=== PATIENT | female | born 1935 | race Caucasian/White ===

== ENCOUNTER 2017-04-05 04:51 | Inpatient (IN) ==
[2017-04-05] MEDS ORDERED: NITROGLYCERIN 2% OINT 1 INCH/GM PACK TOP STA (05:18)
[2017-04-05] MEDS ORDERED: ASPIRIN 325 MG TABLET PO STA (05:18)
--- NOTE | 2017-04-05 05:24 | Emergency Department Note ---
Arrival - Arrival ED Nursing Triage Note: Pt arrives via ems from home after waking up at 0200 with chest pain that radiated into her back and down her left arm. Pt states that she was short of breath when she would lay flat. States that pain is still dull in her back between her shoulder blades at time of triage. Denies any nause or vomiting. Pt complains of headache at time of triage as well. Mode of Arrival: Stretcher Limitations: No Limitations Source: Patient - History of Present Illness Onset (ago): hour(s) (Patient presents 3 hours post onset of symptoms) Date of Last Menstrual Period: Hyster <Santi Rosenbaum - Last Filed: 04/05/17 05:21> <Nickolas Santoyo - Last Filed: 04/05/17 07:20> - Arrival Chief Complaint: Chest Pain Time Seen by Provider: 04/05/17 05:18 - History of Present Illness HPI Narrative: This 82-year-old white female presents with complaints of awakening to central chest pain radiating to the back and into the neck and left arm associated with shortness of breath 3 hours ago. Pain has since abated. She denies any nausea , vomiting, or diaphoresis in association with this. She does describe some wheezing as well as headache. She does have an extensive history of ischemic heart disease that is post IL, CABG, and multiple stents per Dr. Peña. Currently her only pain is her headache and with this she denies any visual changes, slurring of speech, or focal deficits. The patient states for the last several days she has not felt herself and has been more washed out and tired out than usual. During this timeframe she denies any orthopnea, PND, or pedal edema in association with these symptoms. Currently she appears in no acute medical distress. (Santi Rosenbaum) Allergies/Adverse Reactions: Allergies Allergy/AdvReac Type Severity Reaction Status Date / Time Penicillins Allergy RASH Verified 09/05/15 01:51 codeine AdvReac Nausea Verified 09/05/15 01:51 meperidine [From Demerol] AdvReac Nausea Verified 09/05/15 01:51 Home Medications: Home Medications Medication Instructions Recorded Confirmed Type Acetaminophen Tab [Tylenol Tab] 500 mg PO Q6HR PRN 09/05/15 04/05/17 History Aspirin EC Tab 81 mg PO DAILY 09/05/15 04/05/17 History Famotidine 40 mg PO DAILY 09/05/15 04/05/17 History Gabapentin 400 mg PO DAILY 09/05/15 04/05/17 History Gabapentin 400 mg PO TID 09/05/15 04/05/17 History Lisinopril 10 mg PO DAILY 09/05/15 04/05/17 History Metoprolol Tartrate Tab [Lopressor 25 mg PO BID 09/05/15 04/05/17 History Tab] Multivit-Min/Iron/Folic/Lutein 1 each PO DAILY 09/05/15 04/05/17 History [Centrum Silver Women Tablet] Nitrofurantoin Macrocrystals 50 mg PO DAILY 09/05/15 04/05/17 History [Macrodantin] Nitroglycerin Sl Tab [Nitrostat] 0.4 mg SL Q5M PRN 09/05/15 04/05/17 History Oxycodone HCl/Acetaminophen 1 each PO Q6H PRN 09/05/15 04/05/17 History [Oxycodon-Acetaminophen 7.5-325] Prasugrel [Effient] 10 mg PO DAILY 09/05/15 04/05/17 History Pravastatin [Pravachol] 40 mg PO BEDTIME 09/05/15 04/05/17 History Sertraline [Zoloft] 50 mg PO DAILY 09/05/15 04/05/17 History amLODIPine [Norvasc] 10 mg PO DAILY 09/05/15 04/05/17 History buPROPion [Wellbutrin] 100 mg PO DAILY 09/05/15 04/05/17 History Isosorbide Mononitrate [Imdur] 60 mg PO BID #60 tablet 09/09/15 04/05/17 Rx Ranolazine [Ranexa] 500 mg PO BID #60 tablet 09/09/15 04/05/17 Rx Review of System - Review of System 12 point system: reviewed and no additional remarkable complaints except as stated - Review of System Constitutional: Present: as per HPI Respiratory: Present: as per HPI Cardiovascular: Present: as per HPI Gastrointestinal: Present: as per HPI <Santi Rosenbaum W - Last Filed: 04/05/17 05:21> Medical,Surgical,& Family Hx - Medical History Cardio: History of: CAD, Hypertension, IL (three IL), Cardiovascular Problems Psychological: History of: Anxiety Disorders, Depression Neurology: No history of: Cerebrovascular Accident HEENT: History of: Eye Problem (glasses) Endocrine: History of: Dyslipidemia Genitourinary: History of: Recurring Urinary Tract Infections Gastrointestinal: History of: GERD Musculoskeletal: History of: Musculoskeletal Problems (arthritis) Hematology: History of: Clotting Problems (DVT WHILE ) - Surgical History Cardiac Surgeries: Sugical HX of: Cardiac Catheterization (7 stents), Cardiac Surgery (Triple bypass) Thoracic Surgeries: Patient denies;: Organ Transplant Abdominal Surgeries: Surgical HX of: Cholecystectomy - Family History Family History: Reports;: Family Heart Disease - Social History Smoking Status: Never smoker Frequency of Alcohol Use: None Type of Drug Use: None <Santi Rosenbaum - Last Filed: 04/05/17 05:21> Exam <Santi Rosenbaum - Last Filed: 04/05/17 05:21> <Nickolas Santoyo - Last Filed: 04/05/17 07:20> Physical Examination: GENERAL: Well developed, well nourished elderly white female in no acute distress. HEENT: Normocephalic. No trauma. Moist mucous membranes. EOMI. PERRLA. ENT NML NECK: Supple. No adenopathy. No JVD CARDIAC: Regular. No murmurs. Heart rate 80 CHEST: Clear to auscultation. No respiratory distress. O2 sat 91% ABDOMEN: Soft. Nontender. Active bowel sounds. EXTREMITIES: No trauma. Normal ROM. No pedal edema. SKIN: No diaphoresis. No rash. NEURO: Alert. Neuro intact. No focal deficits. (Santi Rosenbaum) Vital Signs: Vital Signs Temperature 97.4 F L 04/05/17 04:51 Pulse Rate 80 04/05/17 04:51 Respiratory Rate 20 04/05/17 04:51 Blood Pressure 123/60 04/05/17 04:51 O2 Sat by Pulse Oximetry 91 L 04/05/17 04:51 Course <Santi Rosenbaum - Last Filed: 04/05/17 05:21> - Consultations Time: 07:20 <Nickolas Santoyo - Last Filed: 04/05/17 07:20> Course Narrative: Care assumed from Dr. Rosenbaum at 6 AM. (Yarelis,Nickolas D) - Consultations Consultation #1: Discussed with Dr. Ricci. Patient will be seen by him in the emergency department. (Nickolas Santoyo) Results <Santi Rosenbaum - Last Filed: 04/05/17 05:21> - Labs CBC & BMP: 04/05/17 05:47 04/05/17 05:47 Lab Results: I have reviewed the patients labs - Diagnostic Findings Procedure: Chest x-ray: image reviewed by me (Old median sternotomy, no pleural effusions, no infiltrates.) <Nickolas Santoyo - Last Filed: 04/05/17 07:20> - Labs Labs: Laboratory Tests 04/05/17 04/05/17 05:47 05:47 Troponin I < 0.015 Urine pH 5.0 Ur Specific [place] 1.014 Urine Nitrate Positive H Urine Leukocytes Large H Urine RBC 4 Urine WBC 184 (Nickolas Santoyo) - Impressions EKG: Sinus rhythm at 74 with normal MN interval but left bundle branch block. Nonspecific ST changes of bundle branch block but no acute injury pattern noted. (Sanit Rosenbaum) Disposition <Santi Rosenbaum - Last Filed: 04/05/17 05:21> Case discussed with: patient <Nickolas Santoyo - Last Filed: 04/05/17 07:20> Clinical Impression: Chest pain, Coronary artery disease, Urinary tract infection Disposition: Still a Patient
[2017-04-05] MEDS ORDERED: ASPIRIN 325 MG TABLET ONE (05:41)
[2017-04-05] MEDS ORDERED: NITROGLYCERIN 2% OINT 1 INCH/GM PACK TOP ONE (05:41)
--- NOTE | 2017-04-05 06:01 | EKG Report ---
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
[2017-04-05 06:23] LABS: Basophils # 0.1 10*3/uL (0.0-0.2); Basophils % 0.4 % (0.0-0.8); Eosinophils # 0.1 10*3/uL (0.0-0.87); Hemoglobin 12.1 GM/DL (12.0-16.0); Immature Granulocytes % 0.3 %; Immature Granulocytes Absolute 0.04 #; Lymphocytes # 1.9 10*3/uL (1.4-4.0); Lymphocytes % 16.2 % (21.3-54.2); Mean Corpuscular HGB Conc 34.6 GM/DL (32-36); Mean Corpuscular Hemoglobin 34 PG (27-34); Mean Platelet Volume 9.4 FL (9.6-12.0); Monocytes # 0.9 10*3/uL (0.11-0.8); Monocytes % 7.9 % (1.7-12.7); Neutrophils # 8.8 10*3/uL (1.4-7.4); Neutrophils % 74.2 % (38.7-73.9); Platelet Count 295 T/CUMM (130-400); Red Blood Count 3.57 MC/CUMM (3.8-5.5); Red Cell Distribution Width 11.8 % (9.3-17.3); White Blood Count 11.8 T/CUMM (4-12)
[2017-04-05 06:27] LABS: Apearance,Urine CLOUDY (Clear); Bacteria,Urine Many /HPF (Few); Bilirubin,Urine Negative (Negative); Blood, Urine Negative (Negative); Glucose,Urine (UA) Negative (Negative); Ketones,Urine Negative (Negative); Mucus,Urine Occasional /LPF (Occasional); Nitrite,Urine Positive (Negative); Protein,Urine Negative; RBC,Urine 4 /HPF (0-4); Squamous Epithelial Cell,Urine Occasional /HPF (0-10); Urine Specific Gravity 1.014 (1.001-1.035); Urine Urobilinogen < 2.0 EU/DL (0.2-1.0); WBC,Urine 184 /HPF (0-6)
[2017-04-05 06:28] LABS: Urine Color Dark yellow (Yellow)
[2017-04-05 06:31] LABS: INR 1.1; PT Patient Result 11.8 SECS; Partial Thromboplastin Time 29.2 SECS (0-40)
[2017-04-05 07:01] LABS: Albumin 3.4 G/DL (3.4-5.0); Bilirubin,Total 0.5 MG/DL (0.2-1.0); Calcium 8.7 MG/DL (8.5-10.1); Osmolality,Calculated 274.8 MOS/KG (273-304); Potassium 4.3 MMOL/L (3.5-5.1); Total Protein 6.3 G/DL (6.4-8.3)
[2017-04-05 07:04] LABS: Troponin I Only < 0.015 NG/ML (0.00-0.045)
[2017-04-05] MEDS ORDERED: LEVOFLOXACIN INJ 500 MG in PREMIX 1 EACH IV STA (07:17)
--- NOTE | 2017-04-05 07:55 | XRay Report ---
Referring Physician: Santi Rosenbaum Exam: XR chest 1V portable Date: April 05, 2017 at 5:20 AM Reason: Chest pain Comparison: Chest one view portable September 05, 2015 Findings: The cardiac silhouette is again mildly enlarged, and the patient is status post sternotomy. There may be venous congestion and minimal left pleural fluid. There is also a questionable small opacity within the left upper lung zone. This could represent artifact, atelectasis or pneumonitis, but a noncalcified nodule cannot be excluded. A follow-up chest x-ray is recommended. No pneumothorax is identified. No acute osseous process is seen. Impression: 1. Mild cardiomegaly. 2. Possible venous congestion and minimal left pleural fluid. 3. Questionable small opacity within the left upper lung zone. This could represent artifact, atelectasis or pneumonitis, but a noncalcified nodule cannot be excluded. A followup chest x-ray is recommended to see if this finding persists. PROCEDURE INTERPRETED AT [facility] DEPARTMENT OF RADIOLOGY Final Report Signed by: Dr. Malena Nevarez
[2017-04-05] MEDS ORDERED: LEVOFLOXACIN INJ 100 ML IV ONE (07:56)
[2017-04-05] MEDS ORDERED: MAGNESIUM SULF RIDER 2 GM in PREMIX 1 EACH IV PRN (09:26)
[2017-04-05] MEDS ORDERED: MAGNESIUM SULF RIDER 4 GM in PREMIX 1 EACH IV PRN (09:26)
[2017-04-05] MEDS ORDERED: DOCUSATE SODIUM 100 MG CAPSULE PO PRN (09:26)
[2017-04-05] MEDS ORDERED: ZALEPLON 5 MG CAPSULE PO PRN (09:26)
[2017-04-05] MEDS ORDERED: oxyCODONE/ACETAMINOPHEN 5-325 MG TABLET PO PRN (09:28)
[2017-04-05] MEDS ORDERED: RANOLAZINE 500 MG TABLET PO SCH (09:30)
[2017-04-05] MEDS ORDERED: ENOXAPARIN 40 MG/0.4 ML SYRINGE SUBCUT SCH (09:30)
[2017-04-05] MEDS ORDERED: traMADol 50 MG TABLET ONE (09:45)
[2017-04-05] MEDS: traMADol 50 MG TABLET PO SCH ×2 (09:47→22:04)
[2017-04-05] MEDS: ASPIRIN EC 81 MG TABLET PO SCH (11:05)
[2017-04-05] MEDS: ISOSORBIDE MONONITRATE 60 MG TABLET PO SCH ×2 (11:15→22:04)
[2017-04-05] MEDS: amLODIPine 10 MG TABLET PO SCH (11:15)
[2017-04-05] MEDS: SERTRALINE 50 MG TABLET PO SCH (11:16)
[2017-04-05] MEDS: buPROPion 100 MG TABLET PO SCH (11:16)
[2017-04-05] MEDS: METOPROLOL TARTRATE 25 MG TABLET PO SCH ×2 (11:16→22:04)
[2017-04-05] MEDS: PRASUGREL 10 MG TABLET PO SCH (11:16)
[2017-04-05] MEDS: ACETAMINOPHEN 325 MG TABLET PO SCH ×2 (11:16→22:03)
[2017-04-05] MEDS: LISINOPRIL 10 MG TABLET PO SCH (11:16)
[2017-04-05] MEDS: PANTOPRAZOLE 40 MG TABLET PO SCH (11:17)
--- NOTE | 2017-04-05 11:33 | Cardiology History & Physical ---
Assessment and Plan - Time spent with patient Time spent with patient: Greater than 30 minutes (1) Hx of CABG Status: Chronic Assessment and plan: SEE PLAN OF CARE LISTED BELOW Current Visit: Yes (2) Hypertension Status: Chronic Assessment and plan: SEE PLAN OF CARE LISTED BELOW Current Visit: Yes (3) Aortic stenosis Status: Chronic Assessment and plan: SEE PLAN OF CARE LISTED BELOW Current Visit: Yes (4) Right carotid bruit Status: Acute Assessment and plan: SEE PLAN OF CARE LISTED BELOW Current Visit: Yes (5) Chest pain Status: Acute Assessment and plan: SEE PLAN OF CARE LISTED BELOW Current Visit: No (6) CAD (coronary artery disease) Status: Chronic Assessment and plan: SEE PLAN OF CARE LISTED BELOW Current Visit: No Qualifiers: Coronary Disease-Associated Artery/Lesion type: bypass graft [place] vs. transplanted heart: [place] heart Associated angina: with unspecified angina Qualified Code(s): I25.709 - Atherosclerosis of coronary artery bypass graft(s) , unspecified, with unspecified angina pectoris (7) Depressive disorder Status: Chronic Assessment and plan: SEE PLAN OF CARE LISTED BELOW Current Visit: No (8) Dyslipidemia (high LDL; low HDL) Status: Chronic Assessment and plan: SEE PLAN OF CARE LISTED BELOW Current Visit: No (9) Coronary artery disease Status: Chronic Assessment and plan: SEE PLAN OF CARE LISTED BELOW Current Visit: Yes (10) Urinary tract infection Status: Acute Assessment and plan: SEE PLAN OF CARE LISTED BELOW Current Visit: Yes History of Present Illness Chief complaint: CHEST PAIN, BACK PAIN, SHOULDER PAIN History of present illness: 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 Meza, 82WF, is routinely followed by Dr. Carrion. She was last seen in cardiology clinic February 22, 2017. Risk factors include: Advanced age, known coronary artery disease (status post CABG 2003 with abrupt closure within days of having her bypass grafting requiring emergent stenting at [facility]), hypertension, dyslipidemia, sedentary lifestyle, CVA. According to Dr. Peña's last note in clinic in February, he had reviewed her heart catheterization films were a failed attempt to wire ostium of the RCA with in-stent restenosis noted. He remarks she has had failed grafts, failed stents multiple times. He recommends medical management at this point. Echocardiogram February 22, 2017 reveals the following: EF 50%, grade 2 diastolic dysfunction, moderate with mild to moderate AI, PA P 35 mmHg + RAP. Patient presented to the emergency department at [facility] this morning after experiencing pain between her scapula which woke her from her sleep around 0200. She believes she was laying flat when this happened. It was sharp and stabbing and took her breath away. She sat up in bed and felt a sharp stabbing pain in the left upper chest area close to her shoulder. She can identify no aggravating nor any alleviating factors. The discomfort lasted several hours and she felt as if she should be evaluated in the ER. She rates the discomfort as a 7 on a scale of 1-10. It was not associated with nausea, vomiting or diaphoresis. It was not associated with shortness of breath but it was sharp and painful and took her breath away. Upon palpation of the left upper chest and left mid back area under the scapula , she is tender to touch. This is similar to the discomfort she felt earlier this morning but not as intense. 2 sets of cardiac biomarkers are negative, EKG reveals a chronic left bundle branch block unchanged from her February 22, 2017 EKG. patient has been taking isosorbide mononitrate 60 mg orally twice daily for several months and has found that this has treated her chest pain well. She is also taking Ranexa 500 mg orally twice daily without problems. Patient's blood pressure is minimally elevated though she has not had her meds this morning. She has a history of DVT many years ago. I will order a d- dimer. Hopefully, we can increase her antianginal agents, treat her musculoskeletal pain, continue to monitor her cardiac biomarkers and EKG. She consistently takes aspirin and Effient without fail. Patient has a urinary tract infection. She tells me she frequently has UTIs but has not had one in a few years though she has not had this checked. She is asymptomatic. Culture and sensitivity has been ordered. I will further discuss with Dr. Ricci and await his recommendations. Hopefully, patient's chest pain will resolve with the previously stated plan and she may be eligible for discharge tomorrow. ASSESSMENT/PLAN: 1. CHEST PAIN - patient has severe three-vessel coronary artery disease managed by Dr. Carrion. Her cardiac biomarkers are negative and her EKG is unchanged from her prior EKG. Patient does have reproducible chest pain and back pain. I will treat her musculoskeletal pain, continue to monitor cardiac biomarkers and increase antianginals as able. Continue aspirin, Effient, beta stanley, TANYA inhibitor and lipid-lowering agent. 2. KNOWN SEVERE CAD S/P CABG - continue current plan of care listed above 3. HYPERTENSION - will adjust medications accordingly during the hospital stay 4. DYSLIPIDEMIA - fasting lipid profile in the morning. 5. AORTIC STENOSIS, MODERATE - continue current plan of care per recent echo February 2017 6. BRUIT, CAROTID RIGHT - suspect this is radiation from her cardiac murmur. Carotid ultrasound 7. CHRONIC LBBB - continue current plan of care 8. UTI - C&S pending. Will go ahead and start Macrobid as she has taken this frequently without problems. Home Medications Medication Instructions Recorded Confirmed Type Acetaminophen Tab [Tylenol Tab] 500 mg PO Q6HR PRN 09/05/15 04/05/17 History Aspirin EC Tab 81 mg PO DAILY 09/05/15 04/05/17 History Famotidine 20 mg PO BID 09/05/15 04/05/17 History Gabapentin 400 mg PO TID 09/05/15 04/05/17 History Lisinopril 10 mg PO DAILY 09/05/15 04/05/17 History Metoprolol Tartrate Tab [Lopressor 25 mg PO BID 09/05/15 04/05/17 History Tab] Multivit-Min/Iron/Folic/Lutein 1 each PO DAILY 09/05/15 04/05/17 History [Centrum Silver Women Tablet] Nitrofurantoin Macrocrystals 50 mg PO DAILY 09/05/15 04/05/17 History [Macrodantin] Nitroglycerin Sl Tab [Nitrostat] 0.4 mg SL Q5M PRN 09/05/15 04/05/17 History Oxycodone HCl/Acetaminophen 1 each PO Q6H PRN 09/05/15 04/05/17 History [Oxycodon-Acetaminophen 7.5-325] Prasugrel [Effient] 10 mg PO DAILY 09/05/15 04/05/17 History Pravastatin [Pravachol] 40 mg PO BEDTIME 09/05/15 04/05/17 History Sertraline [Zoloft] 50 mg PO DAILY 09/05/15 04/05/17 History amLODIPine [Norvasc] 10 mg PO DAILY 09/05/15 04/05/17 History buPROPion [Wellbutrin] 100 mg PO DAILY 09/05/15 04/05/17 History Ranolazine [Ranexa] 500 mg PO BID #60 tablet 09/09/15 04/05/17 Rx Isosorbide Mononitrate [Isosorbide 60 mg PO DAILY 04/05/17 04/05/17 History Mononitrate ER] Meloxicam [Meloxicam] 15 mg PO DAILY 04/05/17 04/05/17 History Allergies Allergy/AdvReac Type Severity Reaction Status Date / Time Penicillins Allergy RASH Verified 09/05/15 01:51 codeine AdvReac Nausea Verified 09/05/15 01:51 meperidine [From Demerol] AdvReac Nausea Verified 09/05/15 01:51 Review of systems: REVIEW OF SYSTEMS: See HPI - Constitutional Constitutional: Present: Fatigue. Absent: syncope, anorexia, night sweats - EENT Eyes: Absent: blurry vision, loss of vision, diplopia Ears: Absent: decreased hearing, ear pain, ear discharge - Cardiovascular Cardiovascular: Present: chest pain with movement. Denies edema, palpitations. Absent: chest pain with deep breath, claudication - Respiratory Respiratory: Present: GREEN, chronic. No real change agent the past several months. Absent: wheezing, hemoptysis, change in phlegm color - Gastrointestinal Gastrointestinal: Denies: constipation. Absent: abdominal pain, hematemesis, hematochezia, melena, change in bowel habits, nausea - Genitourinary Genitourinary: Absent: difficulty urinating, dysuria, urinary hesitancy, flank pain - Musculoskeletal Musculoskeletal: Present: back pain Absent: joint swelling, muscle cramps, muscle weakness - Neurological Neurological: Present: normal gait without frequent falls. Absent: dizziness, hemiparesis - Psychiatric Psychiatric: Present: anxiety, depression. Denies difficulty concentrating - Endocrine Endocrine: Present: fatigue. Absent: cold intolerance, heat intolerance, polyuria, polyphagia, polydipsia - Hematologic/Lymphatic Hematologic/Lymphatic: Present: easy bruising. Absent: easy bleeding -Integumentary Integumentary: Absent: lesions, rashes, skin breakdown Medical,Surgical,& Family Hx - Medical History Cardio: History of: CAD, Hypertension, PR (three PR), Cardiovascular Problems Psychological: History of: Anxiety Disorders, Depression Neurology: No history of: Cerebrovascular Accident HEENT: History of: Ear Problem (hearing aides), Eye Problem (glasses) Endocrine: History of: Dyslipidemia Genitourinary: History of: Recurring Urinary Tract Infections Gastrointestinal: History of: GERD Musculoskeletal: History of: Musculoskeletal Problems (arthritis) Hematology: History of: Clotting Problems (DVT WHILE ) - Surgical History Cardiac Surgeries: Sugical HX of: Cardiac Catheterization (7 stents), Cardiac Surgery (Triple bypass) Thoracic Surgeries: Patient denies;: Organ Transplant Abdominal Surgeries: Surgical HX of: Cholecystectomy - Family History Family History: Reports;: Family Heart Disease - Social History Smoking Status: Never smoker Have you smoked in the last 12 months: No Frequency of Alcohol Use: None Type of Drug Use: None Marital Status: Lives With:: [place] Functional capacity: independent ambulation Cardiology Physical Exam - Constitutional Vitals: Vital Signs Temp Pulse Resp BP Pulse Ox 97.4 F L 73 20 142/48 96 04/05/17 04:51 04/05/17 10:50 04/05/17 10:50 04/05/17 10:15 04/05/17 10:15 Intake and Output 04/04/17 04/05/17 04/05/17 23:59 07:59 15:59 Other: Weight 83.007 kg Patient Weight 04/05/17 23:59 Weight 83.007 kg Exam: General: [Appears well with no apparent distress.] [Pleasant and cooperative. ] [Appears comfortable.] HEENT: [PERRL, normocephalic, atraumatic. Mucous membranes moist. No jaundice noted. Conjunctiva moist and clear, sclerae anicteric] Neck: No JVD/HJR, no thyromegaly or lymphadenopathy noted. Right carotid bruit noted Cardiac: [Regular rate and rhythm.] [III/ systolic ejection murmur heard best at second intercostal space to the right. Lungs: [Clear to auscultation without accessory muscle use to assist the respiratory pattern.] Not requiring oxygen Abdomen: Soft, bowel sounds normoactive. Nontender and nondistended. No abdominal bruit or thrill noted. No masses noted. Musculoskeletal: No fluid collection. Decreased range of motion is noted. Extremities: No clubbing, cyanosis noted. [ No edema noted.] Upper extremity pulses 2+. Lower extremity pulses 2+. Capillary refill less than 3 seconds. Skin: No unusual lesions or rashes. No skin breakdown appreciated. Neuro: Awake, alert and oriented 3. Moves all extremities well without hemiparesis or paralysis. No essential tremor is appreciated. Result/EKG - Labs CBC & BMP: 04/05/17 05:47 04/05/17 05:47 Lab Results: I have reviewed the past 24 hour labs - Diagnostic Findings Procedure: Chest x-ray: report reviewed by me - EKG EKG results: interpreted by wy EKG shows: sinus rhythm (Left bundle branch block)
[2017-04-05 12:59] LABS: Troponin I Only 0.029 NG/ML (0.00-0.045)
[2017-04-05] MEDS ORDERED: KETOROLAC 15 MG/1 ML VIAL IV ONE (14:27)
[2017-04-05] MEDS: GABAPENTIN 400 MG CAPSULE PO SCH ×2 (15:43→22:03)
[2017-04-05] MEDS: NITROFURANTOIN MACROCRYSTALS 50 MG CAPSULE PO SCH (15:43)
--- NOTE | 2017-04-05 15:43 | Ultrasound Report ---
US carotid duplex BI Indication: Right carotid bruit. Comparison: Carotid ultrasound dated September 09, 2006. Technique: Multiple longitudinal and transverse real-time sonographic images of the bilateral carotid arterial systems are obtained with grayscale, spectral, and color Doppler analysis. Findings: Peak systolic velocities within the right CCA, proximal ICA, and distal ICA are 87, 68, and 68 cm/s respectively. Peak systolic velocities within the left CCA, proximal ICA, and distal ICA are 77, 52, and 70 cm/s respectively. ICA/CCA ratios on the right and left are 0.8 and 0.9 respectively. Antegrade flow demonstrated within the bilateral vertebral arteries. Grayscale imaging demonstrates minimal atherosclerotic plaque bilaterally.. IMPRESSION: No convincing sonographic evidence of significant (50% or greater) narrowing of either cervical internal carotid artery. NASCET criteria utilized. PROCEDURE INTERPRETED AT [facility] DEPARTMENT OF RADIOLOGY Final Report Signed by: Dr Brent Romo
[2017-04-05] MEDS: ONDANSETRON 4 MG/2 ML VIAL IV PRN (15:48)
[2017-04-05 18:25] LABS: Troponin I Only 0.039 NG/ML (0.00-0.045)
[2017-04-05] MEDS: NITROGLYCERIN SL 0.4 MG TABLET SL PRN (19:46)
[2017-04-05] MEDS: MORPHINE 2 MG/1 ML SYRINGE IV PRN (19:46)
[2017-04-05] MEDS ORDERED: PRAVASTATIN 40 MG TABLET PO SCH (21:00)
[2017-04-05] MEDS ORDERED: KETOROLAC 30 MG/1 ML VIAL IV ONE (21:43)
--- NOTE | 2017-04-05 21:45 | Event Note ---
I was called by nursing that patient was having recurrent chest pain, similar to her admission pain. On review of the chart she has had a reproducible chest pain. This was mildly responsive to nitroglycerin. Nursing was concerned that repeat ECG showed ST elevation. In fact, it shows a chronic stable left bundle branch block which overall is nondiagnostic. We will try to treat her with pain medications and see how she responds.
[2017-04-05] MEDS: RANOLAZINE 500 MG TABLET PO SCH (22:04)
[2017-04-05 22:46] LABS: Troponin I Only 0.034 NG/ML (0.00-0.045)
[2017-04-05] MEDS: ENOXAPARIN 80 MG/0.8 ML SYRINGE SUBCUT SCH (23:29)
[2017-04-06 06:12] LABS: Basophils # 0.1 10*3/uL (0.0-0.2); Basophils % 0.9 % (0.0-0.8); Eosinophils # 0.2 10*3/uL (0.0-0.87); Eosinophils % 2.6 % (0.00-10.9); Hematocrit 33.4 VOL% (35.7-47.0); Hemoglobin 11.1 GM/DL (12.0-16.0); Immature Granulocytes % 0.5 %; Immature Granulocytes Absolute 0.03 #; Lymphocytes # 2.1 10*3/uL (1.4-4.0); Lymphocytes % 32.5 % (21.3-54.2); Mean Corpuscular HGB Conc 33.2 GM/DL (32-36); Mean Corpuscular Hemoglobin 34 PG (27-34); Mean Corpuscular Volume 100.9 FL (87-102); Mean Platelet Volume 9.9 FL (9.6-12.0); Monocytes # 0.7 10*3/uL (0.11-0.8); Monocytes % 10.2 % (1.7-12.7); Neutrophils # 3.5 10*3/uL (1.4-7.4); Neutrophils % 53.3 % (38.7-73.9); Platelet Count 303 T/CUMM (130-400); Red Blood Count 3.31 MC/CUMM (3.8-5.5); White Blood Count 6.5 T/CUMM (4-12)
[2017-04-06 06:45] LABS: Albumin 3.2 G/DL (3.4-5.0); Bilirubin,Total 0.8 MG/DL (0.2-1.0); Calcium 8.8 MG/DL (8.5-10.1); Magnesium 2.4 MG/DL (1.8-2.4); Osmolality,Calculated 281.3 MOS/KG (273-304); Potassium 4.5 MMOL/L (3.5-5.1); Risk Ratio 4.14; VLDL CHOLESTEROL 41.6 MG/DL
[2017-04-06 06:51] LABS: Troponin I Only 0.037 NG/ML (0.00-0.045)
--- NOTE | 2017-04-06 07:43 | EKG Report ---
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
--- NOTE | 2017-04-06 08:12 | EKG Report ---
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
--- NOTE | 2017-04-06 08:12 | EKG Report ---
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
[2017-04-06] MEDS: GABAPENTIN 400 MG CAPSULE PO SCH ×3 (09:32→20:37)
[2017-04-06] MEDS: LISINOPRIL 10 MG TABLET PO SCH (09:32)
[2017-04-06] MEDS: ASPIRIN EC 81 MG TABLET PO SCH (09:32)
[2017-04-06] MEDS: NITROFURANTOIN MACROCRYSTALS 50 MG CAPSULE PO SCH (09:32)
[2017-04-06] MEDS: RANOLAZINE 500 MG TABLET PO SCH ×2 (09:32→20:37)
[2017-04-06] MEDS: METOPROLOL TARTRATE 50 MG TABLET PO SCH ×2 (09:32→20:38)
[2017-04-06] MEDS: ISOSORBIDE MONONITRATE 60 MG TABLET PO SCH ×2 (09:33→20:37)
[2017-04-06] MEDS: SERTRALINE 50 MG TABLET PO SCH (09:33)
[2017-04-06] MEDS: PRASUGREL 10 MG TABLET PO SCH (09:33)
[2017-04-06] MEDS: ACETAMINOPHEN 325 MG TABLET PO SCH ×2 (09:33→20:37)
[2017-04-06] MEDS: amLODIPine 10 MG TABLET PO SCH (09:33)
[2017-04-06] MEDS: buPROPion 100 MG TABLET PO SCH (09:33)
[2017-04-06] MEDS: traMADol 50 MG TABLET PO SCH ×2 (09:33→20:38)
[2017-04-06] MEDS: PANTOPRAZOLE 40 MG TABLET PO SCH (09:33)
[2017-04-06 10:11] LABS: Troponin I Only 0.021 NG/ML (0.00-0.045)
[2017-04-06] MEDS: ENOXAPARIN 80 MG/0.8 ML SYRINGE SUBCUT SCH (11:28)
[2017-04-06] MEDS ORDERED: POTASSIUM CHLORIDE RIDER 10 MEQ in PREMIX 1 EACH IV PRN (12:38)
[2017-04-06] MEDS ORDERED: MAGNESIUM SULF RIDER 2 GM in PREMIX 1 EACH IV PRN (12:38)
[2017-04-06] MEDS ORDERED: DIAZEPAM 5 MG TABLET PO ONE (12:38)
[2017-04-06] MEDS ORDERED: diphenhydrAMINE CAP 25 MG CAPSULE PO ONE (12:38)
--- NOTE | 2017-04-06 12:46 | Cardiology Progress Note ---
Assessment and Plan - Time spent with patient Time spent with patient: Greater than 30 minutes (1) Hx of CABG Status: Chronic Assessment and plan: SEE PLAN OF CARE LISTED BELOW Current Visit: Yes (2) Hypertension Status: Chronic Assessment and plan: SEE PLAN OF CARE LISTED BELOW Current Visit: Yes (3) Aortic stenosis Status: Chronic Assessment and plan: SEE PLAN OF CARE LISTED BELOW Current Visit: Yes (4) Right carotid bruit Status: Acute Assessment and plan: SEE PLAN OF CARE LISTED BELOW Current Visit: Yes (5) Chest pain Status: Acute Assessment and plan: SEE PLAN OF CARE LISTED BELOW Current Visit: No (6) CAD (coronary artery disease) Status: Chronic Assessment and plan: SEE PLAN OF CARE LISTED BELOW Current Visit: No Qualifiers: Coronary Disease-Associated Artery/Lesion type: bypass graft [place] vs. transplanted heart: [place] heart Associated angina: with unspecified angina Qualified Code(s): I25.709 - Atherosclerosis of coronary artery bypass graft(s) , unspecified, with unspecified angina pectoris (7) Depressive disorder Status: Chronic Assessment and plan: SEE PLAN OF CARE LISTED BELOW Current Visit: No (8) Dyslipidemia (high LDL; low HDL) Status: Chronic Assessment and plan: SEE PLAN OF CARE LISTED BELOW Current Visit: No (9) Coronary artery disease Status: Chronic Assessment and plan: SEE PLAN OF CARE LISTED BELOW Current Visit: Yes (10) Urinary tract infection Status: Acute Assessment and plan: SEE PLAN OF CARE LISTED BELOW Current Visit: Yes Cardiology - PN: Subj Interval history: SALES PROFESSIONAL: DR. CARRION SUMMARY: Ms. Meza, 82WF, has a history of known coronary artery disease ( status post CABG 2003 with abrupt closure within days of having her bypass grafting requiring emergent stenting at [facility]), hypertension, dyslipidemia, sedentary lifestyle, CVA. According to Dr. Carrion's last note in clinic in February 2017, he reviewed her heart catheterization films noted a failed attempt to wire ostium of the RCA with in-stent restenosis noted. He remarks she has had failed grafts, failed stents multiple times. He recommended medical management at this point. Echocardiogram February 22, 2017 reveals the following: EF 50%, grade 2 diastolic dysfunction, moderate with mild to moderate AI, PAP 35 mmHg + RAP. APRIL 06, 2017: Patient was hospitalized April 05, 2017 with complaints of chest pain. She was treated with antianginal agents including increasing Ranexa to 1000 mg twice daily, treatment of musculoskeletal pain and continued monitoring of her cardiac biomarkers and EKG. Aspirin and Effient were continued. Unfortunately, patient continued to have anginal type symptoms intermittently during the night when walking. She had been walking without her oxygen and when she returned to bed she had chest pain. The nurse noticed her oxygen had been off, checked her SPO2 sat noted to be 84%, reapplied oxygen individually her chest discomfort resolved. This morning, Dr. Ricci has evaluated patient complaints and recommend undergoing cardiac catheterization today. Patient is agreeable. Dr. Jorge will perform this afternoon I will keep her n.p.o. at this time. ASSESSMENT/PLAN: 1. CHEST PAIN - patient has severe three-vessel coronary artery disease managed by Dr. Carrion. Her cardiac biomarkers are negative and her EKG is unchanged from her prior EKG. patient continues to have chest discomfort and she will undergo cardiac catheterization this afternoon. 2. KNOWN SEVERE CAD S/P CABG - continue current plan of care listed above 3. HYPERTENSION - will adjust medications accordingly during the hospital stay 4. DYSLIPIDEMIA - LDL 125. Will increase pravastatin 80 mg each evening starting this evening. 5. AORTIC STENOSIS, MODERATE - continue current plan of care per recent echo February 2017 6. BRUIT, CAROTID RIGHT - carotid ultrasound reveals no significant stenosis. 7. CHRONIC LBBB - continue current plan of care 8. UTI - gram-negative rods noted. Will continue Macrobid. She is afebrile. 9. CARDIAC MURMUR - murmur. Recent echo reveals moderate , mild to moderate AI. Exam (Progress Note) - Constitutional Vitals: Period Temp Pulse Resp BP Sys/Alas Pulse Ox Last 24 Hr 96.7 F-98.7 F 56-68 18-20 109-148/47-68 91-94 Exam: Exam: General: [Appears well with no apparent distress.] [Pleasant and cooperative. ] [Appears comfortable.] HEENT: [PERRL, normocephalic, atraumatic. Mucous membranes moist. No jaundice noted. Conjunctiva moist and clear, sclerae anicteric] Neck: No JVD/HJR, no thyromegaly or lymphadenopathy noted. Right carotid bruit noted Cardiac: [Regular rate and rhythm.] [III/ systolic ejection murmur heard best at second intercostal space to the right. Lungs: [Clear to auscultation without accessory muscle use to assist the respiratory pattern.] Not requiring oxygen Abdomen: Soft, bowel sounds normoactive. Nontender and nondistended. No abdominal bruit or thrill noted. No masses noted. Musculoskeletal: No fluid collection. Decreased range of motion is noted. Extremities: No clubbing, cyanosis noted. [ No edema noted.] Upper extremity pulses 2+. Lower extremity pulses 2+. Capillary refill less than 3 seconds. Skin: No unusual lesions or rashes. No skin breakdown appreciated. Neuro: Awake, alert and oriented 3. Moves all extremities well without hemiparesis or paralysis. No essential tremor is appreciated. Result/EKG - Labs CBC & BMP: 04/06/17 05:07 04/06/17 05:07 Lab Results: I have reviewed the past 24 hour labs Labs: Laboratory Results - last 24 hr 04/05/17 04/05/17 04/05/17 12:19 14:16 17:14 WBC RBC Hgb Hct MCV MCH MCHC RDW Plt Count MPV Neut % (Auto) Lymph % (Auto) [place] % (Auto) Eos % (Auto) Baso % (Auto) Neut # (Auto) Lymph # (Auto) [place] # (Auto) Eos # (Auto) Baso # (Auto) Immature Gran % Nucleated RBC % Immature Gran # Nucleated RBCs # D-Dimer, Quantitative 0.6 Sodium Potassium Chloride Carbon Dioxide Anion Gap BUN Creatinine GFR Calculation BUN/Creatinine Ratio Glucose Calculated Osmolality Calcium Magnesium Total Bilirubin AST ALT Alkaline Phosphatase Total Creatine Kinase 145 D 179 D CK-MB (CK-2) 1.9 3.3 Troponin I 0.029 0.039 Total Protein Albumin Globulin Albumin/Globulin Ratio Triglycerides Cholesterol LDL Cholesterol VLDL Cholesterol HDL Cholesterol Heart Disease Risk Ratio 04/05/17 04/06/17 04/06/17 22:06 05:07 05:07 WBC 6.5 D RBC 3.31 L Hgb 11.1 L Hct 33.4 L MCV 100.9 MCH 34 MCHC 33.2 RDW 12.0 Plt Count 303 MPV 9.9 Neut % (Auto) 53.3 Lymph % (Auto) 32.5 [place] % (Auto) 10.2 Eos % (Auto) 2.6 Baso % (Auto) 0.9 H Neut # (Auto) 3.5 Lymph # (Auto) 2.1 [place] # (Auto) 0.7 Eos # (Auto) 0.2 Baso # (Auto) 0.1 Immature Gran % 0.5 Nucleated RBC % 0.0 Immature Gran # 0.03 Nucleated RBCs # 0.00 D-Dimer, Quantitative Sodium 141 Potassium 4.5 Chloride 106 Carbon Dioxide 24 Anion Gap 15.5 H BUN 16 Creatinine 0.80 GFR Calculation 78 BUN/Creatinine Ratio 20.00 Glucose 107 H Calculated Osmolality 281.3 Calcium 8.8 Magnesium 2.4 Total Bilirubin 0.80 AST 13 ALT 14 Alkaline Phosphatase 57 Total Creatine Kinase 183 CK-MB (CK-2) 2.6 Troponin I 0.034 Total Protein 6.0 L Albumin 3.2 L Globulin 2.8 Albumin/Globulin Ratio 1.1 Triglycerides 208 H Cholesterol 211 H LDL Cholesterol 125.0 VLDL Cholesterol 41.6 HDL Cholesterol 51 Heart Disease Risk Ratio 4.14 04/06/17 04/06/17 05:07 09:31 WBC RBC Hgb Hct MCV MCH MCHC RDW Plt Count MPV Neut % (Auto) Lymph % (Auto) [place] % (Auto) Eos % (Auto) Baso % (Auto) Neut # (Auto) Lymph # (Auto) [place] # (Auto) Eos # (Auto) Baso # (Auto) Immature Gran % Nucleated RBC % Immature Gran # Nucleated RBCs # D-Dimer, Quantitative Sodium Potassium Chloride Carbon Dioxide Anion Gap BUN Creatinine GFR Calculation BUN/Creatinine Ratio Glucose Calculated Osmolality Calcium Magnesium Total Bilirubin AST ALT Alkaline Phosphatase Total Creatine Kinase 172 157 CK-MB (CK-2) 2.4 2.0 Troponin I 0.037 0.021 Total Protein Albumin Globulin Albumin/Globulin Ratio Triglycerides Cholesterol LDL Cholesterol VLDL Cholesterol HDL Cholesterol Heart Disease Risk Ratio - Diagnostic Findings Procedure: Chest x-ray: report reviewed by me - EKG EKG results: interpreted by me EKG shows: sinus rhythm
[2017-04-06] MEDS ORDERED: SODIUM BICARBONATE 2.4 MEQ/5 ML VIAL ONE (16:07)
[2017-04-06] MEDS ORDERED: HEPARIN/NACL 0.9% 2 UNITS/ML 1,000 ML IV ONE (16:07)
[2017-04-06] MEDS ORDERED: LIDOCAINE 1% 20 ML VIAL ONE (16:07)
[2017-04-06] MEDS ORDERED: MIDAZOLAM 2 MG/2 ML VIAL ONE ×2 (16:46→17:00)
[2017-04-06] MEDS ORDERED: fentaNYL 100 MCG/2 ML VIAL ONE (16:46)
--- NOTE | 2017-04-06 16:49 | History and Physical Update ---
Sedation H&P Update - History and Physical H&P was reviewed, the patient examined and there: are no changes in the patients condition since last H&P was completed. - Dictation Physical: refer to scanned H&P, refer to H&P completed by admitting physician - Physical Exam Mental Status: alert and oriented Heart: regular rate and rhythm Lung: clear to auscultation Abdomen: within normal limits Vitals: within normal limits - Sedation Plan for Sedation: moderate Patient Consent: Procedure disscussed with patient and patinet has consented., Risks and benefits were discussed with patient,including infection,, bleeding, injury to surrounding structures, seizure, temporary nerve, Patient understands and accepts potential risks/benefits and agrees to, proceed. ASA Class: IV Airway Assessment: Class II: Soft palate, uvula, fauces visible
[2017-04-06] MEDS: PRAVASTATIN 40 MG TABLET PO SCH (20:37)
--- NOTE | 2017-04-06 21:43 | Cardiology Operative Report ---
Date of Procedure:: 04/06/17 Pre-op diagnosis: Acute coronary syndrome, coronary artery disease Post-op diagnosis: other (Severe two-vessel coronary artery disease with ostial circumflex 95% stenosis (jailed from left main stent), chronically subtotally occluded ostial right coronary stenosis) Procedure: 1. Selective left and right coronary angiography. 2. Left heart catheterization with left ventriculogram. 3. Right iliac angiography to rule out vascular complications. Impression: 1. Severe two-vessel coronary artery disease. A. 95% ostial circumflex stenosis, jailed by left main stent extending into LAD. B. Ostial right coronary artery subtotal occlusion, chronic. 2. Right dominant coronary arteries. 3. Ejection fraction 45 %. 4. Angiographically normal right iliac artery without evidence of vascular complications. 5. Moderate aortic stenosis with mean gradient 22 mmHg. 6. Moderate mitral regurgitation. Plan: 1. We will discuss surgical options with the patient. The patient has severe two-vessel coronary artery disease which is not readily amenable to percutaneous coronary intervention. Dr. Reyes will evaluate the patient. Equipment: Diagnostic 6 Lithuanian JL4, JR 3.5, 4 Lithuanian pigtail catheters. Sedation: Versed 3 mg, fentanyl 75 mcg Procedure: After informed consent was obtained the patient was prepped and draped in sterile fashion. The right groin was infiltrated with 1% lidocaine and the right femoral artery was accessed via modified Seldinger technique using a micropuncture needle and a 6 [place]ian femoral arterial sheath was placed. All catheter exchanges were performed over a guidewire under fluoroscopic guidance. Diagnostic 6 [place] JL4 catheter was advanced to the left main artery and multiple cineangiograms were performed in varying degrees of obliquity and angulation. A diagnostic 6 [place] JR4 catheter was then advanced to the right coronary artery but did not enter the right coronary artery. This was exchanged for a 4 Lithuanian JR 3.5 catheter which was also unsuccessful at intubating the right coronary artery. Finally a 6 [place] JR4 catheter was advanced to the right coronary artery and cine angiogram was performed in varying degrees of precluding angulation. Thereafter a pigtail catheter was advanced into the left ventricle where hemodynamics were obtained followed by left ventriculogram. At conclusion of the procedure right iliac angiography was performed to rule out vascular complications. Findings: 1. The left main artery has a stent that extends into the proximal LAD which is patent. 2. The left anterior descending artery extends to the apex and wraps around. There is mild to moderate atheromatous disease but no significant discrete stenosis. 3. There is not an intermediate ramus branch. 4. The circumflex artery gives rise to a large marginal branch. There is 95% discrete ostial stenosis, and this vessel was jailed by the left main stent. There is also an inferior branch of the marginal artery that is 100% occluded. 5. The right coronary artery is a dominant vessel that is difficult to intubate and visualize. There appears to be subtotal occlusion of the ostium. There is trace left to right collateralization. 6. Ejection fraction is 45 % with basal inferior aneurysmal formation and hypokinesis, but otherwise normal wall motion. 7. Moderate mitral regurgitation. 8. Moderate aortic stenosis. 9. The right iliac artery is angiographically normal without evidence of vascular complications. Contrast use: 178 cc Complications: none Specimens removed: none Devices implanted: none Anesthesia: moderate conscious sedation Surgeon / Physician: Lisa Jorge First Sampler: none (Alex Kaur CRNA) Estimated blood loss: minimal Specimens: none sent Condition: stable Disposition: floor
--- NOTE | 2017-04-06 21:44 | Event Note ---
I spoke with the patient's family preoperatively, including her daughter on the phone. I spoke with her multiple times postoperatively as well. The patient has severe two-vessel coronary artery disease which is not readily amenable to a percutaneous approach. I discussed the case with Dr. Reyes he was out of town , but the patient requested his evaluation. He believes the patient may benefit from repeat coronary artery bypass grafting. We will have to hold the Effient for approximately 1 week before this can commence. We will discuss options with the patient tomorrow. We can consider bridging the patient with Integrilin and Lovenox.
[2017-04-07] MEDS: NITROGLYCERIN 2% OINT 1 INCH/GM PACK TOP SCH ×5 (01:20→22:30)
[2017-04-07 06:46] LABS: Basophils % 0.6 % (0.0-0.8); Eosinophils # 0.2 10*3/uL (0.0-0.87); Eosinophils % 2.7 % (0.00-10.9); Hemoglobin 10.1 GM/DL (12.0-16.0); Immature Granulocytes % 0.8 %; Immature Granulocytes Absolute 0.05 #; Lymphocytes # 1.5 10*3/uL (1.4-4.0); Lymphocytes % 23.7 % (21.3-54.2); Mean Corpuscular HGB Conc 33.7 GM/DL (32-36); Mean Corpuscular Hemoglobin 34 PG (27-34); Monocytes # 0.7 10*3/uL (0.11-0.8); Monocytes % 11.1 % (1.7-12.7); Neutrophils # 3.9 10*3/uL (1.4-7.4); Neutrophils % 61.1 % (38.7-73.9); Platelet Count 275 T/CUMM (130-400); Red Blood Count 2.97 MC/CUMM (3.8-5.5); White Blood Count 6.3 T/CUMM (4-12)
[2017-04-07 07:45] LABS: Calcium 8.3 MG/DL (8.5-10.1); Magnesium 2.2 MG/DL (1.8-2.4); Osmolality,Calculated 277.5 MOS/KG (273-304); Potassium 4.5 MMOL/L (3.5-5.1)
[2017-04-07] MEDS: RANOLAZINE 500 MG TABLET PO SCH ×2 (08:35→23:26)
[2017-04-07] MEDS: ASPIRIN EC 81 MG TABLET PO SCH (08:35)
[2017-04-07] MEDS: ISOSORBIDE MONONITRATE 60 MG TABLET PO SCH ×2 (08:35→23:30)
[2017-04-07] MEDS: PANTOPRAZOLE 40 MG TABLET PO SCH (08:35)
[2017-04-07] MEDS: ACETAMINOPHEN 325 MG TABLET PO SCH ×2 (08:36→23:26)
[2017-04-07] MEDS: amLODIPine 10 MG TABLET PO SCH (08:36)
[2017-04-07] MEDS: GABAPENTIN 400 MG CAPSULE PO SCH ×3 (08:36→23:25)
[2017-04-07] MEDS: NITROFURANTOIN MACROCRYSTALS 50 MG CAPSULE PO SCH (08:36)
[2017-04-07] MEDS: buPROPion 100 MG TABLET PO SCH (08:36)
[2017-04-07] MEDS: SERTRALINE 50 MG TABLET PO SCH (08:36)
[2017-04-07] MEDS: LISINOPRIL 10 MG TABLET PO SCH (08:36)
[2017-04-07] MEDS: METOPROLOL TARTRATE 50 MG TABLET PO SCH ×2 (08:36→23:25)
[2017-04-07] MEDS: traMADol 50 MG TABLET PO SCH ×2 (08:37→23:26)
[2017-04-07] MEDS: ENOXAPARIN 80 MG/0.8 ML SYRINGE SUBCUT SCH ×2 (10:33→23:27)
--- NOTE | 2017-04-07 18:18 | Cardiology Progress Note ---
Saul Staley Vanessa RN, am scribing for, and in the presence of, Tc Ricci MD 18 :18. Assessment and Plan - Time spent with patient Time spent with patient: Greater than 30 minutes (1) Chest pain Status: Acute Assessment and plan: SEE PLAN OF CARE LISTED BELOW. Current Visit: Yes (2) Right carotid bruit Status: Acute Assessment and plan: SEE PLAN OF CARE LISTED BELOW. Current Visit: Yes (3) Urinary tract infection Status: Acute Assessment and plan: SEE PLAN OF CARE LISTED BELOW. Current Visit: Yes (4) Aortic stenosis Status: Chronic Assessment and plan: SEE PLAN OF CARE LISTED BELOW. Current Visit: Yes (5) Coronary artery disease Status: Chronic Assessment and plan: SEE PLAN OF CARE LISTED BELOW. Current Visit: Yes (6) Hx of CABG Status: Chronic Assessment and plan: SEE PLAN OF CARE LISTED BELOW. Current Visit: Yes (7) Hypertension Status: Chronic Assessment and plan: SEE PLAN OF CARE LISTED BELOW. Current Visit: Yes (8) Anginal chest pain at rest Status: Acute Assessment and plan: SEE PLAN OF CARE LISTED BELOW. Current Visit: No (9) Chest pain Status: Acute Assessment and plan: SEE PLAN OF CARE LISTED BELOW. Current Visit: No (10) Depressive disorder Status: Chronic Assessment and plan: SEE PLAN OF CARE LISTED BELOW. Current Visit: No (11) Dyslipidemia (high LDL; low HDL) Status: Chronic Assessment and plan: SEE PLAN OF CARE LISTED BELOW. Current Visit: No Cardiology - PN: Subj Interval history: MEDICARE NURSE: DR. CARRION SUMMARY: Ms. Meza, 82WF, has a history of known coronary artery disease (status post CABG 2003 with abrupt closure within days of having her bypass grafting requiring emergent stenting at [facility]), hypertension, dyslipidemia, sedentary lifestyle, CVA. According to Dr. Carrion's last note in clinic in February 2017, he reviewed her heart catheterization films noted a failed attempt to wire ostium of the RCA with in-stent restenosis noted. He remarks she has had failed grafts, failed stents multiple times. He recommended medical management at this point. Echocardiogram February 22, 2017, revealed the following: EF 50%, grade 2 diastolic dysfunction, moderate with mild to moderate AI, PAP 35 mmHg + RAP. Since admission on April 05 with complaints of chest pain, patient has been treated with antianginal agents including increasing Ranexa to 1000 mg twice daily, treatment of musculoskeletal pain, and continued monitoring of her cardiac biomarkers and EKG. Aspirin and Effient were continued. Unfortunately , she did continue to have anginal symptoms intermittently throughout the night and with ambulation. Patient had previously been walking with out her oxygen and upon returning to bed she experienced chest pain. She did have decreased SPO2 saturations which improved after supplemental oxygen was reapplied. After reassessment by Dr. Ricic, patient was assessed by Dr. Jorge, and it was felt that patient would best be served by undergoing cardiac catheterization. Cardiac catheterization was carried out yesterday April 06 with the following findings/impression below: Impression: 1. Severe two-vessel coronary artery disease. A. 95% ostial circumflex stenosis, jailed by left main stent extending into LAD. B. Ostial right coronary artery subtotal occlusion, chronic. 2. Right dominant coronary arteries. 3. Ejection fraction 45 %. 4. Angiographically normal right iliac artery without evidence of vascular complications. 5. Moderate aortic stenosis with mean gradient 22 mmHg. 6. Moderate mitral regurgitation. Post cardiac cath, surgical options were discussed with the patient. Surgical options were also discussed with patient's family preoperatively and multiple times postoperatively as well. As the patient has severe two-vessel coronary artery disease which is not readily amenable to PCI approach, the case was discussed with Dr. Reyes who is currently out of town. The patient has personally requested his evaluation. Dr. Reyes does believe the patient may benefit from repeat coronary artery bypass grafting. Effient has been held and will need to be held for approximately 1 week before surgery can be performed. APRIL 07, 2017: Today, Ms. Meza is seen status post cardiac catheterization yesterday. She is awake and alert and is without acute distress noted. Reports that she rested relatively well overnight, but had some right hip discomfort after getting on/off bedpan overnight during her bedrest time. Her hip discomfort is relieved today. Patient has been in bed today and has not gotten out of bed, ambulated etc. However, at rest she has experienced no chest pain, shortness of breath, or other anginal complaint. Appetite today has been fair without nausea or vomiting. Patient's 2 sons are present with her at bedside this afternoon. Noted to be febrile overnight with temperature 100.1F and decreased to 99.3F earlier this afternoon. Systolic BP overall has averaged 110-120 mmHg with transient low blood pressure earlier this afternoon 96/60. Sinus rhythm with pulse rate in the 60s without overt ectopy or dysrhythmia. Lab work reviewed and is overall unremarkable. Renal function stable creatinine 0.8 and GFR 70. Electrolytes within acceptable range. ASSESSMENT/PLAN: 1. CHEST PAIN - patient has severe three-vessel coronary artery disease managed by Dr. Carrion. Her cardiac biomarkers are negative and her EKG is unchanged from her prior EKG. patient underwent cardiac catheterization yesterday due to continuing chest discomfort even at rest. Please see cardiac cath findings as noted above. 2. KNOWN SEVERE CAD S/P CABG - continue current plan of care listed above 3. HYPERTENSION - will adjust medications accordingly during the hospital stay 4. DYSLIPIDEMIA - LDL 125. Pravastatin dose has been continued to 80 mg, and we will continue this. 5. AORTIC STENOSIS, MODERATE - continue current plan of care per recent echo February 2017 6. BRUIT, CAROTID RIGHT - carotid ultrasound reveals no significant stenosis. 7. CHRONIC LBBB - continue current plan of care 8. UTI - gram-negative rods noted. Will continue Macrobid. She is afebrile. 9. CARDIAC MURMUR - murmur. Recent echo reveals moderate , mild to moderate AI. Exam (Progress Note) - Constitutional Vitals: Period Temp Pulse Resp BP Sys/Alas Pulse Ox Last 24 Hr 96.9 F-100.1 F 63-97 18-20 96-141/41-64 90-95 Exam: General: [Appears well with no apparent distress.] [Pleasant and cooperative. ] [Appears comfortable.] HEENT: [PERRL, normocephalic, atraumatic. Mucous membranes moist. No jaundice noted. Conjunctiva moist and clear, sclerae anicteric] Neck: No JVD/HJR, no thyromegaly or lymphadenopathy noted. Right carotid bruit noted Cardiac: [Regular rate and rhythm.] [III/ systolic ejection murmur heard best at second intercostal space to the right. Lungs: [Clear to auscultation without accessory muscle use to assist the respiratory pattern.] Not requiring oxygen Abdomen: Soft, bowel sounds normoactive. Nontender and nondistended. No abdominal bruit or thrill noted. No masses noted. Musculoskeletal: No fluid collection. Decreased range of motion is noted. Extremities: No clubbing, cyanosis noted. [ No edema noted.] Upper extremity pulses 2+. Lower extremity pulses 2+. Capillary refill less than 3 seconds. Other: RFA cath site dressing removed and groin is soft without hematoma or bruit appreciated. Distal lower extremity pulses are palpable bilaterally. Skin: No unusual lesions or rashes. No skin breakdown appreciated. Neuro: Awake, alert and oriented 3. Moves all extremities well without hemiparesis or paralysis. No essential tremor is appreciated. Result/EKG - Labs CBC & BMP: 04/07/17 04:00 04/07/17 06:59 Lab Results: I have reviewed the past 24 hour labs Labs: Laboratory Results - last 24 hr 04/07/17 04/07/17 04:00 06:59 WBC 6.3 RBC 2.97 L Hgb 10.1 L Hct 30.0 L MCV 101.0 MCH 34 MCHC 33.7 RDW 12.0 Plt Count 275 MPV 10.0 Neut % (Auto) 61.1 Lymph % (Auto) 23.7 [place] % (Auto) 11.1 Eos % (Auto) 2.7 Baso % (Auto) 0.6 Neut # (Auto) 3.9 Lymph # (Auto) 1.5 [place] # (Auto) 0.7 Eos # (Auto) 0.2 Baso # (Auto) 0.0 Immature Gran % 0.8 Nucleated RBC % 0.0 Immature Gran # 0.05 Nucleated RBCs # 0.00 Sodium 139 Potassium 4.5 Chloride 104 Carbon Dioxide 27 Anion Gap 12.5 BUN 12 Creatinine 0.80 GFR Calculation 78 BUN/Creatinine Ratio 15.00 Glucose 113 H Calculated Osmolality 277.5 Calcium 8.3 L Magnesium 2.2 - EKG EKG results: interpreted by me, no acute changes EKG shows: sinus rhythm Keiry Staley Attila, MD, personally performed the services described in this documentation, ascribed by Марина Hughes RN in my presence, and it is both accurate and complete .
--- NOTE | 2017-04-07 19:55 | Event Note ---
Earlier this evening I went to speak with the patient's family, her daughter was not here yet and we tried to call her on the phone but there was no answer. Her son was at the bedside. I again discussed the patient's condition with the patient and her son who is present. I recommend pursuing repeat bypass surgery, Effient is being held. I will look for the daughter tomorrow for further discussion. I have recommended a bedside commode to minimize the patient's ischemia as she sometimes gets chest pain walking to the bathroom, it is a rather large room.
[2017-04-07] MEDS: MORPHINE 2 MG/1 ML SYRINGE IV PRN (20:26)
[2017-04-07] MEDS ORDERED: NITROGLYCERIN 2% OINT 1 INCH/GM PACK TOP ONE ×2 (20:47→22:30)
[2017-04-07] MEDS ORDERED: NITROGLYCERIN DRIP 50 MG/250 ML BOTTLE IV ONE (20:55)
[2017-04-07] MEDS ORDERED: LORazepam 2 MG/1 ML VIAL ONE (21:19)
[2017-04-07] MEDS ORDERED: LORazepam 2 MG/1 ML VIAL IV ONE (21:20)
--- NOTE | 2017-04-07 21:21 | Event Note ---
Heart alert was called on the patient approximately 20 minutes ago. She was experiencing chest pain that radiated into her scapula and down her left arm. She was given morphine and Nitropaste was applied which improved her symptoms considerably, but they did not entirely resolve. We transferred her to the ICU so that we could administer IV nitro and Integrilin. Her daughter has just arrived from [place]. She has related the patient has a long-standing history of attention seeking type behavior regarding her medical conditions. I have reviewed the films in detail with the patient and discussed the critical nature of our objective findings as well, and that certainly we must take seriously all of the patient's complaints given her critical underlying condition. This certainly makes her treatment a little bit more difficult. We will try to stabilize her condition with some IV nitroglycerin and Integrilin infusion. I had ordered nitroglycerin paste and this for some reason had not been applied to the patient today. Her physical exam is unchanged. She does however feel somewhat anxious. Her ECG shows a persistent left bundle branch block although there is less ST depression than there was on admission.
[2017-04-07] MEDS: NITROGLYCERIN DRIP 50 MG/250 ML BOTTLE IV SCH (21:35)
[2017-04-07 21:52] LABS: ABG HCO3 24.3 MMOL/L (20-26); ABG Oxygen Saturation 93.7 % (95-100); ABG PCO2 41.1 MM HG (35-48); ABG PH 7.391 (7.35-7.45); ABG PO2 70.8 MM HG (80-95); ABG TCO2 22.1 MMOL/L (23-27)
[2017-04-07] MEDS: LEVALBUTEROL 0.63 MG/3 ML NEB RESP TX PRN (22:28)
--- NOTE | 2017-04-07 22:29 | XRay Report ---
XR chest 1V portable Indication: Abnormal breath sounds Comparison: Chest x-ray 04/05/2017 Technique: Portable AP chest was performed. Findings: The heart appears mildly enlarged, prior sternotomy is demonstrated. Pulmonary vasculature has increased in prominence bilaterally since comparison. Hilar structures demonstrate fairly symmetric appearance. The lungs demonstrate coarse and linear interstitial markings which have increased since comparison study. Bones and soft tissues demonstrate no evidence of acute pathology. Impression: 1. Appearance of the chest is most compatible with congestive heart failure with features of worsening pulmonary vascular congestion and pulmonary edema. 04/07/2017 10:25 PM PROCEDURE INTERPRETED AT [facility] [place] DEPARTMENT OF RADIOLOGY Final Report Signed by: Dr. Isael Tuttle
[2017-04-07] MEDS: PRAVASTATIN 40 MG TABLET PO SCH (23:26)
[2017-04-07] MEDS: EPTIFIBATIDE 75 MG/100 ML BOTTLE IV SCH (23:26)
[2017-04-08] MEDS: EPTIFIBATIDE 75 MG/100 ML BOTTLE IV SCH ×4 (06:49→21:19)
[2017-04-08 07:27] LABS: Calcium 8.2 MG/DL (8.5-10.1); Magnesium 2.3 MG/DL (1.8-2.4); Osmolality,Calculated 275.7 MOS/KG (273-304); Potassium 4.4 MMOL/L (3.5-5.1)
--- NOTE | 2017-04-08 07:45 | Cardiology Progress Note ---
<Mandy Do E - Last Filed: 04/08/17 09:28> Assessment and Plan - Time spent with patient Time spent with patient: Greater than 30 minutes (1) Hx of CABG Status: Chronic Assessment and plan: SEE PLAN OF CARE LISTED BELOW Current Visit: Yes (2) Hypertension Status: Chronic Assessment and plan: SEE PLAN OF CARE LISTED BELOW Current Visit: Yes (3) Aortic stenosis Status: Chronic Assessment and plan: SEE PLAN OF CARE LISTED BELOW Current Visit: Yes (4) Right carotid bruit Status: Chronic Assessment and plan: SEE PLAN OF CARE LISTED BELOW Current Visit: Yes (5) Chest pain Status: Acute Assessment and plan: SEE PLAN OF CARE LISTED BELOW Current Visit: No (6) CAD (coronary artery disease) Status: Chronic Assessment and plan: SEE PLAN OF CARE LISTED BELOW Current Visit: No Qualifiers: Coronary Disease-Associated Artery/Lesion type: bypass graft [place] vs. transplanted heart: [place] heart Associated angina: with unspecified angina Qualified Code(s): I25.709 - Atherosclerosis of coronary artery bypass graft(s) , unspecified, with unspecified angina pectoris (7) Depressive disorder Status: Chronic Assessment and plan: SEE PLAN OF CARE LISTED BELOW Current Visit: No (8) Dyslipidemia (high LDL; low HDL) Status: Chronic Assessment and plan: SEE PLAN OF CARE LISTED BELOW Current Visit: No (9) Coronary artery disease Status: Chronic Assessment and plan: SEE PLAN OF CARE LISTED BELOW Current Visit: Yes (10) Urinary tract infection Status: Acute Assessment and plan: SEE PLAN OF CARE LISTED BELOW Current Visit: Yes Cardiology - PN: Subj Interval history: SENIOR SERVICE AIDE: DR. CARRION SUMMARY: Ms. Meza, 82WF, has a history of known coronary artery disease ( status post CABG 2003 with abrupt closure within days of having her bypass grafting requiring emergent stenting at [facility]), hypertension, dyslipidemia, sedentary lifestyle, CVA. According to Dr. Carrion's last note in clinic in February 2017, he reviewed her heart catheterization films noted a failed attempt to wire ostium of the RCA with in-stent restenosis noted. He remarks she has had failed grafts, failed stents multiple times. He recommended medical management at this point. Echocardiogram February 22, 2017 reveals the following: EF 50%, grade 2 diastolic dysfunction, moderate with mild to moderate AI, PAP 35 mmHg + RAP. Patient was treated with antianginal agents including increasing Ranexa to maximum dose. Chest pain continued. She underwent cardiac catheterization April 06, 2017 with severe 2 vessel disease noted. (See cardiac catheterization report). Because the CAD is not amenable to percutaneous intervention, Dr. Reyes has been consulted for possible redo bypass surgery. We are holding Effient. APRIL 08, 2017: Last evening, patient began to have chest pain which radiated into her scapula and down her left arm. She was given Morphine and Nitropaste however her symptoms persisted. She was transferred to the ICU in order to administer IV nitroglycerin and Integrilin. EKG reveals a persistent left bundle branch block with less ST depression than there was on admission. Troponin last evening with a little bump noted to be 0.098. Troponin is pending from this morning. Other labs are stable. During the night, nitroglycerin IV has been discontinued and she is having no additional chest pain this morning. Therapeutic dose Lovenox, Integrillin and ASA continues. EF preserved. ASSESSMENT/PLAN: 1. CHEST PAIN - patient has severe three-vessel coronary artery disease managed by Dr. Carrion. Her cardiac biomarkers initially negative, last night with a mild increase. Troponins pending this morning. Continue Integrillin, Lovenox, ASA. IV Ntg no longer in use, continuing paste. 2. KNOWN SEVERE CAD S/P CABG - continue current plan of care listed above 3. HYPERTENSION - will adjust medications accordingly during the hospital stay 4. DYSLIPIDEMIA - LDL 125. Incresed Pravastatin 80 mg each evening. 5. AORTIC STENOSIS, MODERATE - continue current plan of care per recent echo February 2017 6. BRUIT, CAROTID RIGHT - carotid ultrasound reveals no significant stenosis. 7. CHRONIC LBBB - continue current plan of care 8. UTI - gram-negative rods noted. Will continue Macrobid. She is afebrile. 9. CARDIAC MURMUR - murmur. Recent echo reveals moderate , mild to moderate AI. Exam (Progress Note) - Constitutional Vitals: Period Temp Pulse Resp BP Sys/Alas Pulse Ox Last 24 Hr 98.8 F-99.3 F 60-98 16-32 86-146/48-112 85-96 Exam: Exam: General: [Appears well with no apparent distress.] [Pleasant and cooperative. ] [Appears comfortable.] HEENT: [PERRL, normocephalic, atraumatic. Mucous membranes moist. No jaundice noted. Conjunctiva moist and clear, sclerae anicteric] Neck: No JVD/HJR, no thyromegaly or lymphadenopathy noted. Right carotid bruit noted Cardiac: [Regular rate and rhythm.] [III/ systolic ejection murmur heard best at second intercostal space to the right. Lungs: [Clear to auscultation without accessory muscle use to assist the respiratory pattern.] Not requiring oxygen Abdomen: Soft, bowel sounds normoactive. Nontender and nondistended. No abdominal bruit or thrill noted. No masses noted. Musculoskeletal: No fluid collection. Decreased range of motion is noted. Extremities: No clubbing, cyanosis noted. [ No edema noted.] Upper extremity pulses 2+. Lower extremity pulses 2+. Capillary refill less than 3 seconds. Skin: No unusual lesions or rashes. No skin breakdown appreciated. Neuro: Awake, alert and oriented 3. Moves all extremities well without hemiparesis or paralysis. No essential tremor is appreciated. Result/EKG - Labs CBC & BMP: 04/07/17 04:00 04/08/17 06:36 Lab Results: I have reviewed the past 24 hour labs Labs: Laboratory Results - last 24 hr 04/07/17 04/07/17 04/07/17 06:59 20:39 21:46 ABG pH 7.391 ABG pCO2 41.1 ABG pO2 70.8 L ABG HCO3 24.3 ABG Total CO2 22.1 L ABG O2 Saturation 93.7 L ABG Base Excess 0.0 Sodium 139 Potassium 4.5 Chloride 104 Carbon Dioxide 27 Anion Gap 12.5 BUN 12 Creatinine 0.80 GFR Calculation 78 BUN/Creatinine Ratio 15.00 Glucose 113 H Calculated Osmolality 277.5 Calcium 8.3 L Magnesium 2.2 Troponin I 0.098 H D 04/08/17 06:36 ABG pH ABG pCO2 ABG pO2 ABG HCO3 ABG Total CO2 ABG O2 Saturation ABG Base Excess Sodium 138 Potassium 4.4 Chloride 104 Carbon Dioxide 23 Anion Gap 15.4 H BUN 12 Creatinine 0.50 L GFR Calculation 98 BUN/Creatinine Ratio 24.00 H Glucose 109 H Calculated Osmolality 275.7 Calcium 8.2 L Magnesium 2.3 Troponin I - EKG EKG results: interpreted by me EKG shows: sinus rhythm <Lisa Jorge - Last Filed: 04/08/17 12:14> Cardiology - PN: Subj Interval history: I have personally interviewed and evaluated the patient, reviewed the chart and discussed medical decision-making with Practitioner Hi. I have read this note and agree with her documentation here in. Exam (Progress Note) - Constitutional Vitals: Period Temp Pulse Resp BP Sys/Alas Pulse Ox Last 24 Hr 98.1 F-99 F 60-101 16-42 86-147/48-112 85-96 Result/EKG - Labs CBC & BMP: 04/07/17 04:00 04/08/17 06:36 Labs: Laboratory Results - last 24 hr 04/07/17 04/07/17 04/08/17 20:39 21:46 06:36 ABG pH 7.391 ABG pCO2 41.1 ABG pO2 70.8 L ABG HCO3 24.3 ABG Total CO2 22.1 L ABG O2 Saturation 93.7 L ABG Base Excess 0.0 FiO2 Sodium 138 Potassium 4.4 Chloride 104 Carbon Dioxide 23 Anion Gap 15.4 H BUN 12 Creatinine 0.50 L GFR Calculation 98 BUN/Creatinine Ratio 24.00 H Glucose 109 H Calculated Osmolality 275.7 Calcium 8.2 L Magnesium 2.3 Total Creatine Kinase CK-MB (CK-2) Troponin I 0.098 H D 04/08/17 04/08/17 10:17 11:30 ABG pH 7.318 L ABG pCO2 44.6 ABG pO2 54.8 L ABG HCO3 21.3 ABG Total CO2 20.4 L ABG O2 Saturation 84.2 L ABG Base Excess -3.4 L FiO2 100.00 Sodium Potassium Chloride Carbon Dioxide Anion Gap BUN Creatinine GFR Calculation BUN/Creatinine Ratio Glucose Calculated Osmolality Calcium Magnesium Total Creatine Kinase 136 CK-MB (CK-2) 3.8 H Troponin I 0.590 H D
--- NOTE | 2017-04-08 08:21 | EKG Report ---
Stationary ECG Study [facility] Test Date: 04/07/2017 8:35:50 PM Pat Name: KANDI GORMAN Department: Room: 107 Gender: F Paralegal Supervisor: : 1935 Requested by: Lisa Jorge Order Number: [id number] Reading MD: RADHA ESPINAL Intervals [place] Rate: 83 P: 88 ME: 292 QRS: -27 QRSD: 153 T: 129 QT: 391 QTc: 430 Interpretive Statements SINUS RHYTHM WITH FIRST DEGREE AV BLOCK LEFT BUNDLE BRANCH BLOCK Electronically Signed On 04-10-17 15:29:55 CDT by RADHA ESPINAL [email or web address]
[2017-04-08] MEDS: traMADol 50 MG TABLET PO SCH ×2 (09:10→21:20)
[2017-04-08] MEDS: NITROGLYCERIN SL 0.4 MG TABLET SL PRN (09:15)
--- NOTE | 2017-04-08 10:21 | Operative Note ---
Date of procedure: 04/08/17 Procedure Preformed: picc with us and fluoro guided Surgeon / Physician: Kana Hoffmann Post-op diagnosis: same Findings: Exam: PICC line placement Date: 04/08/2017 Indication: IV access Vascular interventional radiologist: Kana Starks. Jamey Yun, RT Fluoroscopy time. 10 seconds Comparison: None Findings: The risk and benefits were explained and informed consent was obtained. The patient's placed on examination table. The left arm was prepped and with maximal sterile barrier utilized with the kraft mill operator and assistance wearing, caps, gown ,gloves ,facemask and hand washing was utilized. The patient arm was cleansed with ChloraPrep. 1% local lidocaine was administered. Real-time ultrasound guidance was utilized with image stored and captured. Sterile ultrasound gel was utilized. The left vein was patent. A micropuncture catheter was placed with real-time ultrasound guidance. An 018 guidewire was advanced and a peel-away sheath was placed.. A 48 centimeter dual-lumen PICC line was placed and secured to the skin with StatLock device and flushed with heparinized saline solution. Estimated blood loss. None Complications. None Condition. Stable Specimen none Impression: 1. Satisfactory ultrasound-guided fluoroscopy guided PICC line placement. Distal tip is in the superior vena cava to right atrial junction. PROCEDURE INTERPRETED AT [facility] DEPARTMENT OF RADIOLOGY Specimens: none sent Estimated blood loss: none Condition: stable
--- NOTE | 2017-04-08 10:36 | Interventional Radiology Rpt ---
Exam: IR PICC line insertion, US guide vascular access Date: 04/08/2017 8:00 AM Indication: IV access Vascular interventional radiologist: Kana Starks. Jamey Yun, RT Fluoroscopy time. 0.2 minutes single image obtained Comparison: None Findings: The risk and benefits were explained and informed consent was obtained. The patient's placed on examination table. The left arm was prepped and with maximal sterile barrier utilized with the flame cutting machine operator and assistance wearing, caps, gown ,gloves ,facemask and hand washing was utilized. The patient arm was cleansed with ChloraPrep. 1% local lidocaine was administered. Real-time ultrasound guidance was utilized with image stored and captured. Sterile ultrasound gel was utilized. The left basilic vein was patent. A micropuncture catheter was placed with real-time ultrasound guidance. An 018 guidewire was advanced and a peel-away sheath was placed.. A 48 centimeter dual-lumen PICC line was placed and secured to the skin with StatLock device and flushed with heparinized saline solution. The distal tip is in the superior vena cava right atrial junction. Estimated blood loss. No Complications. None Condition. Stable Specimen none Impression: 1. Satisfactory ultrasound and fluoroscopy guided PICC line placement. PROCEDURE INTERPRETED AT [facility] DEPARTMENT OF RADIOLOGY Final Report Signed by: Dr. Kana Hoffmann
[2017-04-08] MEDS: SERTRALINE 50 MG TABLET PO SCH (10:55)
[2017-04-08] MEDS: ALPRAZolam 0.5 MG TABLET PO PRN (10:55)
[2017-04-08] MEDS: buPROPion 100 MG TABLET PO SCH (10:55)
[2017-04-08] MEDS: MORPHINE 2 MG/1 ML SYRINGE IV PRN (11:05)
[2017-04-08] MEDS ORDERED: METOPROLOL TARTRATE 5 MG/5 ML VIAL IV ONE ×2 (11:15→11:19)
[2017-04-08] MEDS: METOPROLOL TARTRATE 50 MG TABLET PO SCH ×2 (11:20→21:19)
--- NOTE | 2017-04-08 11:28 | EKG Report ---
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
[2017-04-08 11:38] LABS: Allen Test Positive
[2017-04-08 11:39] LABS: ABG Base Excess -3.4 MMOL/L (-2.5-2.5); ABG HCO3 21.3 MMOL/L (20-26); ABG Oxygen Saturation 84.2 % (95-100); ABG PCO2 44.6 MM HG (35-48); ABG PH 7.318 (7.35-7.45); ABG PO2 54.8 MM HG (80-95); ABG TCO2 20.4 MMOL/L (23-27)
--- NOTE | 2017-04-08 11:39 | XRay Report ---
Exam: XR chest 1V portable Date: 04/08/2017 11:23 AM Indication: Shortness of breath Comparison: None Technical: 04/07/2017. Findings: A left-sided PICC line has been placed this tip is in the superior vena cava. Cardiomegaly is present previous sternotomy. Interstitial edema and shunt vascularity tiny effusions present. Oxygen tubing and external cardiac leads are present. No pneumothorax. Impression: 1. Interval placement left-sided PICC line 2. Cardiomegaly with component of CHF interstitial edema slightly worse when compared to previous exam PROCEDURE INTERPRETED AT [facility] DEPARTMENT OF RADIOLOGY Final Report Signed by: Dr. Kana Hoffmann
[2017-04-08] MEDS: LEVALBUTEROL 0.63 MG/3 ML NEB RESP TX PRN (11:42)
[2017-04-08] MEDS ORDERED: FUROSEMIDE 40 MG/4 ML VIAL ONE ×2 (11:42→11:51)
[2017-04-08] MEDS: ONDANSETRON 4 MG/2 ML VIAL IV PRN (11:43)
[2017-04-08] MEDS ORDERED: FUROSEMIDE 40 MG/4 ML VIAL IV ONE ×2 (11:58→11:59)
[2017-04-08] MEDS ORDERED: NITROGLYCERIN 2% OINT 1 INCH/GM PACK TOP SCH (12:00)
--- NOTE | 2017-04-08 12:15 | Event Note ---
Last night, the patient lost IV access. She had become asymptomatic with application of Nitropaste and movement to the ICU. Multiple attempts at obtaining IV access were unsuccessful, and including external jugular access. She was scheduled for PICC line placement this morning which occurred. Postoperatively she developed chest discomfort and severe shortness of breath and some associated hypoxia. Chest x-ray was suspicious for worsening edema. She was given a breathing treatment because she had audible wheezing at the bedside, as well as some IV Lasix. With these maneuvers her saturations increased to 93%. Her chest pain resolved. We have initiated the IV nitroglycerin and IV Integrilin now that we have IV access. She has an underlying left bundle branch block on her ECG. We will cycle her cardiac biomarkers. We will schedule her nebulizer treatments.
[2017-04-08 12:58] LABS: Apearance,Urine Slightly Hazy (Clear); Bacteria,Urine Occasional /HPF (Few); Bilirubin,Urine Negative (Negative); Blood, Urine Negative (Negative); Glucose,Urine (UA) Negative (Negative); Hyaline Casts,Urine 1 /LPF (0-3); Ketones,Urine Negative (Negative); Mucus,Urine Occasional /LPF (Occasional); Nitrite,Urine Negative (Negative); Protein,Urine 30 MG/DL; RBC,Urine 3 /HPF (0-4); Squamous Epithelial Cell,Urine Occasional /HPF (0-10); Urine Color Amber (Yellow); Urine Specific Gravity 1.018 (1.001-1.035); Urine Urobilinogen < 2.0 EU/DL (0.2-1.0); WBC,Urine 3 /HPF (0-6)
[2017-04-08] MEDS: ASPIRIN EC 81 MG TABLET PO SCH (13:05)
[2017-04-08] MEDS: PANTOPRAZOLE 40 MG TABLET PO SCH (13:05)
[2017-04-08] MEDS: LISINOPRIL 10 MG TABLET PO SCH (13:05)
[2017-04-08] MEDS: RANOLAZINE 500 MG TABLET PO SCH ×2 (13:05→21:19)
[2017-04-08] MEDS: ACETAMINOPHEN 325 MG TABLET PO SCH ×2 (13:05→21:19)
[2017-04-08] MEDS: GABAPENTIN 400 MG CAPSULE PO SCH ×3 (13:05→21:19)
[2017-04-08] MEDS: NITROFURANTOIN MACROCRYSTALS 50 MG CAPSULE PO SCH (13:05)
[2017-04-08] MEDS: amLODIPine 10 MG TABLET PO SCH (13:05)
[2017-04-08] MEDS: ENOXAPARIN 80 MG/0.8 ML SYRINGE SUBCUT SCH ×2 (13:15→22:03)
[2017-04-08] MEDS: LEVALBUTEROL 0.63 MG/3 ML NEB RESP TX SCH ×2 (15:01→19:31)
[2017-04-08] MEDS: FUROSEMIDE 40 MG/4 ML VIAL IV SCH (15:45)
[2017-04-08 15:54] LABS: Basophils % 0.3 % (0.0-0.8); Eosinophils % 0.1 % (0.00-10.9); Hematocrit 31.2 VOL% (35.7-47.0); Hemoglobin 10.7 GM/DL (12.0-16.0); Immature Granulocytes % 0.5 %; Immature Granulocytes Absolute 0.07 #; Lymphocytes # 1.1 10*3/uL (1.4-4.0); Mean Corpuscular HGB Conc 34.3 GM/DL (32-36); Mean Corpuscular Hemoglobin 34 PG (27-34); Mean Corpuscular Volume 98.4 FL (87-102); Mean Platelet Volume 9.4 FL (9.6-12.0); Monocytes % 7.9 % (1.7-12.7); Neutrophils # 10.9 10*3/uL (1.4-7.4); Neutrophils % 83.2 % (38.7-73.9); Platelet Count 296 T/CUMM (130-400); Red Blood Count 3.17 MC/CUMM (3.8-5.5); Red Cell Distribution Width 11.7 % (9.3-17.3); White Blood Count 13.1 T/CUMM (4-12)
[2017-04-08 19:14] LABS: CKMB % 8.6 %
[2017-04-08 19:19] LABS: Troponin I Only 2.72 NG/ML (0.00-0.045)
[2017-04-08] MEDS: PRAVASTATIN 40 MG TABLET PO SCH (21:19)
[2017-04-08] MEDS: NITROGLYCERIN DRIP 50 MG/250 ML BOTTLE IV SCH (23:17)
[2017-04-09] MEDS: LEVALBUTEROL 0.63 MG/3 ML NEB RESP TX SCH ×7 (00:20→22:54)
[2017-04-09 04:26] LABS: Basophils % 0.2 % (0.0-0.8); Eosinophils # 0.2 10*3/uL (0.0-0.87); Hematocrit 29.2 VOL% (35.7-47.0); Hemoglobin 9.8 GM/DL (12.0-16.0); Immature Granulocytes % 0.3 %; Immature Granulocytes Absolute 0.03 #; Lymphocytes # 1.8 10*3/uL (1.4-4.0); Lymphocytes % 21.1 % (21.3-54.2); Mean Corpuscular HGB Conc 33.6 GM/DL (32-36); Mean Corpuscular Hemoglobin 33 PG (27-34); Mean Corpuscular Volume 99.3 FL (87-102); Mean Platelet Volume 9.6 FL (9.6-12.0); Monocytes # 0.8 10*3/uL (0.11-0.8); Monocytes % 9.7 % (1.7-12.7); Neutrophils # 5.8 10*3/uL (1.4-7.4); Neutrophils % 66.7 % (38.7-73.9); Platelet Count 276 T/CUMM (130-400); Red Blood Count 2.94 MC/CUMM (3.8-5.5); Red Cell Distribution Width 11.8 % (9.3-17.3); White Blood Count 8.7 T/CUMM (4-12)
[2017-04-09 04:52] LABS: CKMB % 5.9 %
[2017-04-09 05:03] LABS: Troponin I Only 2.91 NG/ML (0.00-0.045)
[2017-04-09 06:17] LABS: Calcium 8.2 MG/DL (8.5-10.1); Magnesium 2.1 MG/DL (1.8-2.4); Osmolality,Calculated 275.7 MOS/KG (273-304); Potassium 3.7 MMOL/L (3.5-5.1)
[2017-04-09] MEDS: EPTIFIBATIDE 75 MG/100 ML BOTTLE IV SCH ×5 (08:27→21:05)
[2017-04-09] MEDS: buPROPion 100 MG TABLET PO SCH (08:28)
[2017-04-09] MEDS: GABAPENTIN 400 MG CAPSULE PO SCH ×3 (08:28→21:05)
[2017-04-09] MEDS: ASPIRIN EC 81 MG TABLET PO SCH (08:28)
[2017-04-09] MEDS: PANTOPRAZOLE 40 MG TABLET PO SCH (08:28)
[2017-04-09] MEDS: SERTRALINE 50 MG TABLET PO SCH (08:29)
[2017-04-09] MEDS: RANOLAZINE 500 MG TABLET PO SCH ×2 (08:29→21:06)
[2017-04-09] MEDS: NITROFURANTOIN MACROCRYSTALS 50 MG CAPSULE PO SCH (08:30)
[2017-04-09] MEDS: ACETAMINOPHEN 325 MG TABLET PO SCH ×2 (08:30→21:06)
[2017-04-09] MEDS: FUROSEMIDE 40 MG/4 ML VIAL IV SCH ×2 (08:35→17:07)
--- NOTE | 2017-04-09 09:19 | XRay Report ---
History: Shortness of breath Date: 04/09/2017 Study: Chest x-ray AP portable Comparison exam: 04/08/2017 Left PICC line is stable in position. There is continued mild cardiomegaly. The mediastinal contours are unchanged. There is some patchy and hazy edema/infiltrate in the perihilar regions and mid to lower lung zones, minimally improved. There is no interval worsening. There is probable mild left pleural effusion as before. Osseous structures are similar. Impression: Continued bilateral pulmonary edema with slight interval improvement PROCEDURE INTERPRETED AT [facility] DEPARTMENT OF RADIOLOGY Final Report Signed by: Dr. Chantelle Payan
--- NOTE | 2017-04-09 09:36 | Cardiology Progress Note ---
Assessment and Plan (1) Acute coronary syndromes Status: Acute Current Visit: Yes (2) Hyperlipidemia Status: Acute Current Visit: Yes (3) Hx of CABG Status: Chronic Current Visit: Yes (4) Hypertension Status: Chronic Current Visit: Yes (5) Right carotid bruit Status: Chronic Current Visit: Yes (6) CAD (coronary artery disease) Status: Chronic Current Visit: No Qualifiers: Coronary Disease-Associated Artery/Lesion type: bypass graft [place] vs. transplanted heart: [place] heart Associated angina: with unspecified angina Qualified Code(s): I25.709 - Atherosclerosis of coronary artery bypass graft(s) , unspecified, with unspecified angina pectoris Cardiology - PN: Subj Interval history: ARTISTIC ASSOCIATE: DR. CARRION SUMMARY: Ms. Meza, 82WF, has a history of known coronary artery disease ( status post CABG 2003 with abrupt closure within days of having her bypass grafting requiring emergent stenting at [facility] to left main and right coronary arteries, also with right coronary stent thrombosis and subsequent PCI by Dr. Peña, and now also status post failed attempted PCI to ostial right coronary artery in the past), hypertension, dyslipidemia, sedentary lifestyle, CVA. Echocardiogram February 22, 2017 reveals the following: EF 50%, grade 2 diastolic dysfunction, moderate with mild to moderate AI, PAP 35 mmHg + RAP. Patient was treated with antianginal agents including increasing Ranexa to maximum dose. She initially did well but then presented with more acute chest pain. She underwent cardiac catheterization April 06, 2017 with severe 2 vessel disease noted, including the chronically occluded right coronary artery and a new finding of severe ostial stenosis of the circumflex artery, which is jailed. We are holding Effient and awaiting consultation from Dr. Reyes to consider bypass redo. APRIL 09, 2017: Yesterday, when she went for PICC line placement she developed chest pain and shortness of breath, some hypoxia. She had a mild bump in her troponins with this episode. We treated her with aggressive acute diuresis, nitroglycerin drip, Integrilin drip and her symptoms resolved. She has not had any recurrent symptoms since this inciting event. She has diuresed 1 L of fluid yesterday. She is currently resting comfortably without acute complaints. she does have significant claustrophobia and some anxiety. ASSESSMENT/PLAN: 1. CHEST PAIN -she has now quiesced on maximum medical therapy. We will continue with this for now. 2. KNOWN SEVERE CAD S/P CABG -we are requesting Dr. Garcia consultation when he returns on Tuesday. 3. HYPERTENSION -she is now somewhat hypotensive today, probably secondary to the diuresis and her nitroglycerin drip, so we will decrease her antihypertensives. 4. DYSLIPIDEMIA - LDL 125. Incresed Pravastatin 80 mg each evening. 5. AORTIC STENOSIS, MODERATE - continue current plan of care per recent echo February 2017 6. BRUIT, CAROTID RIGHT - carotid ultrasound reveals no significant stenosis. 7. CHRONIC LBBB - continue current plan of care 8. UTI - gram-negative rods noted. Will continue Macrobid. She is afebrile. 9. CARDIAC MURMUR - murmur. Recent echo reveals moderate , mild to moderate AI. Exam (Progress Note) - Constitutional Vitals: Period Temp Pulse Resp BP Sys/Alas Pulse Ox Last 24 Hr 96.6 F-99 F 66-126 14-82 79-162/37-118 86-99 Exam: General appearance: normal weight, no acute distress - Head Head exam: Present: normal inspection, normocephalic, atraumatic. Absent: hematoma, laceration - Eye Eye exam: Present: EOMI. Absent: conjunctival injection, nystagmus, periorbital swelling, scleral icterus, laceration to eyelids Pupils: Present: PERRL. Absent: constricted, dilated, fixed, irregular, unequal - ENT ENT exam: Present: normal exam, normal external ear exam - Neck Neck exam: Present: normal inspection. Absent: lymphadenopathy, meningismus, tenderness, thyromegaly - Respiratory Respiratory exam: Present: Crackles bilaterally in the bases and mid zones. Absent: accessory muscle use, chest wall tenderness - Cardiovascular Cardiovascular exam: Present: regular rate and rhythm with 2/6 holosystolic murmur, carotid bruits. Absent: gallop, JVD, rubs - GI/Abdominal GI/Abdominal exam: Present: normal bowel sounds, soft. Absent: distended, firm , guarding, hernia, mass, tenderness, rebound. - Extremities Exam Extremities exam: Present: normal inspection, normal capillary refill. Absent: calf tenderness, edema - Back Exam Back exam: Present: normal inspection. Absent: muscle spasm, vertebral tenderness - Neurological Exam Neurological exam: Present: alert, oriented X3, grossly intact without resting or intention tremor - Psychiatric Psychiatric exam: Present: normal affect, normal mood - Skin Skin exam: Present: normal color, warm, dry, intact. Absent: cyanosis, diaphoretic, rash, urticaria Result/EKG - Labs CBC & BMP: 04/09/17 04:13 04/09/17 04:13 Lab Results: I have reviewed the past 24 hour labs Labs: Laboratory Results - last 24 hr 04/08/17 04/08/17 04/08/17 10:17 11:30 11:30 WBC RBC Hgb Hct MCV MCH MCHC RDW Plt Count MPV Neut % (Auto) Lymph % (Auto) [place] % (Auto) Eos % (Auto) Baso % (Auto) Neut # (Auto) Lymph # (Auto) [place] # (Auto) Eos # (Auto) Baso # (Auto) Immature Gran % Nucleated RBC % Immature Gran # Nucleated RBCs # ABG pH 7.318 L ABG pCO2 44.6 ABG pO2 54.8 L ABG HCO3 21.3 ABG Total CO2 20.4 L ABG O2 Saturation 84.2 L ABG Base Excess -3.4 L FiO2 100.00 Sodium Potassium Chloride Carbon Dioxide Anion Gap BUN Creatinine GFR Calculation BUN/Creatinine Ratio Glucose Calculated Osmolality Calcium Magnesium Total Creatine Kinase 136 CK-MB (CK-2) 3.8 H CK and CKMB Interp Troponin I 0.590 H D Urine Color [place] Urine Appearance Slightly hazy Urine pH 5.0 Ur Specific [place] 1.018 Urine Protein 30 Urine Glucose (UA) Negative Urine Ketones Negative Urine Blood Negative Urine Nitrate Negative Urine Bilirubin Negative Urine Urobilinogen < 2.0 H Urine Leukocytes Negative Urine RBC 3 Urine WBC 3 Ur Squamous Epith Cells Occasional Urine Bacteria Occasional Hyaline Casts 1 Urine Mucus Occasional Ur Culture Indicated? Not indicated 04/08/17 04/08/17 04/09/17 15:45 18:23 04:12 WBC 13.1 H D RBC 3.17 L Hgb 10.7 L Hct 31.2 L MCV 98.4 MCH 34 MCHC 34.3 RDW 11.7 Plt Count 296 MPV 9.4 L Neut % (Auto) 83.2 H Lymph % (Auto) 8.0 L [place] % (Auto) 7.9 Eos % (Auto) 0.1 Baso % (Auto) 0.3 Neut # (Auto) 10.9 H Lymph # (Auto) 1.1 L [place] # (Auto) 1.0 H Eos # (Auto) 0.0 Baso # (Auto) 0.0 Immature Gran % 0.5 Nucleated RBC % 0.0 Immature Gran # 0.07 Nucleated RBCs # 0.00 ABG pH ABG pCO2 ABG pO2 ABG HCO3 ABG Total CO2 ABG O2 Saturation ABG Base Excess FiO2 Sodium Potassium Chloride Carbon Dioxide Anion Gap BUN Creatinine GFR Calculation BUN/Creatinine Ratio Glucose Calculated Osmolality Calcium Magnesium Total Creatine Kinase 213 H D 192 CK-MB (CK-2) 18.4 H D 11.4 H D CK and CKMB Interp 8.6 5.9 Troponin I 2.720 H D 2.910 H Urine Color Urine Appearance Urine pH Ur Specific [place] Urine Protein Urine Glucose (UA) Urine Ketones Urine Blood Urine Nitrate Urine Bilirubin Urine Urobilinogen Urine Leukocytes Urine RBC Urine WBC Ur Squamous Epith Cells Urine Bacteria Hyaline Casts Urine Mucus Ur Culture Indicated? 04/09/17 04/09/17 04:13 04:13 WBC 8.7 D RBC 2.94 L Hgb 9.8 L Hct 29.2 L MCV 99.3 MCH 33 MCHC 33.6 RDW 11.8 Plt Count 276 MPV 9.6 Neut % (Auto) 66.7 Lymph % (Auto) 21.1 L [place] % (Auto) 9.7 Eos % (Auto) 2.0 Baso % (Auto) 0.2 Neut # (Auto) 5.8 Lymph # (Auto) 1.8 [place] # (Auto) 0.8 Eos # (Auto) 0.2 Baso # (Auto) 0.0 Immature Gran % 0.3 Nucleated RBC % 0.0 Immature Gran # 0.03 Nucleated RBCs # 0.00 ABG pH ABG pCO2 ABG pO2 ABG HCO3 ABG Total CO2 ABG O2 Saturation ABG Base Excess FiO2 Sodium 138 Potassium 3.7 Chloride 100 Carbon Dioxide 26 Anion Gap 15.7 H BUN 16 Creatinine 0.80 GFR Calculation 77 BUN/Creatinine Ratio 20.00 Glucose 99 Calculated Osmolality 275.7 Calcium 8.2 L Magnesium 2.1 Total Creatine Kinase CK-MB (CK-2) CK and CKMB Interp Troponin I Urine Color Urine Appearance Urine pH Ur Specific [place] Urine Protein Urine Glucose (UA) Urine Ketones Urine Blood Urine Nitrate Urine Bilirubin Urine Urobilinogen Urine Leukocytes Urine RBC Urine WBC Ur Squamous Epith Cells Urine Bacteria Hyaline Casts Urine Mucus Ur Culture Indicated? - Diagnostic Findings Procedure: Chest x-ray: report reviewed by me
[2017-04-09] MEDS: METOPROLOL TARTRATE 50 MG TABLET PO SCH ×2 (11:26→21:05)
[2017-04-09] MEDS: traMADol 50 MG TABLET PO SCH ×2 (11:26→21:06)
[2017-04-09] MEDS: amLODIPine 10 MG TABLET PO SCH (11:26)
[2017-04-09] MEDS: LISINOPRIL 10 MG TABLET PO SCH (11:26)
[2017-04-09] MEDS: ENOXAPARIN 80 MG/0.8 ML SYRINGE SUBCUT SCH ×2 (11:26→23:48)
[2017-04-09] MEDS: NITROGLYCERIN DRIP 50 MG/250 ML BOTTLE IV SCH ×2 (11:26→23:48)
[2017-04-09] MEDS: MORPHINE 2 MG/1 ML SYRINGE IV PRN (11:55)
[2017-04-09] MEDS: ACETAMINOPHEN 325 MG TABLET PO PRN (17:06)
[2017-04-09] MEDS: LEVOFLOXACIN INJ 500 MG in PREMIX 1 EACH IV SCH (17:17)
[2017-04-09 18:55] LABS: Apearance,Urine CLEAR (Clear); Bilirubin,Urine Negative (Negative); Blood, Urine Large mg/dL (Negative); Glucose,Urine (UA) Negative (Negative); Ketones,Urine Negative (Negative); Nitrite,Urine Negative (Negative); Protein,Urine Negative; Urine Color Straw (Yellow); Urine Specific Gravity 1.004 (1.001-1.035); Urine Urobilinogen < 2.0 EU/DL (0.2-1.0)
[2017-04-09 19:08] LABS: RBC,Urine 639 /HPF (0-4)
[2017-04-09] MEDS: PRAVASTATIN 40 MG TABLET PO SCH (21:06)
[2017-04-09] MEDS: ALPRAZolam 0.5 MG TABLET PO PRN (21:06)
[2017-04-10] MEDS: EPTIFIBATIDE 75 MG/100 ML BOTTLE IV SCH ×4 (00:50→16:51)
[2017-04-10] MEDS: MORPHINE 2 MG/1 ML SYRINGE IV PRN ×3 (02:40→13:40)
[2017-04-10] MEDS: ALPRAZolam 0.5 MG TABLET PO PRN ×2 (02:40→16:01)
[2017-04-10] MEDS: LEVALBUTEROL 0.63 MG/3 ML NEB RESP TX SCH ×6 (03:18→23:56)
[2017-04-10 05:58] LABS: Basophils % 0.3 % (0.0-0.8); Eosinophils # 0.1 10*3/uL (0.0-0.87); Eosinophils % 0.6 % (0.00-10.9); Hematocrit 27.5 VOL% (35.7-47.0); Hemoglobin 9.6 GM/DL (12.0-16.0); Immature Granulocytes % 0.5 %; Immature Granulocytes Absolute 0.06 #; Lymphocytes # 1.2 10*3/uL (1.4-4.0); Lymphocytes % 11.3 % (21.3-54.2); Mean Corpuscular HGB Conc 34.9 GM/DL (32-36); Mean Corpuscular Hemoglobin 34 PG (27-34); Mean Corpuscular Volume 97.9 FL (87-102); Mean Platelet Volume 9.7 FL (9.6-12.0); Monocytes % 9.4 % (1.7-12.7); Neutrophils # 8.5 10*3/uL (1.4-7.4); Neutrophils % 77.9 % (38.7-73.9); Platelet Count 272 T/CUMM (130-400); Red Blood Count 2.81 MC/CUMM (3.8-5.5); Red Cell Distribution Width 11.7 % (9.3-17.3); White Blood Count 10.9 T/CUMM (4-12)
[2017-04-10 06:11] LABS: Calcium 8.2 MG/DL (8.5-10.1); Magnesium 1.9 MG/DL (1.8-2.4); Osmolality,Calculated 267.5 MOS/KG (273-304); Potassium 3.7 MMOL/L (3.5-5.1)
[2017-04-10] MEDS: FUROSEMIDE 40 MG/4 ML VIAL IV SCH ×2 (08:04→16:07)
[2017-04-10] MEDS: SERTRALINE 50 MG TABLET PO SCH (08:58)
[2017-04-10] MEDS: ACETAMINOPHEN 325 MG TABLET PO SCH ×2 (08:59→21:06)
[2017-04-10] MEDS: ASPIRIN EC 81 MG TABLET PO SCH (08:59)
[2017-04-10] MEDS: NITROFURANTOIN MACROCRYSTALS 50 MG CAPSULE PO SCH (08:59)
[2017-04-10] MEDS: PANTOPRAZOLE 40 MG TABLET PO SCH (08:59)
[2017-04-10] MEDS: buPROPion 100 MG TABLET PO SCH (08:59)
[2017-04-10] MEDS: RANOLAZINE 500 MG TABLET PO SCH ×2 (08:59→21:03)
[2017-04-10] MEDS: GABAPENTIN 400 MG CAPSULE PO SCH ×3 (08:59→21:05)
[2017-04-10] MEDS: traMADol 50 MG TABLET PO SCH ×2 (09:00→21:05)
[2017-04-10] MEDS: LISINOPRIL 10 MG TABLET PO SCH (09:05)
[2017-04-10] MEDS: amLODIPine 10 MG TABLET PO SCH (09:05)
[2017-04-10] MEDS: METOPROLOL TARTRATE 50 MG TABLET PO SCH (09:05)
--- NOTE | 2017-04-10 09:33 | Cardiology Progress Note ---
Assessment and Plan (1) Acute coronary syndromes Status: Acute Current Visit: Yes (2) Hyperlipidemia Status: Acute Current Visit: Yes (3) Hx of CABG Status: Chronic Current Visit: Yes (4) Hypertension Status: Chronic Current Visit: Yes (5) Right carotid bruit Status: Chronic Current Visit: Yes (6) CAD (coronary artery disease) Status: Chronic Current Visit: No Qualifiers: Coronary Disease-Associated Artery/Lesion type: bypass graft [place] vs. transplanted heart: [place] heart Associated angina: with unspecified angina Qualified Code(s): I25.709 - Atherosclerosis of coronary artery bypass graft(s) , unspecified, with unspecified angina pectoris (7) Urinary tract infection Status: Acute Current Visit: Yes Cardiology - PN: Subj Interval history: HEALTHCARE MANAGEMENT CONSULTANT: DR. CARRION SUMMARY: Ms. Meza, 82WF, has a history of known coronary artery disease ( status post CABG 2003 with abrupt closure within days of having her bypass grafting requiring emergent stenting at [facility] to left main and right coronary arteries, also with right coronary stent thrombosis and subsequent PCI by Dr. Peña, and now also status post failed attempted PCI to ostial right coronary artery in the past), hypertension, dyslipidemia, sedentary lifestyle, CVA. Echocardiogram February 22, 2017 reveals the following: EF 50%, grade 2 diastolic dysfunction, moderate with mild to moderate AI, PAP 35 mmHg + RAP. Patient was treated with antianginal agents including increasing Ranexa to maximum dose. She initially did well but then presented with more acute chest pain. She underwent cardiac catheterization April 06, 2017 with severe 2 vessel disease noted, including the chronically occluded right coronary artery and a new finding of severe ostial stenosis of the circumflex artery, which is jailed. We are holding Effient and awaiting consultation from Dr. Reyes to consider bypass redo. APRIL 09, 2017: Yesterday, when she went for PICC line placement she developed chest pain and shortness of breath, some hypoxia. She had a mild bump in her troponins with this episode. We treated her with aggressive acute diuresis, nitroglycerin drip, Integrilin drip and her symptoms resolved. She has not had any recurrent symptoms since this inciting event. She has diuresed 1 L of fluid yesterday. She is currently resting comfortably without acute complaints. she does have significant claustrophobia and some anxiety. April 10, 2017: After I had seen her in the morning, later in the afternoon or early evening nursing reported that the patient "just did not look good". She was noticed to have a fever while I was examining her in the room. In general she has continued to be just puny, she does not complain of any chest or shoulder pain at this point, she is complaining that her bladder hurts and this is likely related to the catheter. Her blood pressure in general has been low and we have been withholding her medications (normotensive without medications) , lower than her baseline. She was identified as having urinary tract infection upon admission, and she was started on Macrodantin. This was a speciated out as Klebsiella pneumoniae, and it was resistant to the Macrodantin she has been receiving. We had started Levaquin yesterday for empiric treatment of a possible pneumonia (and she has had some hypoxia), and this also covers the UTI. I have discussed the patient's condition with the daughter this morning. ASSESSMENT/PLAN: 1. Unstable angina-she has now quiesced on maximum medical therapy. We have been holding her Effient in anticipation of possible surgery, and now pharmacy tells me that they will be running out of the Integrilin tomorrow without any new doses until Tuesday. We may have to change to Aggrastat in that scenario. 2. KNOWN SEVERE CAD S/P CABG -we are requesting Dr. Reyes's consultation when he returns on Tuesday. Her current clinical condition is certainly a setback for her surgical candidacy. 3. HYPERTENSION -her blood pressure has been lower than baseline, and I have discontinued most of her medications, dramatically reduced her beta-stanley. 4. DYSLIPIDEMIA - LDL 125. Incresed Pravastatin 80 mg each evening. 5. AORTIC STENOSIS, MODERATE - continue current plan of care per recent echo February 2017 6. BRUIT, CAROTID RIGHT - carotid ultrasound reveals no significant stenosis. 7. CHRONIC LBBB - continue current plan of care 8. UTI - gram-negative rods noted. This is resistant to the Macrobid that she has been receiving, and she has now become febrile. She may even have some very mildly early sepsis because of her relative hypotension (compared to baseline). We have switched her to Levaquin which would cover her for possible pneumonia and UTI, susceptibility suggest that should be effective. Exam (Progress Note) - Constitutional Vitals: Period Temp Pulse Resp BP Sys/Alas Pulse Ox Last 24 Hr 98.7 F-101 F 68-91 15-31 84-129/34-77 87-99 Exam: General appearance: normal weight, overall ill-appearing but in no acute distress - Head Head exam: Present: normal inspection, normocephalic, atraumatic. Absent: hematoma, laceration - Eye Eye exam: Present: EOMI. Absent: conjunctival injection, nystagmus, periorbital swelling, scleral icterus, laceration to eyelids Pupils: Present: PERRL. Absent: constricted, dilated, fixed, irregular, unequal - ENT ENT exam: Present: normal exam, normal external ear exam - Neck Neck exam: Present: normal inspection. Absent: lymphadenopathy, meningismus, tenderness, thyromegaly - Respiratory Respiratory exam: Present: Crackles bilaterally in the bases and mid zones. Absent: accessory muscle use, chest wall tenderness - Cardiovascular Cardiovascular exam: Present: regular rate and rhythm with 2/6 holosystolic murmur, carotid bruits. Absent: gallop, JVD, rubs - GI/Abdominal GI/Abdominal exam: Present: normal bowel sounds, soft. Absent: distended, firm , guarding, hernia, mass, tenderness, rebound. - Extremities Exam Extremities exam: Present: normal inspection, normal capillary refill. Absent: calf tenderness, edema - Back Exam Back exam: Present: normal inspection. Absent: muscle spasm, vertebral tenderness - Neurological Exam Neurological exam: Present: alert, oriented X3, grossly intact without resting or intention tremor - Psychiatric Psychiatric exam: Present: normal affect, normal mood - Skin Skin exam: Present: normal color, warm, dry, intact. Absent: cyanosis, diaphoretic, rash, urticaria Result/EKG - Labs CBC & BMP: 04/10/17 05:47 04/10/17 05:47 Lab Results: I have reviewed the past 24 hour labs Labs: Laboratory Results - last 24 hr 04/09/17 04/10/17 04/10/17 17:42 05:47 05:47 WBC 10.9 RBC 2.81 L Hgb 9.6 L Hct 27.5 L MCV 97.9 MCH 34 MCHC 34.9 RDW 11.7 Plt Count 272 MPV 9.7 Neut % (Auto) 77.9 H Lymph % (Auto) 11.3 L [place] % (Auto) 9.4 Eos % (Auto) 0.6 Baso % (Auto) 0.3 Neut # (Auto) 8.5 H Lymph # (Auto) 1.2 L [place] # (Auto) 1.0 H Eos # (Auto) 0.1 Baso # (Auto) 0.0 Immature Gran % 0.5 Nucleated RBC % 0.0 Immature Gran # 0.06 Nucleated RBCs # 0.00 Sodium 132 L Potassium 3.7 Chloride 94 L Carbon Dioxide 27 Anion Gap 14.7 BUN 17 Creatinine 0.80 GFR Calculation 77 BUN/Creatinine Ratio 21.00 H Glucose 126 H Calculated Osmolality 267.5 L Calcium 8.2 L Magnesium 1.9 Urine Color Straw Urine Appearance Clear Urine pH 5.0 Ur Specific [place] 1.004 Urine Protein Negative Urine Glucose (UA) Negative Urine Ketones Negative Urine Blood Large Urine Nitrate Negative Urine Bilirubin Negative Urine Urobilinogen < 2.0 H Urine Leukocytes Negative Urine RBC 639 Ur Culture Indicated? Not indicated
--- NOTE | 2017-04-10 11:01 | XRay Report ---
History: Shortness of breath Date: 04/10/2017 Study: Chest x-ray PA and lateral Comparison exam: April 09, 2017 chest x-ray The left PICC line is well-positioned. There is stable mild cardiomegaly. The mediastinal contour is unchanged. There is mild ectasia and tortuosity of the thoracic aorta. There is continued patchy and hazy infiltrate/edema throughout both lungs. These changes are increased in the left perihilar region compared to the previous day. There is mild left pleural effusion, likely unchanged. Osseous structures are similar. Impression: Continued bilateral pulmonary edema/infiltrate, more prominent on the left than on the right. The left perihilar infiltrate/edema has increased since the previous study. Otherwise unchanged PROCEDURE INTERPRETED AT [facility] DEPARTMENT OF RADIOLOGY Final Report Signed by: Dr. Chantelle Payan
[2017-04-10] MEDS: ENOXAPARIN 80 MG/0.8 ML SYRINGE SUBCUT SCH ×2 (11:24→22:11)
[2017-04-10] MEDS: PHENAZOPYRIDINE 95 MG TABLET PO SCH ×2 (11:30→16:57)
[2017-04-10] MEDS: ONDANSETRON 4 MG/2 ML VIAL IV PRN (15:56)
[2017-04-10] MEDS: LEVOFLOXACIN INJ 500 MG in PREMIX 1 EACH IV SCH (16:57)
[2017-04-10] MEDS: LEVALBUTEROL 0.63 MG/3 ML NEB RESP TX PRN (18:01)
[2017-04-10] MEDS: NITROGLYCERIN DRIP 50 MG/250 ML BOTTLE IV SCH (18:02)
[2017-04-10] MEDS: METOPROLOL TARTRATE 25 MG TABLET PO SCH (21:04)
[2017-04-10] MEDS: PRAVASTATIN 40 MG TABLET PO SCH (21:04)
[2017-04-11] MEDS: EPTIFIBATIDE 75 MG/100 ML BOTTLE IV SCH ×2 (01:11→10:33)
[2017-04-11] MEDS: LEVALBUTEROL 0.63 MG/3 ML NEB RESP TX SCH ×4 (03:42→19:53)
[2017-04-11 04:58] LABS: Basophils % 0.3 % (0.0-0.8); Eosinophils % 0.1 % (0.00-10.9); Hematocrit 23.6 VOL% (35.7-47.0); Hemoglobin 8.2 GM/DL (12.0-16.0); Immature Granulocytes % 0.7 %; Immature Granulocytes Absolute 0.08 #; Lymphocytes % 8.7 % (21.3-54.2); Mean Corpuscular HGB Conc 34.7 GM/DL (32-36); Mean Corpuscular Hemoglobin 34 PG (27-34); Mean Corpuscular Volume 96.7 FL (87-102); Monocytes % 8.5 % (1.7-12.7); Neutrophils # 9.1 10*3/uL (1.4-7.4); Neutrophils % 81.7 % (38.7-73.9); Platelet Count 264 T/CUMM (130-400); Red Blood Count 2.44 MC/CUMM (3.8-5.5); Red Cell Distribution Width 11.5 % (9.3-17.3); White Blood Count 11.1 T/CUMM (4-12)
[2017-04-11 05:24] LABS: Calcium 7.8 MG/DL (8.5-10.1); Magnesium 1.8 MG/DL (1.8-2.4); Osmolality,Calculated 264.8 MOS/KG (273-304); Potassium 3.9 MMOL/L (3.5-5.1)
[2017-04-11] MEDS: MORPHINE 2 MG/1 ML SYRINGE IV PRN ×2 (06:29→10:44)
--- NOTE | 2017-04-11 06:42 | Cardiothoracic Progress Note ---
Cardiothoracic Subjective Interval history: Patient is an 82-year-old lady who underwent coronary bypass surgery approximately 13 years ago at [facility] in [place]. Apparently she had graft closure shortly after surgery and had to undergo emergency stenting procedure on one or more of the bypassed arteries. I do not have the records of her hospitalization and her operative note from that time but we are seeking to get these. Patient did reasonably well subsequent to those procedures and apparently underwent catheterization about [address] Peña because of some chest discomfort. At that time she was found to have an occluded right coronary artery with a long stented area in the proximal right coronary artery. This could not be reopened at the time of her catheterization. Her left system appeared to be reasonably okay. Subsequent to that catheterization she has again done reasonably well until this current admission when she began to experience chest discomfort. She has been admitted for intensive medical treatment and is also undergone repeat cardiac catheterization which again shows occlusion of the right coronary artery and a long stented area. It looks as if the distal main coronary artery on the right might be bypassable although I suspect it is heavily diseased. In any event the situation on the right is unchanged over the past 2 years but the major change has been the development of a high-grade occlusion of a large circumflex coronary artery. This is an ostial lesion and does not look amenable to PTCA. I think that this vessel could be bypassed and an intraoperative decision would have to be made regarding the right coronary artery. I think her present clinical condition with what looks like pulmonary edema on chest x-ray and low oxygen saturations is being aggravated by mitral insufficiency which is probably ischemic in nature. There is heavy calcification in the annulus of the mitral valve making any mitral valve procedure extremely hazardous. I believe that the patient needs revascularization at least of her circumflex coronary artery and I will discuss further with Dr. Jorge and Dr. Peña about whether there is any alternative to surgery. In the meantime we will get records from [facility] to find out exactly what operation was performed and were complication developed immediately after surgery. Exam (Progress Note) - Constitutional Vitals: Period Temp Pulse Resp BP Sys/Alas Pulse Ox Last 24 Hr 79.2 F-99.5 F 69-94 18-30 87-133/42-75 82-99 Result/EKG - Labs CBC & BMP: 04/11/17 04:18 04/11/17 04:18 Labs: Laboratory Results - last 24 hr 04/10/17 04/11/17 04/11/17 05:47 04:18 04:18 WBC 11.1 RBC 2.44 L Hgb 8.2 L Hct 23.6 L MCV 96.7 MCH 34 MCHC 34.7 RDW 11.5 Plt Count 264 MPV 10.0 Neut % (Auto) 81.7 H Lymph % (Auto) 8.7 L [place] % (Auto) 8.5 Eos % (Auto) 0.1 Baso % (Auto) 0.3 Neut # (Auto) 9.1 H Lymph # (Auto) 1.0 L [place] # (Auto) 1.0 H Eos # (Auto) 0.0 Baso # (Auto) 0.0 Immature Gran % 0.7 Nucleated RBC % 0.0 Immature Gran # 0.08 Nucleated RBCs # 0.00 Sodium 130 L Potassium 3.9 Chloride 89 L Carbon Dioxide 30 Anion Gap 14.9 BUN 23 H Creatinine 0.90 GFR Calculation 67 BUN/Creatinine Ratio 25.00 H Glucose 122 H Calculated Osmolality 264.8 L Calcium 7.8 L Magnesium 1.8 B-Natriuretic Peptide 463 H 04/11/17 04:19 WBC RBC Hgb Hct MCV MCH MCHC RDW Plt Count MPV Neut % (Auto) Lymph % (Auto) [place] % (Auto) Eos % (Auto) Baso % (Auto) Neut # (Auto) Lymph # (Auto) [place] # (Auto) Eos # (Auto) Baso # (Auto) Immature Gran % Nucleated RBC % Immature Gran # Nucleated RBCs # Sodium Potassium Chloride Carbon Dioxide Anion Gap BUN Creatinine GFR Calculation BUN/Creatinine Ratio Glucose Calculated Osmolality Calcium Magnesium B-Natriuretic Peptide 1074 H
--- NOTE | 2017-04-11 07:08 | Cardiology Progress Note ---
Assessment and Plan - Time spent with patient Time spent with patient: Greater than 30 minutes (Chart review, examination discussion with family documentation and orders) (1) Anemia Status: Acute Current Visit: Yes (2) Heart failure, diastolic, acute Status: Acute Assessment and plan: Due to ischemia Current Visit: Yes (3) Pneumonia Status: Acute Current Visit: Yes Qualifiers: Laterality: left Lung location: lower lobe of lung (4) Mitral regurgitation Status: Acute Assessment and plan: Ischemic Current Visit: Yes Qualifiers: Cardiac valve disease etiology: nonrheumatic Qualified Code(s): I34.0 - Nonrheumatic mitral (valve) insufficiency (5) Acute coronary syndromes Status: Acute Current Visit: Yes (6) Urinary tract infection Status: Acute Current Visit: Yes (7) Aortic stenosis Status: Chronic Current Visit: Yes Qualifiers: Cardiac valve disease etiology: nonrheumatic Qualified Code(s): I35.0 - Nonrheumatic aortic (valve) stenosis (8) Coronary artery disease Status: Chronic Assessment and plan: She has failed multivessel bypass abruptly after just a few weeks. She has had acute stent thrombosis 2. She now has high-grade ostial disease in the right and the circumflex Current Visit: Yes Qualifiers: Coronary Disease-Associated Artery/Lesion type: [place] artery (9) Hypertension Status: Chronic Assessment and plan: She is currently hypotensive Current Visit: Yes Qualifiers: Hypertension type: essential hypertension Qualified Code(s): I10 - Essential (primary) hypertension (10) Depressive disorder Status: Chronic Current Visit: No (11) Dyslipidemia (high LDL; low HDL) Status: Chronic Current Visit: No Cardiology - PN: Subj Interval history: Ms. Meza is a very pleasant 82-year-old female has numerous major medical problems. She has severe or critical stenosis and 2 of her 3 major epicardial coronary arteries at the office of these vessels (RCA and left circumflex). The office of the right coronary artery has not been able to be engaged previous cath and this is not new. The ostial left circumflex is a jailed branch and high risk for PCI. She is currently in extremist condition with what looks to me like a right-sided pneumonia, positive urinary cultures and a worsening anemia. She has moderate aortic stenosis and some mitral regurgitation that could very well be ischemic but also may be mechanical due to valve abnormalities. The mitral regurgitation of course is worsened by her aortic stenosis although it is only moderate by echocardiography. She has saturations in the 80s on 100% nonrebreather she continues to have discomfort. She has chronic pain as well. Her troponins were mildly elevated and trended down. She is currently on daily Lovenox and Integrilin infusion in anticipation of possible surgery. The patient is extremely weak and debilitated. I discussed with her daughter at the bedside. I discussed with Dr. Jorge I reviewed Dr. Reyes's note. Is my opinion that although the best option for her heart quite possibly may be coronary artery bypass grafting with aortic valve replacement I do not think she can tolerate this procedure. I am very concerned about the significant drop in hemoglobin in the last 24 hours. I do not have a chest x-ray from today but the one from yesterday to me looks like a left sided pneumonia with superimposed pulmonary edema. She does not have fluid in the right gutter but she does have some of the major fissure. Her lung exam is markedly abnormal as is her cardiac exam consistent with her history of aortic stenosis. I have ordered labs again later this morning and if her hemoglobin is dropped any we will certainly need to transfuse. I will discuss with Dr. Reyes and then ultimately discussed with the patient her daughter about options. I do not know that there is a good option for revascularization of her heart. Ideally this infiltrate on the left with clear and her hemoglobin hematocrit was stabilized. She has not had any overt signs or symptoms of bleeding but this could limit any type of revascularization we will likely have to stop her anticoagulation and antiplatelet medications. Her platelet count has remained stable with Integrilin infusion. This is a very difficult situation and there are no good options for this nice patient. The daughter is concerned about her urinary tract infection her very poor p.o. intake. She states that she has not eaten in 2 days. This certainly bodes a poor prognosis post coronary bypass grafting with protein calorie malnutrition. Exam (Progress Note) - Constitutional Vitals: Period Temp Pulse Resp BP Sys/Alas Pulse Ox Last 24 Hr 79.2 F-99.5 F 69-94 18-30 87-133/42-75 82-99 General appearance: normal weight, other (She appears severely ill she is on 100 % nonrebreather saturating 86% she is somnolent but just received morphine.) - Head Head exam: Present: normal inspection - Eye Eye exam: Present: EOMI - Neck Neck exam: Present: normal inspection - Respiratory Respiratory exam: Present: rales, rhonchi (Rhonchi are prominent bilaterally that are slightly greater on the left) - Cardiovascular Cardiovascular exam: Present: regular rate and rhythm (Murmur of aortic stenosis and mitral regurgitation is auscultated.) - GI/Abdominal GI/Abdominal exam: Present: normal bowel sounds, tenderness - Extremities Exam Extremities exam: Present: normal inspection, other (WILLIAM hose are in place she has no lower extremity edema she has mild presacral edema) - Back Exam Back exam: Present: normal inspection - Neurological Exam Neurological exam: Present: alert, oriented X3, other (Somewhat post morphine) - Psychiatric Psychiatric exam: Present: anxious, depressed, flat affect - Skin Skin exam: Present: normal color, warm, dry Result/EKG - Labs CBC & BMP: 04/11/17 04:18 04/11/17 04:18 Labs: Laboratory Results - last 24 hr 04/10/17 04/11/17 04/11/17 05:47 04:18 04:18 WBC 11.1 RBC 2.44 L Hgb 8.2 L Hct 23.6 L MCV 96.7 MCH 34 MCHC 34.7 RDW 11.5 Plt Count 264 MPV 10.0 Neut % (Auto) 81.7 H Lymph % (Auto) 8.7 L Sullivan % (Auto) 8.5 Eos % (Auto) 0.1 Baso % (Auto) 0.3 Neut # (Auto) 9.1 H Lymph # (Auto) 1.0 L Sullivan # (Auto) 1.0 H Eos # (Auto) 0.0 Baso # (Auto) 0.0 Immature Gran % 0.7 Nucleated RBC % 0.0 Immature Gran # 0.08 Nucleated RBCs # 0.00 Sodium 130 L Potassium 3.9 Chloride 89 L Carbon Dioxide 30 Anion Gap 14.9 BUN 23 H Creatinine 0.90 GFR Calculation 67 BUN/Creatinine Ratio 25.00 H Glucose 122 H Calculated Osmolality 264.8 L Calcium 7.8 L Magnesium 1.8 B-Natriuretic Peptide 463 H 04/11/17 04:19 WBC RBC Hgb Hct MCV MCH MCHC RDW Plt Count MPV Neut % (Auto) Lymph % (Auto) Sullivan % (Auto) Eos % (Auto) Baso % (Auto) Neut # (Auto) Lymph # (Auto) Sullivan # (Auto) Eos # (Auto) Baso # (Auto) Immature Gran % Nucleated RBC % Immature Gran # Nucleated RBCs # Sodium Potassium Chloride Carbon Dioxide Anion Gap BUN Creatinine GFR Calculation BUN/Creatinine Ratio Glucose Calculated Osmolality Calcium Magnesium B-Natriuretic Peptide 1074 H - EKG EKG results: interpreted by me (No acute changes left bundle branch block (last one 04/08))
--- NOTE | 2017-04-11 07:28 | Event Note ---
I discussed with the patient and her daughter at bedside about all the issues particularly concerning is her anemia. Her hemoglobin hematocrit have progressively declined since admission. She has had no overt signs or symptoms of bleeding. I will stop her Integrilin at this time. Also discussed with the patient and daughter about DO NOT RESUSCITATE status. The patient did just receive morphine recently and is somewhat somnolent but stated that she wished not to have CPR or shocks. The daughter states this is consistent with her previous wishes she thinks that she has "power of trial attorney" which states if there is "nothing else to do" she wishes to not be on life support. Certainly we are not at that point at this time and because of the patient's recent narcotics I will not make her DNR at this time will clarify when she is slightly clear and has not had narcotics but I wanted to get a feel for their expectations and to make sure they understand the gravity of the current situation.
--- NOTE | 2017-04-11 08:08 | XRay Report ---
Exam: XR chest 1V Date: 04/11/2017 6:52 AM Comparison: 04/10/2017 Indication: Chest pain Technique:[Portable AP sitting chest] Findings: Stable cardiomegaly with prior median sternotomy, diffuse arterial calcifications, and calcification in the mitral valve annulus. Stable left arm PICC line. Progressive diffuse parenchymal findings in the right lung with small right pleural effusion. Reduction in the diffuse parenchymal findings in the left lung with smaller left pleural effusion. Stable mediastinum with degenerative changes. Impression: Status post median sternotomy with stable left arm PICC line. Progressive atelectasis/infiltration/edema in the right lung with small right pleural effusion. Similar decreased findings in the left lung with smaller left pleural effusion. PROCEDURE INTERPRETED AT [facility] DEPARTMENT OF RADIOLOGY Final Report Signed by: Dr. Tsering Lyles
[2017-04-11] MEDS ORDERED: metOLazone 5 MG TABLET PO SCH (09:00)
[2017-04-11] MEDS: FUROSEMIDE 40 MG/4 ML VIAL IV SCH ×2 (09:59→19:11)
[2017-04-11] MEDS: ENOXAPARIN 80 MG/0.8 ML SYRINGE SUBCUT SCH (09:59)
[2017-04-11] MEDS: ACETAMINOPHEN 325 MG TABLET PO SCH ×2 (10:00→21:42)
[2017-04-11] MEDS: METOPROLOL TARTRATE 25 MG TABLET PO SCH ×2 (10:00→21:42)
[2017-04-11] MEDS: buPROPion 100 MG TABLET PO SCH (10:01)
[2017-04-11] MEDS: SERTRALINE 50 MG TABLET PO SCH (10:01)
[2017-04-11] MEDS: RANOLAZINE 500 MG TABLET PO SCH ×2 (10:02→21:42)
[2017-04-11] MEDS: traMADol 50 MG TABLET PO SCH ×2 (10:02→21:42)
[2017-04-11] MEDS: ASPIRIN EC 81 MG TABLET PO SCH (10:03)
[2017-04-11] MEDS: PANTOPRAZOLE 40 MG TABLET PO SCH (10:03)
[2017-04-11] MEDS: GABAPENTIN 400 MG CAPSULE PO SCH ×3 (10:03→21:42)
[2017-04-11] MEDS: PHENAZOPYRIDINE 95 MG TABLET PO SCH ×3 (10:03→18:00)
--- NOTE | 2017-04-11 10:06 | CT Report ---
Referring physician: Tc Ricci MD EXAM: CT pelvis without contrast DATE: 04/11/2017 COMPARISON: 01/24/2015 REASON: Evaluate for retroperitoneal bleed TECHNIQUE: Axial images of the pelvis were obtained without the use of contrast. Coronal and sagittal reformatted images were also provided. Minimal oral contrast noted. Total DLP is 428.30 mGy*cm. FINDINGS: Limited evaluation of the abdomen on the scans of the pelvis. 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 Increased fat deposition with fat-containing right ventral hernia. Apparent injection sites in the left anterior pelvic wall location. Minimal fluid in the soft tissues. Apparent recent right heart catheterization with no significant hematoma identified. Salinas catheter in decompressed urinary bladder with prior hysterectomy. Degenerative changes are noted. IMPRESSION: No significant retroperitoneal hematoma identified with the recent right femoral approach heart catheterization. Diffuse arterial calcifications. Minimal anasarca with apparent injection sites in the left abdominal wall location. Right fat containing ventral hernia with prior hysterectomy. Salinas catheter in decompressed urinary bladder. The CT exam was performed using one or more of the following dose reduction techniques: Automated exposure control and adjustment of the mA and/or kV according to patient size. PROCEDURE INTERPRETED AT [facility] DEPARTMENT OF RADIOLOGY Final Report Signed by: Dr. Tsering Lyles
[2017-04-11] MEDS: NITROGLYCERIN DRIP 50 MG/250 ML BOTTLE IV SCH (10:32)
[2017-04-11] MEDS ORDERED: FUROSEMIDE 40 MG/4 ML VIAL IV ONE (12:30)
[2017-04-11 13:37] LABS: Basophils % 0.2 % (0.0-0.8); Eosinophils % 0.1 % (0.00-10.9); Hematocrit 23.7 VOL% (35.7-47.0); Hemoglobin 8.2 GM/DL (12.0-16.0); Immature Granulocytes % 0.8 %; Immature Granulocytes Absolute 0.09 #; Lymphocytes % 8.8 % (21.3-54.2); Mean Corpuscular HGB Conc 34.6 GM/DL (32-36); Mean Corpuscular Hemoglobin 34 PG (27-34); Mean Corpuscular Volume 97.9 FL (87-102); Mean Platelet Volume 9.7 FL (9.6-12.0); Monocytes % 8.3 % (1.7-12.7); Neutrophils # 9.5 10*3/uL (1.4-7.4); Neutrophils % 81.8 % (38.7-73.9); Platelet Count 272 T/CUMM (130-400); Red Blood Count 2.42 MC/CUMM (3.8-5.5); Red Cell Distribution Width 11.6 % (9.3-17.3); White Blood Count 11.6 T/CUMM (4-12)
--- NOTE | 2017-04-11 13:59 | Event Note ---
I discussed with Dr. Reyes earlier today. The patient still has significant anemia that is without change her hemoglobin is 8.2 repeat. The patient has continued to have downhill course as far as decreased sats and increased level of somnlence. She looks significantly worse even now than she did this morning. She has minimal response to verbal or tactile stimuli. I will load patient with clopidogrel and anticipate PCI of the ostial circumflex with him PCI of the ostial RCA I think this is very unlikely as I felt before engaging this vessel. I discussed with the patient's daughter. This is a very difficult situation her prognosis is extremely poor. The daughter understands that this is an extreme situation and the prognosis is very poor. It is clear that she could not likely tolerate surgery at this time. This is the best option in the interim. I will ask anesthesia to intubate the patient but they are not available Dr. Nito Gomez so kindly came from the hospitalist service to help me take care of this critically ill patient. The laborer brush clearing has been activated and I discussed with her daughter. The prognosis is very poor and her daughter understands.
[2017-04-11] MEDS ORDERED: CLOPIDOGREL 75 MG TABLET ONE (14:00)
[2017-04-11] MEDS ORDERED: PROPOFOL 1,000 MG/100 ML BOTTLE IV ONE (14:00)
[2017-04-11] MEDS ORDERED: CLOPIDOGREL 300 MG TABLET PO ONE (14:00)
[2017-04-11] MEDS ORDERED: SUCCINYLCHOLINE 200 MG/10 ML VIAL ONE (14:02)
--- NOTE | 2017-04-11 14:03 | History and Physical Update ---
Sedation H&P Update - Dictation Physical: refer to scanned H&P (and my most recent note/notes.) - Physical Exam Mental Status: other (somnolent and minimally responsive) Heart: regular rate and rhythm Lung: other (poor effort and shallow respirations) Abdomen: within normal limits Vitals: other (she is hypotensive) - Sedation Plan for Sedation: minimal Patient Consent: Procedure disscussed with patient and patinet has consented., Risks and benefits were discussed with patient,including infection, (Informed consent taken from the patient's daughter.), bleeding,injury to surrounding structures, seizure, temporary nerve, Patient understands and accepts potential risks/benefits and agrees to, proceed. ASA Class: V Airway Assessment: Class III: Soft palate, base of uvula visible (she is being intubated by Dr. Gomez)
[2017-04-11] MEDS: PROPOFOL 1,000 MG/100 ML BOTTLE IV SCH ×2 (14:05→21:31)
[2017-04-11 14:08] LABS: ABG Base Excess 3.8 MMOL/L (-2.5-2.5); ABG HCO3 28.3 MMOL/L (20-26); ABG Oxygen Saturation 84.4 % (95-100); ABG PCO2 42.6 MM HG (35-48); ABG PH 7.441 (7.35-7.45); ABG PO2 49.6 MM HG (80-95); ABG TCO2 29.7 MMOL/L (23-27)
[2017-04-11] MEDS ORDERED: HEPARIN/NACL 0.9% 2 UNITS/ML 1,000 ML IV ONE (14:08)
[2017-04-11] MEDS ORDERED: LIDOCAINE 1% 20 ML VIAL ONE (14:08)
--- NOTE | 2017-04-11 14:14 | Event Note ---
I received a call from Dr. Peña requesting assistance on intubation for this patient requiring mechanical ventilation. The patient is clearly in a hypo- ventilation. The patient was prepared for intubation with 5 cc Diprivan and 100 mg succinylcholine area the patient had good relaxation. The patient was hyperventilated using bag valve mask. Suction device was available. A 7.5 endotracheal tube was placed through the vocal cords using a glide scope visualization by Airam DASILVA. I supervised the situation and we jointly determined the tube was in a correct position. Chest x-ray was ordered as well as ABG. I coordinated care with Dr. Peña who was at the bedside.
[2017-04-11] MEDS ORDERED: BIVALIRUDIN 250 MG VIAL IV ONE ×2 (14:38→16:35)
[2017-04-11] MEDS ORDERED: HEPARIN/NACL 0.9% 2 UNITS/ML 500 ML IV ONE (15:33)
[2017-04-11] MEDS ORDERED: SUCCINYLCHOLINE 200 MG/10 ML VIAL IV ONE (15:41)
[2017-04-11] MEDS ORDERED: PROPOFOL 200 MG/20 ML VIAL IV ONE (15:41)
[2017-04-11] MEDS ORDERED: SODIUM CHLORIDE 0.9% 250 ML IV PRN (17:20)
--- NOTE | 2017-04-11 17:44 | Cardiology Operative Report ---
Date of Procedure:: 04/11/17 Pre-op diagnosis: Acute coronary syndrome, coronary artery disease Post-op diagnosis: same Procedure: Procedures: 1. Right heart catheterization with resting hemodynamics 2. Left heart catheterization resting hemodynamics 3. Percutaneous coronary mention of the ostium of the left circumflex coronary artery with a 2.5 x 12 mm Xience Alpine drug-eluting stent 4. Selective left subclavian angiography 5. POBA angioplasty of the ostium of the RCA (extremely calcified and unable to pass anything except previously undeployed balloons) After intubation and signed informed consent was taken from the patient's daughter Marietta she was taken the cardiac catheterization lab for very high risk angioplasty in a frail anemic female who was declining rapidly. Her blood pressure was low and her saturations were low despite high flow O2 mechanical ventilation. She also had positive blood cultures and had recently been febrile. He was voiced to the patient's family that her prognosis was very poor. Timeout was recorded 1% lidocaine was infiltrated the skin and subcutaneous tissue overlying the right femoral artery modified Seldinger technique was utilized and accessed artery no 3 5 J-wire was advanced under fluoroscopy in the central aorta. A small skin incision was made a 6 Occitan sheath placed over the wire. At this time Seldinger technique was utilized and accessed the right femoral vein. Sheath was aspirated and flushed. A balloon tip flow-directed Mancos-Richy cath was advanced through the 7 Occitan sheath pressure measurements were performed at the RA RV PA and wedge pressure measurements. Balloon was deflated the catheter was pulled back both sheaths were aspirated and flushed. Angiomax bolus and infusion were administered. The ACT was verified to be greater than 300 seconds. At this time and AL 0.75 was used to engage the left main coronary artery. A 180 cm [employer] pro-water wire was advanced into the left anterior descending artery and a short [place] Blue wire was used to engage the left circumflex and advanced distally. At this time a 2.0 x 8 mm Heber balloon was used to dilate the ostial portion of left circumflex. The balloon was removed and a 2.5 x 12 mm science Alpine drug- eluting stent was used to stent the ostium of the left circumflex with excellent angiographic result. The stent balloon was removed and a 2.5 x 12 mm NC Quantum was used to post dilate to 20 bartolo. Pre-PCI there is 95% stenosis with DERRICK II flow post PCI there is 0% residual stenosis and DERRICK-3 flow. Both wires removed multiple orthogonal views were obtained to rule out complications. The wires were pulled back into the guide and the guide was used to engage near the ostium of the RCA which has a slitlike opening very narrow with no clear lumen seen. Multiple attempts with this guide were unsuccessful guide was then exchanged over the wire for a IM guide which was used to engage what appeared to be where the office of the RCA was. Is extremely calcified. The previously used pro-water wire was advanced and could advance a significant portion the proximal part of the vessel but would not advance further. Ultimately this wire was removed and a Fielder FC wire was used to gain access to the artery it knuckled and went to the very distal portion of the RCA. At this time attempts to pass a Turnpike catheter with the purpose of exchanging for a workhorse wire were unsuccessful. Now a 1.5 x 15 mm apex balloon was taken to the area of stenosis in multiple inflations were made to rated burst pressure this balloon was removed and a 2.5 x 15 mm apex balloon was also taken and advanced to rated burst pressure and held stable for 25 seconds. This point was removed. There was still significant amount of waist and now a 2.5 x 15 mm NC Quantum balloon was taken to the area of stenosis and inflated to 20 bartolo and held for 35 seconds with improvement. There also was multiple attempts to pass stent which were unsuccessful. Wire position was lost and with some difficulty ultimately we were able to rewire the vessel with a pro-water workhorse wire. Multiple attempts to pass any additional equipment were unsuccessful a flexed home cutting balloon was unsuccessful in the balloon that had previously been inflated and was flagged was unsuccessful and multiple attempts to pass a 2 5 drug-eluting stent were also unsuccessful ultimately with significant amount of pushing access was lost and was felt that given contrast exposure the mild angiographic improvement in the contrast radiation exposure in this critically ill patient was best to stop. It is my impression that this was 99% subtotal occluded pre-with DERRICK I flow and 80% stenosis with DERRICK II to III flow post ballooning. The catheter was exchanged over the wire the sheath was aspirated and flushed right femoral iliac angiography were performed. At this time a diagnostic JR4 was advanced into the subclavian artery and a selective imaging of the subclavian artery was performed to demonstrate that the previous bypass grafting did in fact use the WOODS which was extremely atretic. The cath was exchanged over the wire the sheath was aspirated and flushed and a VIP Angio-Seal was used for closure the right femoral arteriotomy. Findings: Preintervention measurements RA 37/40 mean of 36 RV 54/17 mean of 25 PA 53/32 mean of 41 Pulmonary capillary wedge pressure 34/36 with mean of 34 Aortic pressure 94/48 with mean of 66 Post intervention measurements RA 20/19 mean 19 RV 50/10 mean 13 PA 48/11 mean 33 Pulmonary capillary wedge pressure 28/33 mean of 26 (V wave was significant) Aortic pressure 99/49 mean of 67 LV pressure 121/19 End-diastolic pressure of 30 Left circumflex coronary artery is 95% stenosis pre-with DERRICK II flow and 0% residual stenosis with DERRICK-3 flow after PCI as described above with drug- eluting stent there is mild left main disease but no apparent complication Right coronary artery has a slitlike very narrow opening that is almost wire occlusive pre-PCI greater than 99% and post POBA looks like it is probably still about 80% it is highly calcified and did not yield with high pressure inflations of NC balloons. No other device available to us in the Child Care Attendant at this time would pass the area of ostial calcific stenosis Assessment: 1. Angiographically successful PCI with JENNY of the ostial left circumflex 2. Angiographic improvement with suboptimal results of the ostium of the right calcific RCA status post POBA 3. Acutely decompensated heart failure 4. Respiratory failure secondary to decompensated heart failure complicated by possible and underlying infectious process 5. Urinary tract infection Plan: 1. Supportive measures 2. Dual antiplatelet therapy 3. Packed red cell transfusion 4. Mechanical ventilation with consultation to pulmonary medicine 5. Serial echocardiography to assess LV function and mitral regurgitation Implants: 1. Angio-Seal closure device right femoral arteriotomy 2. 2.5 x 12 mm Xience Alpine drug-eluting stent to the ostial left circumflex Anesthesia: moderate conscious sedation Surgeon / Physician: Carmela Hopson Estimated blood loss: none, minimal Specimens: none sent Condition: critical Disposition: floor
[2017-04-11] MEDS: LEVOFLOXACIN INJ 500 MG in PREMIX 1 EACH IV SCH (17:58)
--- NOTE | 2017-04-11 18:16 | XRay Report ---
Portable chest Date: 04/11/2017 Clinical history: Post heart catheterization, hypoxia Comparison: 04/11/2017 Technique: Portable AP sitting chest Findings: Persistent cardiomegaly with prior median sternotomy. Arterial calcifications with calcification in the mitral valve annulus. The tip of the endotracheal tube projects at the stanislav and is directed toward the right mainstem bronchus. Stable left arm PICC line with nasogastric tube projecting in the stomach. Reduced parenchymal findings with smaller pleural effusions. Impression: Status post median sternotomy with persistent cardiomegaly and improved pulmonary edema/atelectasis with smaller pleural effusions. The tip of the endotracheal tube projects near the level the stanislav and is directed toward the right mainstem bronchus. The tube could be retracted minimally above this level as discussed with the patient's nurse, Justice at 6:10 PM on 04/11/2017. PROCEDURE INTERPRETED AT [facility] DEPARTMENT OF RADIOLOGY Final Report Signed by: Dr. Tsering Lyles
[2017-04-11] MEDS ORDERED: FUROSEMIDE INJ 100 MG in SODIUM CHLORIDE 0.9% 90 ML IV SCH (18:30)
--- NOTE | 2017-04-11 18:44 | XRay Report ---
Portable chest Date: 04/11/2017 Clinical history: Endotracheal tube placement Comparison: 04/11/2017 Technique: Portable AP sitting chest Findings: Persistent cardiomegaly with prior median sternotomy. Arterial calcifications with calcification in the mitral valve annulus. The endotracheal tube now projects in satisfactory position above the stanislav with stable left arm PICC line and nasogastric tube. Persistent diffuse parenchymal findings in the lungs with small pleural effusions. Stable mediastinum and osseous structures. Impression: The endotracheal tube projects in more satisfactory position above the stanislav. Status post median sternotomy with persistent cardiomegaly. Stable pulmonary edema/infiltration/atelectasis with small pleural effusions. PROCEDURE INTERPRETED AT [facility] DEPARTMENT OF RADIOLOGY Final Report Signed by: Dr. Tsering Lyles
[2017-04-11 19:14] LABS: ABG Base Excess 4.8 MMOL/L (-2.5-2.5); ABG HCO3 29.8 MMOL/L (20-26); ABG Oxygen Saturation 86.7 % (95-100); ABG PCO2 46.7 MM HG (35-48); ABG PH 7.423 (7.35-7.45); ABG PO2 54.6 MM HG (80-95); ABG TCO2 31.3 MMOL/L (23-27); Allen Test Positive; Pt O2 Delivery Device Ventilator
[2017-04-11] MEDS: PRAVASTATIN 40 MG TABLET PO SCH (21:42)
[2017-04-12] MEDS: LEVALBUTEROL 0.63 MG/3 ML NEB RESP TX SCH ×8 (00:39→23:24)
[2017-04-12 03:48] LABS: ABG Base Excess 3.6 MMOL/L (-2.5-2.5); ABG HCO3 28.2 MMOL/L (20-26); ABG Oxygen Saturation 98.5 % (95-100); ABG PCO2 42.9 MM HG (35-48); ABG PH 7.436 (7.35-7.45); ABG PO2 161.1 MM HG (80-95); ABG TCO2 29.5 MMOL/L (23-27); Allen Test Positive; Pt O2 Delivery Device Ventilator
[2017-04-12 04:34] LABS: Basophils % 0.2 % (0.0-0.8); Eosinophils % 0.2 % (0.00-10.9); Hematocrit 27.2 VOL% (35.7-47.0); Hemoglobin 9.6 GM/DL (12.0-16.0); Immature Granulocytes % 0.6 %; Immature Granulocytes Absolute 0.06 #; Lymphocytes # 1.2 10*3/uL (1.4-4.0); Lymphocytes % 11.4 % (21.3-54.2); Mean Corpuscular HGB Conc 35.3 GM/DL (32-36); Mean Corpuscular Hemoglobin 33 PG (27-34); Mean Corpuscular Volume 94.1 FL (87-102); Mean Platelet Volume 9.9 FL (9.6-12.0); Monocytes # 0.9 10*3/uL (0.11-0.8); Monocytes % 8.2 % (1.7-12.7); Neutrophils # 8.6 10*3/uL (1.4-7.4); Neutrophils % 79.4 % (38.7-73.9); Platelet Count 250 T/CUMM (130-400); Red Blood Count 2.89 MC/CUMM (3.8-5.5); Red Cell Distribution Width 13.2 % (9.3-17.3); White Blood Count 10.9 T/CUMM (4-12)
[2017-04-12 04:47] LABS: Calcium 7.7 MG/DL (8.5-10.1); Osmolality,Calculated 268.8 MOS/KG (273-304); Potassium 3.7 MMOL/L (3.5-5.1)
--- NOTE | 2017-04-12 06:41 | EKG Report ---
Stationary ECG Study [facility] Test Date: 04/12/2017 6:39:59 AM Pat Name: KANDI GORMAN Department: Room: 107 Gender: F Unit Operator: KIRSTIE : 1935 Requested by: Carlita Torres Order Number: [id number] Reading MD: ALYCIA MEJIA Intervals [place] Rate: 72 P: 58 LA: 306 QRS: 116 QRSD: 197 T: -42 QT: 460 QTc: 485 Interpretive Statements SINUS RHYTHM WITH PROLONGED LA INTERVAL WITH OCCASIONAL SUPRAVENTRICULAR PREMATURE COMPLEXES MARKED RIGHT AXIS DEVIATION LEFT BUNDLE BRANCH BLOCK Electronically Signed On 04-14-17 16:23:25 CDT by ALYCIA MEJIA [email or web address]
--- NOTE | 2017-04-12 07:05 | Cardiology Progress Note ---
Assessment and Plan (1) Anemia Status: Acute Assessment and plan: This is improved posttransfusion will follow Current Visit: Yes (2) Heart failure, diastolic, acute Status: Acute Assessment and plan: Due to ischemia. Hopefully this will improve Current Visit: Yes (3) Pneumonia Status: Acute Assessment and plan: Radiographically this looked better by chest x-ray yesterday. Repeat chest x- ray this morning. This is likely all volume although with her Klebsiella is suspicious for superimposed pneumonitis Current Visit: Yes Qualifiers: Laterality: left Lung location: lower lobe of lung (4) Mitral regurgitation Status: Acute Assessment and plan: Ischemic. Hopefully this will improve after opening the circumflex. Current Visit: Yes Qualifiers: Cardiac valve disease etiology: nonrheumatic Qualified Code(s): I34.0 - Nonrheumatic mitral (valve) insufficiency (5) Acute coronary syndromes Status: Acute Current Visit: Yes (6) Urinary tract infection Status: Acute Current Visit: Yes (7) Aortic stenosis Status: Chronic Current Visit: Yes Qualifiers: Cardiac valve disease etiology: nonrheumatic Qualified Code(s): I35.0 - Nonrheumatic aortic (valve) stenosis (8) Coronary artery disease Status: Chronic Assessment and plan: See op note from 529 Current Visit: Yes Qualifiers: Coronary Disease-Associated Artery/Lesion type: [place] artery (9) Hypertension Status: Chronic Assessment and plan: She is currently well controlled and stable. Hopefully we can convert the Lasix infusion to boluses. Current Visit: Yes Qualifiers: Hypertension type: essential hypertension Qualified Code(s): I10 - Essential (primary) hypertension (10) Depressive disorder Status: Chronic Current Visit: No (11) Dyslipidemia (high LDL; low HDL) Status: Chronic Current Visit: No Cardiology - PN: Subj Interval history: Ms. Meza still requiring significant amount of ventilatory support with high PEEP and high flow O2. I have ordered a chest x-ray for this morning when it inadvertently was not ordered we will review that. I discussed with Dr. Pastrana. Also discussed with her daughter Marietta at the bedside. The patient after transfusion has a hemoglobin up to 9.6 which I think will help her. She is only slightly negative fluid balance unfortunately required a significant amount of transfusion volume overnight. She is only less than 200 cc negative. She is continues to be on the Lasix drip I will convert this to IV boluses. Urine in her [place] continues to be concentrated her dark part of this may be residual left over from her Pyridium. She seems to at least be temporarily stabilized. She remains critically ill I discussed this with her daughter. Exam (Progress Note) - Constitutional Vitals: Period Temp Pulse Resp BP Sys/Alas Pulse Ox Last 24 Hr 96.8 F-97.4 F 59-85 14-32 82-119/36-68 78-100 General appearance: over weight - Head Head exam: Present: normal inspection, other (ET tube is in place) - Neck Neck exam: Present: normal inspection - Respiratory Respiratory exam: Present: other (Rather clear on vent.) - Cardiovascular Cardiovascular exam: Present: regular rate and rhythm (No gallop she has a murmur of mitral regurgitation is soft) - GI/Abdominal GI/Abdominal exam: Present: normal bowel sounds - Extremities Exam Extremities exam: Present: normal inspection - Back Exam Back exam: Present: normal inspection - Neurological Exam Neurological exam: Present: other (Sedated) - Skin Skin exam: Present: normal color, warm, dry Result/EKG - Labs CBC & BMP: 04/12/17 04:00 04/12/17 04:00 Labs: Laboratory Results - last 24 hr 04/11/17 04/11/17 04/11/17 06:35 13:10 13:50 WBC 11.6 RBC 2.42 L Hgb 8.2 L Hct 23.7 L MCV 97.9 MCH 34 MCHC 34.6 RDW 11.6 Plt Count 272 MPV 9.7 Neut % (Auto) 81.8 H Lymph % (Auto) 8.8 L Martin % (Auto) 8.3 Eos % (Auto) 0.1 Baso % (Auto) 0.2 Neut # (Auto) 9.5 H Lymph # (Auto) 1.0 L Martin # (Auto) 1.0 H Eos # (Auto) 0.0 Baso # (Auto) 0.0 Immature Gran % 0.8 Nucleated RBC % 0.0 Immature Gran # 0.09 Nucleated RBCs # 0.00 ABG pH 7.441 ABG pCO2 42.6 ABG pO2 49.6 L ABG HCO3 28.3 H ABG Total CO2 29.7 H ABG O2 Saturation 84.4 L ABG Base Excess 3.8 H FiO2 Sodium Potassium Chloride Carbon Dioxide Anion Gap BUN Creatinine GFR Calculation BUN/Creatinine Ratio Glucose Calculated Osmolality Calcium Total Creatine Kinase 96 D CK-MB (CK-2) 2.3 D Troponin I 0.950 H D Blood Type Antibody Screen Crossmatch 04/11/17 04/11/17 04/11/17 17:29 19:08 Unknown WBC RBC Hgb Hct MCV MCH MCHC RDW Plt Count MPV Neut % (Auto) Lymph % (Auto) Martin % (Auto) Eos % (Auto) Baso % (Auto) Neut # (Auto) Lymph # (Auto) Martin # (Auto) Eos # (Auto) Baso # (Auto) Immature Gran % Nucleated RBC % Immature Gran # Nucleated RBCs # ABG pH 7.423 ABG pCO2 46.7 ABG pO2 54.6 L ABG HCO3 29.8 H ABG Total CO2 31.3 H ABG O2 Saturation 86.7 L ABG Base Excess 4.8 H FiO2 100.00 Sodium Potassium Chloride Carbon Dioxide Anion Gap BUN Creatinine GFR Calculation BUN/Creatinine Ratio Glucose Calculated Osmolality Calcium Total Creatine Kinase CK-MB (CK-2) Troponin I Blood Type AB POSITIVE AB POSITIVE Antibody Screen Negative Crossmatch See Detail 04/12/17 04/12/17 04/12/17 03:42 04:00 04:00 WBC 10.9 RBC 2.89 L Hgb 9.6 L Hct 27.2 L MCV 94.1 MCH 33 MCHC 35.3 RDW 13.2 Plt Count 250 MPV 9.9 Neut % (Auto) 79.4 H Lymph % (Auto) 11.4 L Martin % (Auto) 8.2 Eos % (Auto) 0.2 Baso % (Auto) 0.2 Neut # (Auto) 8.6 H Lymph # (Auto) 1.2 L Martin # (Auto) 0.9 H Eos # (Auto) 0.0 Baso # (Auto) 0.0 Immature Gran % 0.6 Nucleated RBC % 0.0 Immature Gran # 0.06 Nucleated RBCs # 0.00 ABG pH 7.436 ABG pCO2 42.9 ABG pO2 161.1 H ABG HCO3 28.2 H ABG Total CO2 29.5 H ABG O2 Saturation 98.5 ABG Base Excess 3.6 H FiO2 100.00 Sodium 130 L Potassium 3.7 Chloride 89 L Carbon Dioxide 29 Anion Gap 15.7 H BUN 36 H D Creatinine 1.20 H GFR Calculation 47 BUN/Creatinine Ratio 30.00 H Glucose 109 H Calculated Osmolality 268.8 L Calcium 7.7 L Total Creatine Kinase CK-MB (CK-2) Troponin I Blood Type Antibody Screen Crossmatch Quality Measures - VTE Contraindication to Pharmacological VTE Prophylaxis: High Risk of Bleeding
--- NOTE | 2017-04-12 07:21 | Pulmonology Consult Note ---
Assessment and Plan (1) Acute respiratory failure Status: Acute Assessment and plan: This may all be due to congestive heart failure. However with high requirement for PEEP there may be an element of ARDS. Will adjust PEEP and FiO2. Hopefully with diuresis we can get her down to where she can start weaning trials. This will likely take a few days. This was discussed with the patient' s daughter at the bedside. Current Visit: Yes (2) Urinary tract infection Status: Acute Assessment and plan: Klebsiella UTI covered with Levaquin. Current Visit: Yes (3) Aortic stenosis Status: Chronic Assessment and plan: Noted at catheterization please see those reports. Current Visit: Yes Qualifiers: Cardiac valve disease etiology: nonrheumatic Qualified Code(s): I35.0 - Nonrheumatic aortic (valve) stenosis (4) Heart failure, diastolic, acute Status: Acute Assessment and plan: Needs further diuresis. Renal function appears stable. Current Visit: Yes (5) Mitral regurgitation Status: Acute Assessment and plan: Also part of her called for congestive heart failure. This was felt to be ischemic in etiology. Current Visit: Yes Qualifiers: Cardiac valve disease etiology: nonrheumatic Qualified Code(s): I34.0 - Nonrheumatic mitral (valve) insufficiency History of Present Illness Chief complaint: Respiratory failure History of present illness: Ms. Meza is a 82 year old female who came in with chest pain. She has had previous coronary bypass surgery and multiple stents. She was taken back to the [facility] yesterday and had 2 stents put in. She had findings of high LVEDP and she has aortic stenosis and mitral regurgitation as well as coronary disease. She is presently on the ventilator. She has interstitial edema on x- ray and is requiring high levels of oxygen and PEEP. There is no known history of lung disease. She has never been a smoker. She has had a urinary tract infection with Klebsiella. I do not see any sputum cultures reported. She had 1 of 2 blood cultures positive for gram-positive cocci that is not staph aureus. At present she is on Levaquin. She is on 100% oxygen and 14 of PEEP. This is to have to start weaning trials as yet. Home Medications Medication Instructions Recorded Confirmed Type Acetaminophen Tab [Tylenol Tab] 500 mg PO Q6HR PRN 09/05/15 04/05/17 History Aspirin EC Tab 81 mg PO DAILY 09/05/15 04/05/17 History Famotidine 20 mg PO BID 09/05/15 04/05/17 History Gabapentin 400 mg PO TID 09/05/15 04/05/17 History Lisinopril 10 mg PO DAILY 09/05/15 04/05/17 History Metoprolol Tartrate Tab [Lopressor 25 mg PO BID 09/05/15 04/05/17 History Tab] Multivit-Min/Iron/Folic/Lutein 1 each PO DAILY 09/05/15 04/05/17 History [Centrum Silver Women Tablet] Nitrofurantoin Macrocrystals 50 mg PO DAILY 09/05/15 04/05/17 History [Macrodantin] Nitroglycerin Sl Tab [Nitrostat] 0.4 mg SL Q5M PRN 09/05/15 04/05/17 History Oxycodone HCl/Acetaminophen 1 each PO Q6H PRN 09/05/15 04/05/17 History [Oxycodon-Acetaminophen 7.5-325] Prasugrel [Effient] 10 mg PO DAILY 09/05/15 04/05/17 History Pravastatin [Pravachol] 40 mg PO BEDTIME 09/05/15 04/05/17 History Sertraline [Zoloft] 50 mg PO DAILY 09/05/15 04/05/17 History amLODIPine [Norvasc] 10 mg PO DAILY 09/05/15 04/05/17 History buPROPion [Wellbutrin] 100 mg PO DAILY 09/05/15 04/05/17 History Ranolazine [Ranexa] 500 mg PO BID #60 tablet 09/09/15 04/05/17 Rx Isosorbide Mononitrate [Isosorbide 60 mg PO DAILY 04/05/17 04/05/17 History Mononitrate ER] Meloxicam [Meloxicam] 15 mg PO DAILY 04/05/17 04/05/17 History Allergies Allergy/AdvReac Type Severity Reaction Status Date / Time Penicillins Allergy RASH Verified 09/05/15 01:51 codeine AdvReac Nausea Verified 09/05/15 01:51 meperidine [From Demerol] AdvReac Nausea Verified 09/05/15 01:51 ROS unobtainable: due to endotracheal tube Exam (Pulmonay) H&P - Constitutional Vitals: Period Temp Pulse Resp BP Sys/Alas Pulse Ox Last 24 Hr 96.8 F-97.4 F 59-85 14-32 82-119/36-68 78-100 Exam: Patient is sedated on the ventilator. Vital signs are normal. O2 sat 96% on 100% with 14 of PEEP. Pupils are reactive. Orotracheal tube in place. Neck is supple. Chest reveals some rales in the bases bilaterally. Heart normal rate and rhythm with a grade 1/6 systolic murmur at the right base and left sternal border. Abdomen is soft no masses. Extremities no clubbing or cyanosis. There is a trace of edema. Medical,Surgical,& Family Hx - Medical History Cardio: History of: CAD, Hypertension, MS (three MS), Cardiovascular Problems Psychological: History of: Anxiety Disorders, Depression Neurology: No history of: Cerebrovascular Accident HEENT: History of: Ear Problem (hearing aides), Eye Problem (glasses) Endocrine: History of: Dyslipidemia Genitourinary: History of: Recurring Urinary Tract Infections Gastrointestinal: History of: GERD Musculoskeletal: History of: Musculoskeletal Problems (arthritis) Hematology: History of: Clotting Problems (DVT WHILE ) - Surgical History Cardiac Surgeries: Sugical HX of: Cardiac Catheterization (7 stents), Cardiac Surgery (Triple bypass) Thoracic Surgeries: Patient denies;: Organ Transplant Abdominal Surgeries: Surgical HX of: Cholecystectomy - Family History Family History: Reports;: Family Heart Disease - Social History Smoking Status: Never smoker Frequency of Alcohol Use: None Type of Drug Use: None Results - Labs CBC & BMP: 04/12/17 04:00 04/12/17 04:00 Lab Results: I have reviewed the past 24 hour labs - Diagnostic Findings Procedure: Chest x-ray: pending Quality Measures - VTE Contraindication to Pharmacological VTE Prophylaxis: High Risk of Bleeding
--- NOTE | 2017-04-12 07:23 | XRay Report ---
XR chest 1V portable Indication: Intubation Comparison: Chest x-ray 04/11/2017 Technique: Portable AP chest was performed. Findings: Multiple tubes and medical support devices appear stable. Minimal improvement in aeration of the lung bases is suggested. This may in part reflect improved inspiration. Perihilar interstitial prominence and airspace opacities remain present. Chest is otherwise unchanged. Impression: 1. Improved inspiration is demonstrated. Some improvement in aeration of the lung bases additionally suggested. 2. Perihilar stranding opacities present bilaterally suggest a component of congestive heart failure and/or pulmonary edema. 04/12/2017 7:18 AM PROCEDURE INTERPRETED AT [facility] DEPARTMENT OF RADIOLOGY Final Report Signed by: Dr. Isael Tuttle
[2017-04-12 07:50] LABS: ABG HCO3 28.7 MMOL/L (20-26); ABG PCO2 48.6 MM HG (35-48); ABG PH 7.389 (7.35-7.45); ABG PO2 60.3 MM HG (80-95)
[2017-04-12 07:51] LABS: ABG Base Excess 3.1 MMOL/L (-2.5-2.5); ABG Oxygen Saturation 89.3 % (95-100); ABG TCO2 30.2 MMOL/L (23-27); Glucose Heart Surgery 118 MG/DL (74-106); Hemoglobin Heart Surgery 10.5 G/DL (12.0-16.0); Potassium Heart/CVR 3.8 MMOL/L (3.5-5.1)
--- NOTE | 2017-04-12 08:15 | Cardiothoracic Progress Note ---
Cardiothoracic Subjective Interval history: Patient is intubated on a ventilator and comfortable. She gradually deteriorated yesterday morning and Dr. Peña took her emergently to the Seating Captain where he was able to open the circumflex coronary artery with what appears to be an excellent result. He also was able to obtain some flow in the right coronary artery although there does remain a significant ostial stenosis. The patient clinically is better today with a chest x-ray that looks some improved and blood gases also that her some improved. She is probably going to need assisted ventilation for 2-3 days until her pulmonary edema/pneumonia improve. Overall I believe that this is the best result that could be obtained and offers her the best opportunity of survival. Exam (Progress Note) - Constitutional Vitals: Period Temp Pulse Resp BP Sys/Alas Pulse Ox Last 24 Hr 96.8 F-97.4 F 59-85 14-32 82-119/36-68 80-100 Result/EKG - Labs CBC & BMP: 04/12/17 04:00 04/12/17 04:00 Labs: Laboratory Results - last 24 hr 04/11/17 04/11/17 04/11/17 13:10 13:50 17:29 WBC 11.6 RBC 2.42 L Hgb 8.2 L Hct 23.7 L MCV 97.9 MCH 34 MCHC 34.6 RDW 11.6 Plt Count 272 MPV 9.7 Neut % (Auto) 81.8 H Lymph % (Auto) 8.8 L [place] % (Auto) 8.3 Eos % (Auto) 0.1 Baso % (Auto) 0.2 Neut # (Auto) 9.5 H Lymph # (Auto) 1.0 L [place] # (Auto) 1.0 H Eos # (Auto) 0.0 Baso # (Auto) 0.0 Immature Gran % 0.8 Nucleated RBC % 0.0 Immature Gran # 0.09 Nucleated RBCs # 0.00 ABG pH 7.441 ABG pCO2 42.6 ABG pO2 49.6 L ABG HCO3 28.3 H ABG Total CO2 29.7 H ABG O2 Saturation 84.4 L ABG Base Excess 3.8 H Hemoglobin Hematocrit FiO2 Sodium Potassium Chloride Carbon Dioxide Anion Gap BUN Creatinine GFR Calculation BUN/Creatinine Ratio Glucose Calculated Osmolality Calcium Blood Type AB POSITIVE Antibody Screen Crossmatch 04/11/17 04/11/17 04/12/17 19:08 Unknown 03:42 WBC RBC Hgb Hct MCV MCH MCHC RDW Plt Count MPV Neut % (Auto) Lymph % (Auto) [place] % (Auto) Eos % (Auto) Baso % (Auto) Neut # (Auto) Lymph # (Auto) [place] # (Auto) Eos # (Auto) Baso # (Auto) Immature Gran % Nucleated RBC % Immature Gran # Nucleated RBCs # ABG pH 7.423 7.436 ABG pCO2 46.7 42.9 ABG pO2 54.6 L 161.1 H ABG HCO3 29.8 H 28.2 H ABG Total CO2 31.3 H 29.5 H ABG O2 Saturation 86.7 L 98.5 ABG Base Excess 4.8 H 3.6 H Hemoglobin Hematocrit FiO2 100.00 100.00 Sodium Potassium Chloride Carbon Dioxide Anion Gap BUN Creatinine GFR Calculation BUN/Creatinine Ratio Glucose Calculated Osmolality Calcium Blood Type AB POSITIVE Antibody Screen Negative Crossmatch See Detail 04/12/17 04/12/17 04/12/17 04:00 04:00 07:51 WBC 10.9 RBC 2.89 L Hgb 9.6 L Hct 27.2 L MCV 94.1 MCH 33 MCHC 35.3 RDW 13.2 Plt Count 250 MPV 9.9 Neut % (Auto) 79.4 H Lymph % (Auto) 11.4 L [place] % (Auto) 8.2 Eos % (Auto) 0.2 Baso % (Auto) 0.2 Neut # (Auto) 8.6 H Lymph # (Auto) 1.2 L [place] # (Auto) 0.9 H Eos # (Auto) 0.0 Baso # (Auto) 0.0 Immature Gran % 0.6 Nucleated RBC % 0.0 Immature Gran # 0.06 Nucleated RBCs # 0.00 ABG pH 7.389 ABG pCO2 48.6 H ABG pO2 60.3 L ABG HCO3 28.7 H ABG Total CO2 30.2 H ABG O2 Saturation 89.3 L ABG Base Excess 3.1 H Hemoglobin 10.5 L Hematocrit 31.0 L FiO2 Sodium 130 L Potassium 3.7 3.8 Chloride 89 L Carbon Dioxide 29 Anion Gap 15.7 H BUN 36 H D Creatinine 1.20 H GFR Calculation 47 BUN/Creatinine Ratio 30.00 H Glucose 109 H 118 H Calculated Osmolality 268.8 L Calcium 7.7 L Blood Type Antibody Screen Crossmatch Quality Measures - VTE Contraindication to Pharmacological VTE Prophylaxis: High Risk of Bleeding
[2017-04-12] MEDS: PHENAZOPYRIDINE 95 MG TABLET PO SCH ×3 (08:20→16:52)
[2017-04-12] MEDS: GABAPENTIN 400 MG CAPSULE PO SCH ×3 (08:20→20:39)
[2017-04-12] MEDS: RANOLAZINE 500 MG TABLET PO SCH ×2 (08:21→20:40)
[2017-04-12] MEDS: CLOPIDOGREL 75 MG TABLET PO SCH (08:22)
[2017-04-12] MEDS: buPROPion 100 MG TABLET PO SCH (08:22)
[2017-04-12] MEDS: ASPIRIN EC 81 MG TABLET PO SCH (08:22)
[2017-04-12] MEDS: metOLazone 5 MG TABLET PO SCH ×2 (08:22→10:13)
[2017-04-12] MEDS: traMADol 50 MG TABLET PO SCH ×2 (08:22→20:40)
[2017-04-12] MEDS: PANTOPRAZOLE 40 MG TABLET PO SCH (08:23)
[2017-04-12] MEDS: SERTRALINE 50 MG TABLET PO SCH (08:23)
[2017-04-12] MEDS: ACETAMINOPHEN 325 MG TABLET PO SCH ×2 (08:23→20:39)
[2017-04-12] MEDS: METOPROLOL TARTRATE 25 MG TABLET PO SCH ×2 (08:23→20:39)
[2017-04-12] MEDS: FUROSEMIDE 40 MG/4 ML VIAL IV SCH ×2 (08:24→16:53)
[2017-04-12] MEDS: PROPOFOL 1,000 MG/100 ML BOTTLE IV SCH (14:00)
[2017-04-12] MEDS ORDERED: DEXTROSE 50% 25 GM/50 ML VIAL IV PRN (14:17)
[2017-04-12] MEDS ORDERED: GLUCAGON 1 MG VIAL IM PRN (14:17)
[2017-04-12] MEDS: LEVOFLOXACIN INJ 500 MG in PREMIX 1 EACH IV SCH (16:53)
[2017-04-12] MEDS: INSULIN REGULAR 100 UNIT/ML SUBCUT SCH (19:15)
[2017-04-12] MEDS: PRAVASTATIN 40 MG TABLET PO SCH (20:39)
[2017-04-13] MEDS: INSULIN REGULAR 100 UNIT/ML SUBCUT SCH ×4 (00:13→18:14)
[2017-04-13] MEDS ORDERED: SODIUM CHLORIDE 0.9% 500 ML IV ONE (01:12)
[2017-04-13] MEDS: DOPamine 800 MG/250 ML PREMIX IV SCH ×3 (01:37→14:54)
[2017-04-13] MEDS: LEVALBUTEROL 0.63 MG/3 ML NEB RESP TX SCH ×6 (02:53→23:11)
[2017-04-13 04:29] LABS: Basophils % 0.1 % (0.0-0.8); Hematocrit 31.6 VOL% (35.7-47.0); Hemoglobin 10.6 GM/DL (12.0-16.0); Immature Granulocytes % 1.3 %; Immature Granulocytes Absolute 0.17 #; Lymphocytes # 0.7 10*3/uL (1.4-4.0); Lymphocytes % 5.4 % (21.3-54.2); Mean Corpuscular HGB Conc 33.5 GM/DL (32-36); Mean Corpuscular Hemoglobin 32 PG (27-34); Mean Corpuscular Volume 95.8 FL (87-102); Mean Platelet Volume 9.9 FL (9.6-12.0); Monocytes # 1.1 10*3/uL (0.11-0.8); Monocytes % 8.4 % (1.7-12.7); Neutrophils # 11.4 10*3/uL (1.4-7.4); Neutrophils % 84.8 % (38.7-73.9); Platelet Count 331 T/CUMM (130-400); Red Cell Distribution Width 13.2 % (9.3-17.3); White Blood Count 13.4 T/CUMM (4-12)
[2017-04-13 04:40] LABS: Calcium 7.9 MG/DL (8.5-10.1); Osmolality,Calculated 283.8 MOS/KG (273-304); Potassium 4.3 MMOL/L (3.5-5.1)
[2017-04-13 05:04] LABS: Magnesium 2.8 MG/DL (1.8-2.4); Phosphorous 6.1 MG/DL (2.5-4.9); Prealbumin 6.6 MG/DL (20-40)
--- NOTE | 2017-04-13 06:06 | XRay Report ---
XR chest 1V portable Indication: Chest pain. Comparison: Chest x-ray 04/12/2017 Technique: Portable AP chest was performed. Findings: The heart is stable in size compared to previous study. Multiple tubes and medical support devices appear stable. Coronary artery calcifications and/or stents are present. Prior sternotomy is again demonstrated. Pulmonary vasculature is minimally prominent within the central chest. Hilar structures demonstrate fairly symmetric appearance. The lungs demonstrate bilateral perihilar and hilar reticular and linear interstitial markings with some airspace opacities in the perihilar regions and cardiophrenic angles. Overall appearance of the lung parenchyma has minimally improved since comparison. Bones and soft tissues demonstrate no evidence of acute pathology. Impression: 1. Improving congestive heart failure/pulmonary edema is suggested. 04/13/2017 6:02 AM PROCEDURE INTERPRETED AT [facility] DEPARTMENT OF RADIOLOGY Final Report Signed by: Dr. Isael Tuttle
--- NOTE | 2017-04-13 06:37 | Pulmonology Progress Note ---
Pulmonary - PN: Subj Interval history: This 82-year-old white female had congestive heart failure and respiratory failure. She had a coronary stent placed. She has a decreased level of consciousness. Creatinine has risen to 2.4. Family has now made her DO NOT RESUSCITATE. However we are continuing to try to wean her from the ventilator. She is on 80% oxygen and has an oxygen saturation of 93%. We will try to reduce back to a level where we can start CPAP. Exam (Progress Note) - Constitutional Vitals: Period Temp Pulse Resp BP Sys/Alas Pulse Ox Last 24 Hr 96.4 F-97.6 F 56-79 14-94 79-131/33-67 88-99 Exam: Patient not responding. Systolic blood pressure in the upper 90s. Pupils react to light. Orotracheal tube in place. Neck is supple no bruits. Chest reveals a few scattered rhonchi. Equal breath sounds. Heart is regular without murmurs. Abdomen soft no masses. Extremities no clubbing cyanosis. Trace of edema. Results - Labs CBC & BMP: 04/13/17 04:06 04/13/17 04:06 Lab Results: I have reviewed the past 24 hour labs - Diagnostic Findings Procedure: Chest x-ray: image reviewed by me (Looks a little less wet than yesterday. ET tube in acceptable position.) Assessment and Plan (1) Acute respiratory failure Status: Acute Assessment and plan: This may all be due to congestive heart failure. However with high requirement for PEEP there may be an element of ARDS. Will adjust PEEP and FiO2. Hopefully with diuresis we can get her down to where she can start weaning trials. This will likely take a few days. This was discussed with the patient' s daughter at the bedside. 04/13/2017 chest x-ray is improved following diuresis. Still fairly wide A-a O2 difference suggesting an element of ARDS. Current Visit: Yes (2) Urinary tract infection Status: Acute Assessment and plan: Klebsiella UTI covered with Levaquin. 04/13/2017 UTI should be well covered. Current Visit: Yes (3) Aortic stenosis Status: Chronic Assessment and plan: Noted at catheterization please see those reports. 04/13/2017 has valvular as well as coronary disease. Current Visit: Yes Qualifiers: Cardiac valve disease etiology: nonrheumatic Qualified Code(s): I35.0 - Nonrheumatic aortic (valve) stenosis (4) Heart failure, diastolic, acute Status: Acute Assessment and plan: Needs further diuresis. Renal function appears stable. 04/13/2017 trying to diurese depending on renal function. Current Visit: Yes (5) Mitral regurgitation Status: Acute Assessment and plan: Also part of her called for congestive heart failure. This was felt to be ischemic in etiology. Current Visit: Yes Qualifiers: Cardiac valve disease etiology: nonrheumatic Qualified Code(s): I34.0 - Nonrheumatic mitral (valve) insufficiency
[2017-04-13 07:05] LABS: ABG HCO3 27.6 MMOL/L (20-26); ABG Oxygen Saturation 89.9 % (95-100); ABG PCO2 47.8 MM HG (35-48); ABG PH 7.379 (7.35-7.45); ABG PO2 60.7 MM HG (80-95); Allen Test Positive; Pt O2 Delivery Device Ventilator
--- NOTE | 2017-04-13 07:44 | EKG Report ---
Stationary ECG Study [facility] Test Date: 04/13/2017 7:43:20 AM Pat Name: KANDI GORMAN Department: Room: 107 Gender: F Embalmer Assistant: KIRSTIE : [id number] Requested by: Carlita Torres Order Number: [id number] Aleshia MD: ALYCIA MEJIA Intervals [place] Rate: 67 P: -76 FL: 282 QRS: -49 QRSD: 198 T: 120 QT: 459 QTc: 474 Interpretive Statements SINUS RHYTHM WITH PROLONGED FL INTERVAL MARKED LEFT AXIS DEVIATION LEFT BUNDLE BRANCH BLOCK Electronically Signed On 04-14-17 21:43:35 CDT by ALYCIA MEJIA [email or web address]
[2017-04-13] MEDS: FUROSEMIDE 40 MG/4 ML VIAL IV SCH (08:32)
[2017-04-13] MEDS: PHENAZOPYRIDINE 95 MG TABLET PO SCH (08:33)
--- NOTE | 2017-04-13 09:06 | Cardiothoracic Progress Note ---
Cardiothoracic Subjective Interval history: Patient is sedated on the ventilator. She has become somewhat less responsive and is hypotensive this morning. Her urine output is also declined and her creatinine is risen to 2.4. This may be a reflection of hypovolemia but she still has evidence on chest x-ray or pulmonary edema and her blood gases are still only marginal with relatively high FiO2. Family is aware of the critical nature of her condition and has made her a DNR. I will defer to Dr. Peña and Dr. Pastrana for any changes in her therapy but it is possible she might benefit from a cautious fluid challenge. We will continue to follow. Exam (Progress Note) - Constitutional Vitals: Period Temp Pulse Resp BP Sys/Alas Pulse Ox Last 24 Hr 96.4 F-100.7 F 56-75 14-94 57-131/27-69 89-99 Result/EKG - Labs CBC & BMP: 04/13/17 04:06 04/13/17 04:06 Labs: Laboratory Results - last 24 hr 04/12/17 04/12/17 04/13/17 17:43 23:22 04:06 WBC RBC Hgb Hct MCV MCH MCHC RDW Plt Count MPV Neut % (Auto) Lymph % (Auto) [place] % (Auto) Eos % (Auto) Baso % (Auto) Neut # (Auto) Lymph # (Auto) [place] # (Auto) Eos # (Auto) Baso # (Auto) Immature Gran % Nucleated RBC % Immature Gran # Nucleated RBCs # ABG pH ABG pCO2 ABG pO2 ABG HCO3 ABG Total CO2 ABG O2 Saturation ABG Base Excess FiO2 Sodium 130 L Potassium 4.3 Chloride 90 L Carbon Dioxide 23 Anion Gap 21.3 H BUN 71 H Creatinine 2.40 H GFR Calculation 20 BUN/Creatinine Ratio 29.00 H Glucose 147 H POC Glucose 171 H 156 H Calculated Osmolality 283.8 Calcium 7.9 L Phosphorus Magnesium Prealbumin 04/13/17 04/13/17 04/13/17 04:06 04:06 05:51 WBC 13.4 H RBC 3.30 L Hgb 10.6 L Hct 31.6 L MCV 95.8 MCH 32 MCHC 33.5 RDW 13.2 Plt Count 331 D MPV 9.9 Neut % (Auto) 84.8 H Lymph % (Auto) 5.4 L [place] % (Auto) 8.4 Eos % (Auto) 0.0 Baso % (Auto) 0.1 Neut # (Auto) 11.4 H Lymph # (Auto) 0.7 L [place] # (Auto) 1.1 H Eos # (Auto) 0.0 Baso # (Auto) 0.0 Immature Gran % 1.3 Nucleated RBC % 0.0 Immature Gran # 0.17 Nucleated RBCs # 0.00 ABG pH ABG pCO2 ABG pO2 ABG HCO3 ABG Total CO2 ABG O2 Saturation ABG Base Excess FiO2 Sodium Potassium Chloride Carbon Dioxide Anion Gap BUN Creatinine GFR Calculation BUN/Creatinine Ratio Glucose POC Glucose 134 H Calculated Osmolality Calcium Phosphorus 6.1 H Magnesium 2.8 H Prealbumin 6.6 L 04/13/17 07:06 WBC RBC Hgb Hct MCV MCH MCHC RDW Plt Count MPV Neut % (Auto) Lymph % (Auto) [place] % (Auto) Eos % (Auto) Baso % (Auto) Neut # (Auto) Lymph # (Auto) [place] # (Auto) Eos # (Auto) Baso # (Auto) Immature Gran % Nucleated RBC % Immature Gran # Nucleated RBCs # ABG pH 7.379 ABG pCO2 47.8 ABG pO2 60.7 L ABG HCO3 27.6 H ABG Total CO2 29.0 H ABG O2 Saturation 89.9 L ABG Base Excess 2.0 FiO2 70.00 Sodium Potassium Chloride Carbon Dioxide Anion Gap BUN Creatinine GFR Calculation BUN/Creatinine Ratio Glucose POC Glucose Calculated Osmolality Calcium Phosphorus Magnesium Prealbumin Quality Measures - VTE Contraindication to Pharmacological VTE Prophylaxis: High Risk of Bleeding
[2017-04-13] MEDS: RANOLAZINE 500 MG TABLET PO SCH ×2 (09:58→21:10)
[2017-04-13] MEDS: CITRIC ACID/SODIUM CITRATE 30 ML UDCUP PO SCH ×3 (10:22→21:40)
[2017-04-13] MEDS: METOPROLOL TARTRATE 25 MG TABLET PO SCH ×2 (10:22→21:08)
[2017-04-13] MEDS: ASPIRIN EC 81 MG TABLET PO SCH (10:23)
[2017-04-13] MEDS: CLOPIDOGREL 75 MG TABLET PO SCH (10:23)
[2017-04-13] MEDS: SERTRALINE 50 MG TABLET PO SCH (10:23)
[2017-04-13] MEDS: ACETAMINOPHEN 325 MG TABLET PO SCH ×2 (10:23→21:41)
[2017-04-13] MEDS: buPROPion 100 MG TABLET PO SCH (10:23)
[2017-04-13] MEDS: GABAPENTIN 400 MG CAPSULE PO SCH ×3 (10:23→21:40)
[2017-04-13] MEDS: PANTOPRAZOLE 40 MG TABLET PO SCH (10:32)
--- NOTE | 2017-04-13 10:50 | Cardiology Progress Note ---
Assessment and Plan (1) Anemia Status: Acute Assessment and plan: This is improved posttransfusion will follow. This continues to be better Current Visit: Yes (2) Heart failure, diastolic, acute Status: Acute Assessment and plan: I think the heart failure component now is more related to her valvular abnormalities. She also certainly has diastolic dysfunction. Current Visit: Yes (3) Mitral regurgitation Status: Acute Assessment and plan: Ischemic. Hopefully this will improve after opening the circumflex. Current Visit: Yes Qualifiers: Cardiac valve disease etiology: nonrheumatic Qualified Code(s): I34.0 - Nonrheumatic mitral (valve) insufficiency (4) Acute coronary syndromes Status: Acute Current Visit: Yes (5) Urinary tract infection Status: Acute Current Visit: Yes (6) Aortic stenosis Status: Chronic Current Visit: Yes Qualifiers: Cardiac valve disease etiology: nonrheumatic Qualified Code(s): I35.0 - Nonrheumatic aortic (valve) stenosis (7) Coronary artery disease Status: Chronic Current Visit: Yes Qualifiers: Coronary Disease-Associated Artery/Lesion type: [place] artery (8) Depressive disorder Status: Chronic Current Visit: No (9) Dyslipidemia (high LDL; low HDL) Status: Chronic Current Visit: No (10) Hypotension Status: Acute Current Visit: Yes Qualifiers: Hypotension type: unspecified hypotension type Qualified Code(s): I95.9 - Hypotension, unspecified (11) Acute renal failure Status: Acute Current Visit: Yes Qualifiers: Acute renal failure type: with acute renal cortical necrosis Qualified Code (s): N17.1 - Acute kidney failure with acute cortical necrosis Cardiology - PN: Subj Interval history: The events of the evening were noted the help of all consultants also is greatly appreciated. The patient has had a significant decline. She has become hypotensive and had decreased urinary output. She received a fluid bolus during the night did not seem to make a significant difference but she is basically anuric now. I long discussion with all the family at the bedside did not give much hope for meaningful recovery however it still appropriate I think at this time to continue. I have asked Dr. Benson to see if he has any further recommendations. We will give another fluid bolus and see if it helps. Her end -diastolic pressure and right-sided pressures were all elevated I do not think she has an element of right heart failure except as it relates to left heart failure from her mitral regurgitation. Her EDP was also elevated but at this point I think it is reasonable to give fluid bolus to see if her hemodynamics improved. Her oxygenation remains very poor and I think this is from pulmonary edema. Again I think the primary problem is her mitral and aortic valves. Obviously if we prolonged pressor support her renal function will likely continue to decline this is a combination of hypotension and contrast. Hypertension being the larger offender. We used a relatively low amount of contrast her cath but is certainly additive are compounding with her hypotension. Exam (Progress Note) - Constitutional Vitals: Period Temp Pulse Resp BP Sys/Alas Pulse Ox Last 24 Hr 96.4 F-100.7 F 56-90 14-94 57-131/27-69 86-99 General appearance: over weight - Head Head exam: Present: normal inspection - Eye Eye exam: Present: other (Her pupils are dilated and minimally responsive to light) - Respiratory Respiratory exam: Present: rales - Cardiovascular Cardiovascular exam: Present: regular rate and rhythm (Chest soft murmur of mitral regurgitation and 3/6 murmur of aortic stenosis) - GI/Abdominal GI/Abdominal exam: Present: normal bowel sounds - Extremities Exam Extremities exam: Present: normal inspection - Neurological Exam Neurological exam: Present: other (Minimally responsive to verbal stimuli) Result/EKG - Labs CBC & BMP: 04/13/17 04:06 04/13/17 04:06 Labs: Laboratory Results - last 24 hr 04/12/17 04/12/17 04/13/17 17:43 23:22 04:06 WBC RBC Hgb Hct MCV MCH MCHC RDW Plt Count MPV Neut % (Auto) Lymph % (Auto) [place] % (Auto) Eos % (Auto) Baso % (Auto) Neut # (Auto) Lymph # (Auto) [place] # (Auto) Eos # (Auto) Baso # (Auto) Immature Gran % Nucleated RBC % Immature Gran # Nucleated RBCs # ABG pH ABG pCO2 ABG pO2 ABG HCO3 ABG Total CO2 ABG O2 Saturation ABG Base Excess FiO2 Sodium 130 L Potassium 4.3 Chloride 90 L Carbon Dioxide 23 Anion Gap 21.3 H BUN 71 H Creatinine 2.40 H GFR Calculation 20 BUN/Creatinine Ratio 29.00 H Glucose 147 H POC Glucose 171 H 156 H Calculated Osmolality 283.8 Calcium 7.9 L Phosphorus Magnesium Prealbumin 04/13/17 04/13/17 04/13/17 04:06 04:06 05:51 WBC 13.4 H RBC 3.30 L Hgb 10.6 L Hct 31.6 L MCV 95.8 MCH 32 MCHC 33.5 RDW 13.2 Plt Count 331 D MPV 9.9 Neut % (Auto) 84.8 H Lymph % (Auto) 5.4 L [place] % (Auto) 8.4 Eos % (Auto) 0.0 Baso % (Auto) 0.1 Neut # (Auto) 11.4 H Lymph # (Auto) 0.7 L [place] # (Auto) 1.1 H Eos # (Auto) 0.0 Baso # (Auto) 0.0 Immature Gran % 1.3 Nucleated RBC % 0.0 Immature Gran # 0.17 Nucleated RBCs # 0.00 ABG pH ABG pCO2 ABG pO2 ABG HCO3 ABG Total CO2 ABG O2 Saturation ABG Base Excess FiO2 Sodium Potassium Chloride Carbon Dioxide Anion Gap BUN Creatinine GFR Calculation BUN/Creatinine Ratio Glucose POC Glucose 134 H Calculated Osmolality Calcium Phosphorus 6.1 H Magnesium 2.8 H Prealbumin 6.6 L 04/13/17 07:06 WBC RBC Hgb Hct MCV MCH MCHC RDW Plt Count MPV Neut % (Auto) Lymph % (Auto) [place] % (Auto) Eos % (Auto) Baso % (Auto) Neut # (Auto) Lymph # (Auto) [place] # (Auto) Eos # (Auto) Baso # (Auto) Immature Gran % Nucleated RBC % Immature Gran # Nucleated RBCs # ABG pH 7.379 ABG pCO2 47.8 ABG pO2 60.7 L ABG HCO3 27.6 H ABG Total CO2 29.0 H ABG O2 Saturation 89.9 L ABG Base Excess 2.0 FiO2 70.00 Sodium Potassium Chloride Carbon Dioxide Anion Gap BUN Creatinine GFR Calculation BUN/Creatinine Ratio Glucose POC Glucose Calculated Osmolality Calcium Phosphorus Magnesium Prealbumin Quality Measures - VTE Contraindication to Pharmacological VTE Prophylaxis: High Risk of Bleeding
[2017-04-13] MEDS ORDERED: SODIUM CHLORIDE 0.9% 1,000 ML IV SCH (11:00)
[2017-04-13] MEDS: PROPOFOL 1,000 MG/100 ML BOTTLE IV SCH ×3 (11:53→23:15)
[2017-04-13] MEDS ORDERED: SODIUM CHLORIDE 0.9% 250 ML IV ONE (12:44)
--- NOTE | 2017-04-13 13:23 | Nephrology Consult Note ---
History of Present Illness Chief complaint: Acute renal failure History of present illness: Ms. Meza is a 82 year old female with history of CAD is now s/p her second cardiac cath with stent placement. Over the past several days, the patient's urine output has continued to decline. The serum creatinine has trended up to 2.4. The patient is now ventilated and has required pressor medications. Nephrology has been consulted for renal issues. More likely acute renal failure is due to contrast and hypotension. At this time continuing with volume replacement for this patient. Renal ultrasound. Daily BMP. We will continue to follow with you. Home Medications Medication Instructions Recorded Confirmed Type Acetaminophen Tab [Tylenol Tab] 500 mg PO Q6HR PRN 09/05/15 04/05/17 History Aspirin EC Tab 81 mg PO DAILY 09/05/15 04/05/17 History Famotidine 20 mg PO BID 09/05/15 04/05/17 History Gabapentin 400 mg PO TID 09/05/15 04/05/17 History Lisinopril 10 mg PO DAILY 09/05/15 04/05/17 History Metoprolol Tartrate Tab [Lopressor 25 mg PO BID 09/05/15 04/05/17 History Tab] Multivit-Min/Iron/Folic/Lutein 1 each PO DAILY 09/05/15 04/05/17 History [Centrum Silver Women Tablet] Nitrofurantoin Macrocrystals 50 mg PO DAILY 09/05/15 04/05/17 History [Macrodantin] Nitroglycerin Sl Tab [Nitrostat] 0.4 mg SL Q5M PRN 09/05/15 04/05/17 History Oxycodone HCl/Acetaminophen 1 each PO Q6H PRN 09/05/15 04/05/17 History [Oxycodon-Acetaminophen 7.5-325] Prasugrel [Effient] 10 mg PO DAILY 09/05/15 04/05/17 History Pravastatin [Pravachol] 40 mg PO BEDTIME 09/05/15 04/05/17 History Sertraline [Zoloft] 50 mg PO DAILY 09/05/15 04/05/17 History amLODIPine [Norvasc] 10 mg PO DAILY 09/05/15 04/05/17 History buPROPion [Wellbutrin] 100 mg PO DAILY 10/23/15 05/23/17 History Ranolazine [Ranexa] 500 mg PO BID #60 tablet 09/09/15 04/05/17 Rx Isosorbide Mononitrate [Isosorbide 60 mg PO DAILY 04/05/17 04/05/17 History Mononitrate ER] Meloxicam [Meloxicam] 15 mg PO DAILY 04/05/17 04/05/17 History Allergies Allergy/AdvReac Type Severity Reaction Status Date / Time Penicillins Allergy RASH Verified 09/05/15 01:51 codeine AdvReac Nausea Verified 09/05/15 01:51 meperidine [From Demerol] AdvReac Nausea Verified 09/05/15 01:51 Medical,Surgical,& Family Hx - Medical History Cardio: History of: CAD, Hypertension, MT (three MT), Cardiovascular Problems Psychological: History of: Anxiety Disorders, Depression Neurology: No history of: Cerebrovascular Accident HEENT: History of: Ear Problem (hearing aides), Eye Problem (glasses) Endocrine: History of: Dyslipidemia Genitourinary: History of: Recurring Urinary Tract Infections Gastrointestinal: History of: GERD Musculoskeletal: History of: Musculoskeletal Problems (arthritis) Hematology: History of: Clotting Problems (DVT WHILE ) - Surgical History Cardiac Surgeries: Sugical HX of: Cardiac Catheterization (7 stents), Cardiac Surgery (Triple bypass) Thoracic Surgeries: Patient denies;: Organ Transplant Abdominal Surgeries: Surgical HX of: Cholecystectomy - Family History Family History: Reports;: Family Heart Disease - Social History Smoking Status: Never smoker Frequency of Alcohol Use: None Type of Drug Use: None Review of Systems ROS unobtainable: due to endotracheal tube Exam - Vital Signs Vital signs: Period Temp Pulse Resp BP Sys/Alas Pulse Ox Last 24 Hr 97.0 F-100.7 F 56-90 14-94 57-131/27-69 86-99 - General Appearance General appearance: sedated on ventilator, intubated EENT: ATNC Neck: supple Respiratory: clear Cardiology: regular rate, regular rhythm Gastrointestinal: normoactive bowel sounds, no guarding Integumentary: no rash Results - Labs CBC & BMP: 04/13/17 04:06 04/13/17 04:06 Assessment and Plan (1) CAD (coronary artery disease) Status: Chronic Current Visit: No Qualifiers: Coronary Disease-Associated Artery/Lesion type: bypass graft [place] vs. transplanted heart: [place] heart Associated angina: with unspecified angina Qualified Code(s): I25.709 - Atherosclerosis of coronary artery bypass graft(s) , unspecified, with unspecified angina pectoris (2) Hx of CABG Status: Chronic Current Visit: Yes (3) Hypertension Status: Chronic Current Visit: Yes Qualifiers: Hypertension type: essential hypertension Qualified Code(s): I10 - Essential (primary) hypertension (4) Hypotension Status: Acute Current Visit: Yes Qualifiers: Hypotension type: unspecified hypotension type Qualified Code(s): I95.9 - Hypotension, unspecified (5) Acute renal failure Status: Acute Assessment and plan: Acute renal failure due to ATN. Oliguric. Appears to be intravascular volume down. Would increase IV fluids to 125cc/hr. Renal ultrasound Current Visit: Yes Qualifiers: Acute renal failure type: with acute renal cortical necrosis Qualified Code (s): N17.1 - Acute kidney failure with acute cortical necrosis
--- NOTE | 2017-04-13 14:32 | Ultrasound Report ---
US renal Bilateral Indication: Decreased urine output. Comparison: None. Technique: Using transcutaneous probe, routine renal ultrasound was performed. Ultrasound images were captured and stored. Findings: The right kidney measures 11.37 m in craniocaudal dimension. Left kidney measures 11.8 cm in craniocaudal dimension. No hydronephrosis or perinephric fluid collection is demonstrated. Impression: 1. No specific abnormality is present to suggest etiology of the provided symptoms. 04/13/2017 2:28 PM PROCEDURE INTERPRETED AT [facility] DEPARTMENT OF RADIOLOGY Final Report Signed by: Dr. Isael Tuttle
[2017-04-13] MEDS: LEVOFLOXACIN INJ 250 MG in PREMIX 1 EACH IV SCH (17:13)
[2017-04-13] MEDS: PRAVASTATIN 40 MG TABLET PO SCH (21:10)
[2017-04-13] MEDS: ALPRAZolam 0.5 MG TABLET PO PRN (21:53)
[2017-04-14] MEDS: DOPamine 800 MG/250 ML PREMIX IV SCH ×2 (00:45→13:21)
[2017-04-14] MEDS: INSULIN REGULAR 100 UNIT/ML SUBCUT SCH ×4 (01:44→18:30)
[2017-04-14] MEDS: LEVALBUTEROL 0.63 MG/3 ML NEB RESP TX SCH ×6 (02:42→23:25)
[2017-04-14 03:12] LABS: ABG Base Excess -0.7 MMOL/L (-2.5-2.5); ABG HCO3 25.1 MMOL/L (20-26); ABG Oxygen Saturation 91.7 % (95-100); ABG PCO2 45.8 MM HG (35-48); ABG PH 7.356 (7.35-7.45); ABG PO2 66.8 MM HG (80-95); ABG TCO2 26.5 MMOL/L (23-27); Allen Test Positive; Pt O2 Delivery Device Ventilator
[2017-04-14 04:36] LABS: Basophils % 0.2 % (0.0-0.8); Eosinophils % 0.1 % (0.00-10.9); Hematocrit 27.7 VOL% (35.7-47.0); Hemoglobin 9.4 GM/DL (12.0-16.0); Immature Granulocytes % 0.9 %; Immature Granulocytes Absolute 0.12 #; Lymphocytes # 0.7 10*3/uL (1.4-4.0); Lymphocytes % 5.6 % (21.3-54.2); Mean Corpuscular HGB Conc 33.9 GM/DL (32-36); Mean Corpuscular Hemoglobin 32 PG (27-34); Mean Corpuscular Volume 95.2 FL (87-102); Mean Platelet Volume 10.1 FL (9.6-12.0); NRBC # 0.02 10*3/uL; Neutrophils # 10.9 10*3/uL (1.4-7.4); Neutrophils % 85.2 % (38.7-73.9); Platelet Count 221 T/CUMM (130-400); Red Blood Count 2.91 MC/CUMM (3.8-5.5); Red Cell Distribution Width 13.3 % (9.3-17.3); White Blood Count 12.7 T/CUMM (4-12)
[2017-04-14 04:59] LABS: Calcium 7.2 MG/DL (8.5-10.1); Osmolality,Calculated 294.7 MOS/KG (273-304); Potassium 4.3 MMOL/L (3.5-5.1)
[2017-04-14 05:00] LABS: Hypochromasia 1+; Platelet Estimate Adequate
[2017-04-14] MEDS: ALPRAZolam 0.5 MG TABLET PO PRN (05:29)
[2017-04-14] MEDS ORDERED: FUROSEMIDE 40 MG/4 ML VIAL IV ONE (06:10)
[2017-04-14] MEDS ORDERED: LIDOCAINE 1% 20 ML VIAL MISC INJ ONE (06:11)
--- NOTE | 2017-04-14 06:14 | Pulmonology Progress Note ---
Pulmonary - PN: Subj Interval history: This 82-year-old white female had congestive heart failure and respiratory failure. She had a coronary stent placed. She has a decreased level of consciousness. Creatinine has risen to 2.4. Family has now made her DO NOT RESUSCITATE. However we are continuing to try to wean her from the ventilator. She is on 80% oxygen and has an oxygen saturation of 93%. We will try to reduce back to a level where we can start CPAP. 04/14/2017 patient has gotten worse overnight. Oxygen saturations dropped. She is now on 100% with 12 of PEEP and has a PO2 of 65. Chest x-ray looks wetter. We have been trying to hydrate her to save kidney function. However I do think she is a bit on the wet side. We will try 1 dose of Lasix. Also getting up occasional thick material from her endotracheal tube. Concerned that she may have some plugs although I do not see any atelectasis on the x-ray. Will bronchoscope her this morning. Discussed with patient's daughter. Prognosis is poor. I do note that the family has made her DO NOT RESUSCITATE. We will continue full support however Exam (Progress Note) - Constitutional Vitals: Period Temp Pulse Resp BP Sys/Alas Pulse Ox Last 24 Hr 96.9 F-100.7 F 64-90 16-86 57-130/27-82 85-94 Exam: Patient not responding. She is on propofol. Systolic blood pressure in the upper 90s. Pupils react to light. Orotracheal tube in place. Neck is supple no bruits. Chest reveals a few scattered rhonchi. Equal breath sounds. Heart is regular without murmurs. Abdomen soft no masses. Extremities no clubbing cyanosis. Trace of edema. Results - Labs CBC & BMP: 04/14/17 04:14 04/14/17 04:14 Lab Results: I have reviewed the past 24 hour labs - Diagnostic Findings Procedure: Chest x-ray: image reviewed by me (Increased interstitial markings bilaterally. May have small effusions. ET tube in good location.) Assessment and Plan (1) Acute respiratory failure Status: Acute Assessment and plan: This may all be due to congestive heart failure. However with high requirement for PEEP there may be an element of ARDS. Will adjust PEEP and FiO2. Hopefully with diuresis we can get her down to where she can start weaning trials. This will likely take a few days. This was discussed with the patient' s daughter at the bedside. 04/13/2017 chest x-ray is improved following diuresis. Still fairly wide A-a O2 difference suggesting an element of ARDS. 04/14/2017 PO2 has dropped. Now on 100% with 12 of PEEP. Current Visit: Yes (2) Urinary tract infection Status: Acute Assessment and plan: Klebsiella UTI covered with Levaquin. 04/13/2017 UTI should be well covered. Current Visit: Yes (3) Aortic stenosis Status: Chronic Assessment and plan: Noted at catheterization please see those reports. 04/13/2017 has valvular as well as coronary disease. 04/14/2017 multiple reason for congestive heart failure. Current Visit: Yes Qualifiers: Cardiac valve disease etiology: nonrheumatic Qualified Code(s): I35.0 - Nonrheumatic aortic (valve) stenosis (4) Heart failure, diastolic, acute Status: Acute Assessment and plan: Needs further diuresis. Renal function appears stable. 04/13/2017 trying to diurese depending on renal function. Current Visit: Yes (5) Mitral regurgitation Status: Acute Assessment and plan: Also part of her called for congestive heart failure. This was felt to be ischemic in etiology. Current Visit: Yes Qualifiers: Cardiac valve disease etiology: nonrheumatic Qualified Code(s): I34.0 - Nonrheumatic mitral (valve) insufficiency
--- NOTE | 2017-04-14 06:38 | XRay Report ---
XR chest 1V portable Indication: Chest pain. Comparison: Chest x-ray 04/13/2017 Technique: Portable AP chest was performed. Findings: Multiple tubes and medical support devices appear stable. Sternal wires are unchanged. The cardiomediastinal silhouette is stable in appearance. Haziness in the perihilar regions and right greater the left lung base is nonspecific and may reflect dependent pleural fluid or atelectasis. Somewhat Limited inspiration is present. Scattered airspace opacities are demonstrated bilaterally and mild pulmonary edema is not excluded. Impression: 1. Mild pulmonary edema is not excluded. Haziness noted bilaterally is nonspecific and may reflect a component of atelectasis or dependent pleural fluid. 04/14/2017 6:34 AM PROCEDURE INTERPRETED AT [facility] DEPARTMENT OF RADIOLOGY Final Report Signed by: Dr. Isael Tuttle
--- NOTE | 2017-04-14 06:53 | Operative Note ---
Date of procedure: 04/14/17 (Fiberoptic bronchoscopy) Pre-op diagnosis: Retained secretions, mucous plugs Post-op diagnosis: same Procedure: After an appropriate timeout to be sure we were dealing with Diane Meza, the ventilator was already on 100% oxygen. Fiberoptic bronchoscope was introduced via the side arm of the endotracheal tube. There were thick secretions in the lower trachea and extending into both mainstem bronchi. Multiple small plugs as well. We removed thick secretions and plugs going down to the subsegmental level bilaterally. They are worse in both lower lobes. After removing all of those, and noting that there were no endobronchial lesions , the bronchoscope was removed and the patient remained on the ventilator in the ICU in critical but stable condition. Anesthesia: conscious sedation Surgeon / Physician: Francisco Javier Pastrana Estimated blood loss: none Specimens: other (Bronchial washings for cultures) Condition: stable Disposition: ICU Results - Labs CBC & BMP: 04/14/17 04:14 04/14/17 04:14 Discharge Plan - Discharge Medications No Action Acetaminophen Tab [Tylenol Tab] 500 mg PO Q6HR PRN PRN Reason: Pain Nitroglycerin Sl Tab [Nitrostat] 0.4 mg SL Q5M PRN PRN Reason: Chest Pain Metoprolol Tartrate Tab [Lopressor Tab] 25 mg PO BID Sertraline [Zoloft] 50 mg PO DAILY Pravastatin [Pravachol] 40 mg PO BEDTIME buPROPion [Wellbutrin] 100 mg PO DAILY Prasugrel [Effient] 10 mg PO DAILY amLODIPine [Norvasc] 10 mg PO DAILY Aspirin EC Tab 81 mg PO DAILY Oxycodone HCl/Acetaminophen [Oxycodon-Acetaminophen 7.5-325] 1 each PO Q6H PRN PRN Reason: Pain Nitrofurantoin Macrocrystals [Macrodantin] 50 mg PO DAILY Multivit-Min/Iron/Folic/Lutein [Centrum Silver Women Tablet] 1 each PO DAILY Lisinopril 10 mg PO DAILY Famotidine 20 mg PO BID Gabapentin 400 mg PO TID Ranolazine [Ranexa] 500 mg PO BID #60 tablet Meloxicam [Meloxicam] 15 mg PO DAILY Isosorbide Mononitrate [Isosorbide Mononitrate ER] 60 mg PO DAILY - Follow Up or Referral - Forms/Instructions
--- NOTE | 2017-04-14 07:10 | EKG Report ---
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
[2017-04-14] MEDS: PROPOFOL 1,000 MG/100 ML BOTTLE IV SCH ×4 (07:36→17:04)
--- NOTE | 2017-04-14 07:39 | Cardiology Progress Note ---
Assessment and Plan (1) Anemia Status: Acute Assessment and plan: This is improved posttransfusion and is slowly declining. Current Visit: Yes (2) Heart failure, diastolic, acute Status: Acute Assessment and plan: I think the heart failure component now is more related to her valvular abnormalities. She also certainly has diastolic dysfunction. Majority of this I think his valvular. Current Visit: Yes (3) Mitral regurgitation Status: Acute Assessment and plan: Ischemic. Hopefully this will improve after opening the circumflex. Current Visit: Yes Qualifiers: Cardiac valve disease etiology: nonrheumatic Qualified Code(s): I34.0 - Nonrheumatic mitral (valve) insufficiency (4) Acute coronary syndromes Status: Acute Current Visit: Yes (5) Urinary tract infection Status: Acute Current Visit: Yes (6) Aortic stenosis Status: Chronic Current Visit: Yes Qualifiers: Cardiac valve disease etiology: nonrheumatic Qualified Code(s): I35.0 - Nonrheumatic aortic (valve) stenosis (7) Coronary artery disease Status: Chronic Assessment and plan: Continue dual antiplatelet therapy Current Visit: Yes Qualifiers: Coronary Disease-Associated Artery/Lesion type: [place] artery (8) Depressive disorder Status: Chronic Current Visit: No (9) Dyslipidemia (high LDL; low HDL) Status: Chronic Current Visit: No (10) Hypotension Status: Acute Current Visit: Yes Qualifiers: Hypotension type: unspecified hypotension type Qualified Code(s): I95.9 - Hypotension, unspecified (11) Acute renal failure Status: Acute Current Visit: Yes Qualifiers: Acute renal failure type: with acute renal cortical necrosis Qualified Code (s): N17.1 - Acute kidney failure with acute cortical necrosis Cardiology - PN: Subj Interval history: I discussed with Ms. Meza daughter Marietta at the bedside. Her creatinine increased velocity has declined with hydration however her oxygenation status has declined. Think this represents pulmonary edema on her chest x-ray clinically at the time of her low heart cath on her pressures were elevated. She continues to have slow but persistent urinary output very concentrated dark urine. I discussed with Marietta about the current poor prognosis. Her blood pressure is better and I will have the nurses continue to wean the dopamine would like to see her systolic greater than 100 maps in the 50-60 range. Her bicarbonate has declined despite Bicitra orally. Currently she is having problems with increased residuals and requiring intermittent low wall suction her NG tube. We must make sure she continues to get her dual antiplatelet therapy. If absorption of her clopidogrel is not consistent this is a tremendous problem. We may need to escalate antiplatelet therapy. Exam (Progress Note) - Constitutional Vitals: Period Temp Pulse Resp BP Sys/Alas Pulse Ox Last 24 Hr 96.9 F-100.7 F 67-98 16-86 57-137/27-82 85-94 General appearance: over weight, other (She does appear to respond to verbal stimuli some today) - Eye Eye exam: Present: EOMI - Respiratory Respiratory exam: Present: rales - Cardiovascular Cardiovascular exam: Present: regular rate and rhythm (Murmurs without change) - GI/Abdominal GI/Abdominal exam: Present: normal bowel sounds, other (She has had increased residual NG suction) - Extremities Exam Extremities exam: Present: normal inspection - Neurological Exam Neurological exam: Present: other (Sedated but arousable) Result/EKG - Labs CBC & BMP: 04/14/17 04:14 04/14/17 04:14 Labs: Laboratory Results - last 24 hr 04/11/17 04/13/17 04/13/17 Unknown 12:29 18:09 WBC RBC Hgb Hct MCV MCH MCHC RDW Plt Count MPV Neut % (Auto) Lymph % (Auto) [place] % (Auto) Eos % (Auto) Baso % (Auto) Neut # (Auto) Lymph # (Auto) [place] # (Auto) Eos # (Auto) Baso # (Auto) Immature Gran % Nucleated RBC % Immature Gran # Nucleated RBCs # Platelet Estimate Hypochromasia Morphology Comment ABG pH ABG pCO2 ABG pO2 ABG HCO3 ABG Total CO2 ABG O2 Saturation ABG Base Excess FiO2 Sodium Potassium Chloride Carbon Dioxide Anion Gap BUN Creatinine GFR Calculation BUN/Creatinine Ratio Glucose POC Glucose 150 H 141 H Calculated Osmolality Calcium Crossmatch See Detail 04/14/17 04/14/17 04/14/17 00:47 02:35 04:14 WBC RBC Hgb Hct MCV MCH MCHC RDW Plt Count MPV Neut % (Auto) Lymph % (Auto) [place] % (Auto) Eos % (Auto) Baso % (Auto) Neut # (Auto) Lymph # (Auto) [place] # (Auto) Eos # (Auto) Baso # (Auto) Immature Gran % Nucleated RBC % Immature Gran # Nucleated RBCs # Platelet Estimate Hypochromasia Morphology Comment ABG pH 7.356 ABG pCO2 45.8 ABG pO2 66.8 L ABG HCO3 25.1 ABG Total CO2 26.5 ABG O2 Saturation 91.7 L ABG Base Excess -0.7 FiO2 100.00 Sodium 131 L Potassium 4.3 Chloride 93 L Carbon Dioxide 19 L Anion Gap 23.3 H BUN 98 H Creatinine 2.80 H GFR Calculation 17 BUN/Creatinine Ratio 35.00 H Glucose 131 H POC Glucose 150 H Calculated Osmolality 294.7 Calcium 7.2 L Crossmatch 04/14/17 04:14 WBC 12.7 H RBC 2.91 L Hgb 9.4 L Hct 27.7 L MCV 95.2 MCH 32 MCHC 33.9 RDW 13.3 Plt Count 221 D MPV 10.1 Neut % (Auto) 85.2 H Lymph % (Auto) 5.6 L [place] % (Auto) 8.0 Eos % (Auto) 0.1 Baso % (Auto) 0.2 Neut # (Auto) 10.9 H Lymph # (Auto) 0.7 L [place] # (Auto) 1.0 H Eos # (Auto) 0.0 Baso # (Auto) 0.0 Immature Gran % 0.9 Nucleated RBC % 0.2 Immature Gran # 0.12 Nucleated RBCs # 0.02 Platelet Estimate Adequate Hypochromasia 1+ Morphology Comment ABG pH ABG pCO2 ABG pO2 ABG HCO3 ABG Total CO2 ABG O2 Saturation ABG Base Excess FiO2 Sodium Potassium Chloride Carbon Dioxide Anion Gap BUN Creatinine GFR Calculation BUN/Creatinine Ratio Glucose POC Glucose Calculated Osmolality Calcium Crossmatch Quality Measures - VTE Contraindication to Pharmacological VTE Prophylaxis: High Risk of Bleeding
[2017-04-14] MEDS: ASPIRIN EC 81 MG TABLET PO SCH (09:37)
[2017-04-14] MEDS: PANTOPRAZOLE 40 MG TABLET PO SCH (09:37)
[2017-04-14] MEDS: CLOPIDOGREL 75 MG TABLET PO SCH (09:37)
[2017-04-14] MEDS: ACETAMINOPHEN 325 MG TABLET PO SCH ×2 (09:37→21:15)
[2017-04-14] MEDS: GABAPENTIN 100 MG CAPSULE PO SCH ×3 (09:38→21:15)
[2017-04-14] MEDS: CITRIC ACID/SODIUM CITRATE 30 ML UDCUP PO SCH ×3 (09:38→21:15)
[2017-04-14] MEDS: METOPROLOL TARTRATE 25 MG TABLET PO SCH ×3 (09:40→22:33)
[2017-04-14] MEDS: MEROPENEM 500 MG in SODIUM CHLORIDE 0.9% 100 ML IV SCH ×2 (09:41→21:12)
[2017-04-14] MEDS: LEVOFLOXACIN INJ 250 MG in PREMIX 1 EACH IV SCH (16:49)
--- NOTE | 2017-04-14 17:41 | Nephrology Progress Note ---
Nephrology - PN: Subj Interval history: Patient is resting comfortably. Did respond very nicely to Lasix today. Serum creatinine is noted to be 2.8. Remains ventilated pressor medications are being adjusted downward. Exam (PN)-Nephrology - Vital Signs Vital signs: Period Temp Pulse Resp BP Sys/Alas Pulse Ox Last 24 Hr 96.9 F-97.9 F 74-98 15-86 95-137/33-88 85-94 - General Appearance General appearance: intubated EENT: ATNC Neck: supple Respiratory: clear Cardiology: regular rate, regular rhythm Gastrointestinal: normoactive bowel sounds, no tenderness Integumentary: no rash - Lab 04/14/17 04:14 04/14/17 04:14 Most recent lab results ABG pH 7.356 (7.35-7.45) 04/14/17 02:35 ABG pCO2 45.8 MM HG (35-48) 04/14/17 02:35 ABG pO2 66.8 MM HG (80-95) L 04/14/17 02:35 ABG HCO3 25.1 MMOL/L (20-26) 04/14/17 02:35 ABG O2 Saturation 91.7 % (95-100) L 04/14/17 02:35 Calcium 7.2 MG/DL (8.5-10.1) L 04/14/17 04:14 Phosphorus 6.1 MG/DL (2.5-4.9) H 04/13/17 04:06 Magnesium 2.8 MG/DL (1.8-2.4) H 04/13/17 04:06 Assessment and Plan (1) CAD (coronary artery disease) Status: Chronic Current Visit: No Qualifiers: Coronary Disease-Associated Artery/Lesion type: bypass graft [place] vs. transplanted heart: [place] heart Associated angina: with unspecified angina Qualified Code(s): I25.709 - Atherosclerosis of coronary artery bypass graft(s) , unspecified, with unspecified angina pectoris (2) Hx of CABG Status: Chronic Current Visit: Yes (3) Hypertension Status: Chronic Current Visit: Yes Qualifiers: Hypertension type: essential hypertension Qualified Code(s): I10 - Essential (primary) hypertension (4) Hypotension Status: Acute Current Visit: Yes Qualifiers: Hypotension type: unspecified hypotension type Qualified Code(s): I95.9 - Hypotension, unspecified (5) Acute renal failure Status: Acute Assessment and plan: Acute renal failure due to ATN. Non oliguric. Responded to lasix. Current Visit: Yes Qualifiers: Acute renal failure type: with acute renal cortical necrosis Qualified Code (s): N17.1 - Acute kidney failure with acute cortical necrosis
[2017-04-14] MEDS: PRAVASTATIN 40 MG TABLET PO SCH (21:15)
[2017-04-14 23:28] LABS: Potassium 3.3 MMOL/L (3.5-5.1)
[2017-04-15] MEDS: INSULIN REGULAR 100 UNIT/ML SUBCUT SCH ×5 (00:28→23:48)
[2017-04-15] MEDS: DOPamine 800 MG/250 ML PREMIX IV SCH ×2 (00:29→06:33)
[2017-04-15] MEDS: PROPOFOL 1,000 MG/100 ML BOTTLE IV SCH ×3 (03:20→17:16)
[2017-04-15] MEDS: LEVALBUTEROL 0.63 MG/3 ML NEB RESP TX SCH ×6 (04:04→23:32)
[2017-04-15 04:17] LABS: Allen Test Positive; Pt O2 Delivery Device Ventilator
[2017-04-15 04:18] LABS: ABG Base Excess 2.9 MMOL/L (-2.5-2.5); ABG Oxygen Saturation 97.7 % (95-100); ABG PCO2 52.6 MM HG (35-48); ABG PH 7.354 (7.35-7.45)
[2017-04-15 05:19] LABS: Basophils % 0.1 % (0.0-0.8); Hematocrit 27.4 VOL% (35.7-47.0); Hemoglobin 9.2 GM/DL (12.0-16.0); Immature Granulocytes % 1.2 %; Immature Granulocytes Absolute 0.14 #; Lymphocytes # 0.5 10*3/uL (1.4-4.0); Lymphocytes % 4.3 % (21.3-54.2); Mean Corpuscular HGB Conc 33.6 GM/DL (32-36); Mean Corpuscular Hemoglobin 32 PG (27-34); Mean Corpuscular Volume 95.5 FL (87-102); Mean Platelet Volume 9.5 FL (9.6-12.0); Monocytes # 0.7 10*3/uL (0.11-0.8); Monocytes % 6.3 % (1.7-12.7); NRBC # 0.04 10*3/uL; Neutrophils % 88.1 % (38.7-73.9); Platelet Count 239 T/CUMM (130-400); Red Blood Count 2.87 MC/CUMM (3.8-5.5); Red Cell Distribution Width 13.2 % (9.3-17.3); White Blood Count 11.4 T/CUMM (4-12)
[2017-04-15 05:52] LABS: Band Neutrophils 2 % (0-10); Hypochromasia 1+; Lymphocytes 1 % (20-55); Nucleated Red Blood Cells 1 (0-5); Platelet Estimate Adequate; Segmented Neutrophils 90 % (50-85); Total Cells Counted 100
[2017-04-15 06:01] LABS: Calcium 7.3 MG/DL (8.5-10.1); Magnesium 3.3 MG/DL (1.8-2.4); Potassium 3.4 MMOL/L (3.5-5.1)
--- NOTE | 2017-04-15 06:08 | Pulmonology Progress Note ---
Pulmonary - PN: Subj Interval history: This 82-year-old white female had congestive heart failure and respiratory failure. She had a coronary stent placed. She has a decreased level of consciousness. Creatinine has risen to 2.4. Family has now made her DO NOT RESUSCITATE. However we are continuing to try to wean her from the ventilator. She is on 80% oxygen and has an oxygen saturation of 93%. We will try to reduce back to a level where we can start CPAP. 04/14/2017 patient has gotten worse overnight. Oxygen saturations dropped. She is now on 100% with 12 of PEEP and has a PO2 of 65. Chest x-ray looks wetter. We have been trying to hydrate her to save kidney function. However I do think she is a bit on the wet side. We will try 1 dose of Lasix. Also getting up occasional thick material from her endotracheal tube. Concerned that she may have some plugs although I do not see any atelectasis on the x-ray. Will bronchoscope her this morning. Discussed with patient's daughter. Prognosis is poor. I do note that the family has made her DO NOT RESUSCITATE. We will continue full support however. this 82-year-old lady has congestive heart failure with valvular heart disease and diastolic dysfunction. Also has apparent pneumonia. She is on Zosyn and Levaquin. Chest x-ray shows diffuse infiltrates. Her PO2 is 110 on 100% oxygen this morning. Will reduce to 80%. Still requiring fairly high PEEP. She does apparently have ARDS in addition to the above. When her sedation is held she will open her eyes and follow. Exam (Progress Note) - Constitutional Vitals: Period Temp Pulse Resp BP Sys/Alas Pulse Ox Last 24 Hr 97.3 F-98.1 F 80-104 15-27 70-144/26-88 86-96 Exam: Patient not responding. She is on propofol. She opens her eyes when sedation is held. Systolic blood pressure in the upper 90s. Pulse of about 110. pupils react to light. Orotracheal tube in place. Neck is supple no bruits. Chest reveals a few scattered rhonchi. Equal breath sounds. Heart is regular without murmurs. Abdomen soft no masses. Extremities no clubbing cyanosis. Trace of edema. Results - Labs CBC & BMP: 04/15/17 04:26 04/15/17 04:26 Lab Results: I have reviewed the past 24 hour labs - Diagnostic Findings Procedure: Chest x-ray: image reviewed by me (Bilateral interstitial infiltrates. Little change from before. ET tube good position.) Assessment and Plan (1) Acute respiratory failure Status: Acute Assessment and plan: This may all be due to congestive heart failure. However with high requirement for PEEP there may be an element of ARDS. Will adjust PEEP and FiO2. Hopefully with diuresis we can get her down to where she can start weaning trials. This will likely take a few days. This was discussed with the patient' s daughter at the bedside. 04/13/2017 chest x-ray is improved following diuresis. Still fairly wide A-a O2 difference suggesting an element of ARDS. 04/14/2017 PO2 has dropped. Now on 100% with 12 of PEEP. 04/15/17 PO2 110 on 100% oxygen with 12 of PEEP. Will reduce to 80%. Try to get FiO2 down to 60% and then reduce PEEP. Current Visit: Yes (2) Urinary tract infection Status: Acute Assessment and plan: Klebsiella UTI covered with Levaquin. 04/13/2017 UTI should be well covered. Current Visit: Yes (3) Aortic stenosis Status: Chronic Assessment and plan: Noted at catheterization please see those reports. 04/13/2017 has valvular as well as coronary disease. 04/14/2017 multiple reason for congestive heart failure. 04/15/17 again has aortic stenosis as a major cause for her congestive heart failure. Not able to tolerate surgical consideration at this time. Current Visit: Yes Qualifiers: Cardiac valve disease etiology: nonrheumatic Qualified Code(s): I35.0 - Nonrheumatic aortic (valve) stenosis (4) Heart failure, diastolic, acute Status: Acute Assessment and plan: Needs further diuresis. Renal function appears stable. 04/13/2017 trying to diurese depending on renal function. 04/15/17 x-ray still looks a little bit wet. Difficult to tell with superimposed pneumonia and ARDS. Current Visit: Yes (5) Mitral regurgitation Status: Acute Assessment and plan: Also part of her called for congestive heart failure. This was felt to be ischemic in etiology. Current Visit: Yes Qualifiers: Cardiac valve disease etiology: nonrheumatic Qualified Code(s): I34.0 - Nonrheumatic mitral (valve) insufficiency
--- NOTE | 2017-04-15 06:11 | XRay Report ---
XR chest 1V portable Indication: Chest pain. Comparison: Chest x-ray 04/14/2017 Technique: Portable AP chest was performed. Findings: Multiple tubes and medical support devices appear stable. Heart size stable. Prior sternotomy is stable. Lungs continue to demonstrate bibasilar airspace opacities upper lungs remain essentially clear. Bones and soft tissues are stable. Impression: 1. Little change in the lung parenchyma suggestive. Bibasilar airspace opacities have different considerations including edema as well as atelectasis. 04/15/2017 6:08 AM PROCEDURE INTERPRETED AT [facility] DEPARTMENT OF RADIOLOGY Final Report Signed by: Dr. Isael Tuttle
--- NOTE | 2017-04-15 06:15 | Cardiothoracic Progress Note ---
Cardiothoracic Subjective Interval history: Patient remains on the ventilator. She is sedated although when the sedation is decreased she does respond appropriately. Arterial blood gases are a little better this morning and her FiO2 is been decreased to 80%. I also think her chest x-ray looks marginally better. Her creatinine is down to 1.9 but is still above her levels at admission. She also had episodes of what appears to be atrial fibrillation with bundle branch block during the night. I would defer to Dr. Peña for appropriate management. All things considered there appears to have been some marginal improvement. Prognosis still remains guarded. Exam (Progress Note) - Constitutional Vitals: Period Temp Pulse Resp BP Sys/Alas Pulse Ox Last 24 Hr 97.3 F-98.1 F 80-104 15-27 70-144/26-88 86-96 Result/EKG - Labs CBC & BMP: 04/15/17 04:26 04/15/17 04:26 Labs: Laboratory Results - last 24 hr 04/14/17 04/14/17 04/14/17 11:28 18:02 23:07 WBC RBC Hgb Hct MCV MCH MCHC RDW Plt Count MPV Neut % (Auto) Lymph % (Auto) [place] % (Auto) Eos % (Auto) Baso % (Auto) Neut # (Auto) Lymph # (Auto) [place] # (Auto) Eos # (Auto) Baso # (Auto) Total Counted Immature Gran % Nucleated RBC % Immature Gran # Segmented Neutrophils Band Neutrophils Lymphocytes Monocytes Nucleated RBCs Nucleated RBCs # Platelet Estimate Hypochromasia ABG pH ABG pCO2 ABG pO2 ABG HCO3 ABG Total CO2 ABG O2 Saturation ABG Base Excess FiO2 Sodium Potassium 3.3 L Chloride Carbon Dioxide Anion Gap BUN Creatinine GFR Calculation BUN/Creatinine Ratio Glucose POC Glucose 171 H 152 H Calculated Osmolality Calcium Magnesium 3.0 H 04/15/17 04/15/17 04/15/17 00:23 03:50 04:26 WBC 11.4 RBC 2.87 L Hgb 9.2 L Hct 27.4 L MCV 95.5 MCH 32 MCHC 33.6 RDW 13.2 Plt Count 239 MPV 9.5 L Neut % (Auto) 88.1 H Lymph % (Auto) 4.3 L [place] % (Auto) 6.3 Eos % (Auto) 0.0 Baso % (Auto) 0.1 Neut # (Auto) 10.0 H Lymph # (Auto) 0.5 L [place] # (Auto) 0.7 Eos # (Auto) 0.0 Baso # (Auto) 0.0 Total Counted 100 Immature Gran % 1.2 Nucleated RBC % 0.4 Immature Gran # 0.14 Segmented Neutrophils 90 H Band Neutrophils 2 Lymphocytes 1 L Monocytes 7 Nucleated RBCs 1 Nucleated RBCs # 0.04 Platelet Estimate Adequate Hypochromasia 1+ ABG pH 7.354 ABG pCO2 52.6 H ABG pO2 110.0 H ABG HCO3 27.0 H ABG Total CO2 27.0 ABG O2 Saturation 97.7 ABG Base Excess 2.9 H FiO2 100.00 Sodium Potassium Chloride Carbon Dioxide Anion Gap BUN Creatinine GFR Calculation BUN/Creatinine Ratio Glucose POC Glucose 137 H Calculated Osmolality Calcium Magnesium 04/15/17 04:26 WBC RBC Hgb Hct MCV MCH MCHC RDW Plt Count MPV Neut % (Auto) Lymph % (Auto) [place] % (Auto) Eos % (Auto) Baso % (Auto) Neut # (Auto) Lymph # (Auto) [place] # (Auto) Eos # (Auto) Baso # (Auto) Total Counted Immature Gran % Nucleated RBC % Immature Gran # Segmented Neutrophils Band Neutrophils Lymphocytes Monocytes Nucleated RBCs Nucleated RBCs # Platelet Estimate Hypochromasia ABG pH ABG pCO2 ABG pO2 ABG HCO3 ABG Total CO2 ABG O2 Saturation ABG Base Excess FiO2 Sodium 136 Potassium 3.4 L Chloride 95 L Carbon Dioxide 26 Anion Gap 18.4 H BUN 96 H Creatinine 1.90 H GFR Calculation 27 BUN/Creatinine Ratio 50.00 H Glucose 137 H POC Glucose Calculated Osmolality 303.0 Calcium 7.3 L Magnesium 3.3 H Quality Measures - VTE Contraindication to Pharmacological VTE Prophylaxis: High Risk of Bleeding
--- NOTE | 2017-04-15 07:50 | EKG Report ---
Stationary ECG Study [facility] Test Date: 04/15/2017 5:27:05 AM Pat Name: KANDI GORMAN Department: Room: 107 Gender: F [employer] Operator: : [id number] Requested by: Carlita Torres Order Number: [id number] Aleshia MD: ALYCIA MEJIA Intervals [place] Rate: 104 P: 999 TX: 0 QRS: -27 QRSD: 174 T: 159 QT: 386 QTc: 446 Interpretive Statements ATRIAL FIBRILLATION WITH RAPID VENTRICULAR RESPONSE LEFT BUNDLE BRANCH BLOCK Electronically Signed On 04-15-17 09:09:03 CDT by ALYCIA MEJIA [email or web address]
--- NOTE | 2017-04-15 07:53 | Cardiology Progress Note ---
Assessment and Plan (1) Anemia Status: Acute Assessment and plan: This is improved posttransfusion and is slowly declining. As above in HPI we will watch very closely as we add prophylaxis for her stroke prevention and atrial fibrillation. Current Visit: Yes (2) Heart failure, diastolic, acute Status: Acute Assessment and plan: I think the heart failure component now is more related to her valvular abnormalities. She also certainly has diastolic dysfunction. Majority of this I think his valvular. Current Visit: Yes (3) Mitral regurgitation Status: Acute Assessment and plan: Ischemic. Hopefully this will improve after opening the circumflex. Current Visit: Yes Qualifiers: Cardiac valve disease etiology: nonrheumatic Qualified Code(s): I34.0 - Nonrheumatic mitral (valve) insufficiency (4) Acute coronary syndromes Status: Acute Current Visit: Yes (5) Urinary tract infection Status: Acute Current Visit: Yes (6) Aortic stenosis Status: Chronic Current Visit: Yes Qualifiers: Cardiac valve disease etiology: nonrheumatic Qualified Code(s): I35.0 - Nonrheumatic aortic (valve) stenosis (7) Coronary artery disease Status: Chronic Assessment and plan: Continue dual antiplatelet therapy Current Visit: Yes Qualifiers: Coronary Disease-Associated Artery/Lesion type: [place] artery (8) Depressive disorder Status: Chronic Current Visit: No (9) Dyslipidemia (high LDL; low HDL) Status: Chronic Current Visit: No (10) Hypotension Status: Acute Current Visit: Yes Qualifiers: Hypotension type: unspecified hypotension type Qualified Code(s): I95.9 - Hypotension, unspecified (11) Acute renal failure Status: Acute Current Visit: Yes Qualifiers: Acute renal failure type: with acute renal cortical necrosis Qualified Code (s): N17.1 - Acute kidney failure with acute cortical necrosis (12) Atrial fibrillation Status: Acute Assessment and plan: as per HPI Current Visit: Yes Cardiology - PN: Subj Interval history: Ms. Meza has lots of dynamic changes in her clinical status. In toto most are better. She has apparently made it through the oliguric or anuric phase of her renal failure her creatinine is down and her urine output has picked up. Her urine is significantly more clear than previously. She is developed atrial fibrillation during the night with what appears to be a rate dependent bundle branch block. Her potassium is slightly low issues started making more urine. Her magnesium remains over 3. Her hemoglobin and hematocrit have declined I think this is multifactorial she is critically ill she also is volume positive. Her gases look minimally better assess her chest x-ray and her FiO2 has been decreased. She still requiring a significant amount of ventilatory support. I am not surprised that she had atrial fibrillation give her the acuity of her illness and the mitral regurgitation that she had that was felt to be ischemic. This will likely be permanent. Despite a declining H&H with no overt signs or symptoms of bleeding I think it is in her best interest to monitor this closely and proceed with anticoagulation. Although her creatinine is not stable and does not represent her chronic baseline she is advanced age of 82 and is also on dual antiplatelet therapy I will choose the lower dose of Eliquis. We will continue monitor for bleeding. Her daughter Marietta is asleep at the bedside and I awakened her and discussed with her. Her blood pressure remains marginal and she still requiring dopamine. Not much room to add additional medications for her rate control. If rate becomes an issue we will likely have to change from dopamine to phenylephrine. This dopamine is also probably contributing to a nidus for atrial fibrillation. Hopefully her right will be relatively controlled. He will be nice if we can increase her beta blockers at some point. Although she remains critically ill there are several positive signs for today. Exam (Progress Note) - Constitutional Vitals: Period Temp Pulse Resp BP Sys/Alas Pulse Ox Last 24 Hr 97.3 F-98.1 F 80-118 15-27 70-144/26-79 89-96 General appearance: over weight - Head Head exam: Present: normal inspection - ENT ENT exam: Present: other (She is intubated) - Neck Neck exam: Present: normal inspection - Respiratory Respiratory exam: Present: rales - Cardiovascular Cardiovascular exam: Present: irregular rhythm (Right is about 100 heart tones are crisp) - GI/Abdominal GI/Abdominal exam: Present: normal bowel sounds - Extremities Exam Extremities exam: Present: normal inspection, other (WILLIAM hose are in place) - Neurological Exam Neurological exam: Present: other (She is sedated) - Skin Skin exam: Present: normal color, warm, dry Result/EKG - Labs CBC & BMP: 04/15/17 04:26 04/15/17 04:26 Labs: Laboratory Results - last 24 hr 04/14/17 04/14/17 04/14/17 11:28 18:02 23:07 WBC RBC Hgb Hct MCV MCH MCHC RDW Plt Count MPV Neut % (Auto) Lymph % (Auto) [place] % (Auto) Eos % (Auto) Baso % (Auto) Neut # (Auto) Lymph # (Auto) [place] # (Auto) Eos # (Auto) Baso # (Auto) Total Counted Immature Gran % Nucleated RBC % Immature Gran # Segmented Neutrophils Band Neutrophils Lymphocytes Monocytes Nucleated RBCs Nucleated RBCs # Platelet Estimate Hypochromasia ABG pH ABG pCO2 ABG pO2 ABG HCO3 ABG Total CO2 ABG O2 Saturation ABG Base Excess FiO2 Sodium Potassium 3.3 L Chloride Carbon Dioxide Anion Gap BUN Creatinine GFR Calculation BUN/Creatinine Ratio Glucose POC Glucose 171 H 152 H Calculated Osmolality Calcium Magnesium 3.0 H 04/15/17 04/15/17 04/15/17 00:23 03:50 04:26 WBC 11.4 RBC 2.87 L Hgb 9.2 L Hct 27.4 L MCV 95.5 MCH 32 MCHC 33.6 RDW 13.2 Plt Count 239 MPV 9.5 L Neut % (Auto) 88.1 H Lymph % (Auto) 4.3 L [place] % (Auto) 6.3 Eos % (Auto) 0.0 Baso % (Auto) 0.1 Neut # (Auto) 10.0 H Lymph # (Auto) 0.5 L [place] # (Auto) 0.7 Eos # (Auto) 0.0 Baso # (Auto) 0.0 Total Counted 100 Immature Gran % 1.2 Nucleated RBC % 0.4 Immature Gran # 0.14 Segmented Neutrophils 90 H Band Neutrophils 2 Lymphocytes 1 L Monocytes 7 Nucleated RBCs 1 Nucleated RBCs # 0.04 Platelet Estimate Adequate Hypochromasia 1+ ABG pH 7.354 ABG pCO2 52.6 H ABG pO2 110.0 H ABG HCO3 27.0 H ABG Total CO2 27.0 ABG O2 Saturation 97.7 ABG Base Excess 2.9 H FiO2 100.00 Sodium Potassium Chloride Carbon Dioxide Anion Gap BUN Creatinine GFR Calculation BUN/Creatinine Ratio Glucose POC Glucose 137 H Calculated Osmolality Calcium Magnesium 04/15/17 04:26 WBC RBC Hgb Hct MCV MCH MCHC RDW Plt Count MPV Neut % (Auto) Lymph % (Auto) [place] % (Auto) Eos % (Auto) Baso % (Auto) Neut # (Auto) Lymph # (Auto) [place] # (Auto) Eos # (Auto) Baso # (Auto) Total Counted Immature Gran % Nucleated RBC % Immature Gran # Segmented Neutrophils Band Neutrophils Lymphocytes Monocytes Nucleated RBCs Nucleated RBCs # Platelet Estimate Hypochromasia ABG pH ABG pCO2 ABG pO2 ABG HCO3 ABG Total CO2 ABG O2 Saturation ABG Base Excess FiO2 Sodium 136 Potassium 3.4 L Chloride 95 L Carbon Dioxide 26 Anion Gap 18.4 H BUN 96 H Creatinine 1.90 H GFR Calculation 27 BUN/Creatinine Ratio 50.00 H Glucose 137 H POC Glucose Calculated Osmolality 303.0 Calcium 7.3 L Magnesium 3.3 H Quality Measures - VTE Contraindication to Pharmacological VTE Prophylaxis: High Risk of Bleeding
[2017-04-15] MEDS ORDERED: PANTOPRAZOLE 40 MG VIAL IV SCH (09:00)
--- NOTE | 2017-04-15 09:06 | Nephrology Progress Note ---
Nephrology - PN: Subj Interval history: The patient remains ventilated. She has required more pressor medications for blood pressure management. Urine output has been acceptable. Serum creatinine is trended down to 1.9. Family members at the bedside has been updated. Patient now in atrial fibrillation rhythm. Have switched to Alek-Synephrine for pressor medications titrating off dopamine. Exam (PN)-Nephrology - Vital Signs Vital signs: Period Temp Pulse Resp BP Sys/Alas Pulse Ox Last 24 Hr 97.3 F-98.1 F 80-118 15-27 70-144/26-79 89-96 - General Appearance General appearance: well-developed, intubated EENT: ATNC Neck: supple Respiratory: clear Cardiology: no edema, irregular rhythm Gastrointestinal: normoactive bowel sounds Integumentary: warm and dry - Lab 04/15/17 04:26 04/15/17 04:26 Most recent lab results ABG pH 7.354 (7.35-7.45) 04/15/17 03:50 ABG pCO2 52.6 MM HG (35-48) H 04/15/17 03:50 ABG pO2 110.0 MM HG (80-95) H 04/15/17 03:50 ABG HCO3 27.0 MMOL/L (20-26) H 04/15/17 03:50 ABG O2 Saturation 97.7 % (95-100) 04/15/17 03:50 Calcium 7.3 MG/DL (8.5-10.1) L 04/15/17 04:26 Phosphorus 6.1 MG/DL (2.5-4.9) H 04/13/17 04:06 Magnesium 3.3 MG/DL (1.8-2.4) H 04/15/17 04:26 Assessment and Plan (1) CAD (coronary artery disease) Status: Chronic Current Visit: No Qualifiers: Coronary Disease-Associated Artery/Lesion type: bypass graft [place] vs. transplanted heart: [place] heart Associated angina: with unspecified angina Qualified Code(s): I25.709 - Atherosclerosis of coronary artery bypass graft(s) , unspecified, with unspecified angina pectoris (2) Hx of CABG Status: Chronic Current Visit: Yes (3) Hypertension Status: Chronic Current Visit: Yes Qualifiers: Hypertension type: essential hypertension Qualified Code(s): I10 - Essential (primary) hypertension (4) Hypotension Status: Acute Current Visit: Yes Qualifiers: Hypotension type: unspecified hypotension type Qualified Code(s): I95.9 - Hypotension, unspecified (5) Acute renal failure Status: Acute Assessment and plan: Acute renal failure due to ATN. Which is showing signs of recovery. Serum creatinine is now down to 1.9. Non oliguric. Current Visit: Yes Qualifiers: Acute renal failure type: with acute renal cortical necrosis Qualified Code (s): N17.1 - Acute kidney failure with acute cortical necrosis
[2017-04-15] MEDS: MEROPENEM 500 MG in SODIUM CHLORIDE 0.9% 100 ML IV SCH ×2 (09:37→19:54)
[2017-04-15] MEDS: LANSOPRAZOLE ODT 30 MG TABLET PER TUBE SCH (09:38)
[2017-04-15] MEDS: ACETAMINOPHEN 325 MG TABLET PO SCH ×2 (09:38→21:58)
[2017-04-15] MEDS: POTASSIUM CHLORIDE 20 MEQ/15 ML UDCUP PO SCH ×2 (09:38→21:59)
[2017-04-15] MEDS: GABAPENTIN 100 MG CAPSULE PO SCH ×3 (09:39→21:59)
[2017-04-15] MEDS: CLOPIDOGREL 75 MG TABLET PO SCH (09:39)
[2017-04-15] MEDS: CITRIC ACID/SODIUM CITRATE 30 ML UDCUP PO SCH ×3 (09:39→21:59)
[2017-04-15] MEDS: APIXABAN 2.5 MG TABLET PO SCH ×2 (09:39→21:58)
[2017-04-15] MEDS: ASPIRIN EC 81 MG TABLET PO SCH (09:39)
[2017-04-15] MEDS: METOPROLOL TARTRATE 25 MG TABLET PO SCH ×2 (09:40→21:58)
[2017-04-15] MEDS: PHENYLEPHRINE INJ 160 MG in SODIUM CHLORIDE 0.9% 234 ML IV SCH (09:41)
[2017-04-15] MEDS ORDERED: AMIODARONE INJ 150 MG in DEXTROSE 5% 100 ML IV ONE (12:30)
--- NOTE | 2017-04-15 12:40 | Event Note ---
I was called because the patient's heart rate increased and she is requiring more pressors. She has been changed phenylephrine by Dr. Benson. I came to evaluate the patient the only significant change that I see is that her heart rate has increased. She was hypotensive before this will consider DC cardioversion. This likely still is probably a maneuver that would help the patient. At this time I will load with amiodarone if this does not control her rate or convert to sinus rhythm will consider DC cardioversion. Given her mitral regurgitation atrial size I doubt she will maintain sinus rhythm for long -term but it might be reasonable to give her a try. She is anticoagulated from the initiation of this new rhythm so we will be safe to cardiovert without further minute maneuvers including OLY.
[2017-04-15] MEDS ORDERED: METOPROLOL TARTRATE 5 MG/5 ML VIAL IV SCH (12:45)
[2017-04-15] MEDS ORDERED: AMIODARONE 450 MG/9 ML VIAL IV ONE (12:53)
[2017-04-15] MEDS ORDERED: AMIODARONE 150 MG/3 ML VIAL ONE (12:53)
[2017-04-15] MEDS ORDERED: AMIODARONE INJ 450 MG in DEXTROSE 5% 241 ML IV SCH (13:00)
[2017-04-15] MEDS: ACETAMINOPHEN 325 MG TABLET PO PRN ×2 (16:09→23:49)
[2017-04-15] MEDS: LEVOFLOXACIN INJ 250 MG in PREMIX 1 EACH IV SCH (17:15)
[2017-04-15] MEDS: AMIODARONE INJ 450 MG in DEXTROSE 5% 241 ML IV SCH (20:50)
[2017-04-15] MEDS: PRAVASTATIN 40 MG TABLET PO SCH (21:59)
[2017-04-16] MEDS: PHENYLEPHRINE INJ 160 MG in SODIUM CHLORIDE 0.9% 234 ML IV SCH ×2 (03:15→20:07)
[2017-04-16] MEDS: LEVALBUTEROL 0.63 MG/3 ML NEB RESP TX SCH ×5 (04:02→19:55)
[2017-04-16 04:11] LABS: ABG Base Excess 4.7 MMOL/L (-2.5-2.5); ABG HCO3 28.6 MMOL/L (20-26); ABG Oxygen Saturation 97.9 % (95-100); ABG PCO2 57.7 MM HG (35-48); ABG PH 7.345 (7.35-7.45); ABG TCO2 29.3 MMOL/L (23-27); Pt O2 Delivery Device Ventilator
[2017-04-16] MEDS: ACETAMINOPHEN 325 MG TABLET PO PRN (05:43)
[2017-04-16] MEDS: INSULIN REGULAR 100 UNIT/ML SUBCUT SCH ×3 (06:26→18:56)
[2017-04-16 07:39] LABS: Basophils % 0.1 % (0.0-0.8); Eosinophils % 0.1 % (0.00-10.9); Hematocrit 27.5 VOL% (35.7-47.0); Immature Granulocytes % 7.1 %; Lymphocytes # 1.1 10*3/uL (1.4-4.0); Lymphocytes % 7.1 % (21.3-54.2); Mean Corpuscular HGB Conc 32.7 GM/DL (32-36); Mean Corpuscular Hemoglobin 33 PG (27-34); Mean Corpuscular Volume 99.3 FL (87-102); Mean Platelet Volume 9.6 FL (9.6-12.0); Monocytes # 1.1 10*3/uL (0.11-0.8); Neutrophils # 12.2 10*3/uL (1.4-7.4); Neutrophils % 78.6 % (38.7-73.9); Platelet Count 254 T/CUMM (130-400); Red Blood Count 2.77 MC/CUMM (3.8-5.5); White Blood Count 15.5 T/CUMM (4-12)
[2017-04-16 08:02] LABS: Band Neutrophils 1 % (0-10); Hypochromasia 1+; Lymphocytes 9 % (20-55); Nucleated Red Blood Cells 2 (0-5); Ovalocytes Slight; Platelet Estimate Adequate; Segmented Neutrophils 84 % (50-85); Total Cells Counted 100
--- NOTE | 2017-04-16 08:02 | EKG Report ---
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
[2017-04-16 08:18] LABS: Calcium 7.4 MG/DL (8.5-10.1); Magnesium 3.6 MG/DL (1.8-2.4); Osmolality,Calculated 315.8 MOS/KG (273-304); Potassium 4.2 MMOL/L (3.5-5.1)
--- NOTE | 2017-04-16 09:33 | Cardiology Progress Note ---
Assessment and Plan (1) Anemia Status: Acute Assessment and plan: This is improved posttransfusion and is slowly declining. As above in HPI we will watch very closely as we add prophylaxis for her stroke prevention and atrial fibrillation. Current Visit: Yes (2) Heart failure, diastolic, acute Status: Acute Assessment and plan: I think the heart failure component now is more related to her valvular abnormalities. She also certainly has diastolic dysfunction. Majority of this I think his valvular. Current Visit: Yes (3) Mitral regurgitation Status: Acute Assessment and plan: Ischemic. Hopefully this will improve after opening the circumflex. Current Visit: Yes Qualifiers: Cardiac valve disease etiology: nonrheumatic Qualified Code(s): I34.0 - Nonrheumatic mitral (valve) insufficiency (4) Acute coronary syndromes Status: Acute Current Visit: Yes (5) Urinary tract infection Status: Acute Current Visit: Yes (6) Aortic stenosis Status: Chronic Current Visit: Yes Qualifiers: Cardiac valve disease etiology: nonrheumatic Qualified Code(s): I35.0 - Nonrheumatic aortic (valve) stenosis (7) Coronary artery disease Status: Chronic Assessment and plan: Continue dual antiplatelet therapy Current Visit: Yes Qualifiers: Coronary Disease-Associated Artery/Lesion type: [place] artery (8) Depressive disorder Status: Chronic Current Visit: No (9) Dyslipidemia (high LDL; low HDL) Status: Chronic Current Visit: No (10) Hypotension Status: Acute Current Visit: Yes Qualifiers: Hypotension type: unspecified hypotension type Qualified Code(s): I95.9 - Hypotension, unspecified (11) Acute renal failure Status: Acute Current Visit: Yes Qualifiers: Acute renal failure type: with acute renal cortical necrosis Qualified Code (s): N17.1 - Acute kidney failure with acute cortical necrosis (12) Atrial fibrillation Status: Acute Assessment and plan: Heart rate is now about 100 of amiodarone I would not cardiovert her at this time. Continue anticoagulation. Current Visit: Yes Cardiology - PN: Subj Interval history: The patient is overall without a lot of significant change. She still is requiring significant amount of ventilatory support and FiO2 she is on 12 of PEEP and FiO2 of 80%. She had a temp yesterday to 100.1. Her daughter, Marietta , tells me that the propofol was turned off her. Last night she was not very responsive. Her creatinine is at 2.4 she had a negative fluid balance yesterday and her urine continues to become less concentrated. We will continue to support her. I am a little more concerned about her neurologic status today. We have decreased her medicines in response to her renal failure and congestive them particular the AURICULOTHERAPIST acting ones. Continue supportive measures for now. I considered a CT scan but I do not know that he would change or doing at this time. Her H&H remained low but they are stable. Exam (Progress Note) - Constitutional Vitals: Period Temp Pulse Resp BP Sys/Alas Pulse Ox Last 24 Hr 99.2 F-103.6 F 85-135 20-29 86-130/33-79 87-99 General appearance: over weight - Head Head exam: Present: other (Pupils are mid range but they do react) - Eye Pupils: Present: AL[place] - Respiratory Respiratory exam: Present: rales - Cardiovascular Cardiovascular exam: Present: regular rate and rhythm (Prominent murmur of tricuspid and mitral regurgitation) - GI/Abdominal GI/Abdominal exam: Present: normal bowel sounds (She has not had a bowel movement today) - Extremities Exam Extremities exam: Present: normal inspection (No edema WILLIAM hose are in place) - Neurological Exam Neurological exam: Present: other (Sedated but the daughter reports not much activity with sedation being discontinued) - Skin Skin exam: Present: normal color, warm, dry Result/EKG - Labs CBC & BMP: 04/16/17 07:27 04/16/17 07:27 Labs: Laboratory Results - last 24 hr 04/15/17 04/15/17 04/15/17 11:27 18:40 23:39 WBC RBC Hgb Hct MCV MCH MCHC RDW Plt Count MPV Neut % (Auto) Lymph % (Auto) [place] % (Auto) Eos % (Auto) Baso % (Auto) Neut # (Auto) Lymph # (Auto) [place] # (Auto) Eos # (Auto) Baso # (Auto) Total Counted Immature Gran % Nucleated RBC % Immature Gran # Segmented Neutrophils Band Neutrophils Lymphocytes Monocytes Nucleated RBCs Nucleated RBCs # Platelet Estimate Hypochromasia Ovalocytes Morphology Comment ABG pH ABG pCO2 ABG pO2 ABG HCO3 ABG Total CO2 ABG O2 Saturation ABG Base Excess FiO2 Sodium Potassium Chloride Carbon Dioxide Anion Gap BUN Creatinine GFR Calculation BUN/Creatinine Ratio Glucose POC Glucose 143 H 209 H 184 H Calculated Osmolality Calcium Magnesium 04/16/17 04/16/17 04/16/17 03:50 05:51 07:27 WBC RBC Hgb Hct MCV MCH MCHC RDW Plt Count MPV Neut % (Auto) Lymph % (Auto) [place] % (Auto) Eos % (Auto) Baso % (Auto) Neut # (Auto) Lymph # (Auto) [place] # (Auto) Eos # (Auto) Baso # (Auto) Total Counted Immature Gran % Nucleated RBC % Immature Gran # Segmented Neutrophils Band Neutrophils Lymphocytes Monocytes Nucleated RBCs Nucleated RBCs # Platelet Estimate Hypochromasia Ovalocytes Morphology Comment ABG pH 7.345 L ABG pCO2 57.7 H ABG pO2 104.0 H ABG HCO3 28.6 H ABG Total CO2 29.3 H ABG O2 Saturation 97.9 ABG Base Excess 4.7 H FiO2 80.00 Sodium 137 Potassium 4.2 Chloride 95 L Carbon Dioxide 31 Anion Gap 15.2 H BUN 125 H Creatinine 2.40 H GFR Calculation 21 BUN/Creatinine Ratio 52.00 H Glucose 153 H POC Glucose 171 H Calculated Osmolality 315.8 H Calcium 7.4 L Magnesium 3.6 H 04/16/17 07:27 WBC 15.5 H D RBC 2.77 L Hgb 9.0 L Hct 27.5 L MCV 99.3 MCH 33 MCHC 32.7 RDW 14.0 Plt Count 254 MPV 9.6 Neut % (Auto) 78.6 H Lymph % (Auto) 7.1 L [place] % (Auto) 7.0 Eos % (Auto) 0.1 Baso % (Auto) 0.1 Neut # (Auto) 12.2 H Lymph # (Auto) 1.1 L [place] # (Auto) 1.1 H Eos # (Auto) 0.0 Baso # (Auto) 0.0 Total Counted 100 Immature Gran % 7.1 Nucleated RBC % 1.3 Immature Gran # 1.10 Segmented Neutrophils 84 Band Neutrophils 1 Lymphocytes 9 L Monocytes 6 Nucleated RBCs 2 Nucleated RBCs # 0.20 Platelet Estimate Adequate Hypochromasia 1+ Ovalocytes Slight Morphology Comment ABG pH ABG pCO2 ABG pO2 ABG HCO3 ABG Total CO2 ABG O2 Saturation ABG Base Excess FiO2 Sodium Potassium Chloride Carbon Dioxide Anion Gap BUN Creatinine GFR Calculation BUN/Creatinine Ratio Glucose POC Glucose Calculated Osmolality Calcium Magnesium Quality Measures - VTE Contraindication to Pharmacological VTE Prophylaxis: High Risk of Bleeding
--- NOTE | 2017-04-16 09:46 | Cardiothoracic Progress Note ---
Cardiothoracic Subjective Interval history: Patient is sedated on the vent. She seems to be less responsive today and is currently off sedation. Otherwise her condition has not changed significantly although her creatinine is slightly higher today than it was yesterday. Her prognosis remains guarded. Exam (Progress Note) - Constitutional Vitals: Period Temp Pulse Resp BP Sys/Alas Pulse Ox Last 24 Hr 99.2 F-103.6 F 85-135 20-29 86-130/33-79 87-99 Result/EKG - Labs CBC & BMP: 04/16/17 07:27 04/16/17 07:27 Labs: Laboratory Results - last 24 hr 04/15/17 04/15/17 04/15/17 11:27 18:40 23:39 WBC RBC Hgb Hct MCV MCH MCHC RDW Plt Count MPV Neut % (Auto) Lymph % (Auto) [place] % (Auto) Eos % (Auto) Baso % (Auto) Neut # (Auto) Lymph # (Auto) [place] # (Auto) Eos # (Auto) Baso # (Auto) Total Counted Immature Gran % Nucleated RBC % Immature Gran # Segmented Neutrophils Band Neutrophils Lymphocytes Monocytes Nucleated RBCs Nucleated RBCs # Platelet Estimate Hypochromasia Ovalocytes Morphology Comment ABG pH ABG pCO2 ABG pO2 ABG HCO3 ABG Total CO2 ABG O2 Saturation ABG Base Excess FiO2 Sodium Potassium Chloride Carbon Dioxide Anion Gap BUN Creatinine GFR Calculation BUN/Creatinine Ratio Glucose POC Glucose 143 H 209 H 184 H Calculated Osmolality Calcium Magnesium 04/16/17 04/16/17 04/16/17 03:50 05:51 07:27 WBC RBC Hgb Hct MCV MCH MCHC RDW Plt Count MPV Neut % (Auto) Lymph % (Auto) [place] % (Auto) Eos % (Auto) Baso % (Auto) Neut # (Auto) Lymph # (Auto) [place] # (Auto) Eos # (Auto) Baso # (Auto) Total Counted Immature Gran % Nucleated RBC % Immature Gran # Segmented Neutrophils Band Neutrophils Lymphocytes Monocytes Nucleated RBCs Nucleated RBCs # Platelet Estimate Hypochromasia Ovalocytes Morphology Comment ABG pH 7.345 L ABG pCO2 57.7 H ABG pO2 104.0 H ABG HCO3 28.6 H ABG Total CO2 29.3 H ABG O2 Saturation 97.9 ABG Base Excess 4.7 H FiO2 80.00 Sodium 137 Potassium 4.2 Chloride 95 L Carbon Dioxide 31 Anion Gap 15.2 H BUN 125 H Creatinine 2.40 H GFR Calculation 21 BUN/Creatinine Ratio 52.00 H Glucose 153 H POC Glucose 171 H Calculated Osmolality 315.8 H Calcium 7.4 L Magnesium 3.6 H 04/16/17 07:27 WBC 15.5 H D RBC 2.77 L Hgb 9.0 L Hct 27.5 L MCV 99.3 MCH 33 MCHC 32.7 RDW 14.0 Plt Count 254 MPV 9.6 Neut % (Auto) 78.6 H Lymph % (Auto) 7.1 L [place] % (Auto) 7.0 Eos % (Auto) 0.1 Baso % (Auto) 0.1 Neut # (Auto) 12.2 H Lymph # (Auto) 1.1 L [place] # (Auto) 1.1 H Eos # (Auto) 0.0 Baso # (Auto) 0.0 Total Counted 100 Immature Gran % 7.1 Nucleated RBC % 1.3 Immature Gran # 1.10 Segmented Neutrophils 84 Band Neutrophils 1 Lymphocytes 9 L Monocytes 6 Nucleated RBCs 2 Nucleated RBCs # 0.20 Platelet Estimate Adequate Hypochromasia 1+ Ovalocytes Slight Morphology Comment ABG pH ABG pCO2 ABG pO2 ABG HCO3 ABG Total CO2 ABG O2 Saturation ABG Base Excess FiO2 Sodium Potassium Chloride Carbon Dioxide Anion Gap BUN Creatinine GFR Calculation BUN/Creatinine Ratio Glucose POC Glucose Calculated Osmolality Calcium Magnesium Quality Measures - VTE Contraindication to Pharmacological VTE Prophylaxis: High Risk of Bleeding
[2017-04-16] MEDS: ACETAMINOPHEN 325 MG TABLET PO SCH ×2 (09:49→20:30)
[2017-04-16] MEDS: METOPROLOL TARTRATE 25 MG TABLET PO SCH ×2 (09:49→22:21)
[2017-04-16] MEDS: POTASSIUM CHLORIDE 20 MEQ/15 ML UDCUP PO SCH ×2 (09:49→20:30)
[2017-04-16] MEDS: GABAPENTIN 100 MG CAPSULE PO SCH ×2 (09:50→20:30)
[2017-04-16] MEDS: APIXABAN 2.5 MG TABLET PO SCH ×2 (09:50→20:30)
[2017-04-16] MEDS: LANSOPRAZOLE ODT 30 MG TABLET PER TUBE SCH (09:50)
[2017-04-16] MEDS: ASPIRIN EC 81 MG TABLET PO SCH (09:51)
[2017-04-16] MEDS: CITRIC ACID/SODIUM CITRATE 30 ML UDCUP PO SCH ×3 (09:55→20:31)
[2017-04-16] MEDS: CLOPIDOGREL 75 MG TABLET PO SCH (09:55)
--- NOTE | 2017-04-16 09:58 | Pulmonology Progress Note ---
Pulmonary - PN: Subj Interval history: This 82-year-old female whom I am seeing for Dr. bhakti Pastrana. This patient's had heart failure and respiratory failure. She has been on mechanical ventilation for more than a week and 9 she has been very difficult to wean. She has aortic stenosis. She still requires high FiO2's and high PEEP levels. She is on IV amiodarone and Alek-Synephrine. She has atrial fib acute renal failure. She has had a fever and she is reached a point that she is nonresponsive. She has had congestive heart failure and adult respiratory distress syndrome. Today's chest x-ray shows residual congestive heart failure and is probably a right lower lung infiltrate ABGs show a pH 7.345. PCO2 57.7. PO2 of 104 and a bicarb of 28.6. Blood cultures were positive for staph epidermidis and urine is positive for Klebsiella pneumoniae Lab White count is 15,500 with 78.6 segs H&H is 9.0 27.5. Electrolytes are normal. Creatinine is 2.4 with a BUN of 125. Physical exam. Vital signs stable lobe. Face is symmetrical. Lips and tongue are normal. Neck. Symmetrical. No meningismus. Lymphatics. No submandibular cervical supraclavicular adenopathy. Chest. Large airway congestion is stiff closely her breath sounds. Heart lateral PMI Abdomen nondistended. The remainder the physical exam is negative Plan. 1. Continue present regimen. 2. Follow-up chest x-ray ABGs Exam (Progress Note) - Constitutional Vitals: Period Temp Pulse Resp BP Sys/Alas Pulse Ox Last 24 Hr 99.2 F-103.6 F 85-135 20-29 86-130/33-79 87-99 Results - Labs CBC & BMP: 04/16/17 07:27 04/16/17 07:27
[2017-04-16] MEDS: MEROPENEM 500 MG in SODIUM CHLORIDE 0.9% 100 ML IV SCH ×2 (10:52→20:31)
[2017-04-16] MEDS: AMIODARONE 200 MG TABLET PO SCH ×2 (11:09→20:30)
--- NOTE | 2017-04-16 12:18 | Nephrology Progress Note ---
Nephrology - PN: Subj Interval history: Off sedation, unresponsive. SB trial unsuccessful. Appears premorbid. Severe AoS with hx of DOV 2' ATN, poor forward C.O. due to . Creatinine 2.4 from 1.9 yesterday and 2.8 the day before, suspect 1.9 is inaccurate. Now DNR. Exam (PN)-Nephrology - Vital Signs Vital signs: Period Temp Pulse Resp BP Sys/Alas Pulse Ox Last 24 Hr 99.2 F-103.6 F 85-129 20-29 86-130/33-79 87-99 - General Appearance General appearance: moderate distress, chronically ill, sedated on ventilator, intubated EENT: ATNC, PERRL, mucous membranes dry Neck: JVD, no thyromegaly Respiratory: no kyphosis, rales Cardiology: no murmurs, no rub Gastrointestinal: hypoactive bowel sounds, no masses Integumentary: no rash, warm and dry Neurologic: no focal deficit, no asterixis, alert and oriented x3 Musculoskeletal: no deformities, no erythema - Lab 04/16/17 07:27 04/16/17 07:27 Most recent lab results ABG pH 7.345 (7.35-7.45) L 04/16/17 03:50 ABG pCO2 57.7 MM HG (35-48) H 04/16/17 03:50 ABG pO2 104.0 MM HG (80-95) H 04/16/17 03:50 ABG HCO3 28.6 MMOL/L (20-26) H 04/16/17 03:50 ABG O2 Saturation 97.9 % (95-100) 04/16/17 03:50 Calcium 7.4 MG/DL (8.5-10.1) L 04/16/17 07:27 Phosphorus 6.1 MG/DL (2.5-4.9) H 04/13/17 04:06 Magnesium 3.6 MG/DL (1.8-2.4) H 04/16/17 07:27 Assessment and Plan (1) DOV (acute kidney injury) Problem details: No acute indication for renal replacement therapy. Appears premorbid. Status: Acute Assessment and plan: Continue supportive care. Current Visit: Yes (2) Acute respiratory failure Status: Acute Current Visit: Yes
--- NOTE | 2017-04-16 13:00 | CT Report ---
CT head/brain wo con INDICATION: Altered mental status/confusion The total DLP is 997.9 mGy*cm. COMPARISON: Noncontrast CT head dated 11/22/2014 Technique: Serial axial tomographic images of the brain were obtained without the use of intravenous contrast. Dose reduction: This CT exam was performed using one or more of the following dose reduction techniques: Automated exposure control, automated adjustment of the mA and/or KV according to patient size, or use of iterative reconstruction technique. Findings: Mild generalized atrophy is noted with mild prominence of the sulci and cortical volume loss. Periventricular white matter hypodensity changes are noted bilaterally which do not demonstrate mass effect and are nonspecific but favored to represent sequela of chronic microvascular ischemia. There is no evidence of vascular territory infarct or acute intracranial hemorrhage. The dale-white matter differentiation is generally maintained. There is no hydrocephalus. The basilar cisterns are patent. There was opacification of the right mastoid air cells noted. Otherwise, the visualized paranasal sinuses, left mastoid air cells and middle ear cavities are predominantly clear. The included orbits and their contents appear within normal limits. The visualized osseous structures and overlying soft tissues of the skull and face demonstrate no acute abnormality. IMPRESSION: No acute intracranial abnormality. Right mastoid air cell opacification. Correlate clinically to exclude mastoiditis. PROCEDURE INTERPRETED AT [facility] DEPARTMENT OF RADIOLOGY Final Report Signed by: Rakan Tomlin
[2017-04-16] MEDS: AMIODARONE INJ 450 MG in DEXTROSE 5% 241 ML IV SCH (13:31)
--- NOTE | 2017-04-16 14:01 | XRay Report ---
Exam: XR chest 1V portable Indication: Intubated, respiratory failure Comparison study: 04/15/2017 Findings: Excellent mildly enlarged, similar to prior. Endotracheal tube, esophagogastric tube and left-sided PICC line are in similar positions. Median sternotomy wiring again noted. Perihilar and basilar interstitial and airspace opacities appear similar to prior. There is no pneumothorax. Impression: Stable position of support tubes and lines. Similar cardiomegaly and perihilar/basilar interstitial/airspace opacities likely representing pulmonary edema changes and/or infectious/inflammatory infiltrates. Otherwise, no significant change. PROCEDURE INTERPRETED AT [facility] DEPARTMENT OF RADIOLOGY Final Report Signed by: Rakan Tomlin
[2017-04-16] MEDS: PROPOFOL 1,000 MG/100 ML BOTTLE IV SCH (16:24)
[2017-04-16] MEDS: LEVOFLOXACIN INJ 250 MG in PREMIX 1 EACH IV SCH (17:29)
[2017-04-16] MEDS: PRAVASTATIN 40 MG TABLET PO SCH (20:29)
[2017-04-17] MEDS: LEVALBUTEROL 0.63 MG/3 ML NEB RESP TX SCH ×6 (00:45→19:04)
[2017-04-17] MEDS: INSULIN REGULAR 100 UNIT/ML SUBCUT SCH ×5 (00:55→23:55)
[2017-04-17 04:37] LABS: Basophils % 0.1 % (0.0-0.8); Hematocrit 26.9 VOL% (35.7-47.0); Hemoglobin 8.7 GM/DL (12.0-16.0); Immature Granulocytes % 6.6 %; Immature Granulocytes Absolute 1.38 #; Lymphocytes # 1.1 10*3/uL (1.4-4.0); Lymphocytes % 5.3 % (21.3-54.2); Mean Corpuscular HGB Conc 32.3 GM/DL (32-36); Mean Corpuscular Hemoglobin 32 PG (27-34); Mean Platelet Volume 9.9 FL (9.6-12.0); Monocytes # 1.4 10*3/uL (0.11-0.8); Monocytes % 6.8 % (1.7-12.7); Neutrophils # 16.8 10*3/uL (1.4-7.4); Neutrophils % 81.2 % (38.7-73.9); Platelet Count 223 T/CUMM (130-400); Red Blood Count 2.69 MC/CUMM (3.8-5.5); Red Cell Distribution Width 14.5 % (9.3-17.3); White Blood Count 20.8 T/CUMM (4-12)
[2017-04-17 05:03] LABS: Osmolality,Calculated 325.7 MOS/KG (273-304); Potassium 5.1 MMOL/L (3.5-5.1)
[2017-04-17 05:05] LABS: Lymphocytes 7 % (20-55); Platelet Estimate Normal; Polychromasia Few; Segmented Neutrophils 86 % (50-85); Total Cells Counted 100
[2017-04-17] MEDS: AMIODARONE INJ 450 MG in DEXTROSE 5% 241 ML IV SCH ×2 (06:24→22:30)
[2017-04-17 07:24] LABS: ABG Base Excess 5.8 MMOL/L (-2.5-2.5); ABG HCO3 32.8 MMOL/L (20-26); ABG Oxygen Saturation 94.8 % (95-100); ABG PCO2 63.7 MM HG (35-48); ABG PO2 78.8 MM HG (80-95); ABG TCO2 34.8 MMOL/L (23-27); Pt O2 Delivery Device Ventilator
--- NOTE | 2017-04-17 07:32 | Pulmonology Progress Note ---
Pulmonary - PN: Subj Interval history: This 82-year-old female whom I am seeing for Dr. bhakti Pastrana. This patient's had heart failure and respiratory failure. She has been on mechanical ventilation for more than a week and 9 she has been very difficult to wean. She has aortic stenosis. She still requires high FiO2's and high PEEP levels. She is on IV amiodarone and Alek-Synephrine. She has atrial fib acute renal failure. She has had a fever and she is reached a point that she is nonresponsive. She has had congestive heart failure and adult respiratory distress syndrome. Today's chest x-ray shows residual congestive heart failure and is probably a right lower lung infiltrate ABGs show a pH 7.345. PCO2 57.7. PO2 of 104 and a bicarb of 28.6. Blood cultures were positive for staph epidermidis and urine is positive for Klebsiella pneumoniae Lab White count is 15,500 with 78.6 segs H&H is 9.0 27.5. Electrolytes are normal. Creatinine is 2.4 with a BUN of 125. 04/17/2017. Chest x-ray shows a right lower lung infiltrate patient also has pulmonary edema and fluid in the minor fissure. ABGs have deteriorated I have increased the respiratory rate from 22-28 and I have increased the FiO2 from mom 80% to 100%. Patient is a DO NOT RESUSCITATE. Creatinine is 3.2 with a BUN of 145 sodium potassium chloride and normal white blood cell count is 20, 881 segs. H&H is slowly trickling down to 8.7/26.9 and platelets of 223,000. Blood cultures are growing gram-positive cocci. These were drawn 04/11/2017. We are still waiting for ID and sensitivity. Previous blood cultures grew staph epidermidis and urine cultures grew Klebsiella pneumoniae Physical exam. Vital signs stable lobe. Face is symmetrical. Lips and tongue are normal. Neck. Symmetrical. No meningismus. Lymphatics. No submandibular cervical supraclavicular adenopathy. Chest. Large airway congestion is stiff closely her breath sounds. Heart lateral PMI Abdomen nondistended. The remainder the physical exam is negative Plan. 1. Continue present regimen. 2. Follow-up chest x-ray ABGs 3. Ventilator changes Exam (Progress Note) - Constitutional Vitals: Period Temp Pulse Resp BP Sys/Alas Pulse Ox Last 24 Hr 98.4 F-100.1 F 78-101 18-79 82-123/32-88 91-99 Results - Labs CBC & BMP: 04/17/17 04:17 04/17/17 04:17
--- NOTE | 2017-04-17 07:43 | EKG Report ---
Stationary ECG Study [facility] Test Date: 04/17/2017 7:43:50 AM Pat Name: KANDI GORMAN Department: Room: 107 Gender: F Joint Cutter: KIRSTIE : 1935 Requested by: Carlita Torres Order Number: [id number] Aleshia MD: BEBETO CHAMPION Intervals [place] Rate: 98 P: 999 DE: 0 QRS: -5 QRSD: 158 T: 216 QT: 381 QTc: 436 Interpretive Statements ATRIAL FIBRILLATION LEFT BUNDLE BRANCH BLOCK Electronically Signed On 04-19-17 12:49:45 CDT by BEBETO CHAMPION [email or web address]
--- NOTE | 2017-04-17 07:48 | XRay Report ---
Exam: XR chest 1V portable Indication: Intubated, respiratory failure Comparison study: 04/16/2017 Findings: Endotracheal tube and esophagogastric tube are in similar positions. Left-sided PICC line is also in stable position. Cardiac silhouette is mildly enlarged, similar to prior. Diffuse interstitial infiltrates and basilar opacities appear similar to slightly increase in the prior study. There is no pneumothorax. Median sternotomy wiring is noted. Impression: Stable position of support tubes and lines. Similar diffuse interstitial and basilar airspace opacities likely representing pulmonary edema changes although infectious/inflammatory infiltrates are not excluded. PROCEDURE INTERPRETED AT [facility] DEPARTMENT OF RADIOLOGY Final Report Signed by: Rakan Tomlin
--- NOTE | 2017-04-17 08:03 | Cardiothoracic Progress Note ---
Cardiothoracic Subjective Interval history: As noted by Dr. Tolbert the patient has deteriorated overnight. Blood gases are worse as is renal function with a creatinine of 3.4. Patient neurologically is unchanged and unresponsive. She seems to be declining fairly rapidly and I do not think there is any major intervention that would be helpful at this point. Continue supportive care. Exam (Progress Note) - Constitutional Vitals: Period Temp Pulse Resp BP Sys/Alas Pulse Ox Last 24 Hr 98.4 F-99.2 F 78-101 18-79 82-123/32-88 91-99 Result/EKG - Labs CBC & BMP: 04/17/17 04:17 04/17/17 04:17 Labs: Laboratory Results - last 24 hr 04/16/17 04/16/17 04/16/17 07:27 07:27 12:15 WBC RBC Hgb Hct MCV MCH MCHC RDW Plt Count MPV Neut % (Auto) Lymph % (Auto) [place] % (Auto) Eos % (Auto) Baso % (Auto) Neut # (Auto) Lymph # (Auto) [place] # (Auto) Eos # (Auto) Baso # (Auto) Total Counted 100 Immature Gran % Nucleated RBC % Immature Gran # Segmented Neutrophils 84 Band Neutrophils 1 Lymphocytes 9 L Monocytes 6 Nucleated RBCs 2 Nucleated RBCs # Platelet Estimate Adequate Polychromasia Hypochromasia 1+ Ovalocytes Slight Morphology Comment ABG pH ABG pCO2 ABG pO2 ABG HCO3 ABG Total CO2 ABG O2 Saturation ABG Base Excess FiO2 Sodium 137 Potassium 4.2 Chloride 95 L Carbon Dioxide 31 Anion Gap 15.2 H BUN 125 H Creatinine 2.40 H GFR Calculation 21 BUN/Creatinine Ratio 52.00 H Glucose 153 H POC Glucose 158 H Calculated Osmolality 315.8 H Calcium 7.4 L Magnesium 3.6 H 04/16/17 04/17/17 04/17/17 17:39 00:21 04:17 WBC 20.8 H D RBC 2.69 L Hgb 8.7 L Hct 26.9 L MCV 100.0 MCH 32 MCHC 32.3 RDW 14.5 Plt Count 223 MPV 9.9 Neut % (Auto) 81.2 H Lymph % (Auto) 5.3 L [place] % (Auto) 6.8 Eos % (Auto) 0.0 Baso % (Auto) 0.1 Neut # (Auto) 16.8 H Lymph # (Auto) 1.1 L [place] # (Auto) 1.4 H Eos # (Auto) 0.0 Baso # (Auto) 0.0 Total Counted 100 Immature Gran % 6.6 Nucleated RBC % 0.5 Immature Gran # 1.38 Segmented Neutrophils 86 H Band Neutrophils Lymphocytes 7 L Monocytes 7 Nucleated RBCs Nucleated RBCs # 0.10 Platelet Estimate Normal Polychromasia Few Hypochromasia Ovalocytes Morphology Comment ABG pH ABG pCO2 ABG pO2 ABG HCO3 ABG Total CO2 ABG O2 Saturation ABG Base Excess FiO2 Sodium Potassium Chloride Carbon Dioxide Anion Gap BUN Creatinine GFR Calculation BUN/Creatinine Ratio Glucose POC Glucose 182 H 180 H Calculated Osmolality Calcium Magnesium 04/17/17 04/17/17 04/17/17 04:17 06:13 07:20 WBC RBC Hgb Hct MCV MCH MCHC RDW Plt Count MPV Neut % (Auto) Lymph % (Auto) [place] % (Auto) Eos % (Auto) Baso % (Auto) Neut # (Auto) Lymph # (Auto) [place] # (Auto) Eos # (Auto) Baso # (Auto) Total Counted Immature Gran % Nucleated RBC % Immature Gran # Segmented Neutrophils Band Neutrophils Lymphocytes Monocytes Nucleated RBCs Nucleated RBCs # Platelet Estimate Polychromasia Hypochromasia Ovalocytes Morphology Comment ABG pH 7.330 L ABG pCO2 63.7 H ABG pO2 78.8 L ABG HCO3 32.8 H ABG Total CO2 34.8 H ABG O2 Saturation 94.8 L ABG Base Excess 5.8 H FiO2 80.00 Sodium 138 Potassium 5.1 Chloride 98 Carbon Dioxide 29 Anion Gap 16.1 H BUN 145 H D Creatinine 3.20 H GFR Calculation 15 BUN/Creatinine Ratio 45.00 H Glucose 169 H POC Glucose 173 H Calculated Osmolality 325.7 H Calcium 7.0 L Magnesium Quality Measures - VTE Contraindication to Pharmacological VTE Prophylaxis: High Risk of Bleeding
--- NOTE | 2017-04-17 08:15 | Cardiology Progress Note ---
Assessment and Plan (1) Anemia Status: Acute Assessment and plan: This is improved posttransfusion and is slowly declining. As above in HPI we will watch very closely as we add prophylaxis for her stroke prevention and atrial fibrillation. Current Visit: Yes (2) Heart failure, diastolic, acute Status: Acute Assessment and plan: I think the heart failure component now is more related to her valvular abnormalities. She also certainly has diastolic dysfunction. Majority of this I think his valvular. (MR and ) Current Visit: Yes (3) Mitral regurgitation Status: Acute Assessment and plan: Ischemic. Clinically not a lot of improvement with revascularization. Current Visit: Yes Qualifiers: Cardiac valve disease etiology: nonrheumatic Qualified Code(s): I34.0 - Nonrheumatic mitral (valve) insufficiency (4) Acute coronary syndromes Status: Acute Current Visit: Yes (5) Urinary tract infection Status: Acute Current Visit: Yes (6) Aortic stenosis Status: Chronic Current Visit: Yes Qualifiers: Cardiac valve disease etiology: nonrheumatic Qualified Code(s): I35.0 - Nonrheumatic aortic (valve) stenosis (7) Coronary artery disease Status: Chronic Assessment and plan: Continue dual antiplatelet therapy Current Visit: Yes Qualifiers: Coronary Disease-Associated Artery/Lesion type: [place] artery (8) Depressive disorder Status: Chronic Current Visit: No (9) Dyslipidemia (high LDL; low HDL) Status: Chronic Current Visit: No (10) Hypotension Status: Acute Current Visit: Yes Qualifiers: Hypotension type: unspecified hypotension type Qualified Code(s): I95.9 - Hypotension, unspecified (11) Acute renal failure Status: Acute Current Visit: Yes Qualifiers: Acute renal failure type: with acute renal cortical necrosis Qualified Code (s): N17.1 - Acute kidney failure with acute cortical necrosis (12) Atrial fibrillation Status: Acute Assessment and plan: Heart rate is now about 100 of amiodarone I would not cardiovert her at this time. Continue anticoagulation. Current Visit: Yes (13) Altered mental status Status: Acute Assessment and plan: I feel this represents global ischemia. Due to hypotension and pressors. Current Visit: Yes Cardiology - PN: Subj Interval history: Ms. Meza continues to decline. She declined significantly since the evening of 04/15/2017. She had a dramatic decline throughout the day yesterday. Her CT scan shows no evidence of bleeding and I am suspicious that she has just global hypoperfusion from her hypotension and high-dose pressors. This is also reflected in her renal function decline. Her chest x-ray is not improving and she requires significant amount of escalating ventilatory support both in rate and O2 flow. I had a discussion with her daughter Marietta at the bedside. I expressed that I think she has reached the point that she will not recover at this point. We will continue efforts to give her every chance to improve. I do not see that there is much more we can do other than support her at this time. I believe the nidus of this is cardiac in origin most likely combination of ischemia and mitral regurgitation with some moderate aortic stenosis. Her prognosis is very poor. She is DNR. I do not expect her to survive much longer without some significant improvement. I see no intervention that would make a significant difference. Continue supportive measures. Her daughter is aware of her poor prognosis but has not given up hope. She is very appropriate and understands the situation clearly. Exam (Progress Note) - Constitutional Vitals: Period Temp Pulse Resp BP Sys/Alas Pulse Ox Last 24 Hr 98.4 F-99.2 F 78-101 18-79 82-123/32-88 91-99 General appearance: over weight - Eye Eye exam: Present: other (Pupils are sluggish) - Respiratory Respiratory exam: Present: clear to auscultation bilaterally (On the ventilator not a lot of parenchymal noises upper airway or tracheal noise) - Cardiovascular Cardiovascular exam: Present: regular rate and rhythm (Murmur of mitral regurgitation) - GI/Abdominal GI/Abdominal exam: Present: normal bowel sounds (Present but sluggish) - Neurological Exam Neurological exam: Present: other (Unresponsive off sedation) - Skin Skin exam: Present: normal color, warm, dry Result/EKG - Labs CBC & BMP: 04/17/17 04:17 04/17/17 04:17 Labs: Laboratory Results - last 24 hr 04/16/17 04/16/17 04/16/17 07:27 12:15 17:39 WBC RBC Hgb Hct MCV MCH MCHC RDW Plt Count MPV Neut % (Auto) Lymph % (Auto) [place] % (Auto) Eos % (Auto) Baso % (Auto) Neut # (Auto) Lymph # (Auto) [place] # (Auto) Eos # (Auto) Baso # (Auto) Total Counted Immature Gran % Nucleated RBC % Immature Gran # Segmented Neutrophils Lymphocytes Monocytes Nucleated RBCs # Platelet Estimate Polychromasia ABG pH ABG pCO2 ABG pO2 ABG HCO3 ABG Total CO2 ABG O2 Saturation ABG Base Excess FiO2 Sodium 137 Potassium 4.2 Chloride 95 L Carbon Dioxide 31 Anion Gap 15.2 H BUN 125 H Creatinine 2.40 H GFR Calculation 21 BUN/Creatinine Ratio 52.00 H Glucose 153 H POC Glucose 158 H 182 H Calculated Osmolality 315.8 H Calcium 7.4 L Magnesium 3.6 H 04/17/17 04/17/17 04/17/17 00:21 04:17 04:17 WBC 20.8 H D RBC 2.69 L Hgb 8.7 L Hct 26.9 L MCV 100.0 MCH 32 MCHC 32.3 RDW 14.5 Plt Count 223 MPV 9.9 Neut % (Auto) 81.2 H Lymph % (Auto) 5.3 L [place] % (Auto) 6.8 Eos % (Auto) 0.0 Baso % (Auto) 0.1 Neut # (Auto) 16.8 H Lymph # (Auto) 1.1 L [place] # (Auto) 1.4 H Eos # (Auto) 0.0 Baso # (Auto) 0.0 Total Counted 100 Immature Gran % 6.6 Nucleated RBC % 0.5 Immature Gran # 1.38 Segmented Neutrophils 86 H Lymphocytes 7 L Monocytes 7 Nucleated RBCs # 0.10 Platelet Estimate Normal Polychromasia Few ABG pH ABG pCO2 ABG pO2 ABG HCO3 ABG Total CO2 ABG O2 Saturation ABG Base Excess FiO2 Sodium 138 Potassium 5.1 Chloride 98 Carbon Dioxide 29 Anion Gap 16.1 H BUN 145 H D Creatinine 3.20 H GFR Calculation 15 BUN/Creatinine Ratio 45.00 H Glucose 169 H POC Glucose 180 H Calculated Osmolality 325.7 H Calcium 7.0 L Magnesium 04/17/17 04/17/17 06:13 07:20 WBC RBC Hgb Hct MCV MCH MCHC RDW Plt Count MPV Neut % (Auto) Lymph % (Auto) [place] % (Auto) Eos % (Auto) Baso % (Auto) Neut # (Auto) Lymph # (Auto) [place] # (Auto) Eos # (Auto) Baso # (Auto) Total Counted Immature Gran % Nucleated RBC % Immature Gran # Segmented Neutrophils Lymphocytes Monocytes Nucleated RBCs # Platelet Estimate Polychromasia ABG pH 7.330 L ABG pCO2 63.7 H ABG pO2 78.8 L ABG HCO3 32.8 H ABG Total CO2 34.8 H ABG O2 Saturation 94.8 L ABG Base Excess 5.8 H FiO2 80.00 Sodium Potassium Chloride Carbon Dioxide Anion Gap BUN Creatinine GFR Calculation BUN/Creatinine Ratio Glucose POC Glucose 173 H Calculated Osmolality Calcium Magnesium Quality Measures - VTE Contraindication to Pharmacological VTE Prophylaxis: High Risk of Bleeding
[2017-04-17 09:13] LABS: ABG Base Excess 3.7 MMOL/L (-2.5-2.5); ABG HCO3 27.8 MMOL/L (20-26); ABG Oxygen Saturation 98.9 % (95-100); ABG PCO2 54.8 MM HG (35-48); ABG PH 7.349 (7.35-7.45); ABG TCO2 28.2 MMOL/L (23-27)
--- NOTE | 2017-04-17 10:21 | Nephrology Progress Note ---
Nephrology - PN: Subj Interval history: Clinically deteriorating. Increased FiO2 requirement, hypotensive with MAPs < 60mm Hg on pressors. UOP declining, creatinine up to 3.2 for eGFR 15cc/min calculated. Exam (PN)-Nephrology - Vital Signs Vital signs: Period Temp Pulse Resp BP Sys/Alas Pulse Ox Last 24 Hr 98.4 F-99.2 F 78-97 18-79 82-123/32-88 91-99 - General Appearance General appearance: chronically ill, intubated EENT: ATNC, mucous membranes dry Neck: JVD, supple Respiratory: no kyphosis, rales Cardiology: no murmurs, no rub Gastrointestinal: normoactive bowel sounds, no guarding Integumentary: no rash, cool/clammy (cool and dry) Neurologic: obtunded Musculoskeletal: no deformities, no erythema - Lab 04/17/17 04:17 04/17/17 04:17 Most recent lab results ABG pH 7.349 (7.35-7.45) L 04/17/17 09:00 ABG pCO2 54.8 MM HG (35-48) H 04/17/17 09:00 ABG pO2 136.0 MM HG (80-95) H 04/17/17 09:00 ABG HCO3 27.8 MMOL/L (20-26) H 04/17/17 09:00 ABG O2 Saturation 98.9 % (95-100) 04/17/17 09:00 Calcium 7.0 MG/DL (8.5-10.1) L 04/17/17 04:17 Phosphorus 6.1 MG/DL (2.5-4.9) H 04/13/17 04:06 Magnesium 3.6 MG/DL (1.8-2.4) H 04/16/17 07:27 Assessment and Plan (1) DOV (acute kidney injury) Problem details: No acute indication for renal replacement therapy. Appears premorbid. Status: Acute Assessment and plan: Continue supportive/conservative management. Expectant. Current Visit: Yes (2) Acute respiratory failure Status: Acute Current Visit: Yes
[2017-04-17] MEDS: MEROPENEM 500 MG in SODIUM CHLORIDE 0.9% 100 ML IV SCH ×2 (11:10→22:03)
[2017-04-17] MEDS: POTASSIUM CHLORIDE 20 MEQ/15 ML UDCUP PO SCH ×2 (11:11→22:02)
[2017-04-17] MEDS: APIXABAN 2.5 MG TABLET PO SCH ×2 (11:11→22:02)
[2017-04-17] MEDS: METOPROLOL TARTRATE 25 MG TABLET PO SCH ×2 (11:11→22:03)
[2017-04-17] MEDS: ACETAMINOPHEN 325 MG TABLET PO SCH ×2 (11:12→22:01)
[2017-04-17] MEDS: ASPIRIN EC 81 MG TABLET PO SCH (11:12)
[2017-04-17] MEDS: CLOPIDOGREL 75 MG TABLET PO SCH (11:12)
[2017-04-17] MEDS: AMIODARONE 200 MG TABLET PO SCH ×2 (11:12→22:02)
[2017-04-17] MEDS: LANSOPRAZOLE ODT 30 MG TABLET PER TUBE SCH (11:12)
[2017-04-17] MEDS: CITRIC ACID/SODIUM CITRATE 30 ML UDCUP PO SCH ×3 (11:13→22:03)
[2017-04-17] MEDS: PHENYLEPHRINE INJ 160 MG in SODIUM CHLORIDE 0.9% 234 ML IV SCH (14:01)
[2017-04-17] MEDS: PROPOFOL 1,000 MG/100 ML BOTTLE IV SCH (17:34)
[2017-04-17] MEDS: LEVOFLOXACIN INJ 250 MG in PREMIX 1 EACH IV SCH (17:36)
[2017-04-17] MEDS: PRAVASTATIN 40 MG TABLET PO SCH (22:02)
[2017-04-17] MEDS: GABAPENTIN 100 MG CAPSULE PO SCH (22:03)
[2017-04-18] MEDS: LEVALBUTEROL 0.63 MG/3 ML NEB RESP TX SCH ×7 (00:25→23:31)
[2017-04-18 03:35] LABS: ABG Base Excess 5.8 MMOL/L (-2.5-2.5); ABG HCO3 29.7 MMOL/L (20-26); ABG Oxygen Saturation 99.2 % (95-100); ABG PCO2 58.5 MM HG (35-48); ABG PH 7.353 (7.35-7.45); ABG TCO2 30.5 MMOL/L (23-27)
[2017-04-18 05:22] LABS: Basophils % 0.1 % (0.0-0.8); Hematocrit 25.4 VOL% (35.7-47.0); Hemoglobin 8.1 GM/DL (12.0-16.0); Immature Granulocytes % 5.2 %; Immature Granulocytes Absolute 1.14 #; Lymphocytes % 4.3 % (21.3-54.2); Mean Corpuscular HGB Conc 31.9 GM/DL (32-36); Mean Corpuscular Hemoglobin 32 PG (27-34); Mean Corpuscular Volume 101.6 FL (87-102); Monocytes # 1.5 10*3/uL (0.11-0.8); NRBC # 0.17 10*3/uL; Neutrophils # 18.2 10*3/uL (1.4-7.4); Neutrophils % 83.4 % (38.7-73.9); Platelet Count 219 T/CUMM (130-400); Red Cell Distribution Width 14.5 % (9.3-17.3); White Blood Count 21.9 T/CUMM (4-12)
[2017-04-18 06:03] LABS: Calcium 7.1 MG/DL (8.5-10.1); Osmolality,Calculated 339.7 MOS/KG (273-304); Potassium 5.7 MMOL/L (3.5-5.1)
[2017-04-18 06:21] LABS: Band Neutrophils 2 % (0-10); Lymphocytes 7 % (20-55); Nucleated Red Blood Cells 3 (0-5); Promyelocytes 1 %; Segmented Neutrophils 84 % (50-85); Total Cells Counted 100
[2017-04-18 06:22] LABS: Hypochromasia Slight; Macrocytosis Slight
[2017-04-18] MEDS: INSULIN REGULAR 100 UNIT/ML SUBCUT SCH ×3 (06:22→18:34)
[2017-04-18 06:23] LABS: Basophilic Stippling Slight; Platelet Estimate Normal
--- NOTE | 2017-04-18 06:29 | Cardiothoracic Progress Note ---
Cardiothoracic Subjective Interval history: Patient is on the ventilator and intubated. She is minimally responsive. Blood pressure and heart rate have been reasonably stable but she remains on an FiO2 of 100%. BUN and creatinine continue to slowly rise. Plan is to continue present support for now but her prognosis continues to look poor. Exam (Progress Note) - Constitutional Vitals: Period Temp Pulse Resp BP Sys/Alas Pulse Ox Last 24 Hr 98 F-98.6 F 81-108 21-33 79-134/24-82 92-100 Result/EKG - Labs CBC & BMP: 04/18/17 05:16 04/18/17 05:16 Labs: Laboratory Results - last 24 hr 04/17/17 04/17/17 04/17/17 07:20 09:00 12:31 WBC RBC Hgb Hct MCV MCH MCHC RDW Plt Count MPV Neut % (Auto) Lymph % (Auto) [place] % (Auto) Eos % (Auto) Baso % (Auto) Neut # (Auto) Lymph # (Auto) [place] # (Auto) Eos # (Auto) Baso # (Auto) Total Counted Immature Gran % Nucleated RBC % Immature Gran # Segmented Neutrophils Band Neutrophils Lymphocytes Monocytes Promyelocytes Nucleated RBCs Nucleated RBCs # Platelet Estimate Hypochromasia Basophilic Stippling Macrocytosis ABG pH 7.330 L 7.349 L ABG pCO2 63.7 H 54.8 H ABG pO2 78.8 L 136.0 H ABG HCO3 32.8 H 27.8 H ABG Total CO2 34.8 H 28.2 H ABG O2 Saturation 94.8 L 98.9 ABG Base Excess 5.8 H 3.7 H FiO2 80.00 Sodium Potassium Chloride Carbon Dioxide Anion Gap BUN Creatinine GFR Calculation BUN/Creatinine Ratio Glucose POC Glucose 194 H Calculated Osmolality Calcium 04/17/17 04/18/17 04/18/17 18:04 00:25 03:14 WBC RBC Hgb Hct MCV MCH MCHC RDW Plt Count MPV Neut % (Auto) Lymph % (Auto) [place] % (Auto) Eos % (Auto) Baso % (Auto) Neut # (Auto) Lymph # (Auto) [place] # (Auto) Eos # (Auto) Baso # (Auto) Total Counted Immature Gran % Nucleated RBC % Immature Gran # Segmented Neutrophils Band Neutrophils Lymphocytes Monocytes Promyelocytes Nucleated RBCs Nucleated RBCs # Platelet Estimate Hypochromasia Basophilic Stippling Macrocytosis ABG pH 7.353 ABG pCO2 58.5 H ABG pO2 180.0 H ABG HCO3 29.7 H ABG Total CO2 30.5 H ABG O2 Saturation 99.2 ABG Base Excess 5.8 H FiO2 Sodium Potassium Chloride Carbon Dioxide Anion Gap BUN Creatinine GFR Calculation BUN/Creatinine Ratio Glucose POC Glucose 163 H 176 H Calculated Osmolality Calcium 04/18/17 04/18/17 05:16 05:16 WBC 21.9 H RBC 2.50 L Hgb 8.1 L Hct 25.4 L MCV 101.6 MCH 32 MCHC 31.9 L RDW 14.5 Plt Count 219 MPV 10.0 Neut % (Auto) 83.4 H Lymph % (Auto) 4.3 L [place] % (Auto) 7.0 Eos % (Auto) 0.0 Baso % (Auto) 0.1 Neut # (Auto) 18.2 H Lymph # (Auto) 1.0 L [place] # (Auto) 1.5 H Eos # (Auto) 0.0 Baso # (Auto) 0.0 Total Counted 100 Immature Gran % 5.2 Nucleated RBC % 0.8 Immature Gran # 1.14 Segmented Neutrophils 84 Band Neutrophils 2 Lymphocytes 7 L Monocytes 6 Promyelocytes 1 Nucleated RBCs 3 Nucleated RBCs # 0.17 Platelet Estimate Normal Hypochromasia Slight Basophilic Stippling Slight Macrocytosis Slight ABG pH ABG pCO2 ABG pO2 ABG HCO3 ABG Total CO2 ABG O2 Saturation ABG Base Excess FiO2 Sodium 138 Potassium 5.7 H Chloride 98 Carbon Dioxide 33 H Anion Gap 12.7 BUN 175 H Creatinine 3.40 H GFR Calculation 13 BUN/Creatinine Ratio 51.00 H Glucose 218 H POC Glucose Calculated Osmolality 339.7 H Calcium 7.1 L Quality Measures - VTE Contraindication to Pharmacological VTE Prophylaxis: High Risk of Bleeding
[2017-04-18 07:07] LABS: Magnesium 3.8 MG/DL (1.8-2.4); Prealbumin 12.9 MG/DL (20-40)
--- NOTE | 2017-04-18 07:14 | EKG Report ---
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
[2017-04-18] MEDS: PHENYLEPHRINE INJ 160 MG in SODIUM CHLORIDE 0.9% 234 ML IV SCH (07:27)
--- NOTE | 2017-04-18 07:46 | Pulmonology Progress Note ---
Pulmonary - PN: Subj Interval history: This 82-year-old white female had congestive heart failure and respiratory failure. She had a coronary stent placed. She has a decreased level of consciousness. Creatinine has risen to 2.4. Family has now made her DO NOT RESUSCITATE. However we are continuing to try to wean her from the ventilator. She is on 80% oxygen and has an oxygen saturation of 93%. We will try to reduce back to a level where we can start CPAP. 04/14/2017 patient has gotten worse overnight. Oxygen saturations dropped. She is now on 100% with 12 of PEEP and has a PO2 of 65. Chest x-ray looks wetter. We have been trying to hydrate her to save kidney function. However I do think she is a bit on the wet side. We will try 1 dose of Lasix. Also getting up occasional thick material from her endotracheal tube. Concerned that she may have some plugs although I do not see any atelectasis on the x-ray. Will bronchoscope her this morning. Discussed with patient's daughter. Prognosis is poor. I do note that the family has made her DO NOT RESUSCITATE. We will continue full support however. this 82-year-old lady has congestive heart failure with valvular heart disease and diastolic dysfunction. Also has apparent pneumonia. She is on Zosyn and Levaquin. Chest x-ray shows diffuse infiltrates. Her PO2 is 110 on 100% oxygen this morning. Will reduce to 80%. Still requiring fairly high PEEP. She does apparently have ARDS in addition to the above. When her sedation is held she will open her eyes and follow. 04/18/2017 patient's PO2 is now 180 on 100% oxygen. Reducing to 70%. Still has a high PCO2. Has ARDS and some difficulty ventilating her. Her mental status is worse. The daughter relates that she did follow a little bit over the weekend. She has not been on any sedation for 24 hours and she is totally unresponsive. Will ask neurology to see her. Chest x-ray still shows diffuse interstitial infiltrates. Exam (Progress Note) - Constitutional Vitals: Period Temp Pulse Resp BP Sys/Alas Pulse Ox Last 24 Hr 98 F-98.6 F 81-108 21-33 79-134/24-82 92-100 Exam: Patient not responding. She is off propofol. Systolic blood pressure in the upper 90s. Pulse of about 110. pupils react to light. Orotracheal tube in place. Neck is supple no bruits. Chest reveals a few scattered rhonchi. Equal breath sounds. Heart is regular without murmurs. Abdomen soft no masses. Extremities no clubbing cyanosis. Trace of edema. Results - Labs CBC & BMP: 04/18/17 05:16 04/18/17 05:16 Lab Results: I have reviewed the past 24 hour labs - Diagnostic Findings Procedure: Chest x-ray: image reviewed by me (Diffuse pulmonary edema bilaterally. ET tube in good position.) Assessment and Plan (1) Acute respiratory failure Status: Acute Assessment and plan: This may all be due to congestive heart failure. However with high requirement for PEEP there may be an element of ARDS. Will adjust PEEP and FiO2. Hopefully with diuresis we can get her down to where she can start weaning trials. This will likely take a few days. This was discussed with the patient' s daughter at the bedside. 04/13/2017 chest x-ray is improved following diuresis. Still fairly wide A-a O2 difference suggesting an element of ARDS. 04/14/2017 PO2 has dropped. Now on 100% with 12 of PEEP. 04/15/17 PO2 110 on 100% oxygen with 12 of PEEP. Will reduce to 80%. Try to get FiO2 down to 60% and then reduce PEEP. 04/18/2017 still has elevated PCO2 despite mechanical ventilation. Renal insufficiency makes it difficult to try to treat that with Diamox. Still requiring high FiO2 and PEEP. Current Visit: Yes (2) Urinary tract infection Status: Acute Assessment and plan: Klebsiella UTI covered with Levaquin. 04/13/2017 UTI should be well covered. Current Visit: Yes (3) Aortic stenosis Status: Chronic Assessment and plan: Noted at catheterization please see those reports. 04/13/2017 has valvular as well as coronary disease. 04/14/2017 multiple reason for congestive heart failure. 04/15/17 again has aortic stenosis as a major cause for her congestive heart failure. Not able to tolerate surgical consideration at this time. 04/18/2017 congestive heart failure due to aortic stenosis is part of the problem. Current Visit: Yes Qualifiers: Cardiac valve disease etiology: nonrheumatic Qualified Code(s): I35.0 - Nonrheumatic aortic (valve) stenosis (4) Heart failure, diastolic, acute Status: Acute Assessment and plan: Needs further diuresis. Renal function appears stable. 04/13/2017 trying to diurese depending on renal function. 04/15/17 x-ray still looks a little bit wet. Difficult to tell with superimposed pneumonia and ARDS. 04/18/2017 x-ray still looks wet. Primarily due to ARDS at this point I would think Current Visit: Yes (5) Mitral regurgitation Status: Acute Assessment and plan: Also part of her called for congestive heart failure. This was felt to be ischemic in etiology. Current Visit: Yes Qualifiers: Cardiac valve disease etiology: nonrheumatic Qualified Code(s): I34.0 - Nonrheumatic mitral (valve) insufficiency
[2017-04-18] MEDS: MEROPENEM 500 MG in SODIUM CHLORIDE 0.9% 100 ML IV SCH ×2 (07:57→21:53)
--- NOTE | 2017-04-18 08:03 | XRay Report ---
XR chest 1V portable Indication: Respiratory failure on ventilator Comparison: Chest x-ray dated April 17, 2017 Technique: Single frontal view of the chest. Findings: Lines and tubes stable in positioning. Continued mild cardiomegaly status post sternotomy. Continued opacification of the right mid and lower lung. Interval increased opacification of the left mid and lower lung suggesting worsening pulmonary edema or pneumonia. Visualized osseous and surrounding soft tissue structures appear grossly unchanged.. IMPRESSION: As above. PROCEDURE INTERPRETED AT [facility] DEPARTMENT OF RADIOLOGY Final Report Signed by: Dr Brent Romo
--- NOTE | 2017-04-18 09:04 | Nephrology Progress Note ---
Nephrology - PN: Subj Interval history: The patient's condition is about the same. Serum creatinine noted to be 3.5 up to 3.2. She remains ventilated. Urine output is trended down. Exam (PN)-Nephrology - Vital Signs Vital signs: Period Temp Pulse Resp BP Sys/Alas Pulse Ox Last 24 Hr 98 F-98.7 F 78-108 18-33 79-134/24-82 92-100 - General Appearance General appearance: chronically ill, intubated EENT: ATNC Neck: supple Respiratory: clear Cardiology: regular rate, regular rhythm Gastrointestinal: normoactive bowel sounds, no tenderness Integumentary: no rash - Lab 04/18/17 05:16 04/18/17 05:16 Most recent lab results ABG pH 7.353 (7.35-7.45) 04/18/17 03:14 ABG pCO2 58.5 MM HG (35-48) H 04/18/17 03:14 ABG pO2 180.0 MM HG (80-95) H 04/18/17 03:14 ABG HCO3 29.7 MMOL/L (20-26) H 04/18/17 03:14 ABG O2 Saturation 99.2 % (95-100) 04/18/17 03:14 Calcium 7.1 MG/DL (8.5-10.1) L 04/18/17 05:16 Phosphorus 4.0 MG/DL (2.5-4.9) 04/18/17 05:16 Magnesium 3.8 MG/DL (1.8-2.4) H 04/18/17 05:16 Assessment and Plan (1) CAD (coronary artery disease) Status: Chronic Current Visit: No Qualifiers: Coronary Disease-Associated Artery/Lesion type: bypass graft [place] vs. transplanted heart: [place] heart Associated angina: with unspecified angina Qualified Code(s): I25.709 - Atherosclerosis of coronary artery bypass graft(s) , unspecified, with unspecified angina pectoris (2) Hx of CABG Status: Chronic Current Visit: Yes (3) Hypertension Status: Resolved Current Visit: Yes Qualifiers: Hypertension type: essential hypertension Qualified Code(s): I10 - Essential (primary) hypertension (4) Hypotension Status: Acute Current Visit: Yes Qualifiers: Hypotension type: unspecified hypotension type Qualified Code(s): I95.9 - Hypotension, unspecified (5) Acute renal failure Status: Acute Assessment and plan: Acute renal failure due to ATN. Which is showing signs of recovery. Serum creatinine is now down to 1.9. Non oliguric. Current Visit: Yes Qualifiers: Acute renal failure type: with acute renal cortical necrosis Qualified Code (s): N17.1 - Acute kidney failure with acute cortical necrosis
--- NOTE | 2017-04-18 09:17 | Cardiology Progress Note ---
Assessment and Plan - Time spent with patient Time spent with patient: Greater than 30 minutes (1) Hx of CABG Status: Chronic Assessment and plan: SEE PLAN OF CARE LISTED BELOW Current Visit: Yes (2) Hypertension Status: Resolved Assessment and plan: SEE PLAN OF CARE LISTED BELOW Current Visit: Yes Qualifiers: Hypertension type: essential hypertension Qualified Code(s): I10 - Essential (primary) hypertension (3) Aortic stenosis Status: Chronic Assessment and plan: SEE PLAN OF CARE LISTED BELOW Current Visit: Yes Qualifiers: Cardiac valve disease etiology: nonrheumatic Qualified Code(s): I35.0 - Nonrheumatic aortic (valve) stenosis (4) Right carotid bruit Status: Chronic Assessment and plan: SEE PLAN OF CARE LISTED BELOW Current Visit: Yes (5) Chest pain Status: Acute Assessment and plan: SEE PLAN OF CARE LISTED BELOW Current Visit: No (6) CAD (coronary artery disease) Status: Chronic Assessment and plan: SEE PLAN OF CARE LISTED BELOW Current Visit: No Qualifiers: Coronary Disease-Associated Artery/Lesion type: bypass graft [place] vs. transplanted heart: [place] heart Associated angina: with unspecified angina Qualified Code(s): I25.709 - Atherosclerosis of coronary artery bypass graft(s) , unspecified, with unspecified angina pectoris (7) Depressive disorder Status: Chronic Assessment and plan: SEE PLAN OF CARE LISTED BELOW Current Visit: No (8) Dyslipidemia (high LDL; low HDL) Status: Chronic Assessment and plan: SEE PLAN OF CARE LISTED BELOW Current Visit: No (9) Coronary artery disease Status: Chronic Assessment and plan: SEE PLAN OF CARE LISTED BELOW Current Visit: Yes Qualifiers: Coronary Disease-Associated Artery/Lesion type: [place] artery (10) Urinary tract infection Status: Acute Assessment and plan: SEE PLAN OF CARE LISTED BELOW Current Visit: Yes (11) Anemia Status: Acute Assessment and plan: SEE PLAN OF CARE LISTED BELOW Current Visit: Yes (12) Hyperlipidemia Status: Chronic Assessment and plan: SEE PLAN OF CARE LISTED BELOW Current Visit: Yes (13) Pneumonia Status: Acute Assessment and plan: SEE PLAN OF CARE LISTED BELOW Current Visit: Yes Qualifiers: Laterality: left Lung location: lower lobe of lung (14) Mitral regurgitation Status: Chronic Assessment and plan: SEE PLAN OF CARE LISTED BELOW Current Visit: Yes Qualifiers: Cardiac valve disease etiology: nonrheumatic Qualified Code(s): I34.0 - Nonrheumatic mitral (valve) insufficiency (15) Acute renal failure Status: Acute Assessment and plan: SEE PLAN OF CARE LISTED BELOW Current Visit: Yes Qualifiers: Acute renal failure type: with acute renal cortical necrosis Qualified Code (s): N17.1 - Acute kidney failure with acute cortical necrosis (16) Atrial fibrillation Status: Acute Assessment and plan: SEE PLAN OF CARE LISTED BELOW Current Visit: Yes (17) Altered mental status Status: Acute Assessment and plan: SEE PLAN OF CARE LISTED BELOW Current Visit: Yes Cardiology - PN: Subj Interval history: 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 CARRION SUMMARY: Ms. Meza, 82WF, has a history of known coronary artery disease ( status post CABG 2003 with abrupt closure within days of having her bypass grafting requiring emergent stenting at [facility]), hypertension, dyslipidemia, sedentary lifestyle, CVA. According to Dr. Carrion's last note in clinic in February 2017, he reviewed her heart catheterization films noted a failed attempt to wire ostium of the RCA with in-stent restenosis noted. He remarks she has had failed grafts, failed stents multiple times. He recommended medical management at this point. Echocardiogram February 22, 2017 reveals the following: EF 50%, grade 2 diastolic dysfunction, moderate with mild to moderate AI, PAP 35 mmHg + RAP. Patient was treated with antianginal agents including increasing Ranexa to maximum dose. Chest pain continued. She underwent cardiac catheterization April 06, 2017 with severe 2 vessel disease noted. (See cardiac catheterization report). Because the CAD is not amenable to percutaneous intervention, Dr. Reyes was consulted for possible redo bypass surgery, AVR. However, patient continued to deteriorate and she was not felt to be a candidate for bypass/AVR. April 11, 2017 Dr. Carrion performed POBA of the ostium of the RCA, successful PCI with JENNY of the ostial left circumflex. She tolerated the cardiac catheterization well. She required mechanical ventilation for hypoxia and respiratory distress. She has been treated for possible underlying infectious process, UTI, congestive heart failure. At one point, she was using continues IV Lasix and this is being transitioned to IV pushes. APRIL 18, 2017: Over the weekend, patient began to experience atrial fibrillation with rapid ventricular response. She was started on IV amiodarone for better rate control. She is requiring phenylephrine for hypotension. Neurologically, she has also continued to decline. CT of head revealed no evidence of bleeding and it is suspected that she has global hypoperfusion from her hypotension and high dose pressors affecting her neurological status. She is now DNR. Creatinine continues to worsen, now 3.4. She is hyperkalemic with a potassium of 5.7 today. Anemia persists but appears to be relatively stable with no overt bleeding. Greater than 30 minutes was spent today discussing patient's poor prognosis with daughter. Patient did respond to aggressive nipple stimulation but no other response. Will further discuss with Dr. Skaggs and await his recommendations. ASSESSMENT/PLAN: 1. CAD S/P CABG - Severe three-vessel coronary artery disease (see above recent revascularization). Plavix 75 mg daily, aspirin 81 mg daily continues. 2. HYPOTENSION - Requiring pressors at this point. History of underlying hypertension. 4. DYSLIPIDEMIA - LDL 125. Continue lipid lowering agent. 5. AORTIC STENOSIS, MODERATE - Continue current plan of care per recent echo February 2017 6. BRUIT, CAROTID RIGHT - Carotid ultrasound reveals no significant stenosis. 7. ATRIAL FIBRILLATION - Rate controlled on IV Amiodorone and oral Amiodorone. Will stop IV Amiodorone and continue oral. Eliquis continues, renal dose. 8. UTI - continue current plan of care, continuing Levaquin, Macrobid, Meropenem. 9. CARDIAC MURMUR - murmur. Recent echo reveals moderate , mild to moderate AI. 10. ACUTE RENAL FAILURE, STAGE IV - Avoiding nephrotoxic agents. Most likely related to hypoperfusion and pressors. 11. ACUTE ON CHRONIC CHF - Secondary to diastolic dysfuntion, NYHA Class IV. Continue current plan of care. 12. DNR - Continue current plan of care. 13. ANEMIA - Continue monitoring closely 14. HYPERKALEMIA - adding Kayexalate today. Exam (Progress Note) - Constitutional Vitals: Period Temp Pulse Resp BP Sys/Alas Pulse Ox Last 24 Hr 98 F-98.7 F 78-108 18-33 79-134/24-82 92-100 Exam: Exam: General: [Intubated. Appears ill. Pale.] HEENT: [Pupils nonreactive to light. Atraumatic. Mucous membranes moist. No jaundice noted. Conjunctiva moist and clear, sclerae anicteric] Neck: No obvious JVD/HJR, no thyromegaly or lymphadenopathy noted. Right carotid bruit noted. No tracheal deviation noted Cardiac: [Irregularly irregular rhythm, controlled rate. [III/ systolic ejection murmur heard best at second intercostal space to the right. Lungs: [Rhonchi noted throughout. Symmetrical chest wall movements. Abdomen: Soft, bowel sounds normoactive. [place] catheter intact draining clear yellow urine. Frequent diarrheal stools noted. Musculoskeletal: No fluid collection. Decreased range of motion is noted. Extremities: No clubbing, cyanosis noted. [1+ bilateral lower extremity edema. Upper extremity pulses 2+. Lower extremity pulses 2+. Capillary refill less than 3 seconds. Skin: No unusual lesions or rashes. No skin breakdown appreciated. Neuro: Not responding to verbal stimulation. Occasionally responding to aggressive tactile stimulation. Result/EKG - Labs CBC & BMP: 04/18/17 05:16 04/18/17 05:16 Lab Results: I have reviewed the past 24 hour labs Labs: Laboratory Results - last 24 hr 04/17/17 04/17/17 04/17/17 09:00 12:31 18:04 WBC RBC Hgb Hct MCV MCH MCHC RDW Plt Count MPV Neut % (Auto) Lymph % (Auto) Starr % (Auto) Eos % (Auto) Baso % (Auto) Neut # (Auto) Lymph # (Auto) Starr # (Auto) Eos # (Auto) Baso # (Auto) Total Counted Immature Gran % Nucleated RBC % Immature Gran # Segmented Neutrophils Band Neutrophils Lymphocytes Monocytes Promyelocytes Nucleated RBCs Nucleated RBCs # Platelet Estimate Hypochromasia Basophilic Stippling Macrocytosis ABG pH 7.349 L ABG pCO2 54.8 H ABG pO2 136.0 H ABG HCO3 27.8 H ABG Total CO2 28.2 H ABG O2 Saturation 98.9 ABG Base Excess 3.7 H Sodium Potassium Chloride Carbon Dioxide Anion Gap BUN Creatinine GFR Calculation BUN/Creatinine Ratio Glucose POC Glucose 194 H 163 H Calculated Osmolality Calcium Phosphorus Magnesium Prealbumin 04/18/17 04/18/17 04/18/17 00:25 03:14 05:16 WBC RBC Hgb Hct MCV MCH MCHC RDW Plt Count MPV Neut % (Auto) Lymph % (Auto) Starr % (Auto) Eos % (Auto) Baso % (Auto) Neut # (Auto) Lymph # (Auto) Starr # (Auto) Eos # (Auto) Baso # (Auto) Total Counted Immature Gran % Nucleated RBC % Immature Gran # Segmented Neutrophils Band Neutrophils Lymphocytes Monocytes Promyelocytes Nucleated RBCs Nucleated RBCs # Platelet Estimate Hypochromasia Basophilic Stippling Macrocytosis ABG pH 7.353 ABG pCO2 58.5 H ABG pO2 180.0 H ABG HCO3 29.7 H ABG Total CO2 30.5 H ABG O2 Saturation 99.2 ABG Base Excess 5.8 H Sodium Potassium Chloride Carbon Dioxide Anion Gap BUN Creatinine GFR Calculation BUN/Creatinine Ratio Glucose POC Glucose 176 H Calculated Osmolality Calcium Phosphorus 4.0 Magnesium 3.8 H Prealbumin 12.9 L 04/18/17 04/18/17 04/18/17 05:16 05:16 05:59 WBC 21.9 H RBC 2.50 L Hgb 8.1 L Hct 25.4 L MCV 101.6 MCH 32 MCHC 31.9 L RDW 14.5 Plt Count 219 MPV 10.0 Neut % (Auto) 83.4 H Lymph % (Auto) 4.3 L Starr % (Auto) 7.0 Eos % (Auto) 0.0 Baso % (Auto) 0.1 Neut # (Auto) 18.2 H Lymph # (Auto) 1.0 L Starr # (Auto) 1.5 H Eos # (Auto) 0.0 Baso # (Auto) 0.0 Total Counted 100 Immature Gran % 5.2 Nucleated RBC % 0.8 Immature Gran # 1.14 Segmented Neutrophils 84 Band Neutrophils 2 Lymphocytes 7 L Monocytes 6 Promyelocytes 1 Nucleated RBCs 3 Nucleated RBCs # 0.17 Platelet Estimate Normal Hypochromasia Slight Basophilic Stippling Slight Macrocytosis Slight ABG pH ABG pCO2 ABG pO2 ABG HCO3 ABG Total CO2 ABG O2 Saturation ABG Base Excess Sodium 138 Potassium 5.7 H Chloride 98 Carbon Dioxide 33 H Anion Gap 12.7 BUN 175 H Creatinine 3.40 H GFR Calculation 13 BUN/Creatinine Ratio 51.00 H Glucose 218 H POC Glucose 182 H Calculated Osmolality 339.7 H Calcium 7.1 L Phosphorus Magnesium Prealbumin - Diagnostic Findings Procedure: Chest x-ray: report reviewed by me - EKG EKG results: interpreted by me EKG shows: atrial fibrillation Quality Measures - VTE Contraindication to Pharmacological VTE Prophylaxis: High Risk of Bleeding
[2017-04-18] MEDS ORDERED: AMIODARONE 200 MG TABLET PO ONE (09:22)
[2017-04-18] MEDS: ACETAMINOPHEN 325 MG TABLET PO SCH ×2 (09:36→21:48)
[2017-04-18] MEDS: APIXABAN 2.5 MG TABLET PO SCH ×2 (09:36→21:47)
[2017-04-18] MEDS: ASPIRIN EC 81 MG TABLET PO SCH (09:36)
[2017-04-18] MEDS: CLOPIDOGREL 75 MG TABLET PO SCH (09:36)
[2017-04-18] MEDS: LANSOPRAZOLE ODT 30 MG TABLET PER TUBE SCH (09:43)
[2017-04-18] MEDS: CITRIC ACID/SODIUM CITRATE 30 ML UDCUP PO SCH ×3 (09:44→22:13)
[2017-04-18] MEDS: AMIODARONE 200 MG TABLET PO SCH ×2 (10:38→21:47)
[2017-04-18] MEDS: METOPROLOL TARTRATE 25 MG TABLET PO SCH (10:40)
[2017-04-18] MEDS: POTASSIUM CHLORIDE 20 MEQ/15 ML UDCUP PO SCH (10:40)
[2017-04-18] MEDS: AMIODARONE INJ 450 MG in DEXTROSE 5% 241 ML IV SCH (10:40)
[2017-04-18 15:06] LABS: Calcium 7.3 MG/DL (8.5-10.1); Magnesium 3.9 MG/DL (1.8-2.4); Osmolality,Calculated 339.4 MOS/KG (273-304)
[2017-04-18 15:16] LABS: Potassium 6.1 MMOL/L (3.5-5.1)
[2017-04-18] MEDS ORDERED: SODIUM POLYSTYRENE SULFATE 15 GM/60 ML BOTTLE PER TUBE ONE (15:20)
[2017-04-18] MEDS: PROPOFOL 1,000 MG/100 ML BOTTLE IV SCH (15:44)
[2017-04-18] MEDS: LEVOFLOXACIN INJ 250 MG in PREMIX 1 EACH IV SCH (18:34)
[2017-04-18] MEDS: PRAVASTATIN 40 MG TABLET PO SCH (21:46)
[2017-04-18] MEDS: GABAPENTIN 100 MG CAPSULE PO SCH (21:46)
[2017-04-18] MEDS: MINERAL OIL/PETROLATUM OPH OINT 3.5 GM TUBE BOTH EYES SCH (22:13)
[2017-04-19] MEDS: PHENYLEPHRINE INJ 160 MG in SODIUM CHLORIDE 0.9% 234 ML IV SCH ×2 (00:11→16:56)
[2017-04-19] MEDS: INSULIN REGULAR 100 UNIT/ML SUBCUT SCH ×4 (00:22→18:16)
[2017-04-19 03:22] LABS: ABG Base Excess 11.6 MMOL/L (-2.5-2.5); ABG HCO3 37.4 MMOL/L (20-26); ABG Oxygen Saturation 96.4 % (95-100); ABG PCO2 59.7 MM HG (35-48); ABG PH 7.415 (7.35-7.45); ABG PO2 87.9 MM HG (80-95); ABG TCO2 39.3 MMOL/L (23-27); Allen Test Positive; Pt O2 Delivery Device Ventilator
[2017-04-19] MEDS: LEVALBUTEROL 0.63 MG/3 ML NEB RESP TX SCH ×6 (03:23→23:52)
[2017-04-19 05:11] LABS: Basophils % 0.1 % (0.0-0.8); Hematocrit 21.1 VOL% (35.7-47.0); Hemoglobin 6.7 GM/DL (12.0-16.0); Immature Granulocytes % 6.8 %; Immature Granulocytes Absolute 1.62 #; Lymphocytes % 4.2 % (21.3-54.2); Mean Corpuscular HGB Conc 31.8 GM/DL (32-36); Mean Corpuscular Hemoglobin 32 PG (27-34); Mean Corpuscular Volume 101.9 FL (87-102); Mean Platelet Volume 10.6 FL (9.6-12.0); Monocytes # 1.7 10*3/uL (0.11-0.8); Monocytes % 7.1 % (1.7-12.7); NRBC # 0.35 10*3/uL; Neutrophils # 19.6 10*3/uL (1.4-7.4); Neutrophils % 81.8 % (38.7-73.9); Platelet Count 236 T/CUMM (130-400); Red Blood Count 2.07 MC/CUMM (3.8-5.5); Red Cell Distribution Width 14.6 % (9.3-17.3); White Blood Count 23.9 T/CUMM (4-12)
[2017-04-19 05:47] LABS: Band Neutrophils 2 % (0-10); Basophilic Stippling Slight; Hypochromasia 1+; Lymphocytes 8 % (20-55); Macrocytosis Slight; Nucleated Red Blood Cells 2 (0-5); Platelet Estimate Adequate; Polychromasia Slight; Segmented Neutrophils 83 % (50-85); Total Cells Counted 100
[2017-04-19 05:49] LABS: Calcium 7.7 MG/DL (8.5-10.1); Magnesium 4.1 MG/DL (1.8-2.4); Osmolality,Calculated 358.3 MOS/KG (273-304)
--- NOTE | 2017-04-19 06:27 | Cardiothoracic Progress Note ---
Cardiothoracic Subjective Interval history: Patient has not changed significantly since yesterday. She remains on the ventilator and remains essentially unresponsive. She is not on any sedation. Creatinine is 3.4 this morning which is about the same as yesterday. She remains critically ill with a very guarded prognosis. Continue present support for now. Exam (Progress Note) - Constitutional Vitals: Period Temp Pulse Resp BP Sys/Alas Pulse Ox Last 24 Hr 97 F-98.7 F 65-133 16-33 67-141/39-87 95-100 Result/EKG - Labs CBC & BMP: 04/19/17 03:55 04/19/17 03:55 Labs: Laboratory Results - last 24 hr 04/18/17 04/18/17 04/18/17 05:16 05:59 12:52 WBC RBC Hgb Hct MCV MCH MCHC RDW Plt Count MPV Neut % (Auto) Lymph % (Auto) [place] % (Auto) Eos % (Auto) Baso % (Auto) Neut # (Auto) Lymph # (Auto) [place] # (Auto) Eos # (Auto) Baso # (Auto) Total Counted Immature Gran % Nucleated RBC % Immature Gran # Segmented Neutrophils Band Neutrophils Lymphocytes Monocytes Nucleated RBCs Nucleated RBCs # Platelet Estimate Polychromasia Hypochromasia Basophilic Stippling Macrocytosis Morphology Comment ABG pH ABG pCO2 ABG pO2 ABG HCO3 ABG Total CO2 ABG O2 Saturation ABG Base Excess FiO2 Sodium Potassium Chloride Carbon Dioxide Anion Gap BUN Creatinine GFR Calculation BUN/Creatinine Ratio Glucose POC Glucose 182 H 189 H Calculated Osmolality Calcium Phosphorus 4.0 Magnesium 3.8 H Prealbumin 12.9 L 04/18/17 04/18/17 04/18/17 14:10 18:30 23:28 WBC RBC Hgb Hct MCV MCH MCHC RDW Plt Count MPV Neut % (Auto) Lymph % (Auto) [place] % (Auto) Eos % (Auto) Baso % (Auto) Neut # (Auto) Lymph # (Auto) [place] # (Auto) Eos # (Auto) Baso # (Auto) Total Counted Immature Gran % Nucleated RBC % Immature Gran # Segmented Neutrophils Band Neutrophils Lymphocytes Monocytes Nucleated RBCs Nucleated RBCs # Platelet Estimate Polychromasia Hypochromasia Basophilic Stippling Macrocytosis Morphology Comment ABG pH ABG pCO2 ABG pO2 ABG HCO3 ABG Total CO2 ABG O2 Saturation ABG Base Excess FiO2 Sodium 140 Potassium 6.1 H* Chloride 99 Carbon Dioxide 32 Anion Gap 15.1 H BUN 172 H Creatinine 3.50 H GFR Calculation 13 BUN/Creatinine Ratio 49.00 H Glucose 168 H POC Glucose 186 H 152 H Calculated Osmolality 339.4 H Calcium 7.3 L Phosphorus Magnesium 3.9 H Prealbumin 04/19/17 04/19/17 04/19/17 02:55 03:55 03:55 WBC 23.9 H RBC 2.07 L Hgb 6.7 L Hct 21.1 L MCV 101.9 MCH 32 MCHC 31.8 L RDW 14.6 Plt Count 236 MPV 10.6 Neut % (Auto) 81.8 H Lymph % (Auto) 4.2 L [place] % (Auto) 7.1 Eos % (Auto) 0.0 Baso % (Auto) 0.1 Neut # (Auto) 19.6 H Lymph # (Auto) 1.0 L [place] # (Auto) 1.7 H Eos # (Auto) 0.0 Baso # (Auto) 0.0 Total Counted 100 Immature Gran % 6.8 Nucleated RBC % 1.5 Immature Gran # 1.62 Segmented Neutrophils 83 Band Neutrophils 2 Lymphocytes 8 L Monocytes 7 Nucleated RBCs 2 Nucleated RBCs # 0.35 Platelet Estimate Adequate Polychromasia Slight Hypochromasia 1+ Basophilic Stippling Slight Macrocytosis Slight Morphology Comment ABG pH 7.415 ABG pCO2 59.7 H ABG pO2 87.9 ABG HCO3 37.4 H ABG Total CO2 39.3 H ABG O2 Saturation 96.4 ABG Base Excess 11.6 H FiO2 70.00 Sodium 148 H Potassium 5.0 Chloride 102 Carbon Dioxide 33 H Anion Gap 18.0 H BUN 185 H D Creatinine 3.40 H GFR Calculation 13 BUN/Creatinine Ratio 54.00 H Glucose 161 H POC Glucose Calculated Osmolality 358.3 H Calcium 7.7 L Phosphorus Magnesium 4.1 H Prealbumin 04/19/17 05:31 WBC RBC Hgb Hct MCV MCH MCHC RDW Plt Count MPV Neut % (Auto) Lymph % (Auto) [place] % (Auto) Eos % (Auto) Baso % (Auto) Neut # (Auto) Lymph # (Auto) [place] # (Auto) Eos # (Auto) Baso # (Auto) Total Counted Immature Gran % Nucleated RBC % Immature Gran # Segmented Neutrophils Band Neutrophils Lymphocytes Monocytes Nucleated RBCs Nucleated RBCs # Platelet Estimate Polychromasia Hypochromasia Basophilic Stippling Macrocytosis Morphology Comment ABG pH ABG pCO2 ABG pO2 ABG HCO3 ABG Total CO2 ABG O2 Saturation ABG Base Excess FiO2 Sodium Potassium Chloride Carbon Dioxide Anion Gap BUN Creatinine GFR Calculation BUN/Creatinine Ratio Glucose POC Glucose 198 H Calculated Osmolality Calcium Phosphorus Magnesium Prealbumin Quality Measures - VTE Contraindication to Pharmacological VTE Prophylaxis: High Risk of Bleeding
--- NOTE | 2017-04-19 06:52 | Pulmonology Progress Note ---
Pulmonary - PN: Subj Interval history: This 82-year-old white female had congestive heart failure and respiratory failure. She had a coronary stent placed. She has a decreased level of consciousness. Creatinine has risen to 2.4. Family has now made her DO NOT RESUSCITATE. However we are continuing to try to wean her from the ventilator. She is on 80% oxygen and has an oxygen saturation of 93%. We will try to reduce back to a level where we can start CPAP. 04/14/2017 patient has gotten worse overnight. Oxygen saturations dropped. She is now on 100% with 12 of PEEP and has a PO2 of 65. Chest x-ray looks wetter. We have been trying to hydrate her to save kidney function. However I do think she is a bit on the wet side. We will try 1 dose of Lasix. Also getting up occasional thick material from her endotracheal tube. Concerned that she may have some plugs although I do not see any atelectasis on the x-ray. Will bronchoscope her this morning. Discussed with patient's daughter. Prognosis is poor. I do note that the family has made her DO NOT RESUSCITATE. We will continue full support however. this 82-year-old lady has congestive heart failure with valvular heart disease and diastolic dysfunction. Also has apparent pneumonia. She is on Zosyn and Levaquin. Chest x-ray shows diffuse infiltrates. Her PO2 is 110 on 100% oxygen this morning. Will reduce to 80%. Still requiring fairly high PEEP. She does apparently have ARDS in addition to the above. When her sedation is held she will open her eyes and follow. 04/18/2017 patient's PO2 is now 180 on 100% oxygen. Reducing to 70%. Still has a high PCO2. Has ARDS and some difficulty ventilating her. Her mental status is worse. The daughter relates that she did follow a little bit over the weekend. She has not been on any sedation for 24 hours and she is totally unresponsive. Will ask neurology to see her. Chest x-ray still shows diffuse interstitial infiltrates. 04/19/2017 PO2 is 87 on 70% oxygen with 12 of PEEP. Will reduce ventilator settings a little. PCO2 remains elevated. Patient closed her eyes on command. Could not get her to do anything else including squeeze fingers or nods to questions. Exam (Progress Note) - Constitutional Vitals: Period Temp Pulse Resp BP Sys/Alas Pulse Ox Last 24 Hr 97 F-98.7 F 65-133 16-33 67-141/39-87 95-100 Exam: Patient not responding, except she would close her eyes tightly on command. She is off propofol. Systolic blood pressure in the upper 90s. Pulse of about 110. pupils react to light. Orotracheal tube in place. Neck is supple no bruits. Chest reveals a few scattered rhonchi. Equal breath sounds. Heart is regular without murmurs. Abdomen soft no masses. Extremities no clubbing cyanosis. Trace of edema. Results - Labs CBC & BMP: 04/19/17 03:55 04/19/17 03:55 Lab Results: I have reviewed the past 24 hour labs - Diagnostic Findings Procedure: Chest x-ray: image reviewed by me (Diffuse interstitial edema bilaterally. ET tube good position.) Assessment and Plan (1) Acute respiratory failure Status: Acute Assessment and plan: This may all be due to congestive heart failure. However with high requirement for PEEP there may be an element of ARDS. Will adjust PEEP and FiO2. Hopefully with diuresis we can get her down to where she can start weaning trials. This will likely take a few days. This was discussed with the patient' s daughter at the bedside. 04/13/2017 chest x-ray is improved following diuresis. Still fairly wide A-a O2 difference suggesting an element of ARDS. 04/14/2017 PO2 has dropped. Now on 100% with 12 of PEEP. 04/15/17 PO2 110 on 100% oxygen with 12 of PEEP. Will reduce to 80%. Try to get FiO2 down to 60% and then reduce PEEP. 04/18/2017 still has elevated PCO2 despite mechanical ventilation. Renal insufficiency makes it difficult to try to treat that with Diamox. Still requiring high FiO2 and PEEP. 04/19/2017 ARDS. Requiring high FiO2 and PEEP. Requiring high minute ventilation. Prognosis guarded Current Visit: Yes (2) Urinary tract infection Status: Acute Assessment and plan: Klebsiella UTI covered with Levaquin. 04/13/2017 UTI should be well covered. Current Visit: Yes (3) Aortic stenosis Status: Chronic Assessment and plan: Noted at catheterization please see those reports. 04/13/2017 has valvular as well as coronary disease. 04/14/2017 multiple reason for congestive heart failure. 04/15/17 again has aortic stenosis as a major cause for her congestive heart failure. Not able to tolerate surgical consideration at this time. 04/18/2017 congestive heart failure due to aortic stenosis is part of the problem. 04/19/17 congestive heart failure due to aortic stenosis. This is in addition to her ARDS Current Visit: Yes Qualifiers: Cardiac valve disease etiology: nonrheumatic Qualified Code(s): I35.0 - Nonrheumatic aortic (valve) stenosis (4) Heart failure, diastolic, acute Status: Acute Assessment and plan: Needs further diuresis. Renal function appears stable. 04/13/2017 trying to diurese depending on renal function. 04/15/17 x-ray still looks a little bit wet. Difficult to tell with superimposed pneumonia and ARDS. 04/18/2017 x-ray still looks wet. Primarily due to ARDS at this point I would think 04/19/17 cardiology following. Current Visit: Yes (5) Mitral regurgitation Status: Chronic Assessment and plan: Also part of her called for congestive heart failure. This was felt to be ischemic in etiology. Current Visit: Yes Qualifiers: Cardiac valve disease etiology: nonrheumatic Qualified Code(s): I34.0 - Nonrheumatic mitral (valve) insufficiency
--- NOTE | 2017-04-19 07:20 | XRay Report ---
XR chest 1V portable Indication: Ventilator Comparison: Chest x-ray dated April 18, 2017 Technique: Single frontal view of the chest. Findings: Lines and tubes appear grossly unchanged. The cardiomediastinal silhouette is stable in configuration. No significant change in bilateral pulmonary opacification when considering change in technique. Visualized osseous and surrounding soft tissue structures appear grossly unchanged. IMPRESSION: No significant interval change. PROCEDURE INTERPRETED AT [facility] DEPARTMENT OF RADIOLOGY Final Report Signed by: Dr Brent Romo
[2017-04-19] MEDS: MEROPENEM 500 MG in SODIUM CHLORIDE 0.9% 100 ML IV SCH ×2 (07:41→20:06)
[2017-04-19 07:53] LABS: Allen Test Positive; Pt O2 Delivery Device Ventilator
[2017-04-19 07:54] LABS: ABG Base Excess 10.7 MMOL/L (-2.5-2.5); ABG HCO3 37.4 MMOL/L (20-26); ABG Oxygen Saturation 86.7 % (95-100); ABG PCO2 66.1 MM HG (35-48); ABG PO2 56.2 MM HG (80-95); ABG TCO2 39.4 MMOL/L (23-27)
[2017-04-19] MEDS ORDERED: SODIUM CHLORIDE 0.9% 250 ML IV PRN (08:17)
--- NOTE | 2017-04-19 08:18 | Cardiology Progress Note ---
<HiRosa estradae E - Last Filed: 04/19/17 12:33> Assessment and Plan (1) Hx of CABG Status: Chronic Assessment and plan: SEE PLAN OF CARE LISTED BELOW Current Visit: Yes (2) Hypertension Status: Resolved Assessment and plan: SEE PLAN OF CARE LISTED BELOW Current Visit: Yes Qualifiers: Hypertension type: essential hypertension Qualified Code(s): I10 - Essential (primary) hypertension (3) Aortic stenosis Status: Chronic Assessment and plan: SEE PLAN OF CARE LISTED BELOW Current Visit: Yes Qualifiers: Cardiac valve disease etiology: nonrheumatic Qualified Code(s): I35.0 - Nonrheumatic aortic (valve) stenosis (4) Right carotid bruit Status: Chronic Assessment and plan: SEE PLAN OF CARE LISTED BELOW Current Visit: Yes (5) Chest pain Status: Acute Assessment and plan: SEE PLAN OF CARE LISTED BELOW Current Visit: No (6) CAD (coronary artery disease) Status: Chronic Assessment and plan: SEE PLAN OF CARE LISTED BELOW Current Visit: No Qualifiers: Coronary Disease-Associated Artery/Lesion type: bypass graft [place] vs. transplanted heart: [place] heart Associated angina: with unspecified angina Qualified Code(s): I25.709 - Atherosclerosis of coronary artery bypass graft(s) , unspecified, with unspecified angina pectoris (7) Depressive disorder Status: Chronic Assessment and plan: SEE PLAN OF CARE LISTED BELOW Current Visit: No (8) Dyslipidemia (high LDL; low HDL) Status: Chronic Assessment and plan: SEE PLAN OF CARE LISTED BELOW Current Visit: No (9) Coronary artery disease Status: Chronic Assessment and plan: SEE PLAN OF CARE LISTED BELOW Current Visit: Yes Qualifiers: Coronary Disease-Associated Artery/Lesion type: [place] artery (10) Urinary tract infection Status: Acute Assessment and plan: SEE PLAN OF CARE LISTED BELOW Current Visit: Yes (11) Anemia Status: Acute Assessment and plan: SEE PLAN OF CARE LISTED BELOW Current Visit: Yes (12) Hyperlipidemia Status: Chronic Assessment and plan: SEE PLAN OF CARE LISTED BELOW Current Visit: Yes (13) Pneumonia Status: Acute Assessment and plan: SEE PLAN OF CARE LISTED BELOW Current Visit: Yes Qualifiers: Laterality: left Lung location: lower lobe of lung (14) Mitral regurgitation Status: Chronic Assessment and plan: SEE PLAN OF CARE LISTED BELOW Current Visit: Yes Qualifiers: Cardiac valve disease etiology: nonrheumatic Qualified Code(s): I34.0 - Nonrheumatic mitral (valve) insufficiency (15) Acute renal failure Status: Acute Assessment and plan: SEE PLAN OF CARE LISTED BELOW Current Visit: Yes Qualifiers: Acute renal failure type: with acute renal cortical necrosis Qualified Code (s): N17.1 - Acute kidney failure with acute cortical necrosis (16) Atrial fibrillation Status: Acute Assessment and plan: SEE PLAN OF CARE LISTED BELOW Current Visit: Yes (17) Altered mental status Status: Acute Assessment and plan: SEE PLAN OF CARE LISTED BELOW Current Visit: Yes Cardiology - PN: Subj Interval history: BRAID CUTTER: DR. CARRION SUMMARY: Ms. Meza, 82WF, has a history of known coronary artery disease ( status post CABG 2003 with abrupt closure within days of having her bypass grafting requiring emergent stenting at [facility]), hypertension, dyslipidemia, sedentary lifestyle, CVA. According to Dr. Carrion's last note in clinic in February 2017, he reviewed her heart catheterization films noted a failed attempt to wire ostium of the RCA with in-stent restenosis noted. He remarks she has had failed grafts, failed stents multiple times. He recommended medical management at this point. Echocardiogram February 22, 2017 reveals the following: EF 50%, grade 2 diastolic dysfunction, moderate with mild to moderate AI, PAP 35 mmHg + RAP. Patient was treated with antianginal agents including increasing Ranexa to maximum dose. Chest pain continued. She underwent cardiac catheterization April 06, 2017 with severe 2 vessel disease noted. (See cardiac catheterization report). Because the CAD is not amenable to percutaneous intervention, Dr. Reyes was consulted for possible redo bypass surgery, AVR. However, patient continued to deteriorate and she was not felt to be a candidate for bypass/AVR. April 11, 2017 Dr. Carrion performed POBA of the ostium of the RCA, successful PCI with JENNY of the ostial left circumflex. She tolerated the cardiac catheterization well. She required mechanical ventilation for hypoxia and respiratory distress. She has been treated for possible underlying infectious process, UTI, congestive heart failure. At one point, she was using continues IV Lasix and this is being transitioned to IV pushes. APRIL 18, 2017: Over the weekend, patient began to experience atrial fibrillation with rapid ventricular response. She was started on IV amiodarone for better rate control. She is requiring phenylephrine for hypotension. Neurologically, she has also continued to decline. CT of head revealed no evidence of bleeding and it is suspected that she has global hypoperfusion from her hypotension and high dose pressors affecting her neurological status. She is now DNR. Creatinine continues to worsen, now 3.4. She is hyperkalemic with a potassium of 5.7 today. Anemia persists but appears to be relatively stable with no overt bleeding. Greater than 30 minutes was spent today discussing patient's poor prognosis with daughter. Patient did respond to aggressive nipple stimulation but no other response. Will further discuss with Dr. Skaggs and await his recommendations. APRIL 19, 2017: Overnight, patient has become significantly anemic. I will hold her Eliquis and Plavix today knowing the risks of holding both. Slowly transfusing 2 units of packed red blood cells today. Hyperkalemia has resolved with addition of Kayexalate yesterday and holding of exogenous potassium replacement. Propofol has been held for 48 hours and there is little response noted. White blood cell count has increased to 23.9. Unfortunately, no real improvement in creatinine. She is entering multi organ failure. She is "DNR." Dr. Pastrana made adjustments and ventilator regimen this morning. At this point , ABGs seem to have worsened a bit with these adjustments. Poor prognosis reinforced with daughter today. Will further discuss with Dr. Skaggs and await additional recommendations. ASSESSMENT/PLAN: 1. CAD S/P CABG - Severe three-vessel coronary artery disease (see above recent revascularization). Plavix 75 mg daily, aspirin 81 mg daily continues. 2. HYPOTENSION - Continuing with vasopressors as needed. History of underlying hypertension. 4. DYSLIPIDEMIA - LDL 125. Continue lipid lowering agent. 5. AORTIC STENOSIS, MODERATE - Continue current plan of care per recent echo February 2017 6. BRUIT, CAROTID RIGHT - Carotid ultrasound reveals no significant stenosis. 7. ATRIAL FIBRILLATION - Rate controlled on Amiodarone 400 mg twice daily. Unfortunately, we will have to hold Eliquis at this time due to her anemia. 8. UTI - continue current plan of care, continuing Levaquin, Macrobid, Meropenem. 9. CARDIAC MURMUR - murmur. Recent echo reveals moderate , mild to moderate AI. 10. ACUTE RENAL FAILURE, STAGE IV - Avoiding nephrotoxic agents. Most likely related to hypoperfusion and pressors. 11. ACUTE ON CHRONIC CHF - Secondary to diastolic dysfuntion, NYHA Class IV. Continue current plan of care. 12. DNR - Continue current plan of care. 13. ANEMIA -worsened overnight. Will hold Plavix, Eliquis. Transfuse 2 units packed red blood cells slowly today. 14. HYPERKALEMIA - resolved. Continue to monitor this daily. Mandy to complete Transfusing slowly 2 units of packed red blood cell for worsening anemia. Holding Eliquis and Plavix for today Dr. Pastrana made changes, no improvement Exam (Progress Note) - Constitutional Vitals: Period Temp Pulse Resp BP Sys/Alas Pulse Ox Last 24 Hr 97 F-98.4 F 65-133 16-33 67-141/39-87 95-100 Exam: Exam: General: [Intubated. Appears ill. Pale.] HEENT: [Pupils nonreactive to light. Atraumatic. Mucous membranes moist. No jaundice noted. Conjunctiva moist and clear, sclerae anicteric] Neck: No obvious JVD/HJR, no thyromegaly or lymphadenopathy noted. Right carotid bruit noted. No tracheal deviation noted Cardiac: [Irregularly irregular rhythm, controlled rate. [III/ systolic ejection murmur heard best at second intercostal space to the right. Lungs: [Rhonchi noted throughout. Symmetrical chest wall movements. Abdomen: Soft, bowel sounds normoactive. [place] catheter intact draining clear yellow urine. Frequent diarrheal stools noted. Musculoskeletal: No fluid collection. Decreased range of motion is noted. Extremities: No clubbing, cyanosis noted. [1+ bilateral lower extremity edema. Upper extremity pulses 2+. Lower extremity pulses 2+. Capillary refill less than 3 seconds. Skin: No unusual lesions or rashes. No skin breakdown appreciated. Neuro: Not responding to verbal stimulation. Occasionally responding to aggressive tactile stimulation. Result/EKG - Labs CBC & BMP: 04/19/17 03:55 04/19/17 03:55 Lab Results: I have reviewed the past 24 hour labs Labs: Laboratory Results - last 24 hr 04/18/17 04/18/17 04/18/17 12:52 14:10 18:30 WBC RBC Hgb Hct MCV MCH MCHC RDW Plt Count MPV Neut % (Auto) Lymph % (Auto) Addison % (Auto) Eos % (Auto) Baso % (Auto) Neut # (Auto) Lymph # (Auto) Addison # (Auto) Eos # (Auto) Baso # (Auto) Total Counted Immature Gran % Nucleated RBC % Immature Gran # Segmented Neutrophils Band Neutrophils Lymphocytes Monocytes Nucleated RBCs Nucleated RBCs # Platelet Estimate Polychromasia Hypochromasia Basophilic Stippling Macrocytosis Morphology Comment ABG pH ABG pCO2 ABG pO2 ABG HCO3 ABG Total CO2 ABG O2 Saturation ABG Base Excess FiO2 Sodium 140 Potassium 6.1 H* Chloride 99 Carbon Dioxide 32 Anion Gap 15.1 H BUN 172 H Creatinine 3.50 H GFR Calculation 13 BUN/Creatinine Ratio 49.00 H Glucose 168 H POC Glucose 189 H 186 H Calculated Osmolality 339.4 H Calcium 7.3 L Magnesium 3.9 H 04/18/17 04/19/17 04/19/17 23:28 02:55 03:55 WBC RBC Hgb Hct MCV MCH MCHC RDW Plt Count MPV Neut % (Auto) Lymph % (Auto) Addison % (Auto) Eos % (Auto) Baso % (Auto) Neut # (Auto) Lymph # (Auto) Addison # (Auto) Eos # (Auto) Baso # (Auto) Total Counted Immature Gran % Nucleated RBC % Immature Gran # Segmented Neutrophils Band Neutrophils Lymphocytes Monocytes Nucleated RBCs Nucleated RBCs # Platelet Estimate Polychromasia Hypochromasia Basophilic Stippling Macrocytosis Morphology Comment ABG pH 7.415 ABG pCO2 59.7 H ABG pO2 87.9 ABG HCO3 37.4 H ABG Total CO2 39.3 H ABG O2 Saturation 96.4 ABG Base Excess 11.6 H FiO2 70.00 Sodium 148 H Potassium 5.0 Chloride 102 Carbon Dioxide 33 H Anion Gap 18.0 H BUN 185 H D Creatinine 3.40 H GFR Calculation 13 BUN/Creatinine Ratio 54.00 H Glucose 161 H POC Glucose 152 H Calculated Osmolality 358.3 H Calcium 7.7 L Magnesium 4.1 H 04/19/17 04/19/17 04/19/17 03:55 05:31 07:45 WBC 23.9 H RBC 2.07 L Hgb 6.7 L Hct 21.1 L MCV 101.9 MCH 32 MCHC 31.8 L RDW 14.6 Plt Count 236 MPV 10.6 Neut % (Auto) 81.8 H Lymph % (Auto) 4.2 L Addison % (Auto) 7.1 Eos % (Auto) 0.0 Baso % (Auto) 0.1 Neut # (Auto) 19.6 H Lymph # (Auto) 1.0 L Addison # (Auto) 1.7 H Eos # (Auto) 0.0 Baso # (Auto) 0.0 Total Counted 100 Immature Gran % 6.8 Nucleated RBC % 1.5 Immature Gran # 1.62 Segmented Neutrophils 83 Band Neutrophils 2 Lymphocytes 8 L Monocytes 7 Nucleated RBCs 2 Nucleated RBCs # 0.35 Platelet Estimate Adequate Polychromasia Slight Hypochromasia 1+ Basophilic Stippling Slight Macrocytosis Slight Morphology Comment ABG pH 7.370 ABG pCO2 66.1 H ABG pO2 56.2 L ABG HCO3 37.4 H ABG Total CO2 39.4 H ABG O2 Saturation 86.7 L ABG Base Excess 10.7 H FiO2 60.00 Sodium Potassium Chloride Carbon Dioxide Anion Gap BUN Creatinine GFR Calculation BUN/Creatinine Ratio Glucose POC Glucose 198 H Calculated Osmolality Calcium Magnesium - Diagnostic Findings Procedure: Chest x-ray: report reviewed by me - EKG EKG results: interpreted by me EKG shows: atrial fibrillation Quality Measures - VTE Contraindication to Pharmacological VTE Prophylaxis: High Risk of Bleeding <Alejandro Skaggs - Last Filed: 04/19/17 21:11> Exam (Progress Note) - Constitutional Vitals: Period Temp Pulse Resp BP Sys/Alas Pulse Ox Last 24 Hr 97 F-98.5 F 96-133 16-41 67-146/36-95 90-100 Result/EKG - Labs CBC & BMP: 04/19/17 03:55 04/19/17 03:55 Labs: Laboratory Results - last 24 hr 04/18/17 04/19/17 04/19/17 23:28 02:55 03:55 WBC RBC Hgb Hct MCV MCH MCHC RDW Plt Count MPV Neut % (Auto) Lymph % (Auto) [place] % (Auto) Eos % (Auto) Baso % (Auto) Neut # (Auto) Lymph # (Auto) Addison # (Auto) Eos # (Auto) Baso # (Auto) Total Counted Immature Gran % Nucleated RBC % Immature Gran # Segmented Neutrophils Band Neutrophils Lymphocytes Monocytes Nucleated RBCs Nucleated RBCs # Platelet Estimate Polychromasia Hypochromasia Basophilic Stippling Macrocytosis Morphology Comment ABG pH 7.415 ABG pCO2 59.7 H ABG pO2 87.9 ABG HCO3 37.4 H ABG Total CO2 39.3 H ABG O2 Saturation 96.4 ABG Base Excess 11.6 H FiO2 70.00 Sodium 148 H Potassium 5.0 Chloride 102 Carbon Dioxide 33 H Anion Gap 18.0 H BUN 185 H D Creatinine 3.40 H GFR Calculation 13 BUN/Creatinine Ratio 54.00 H Glucose 161 H POC Glucose 152 H Calculated Osmolality 358.3 H Calcium 7.7 L Magnesium 4.1 H Ammonia Hepatitis A IgM Ab Hep Bs Antigen Hep B Core IgM Ab Hepatitis C Antibody Blood Type Antibody Screen Crossmatch 04/19/17 04/19/17 04/19/17 03:55 03:55 05:31 WBC 23.9 H RBC 2.07 L Hgb 6.7 L Hct 21.1 L MCV 101.9 MCH 32 MCHC 31.8 L RDW 14.6 Plt Count 236 MPV 10.6 Neut % (Auto) 81.8 H Lymph % (Auto) 4.2 L Addison % (Auto) 7.1 Eos % (Auto) 0.0 Baso % (Auto) 0.1 Neut # (Auto) 19.6 H Lymph # (Auto) 1.0 L Addison # (Auto) 1.7 H Eos # (Auto) 0.0 Baso # (Auto) 0.0 Total Counted 100 Immature Gran % 6.8 Nucleated RBC % 1.5 Immature Gran # 1.62 Segmented Neutrophils 83 Band Neutrophils 2 Lymphocytes 8 L Monocytes 7 Nucleated RBCs 2 Nucleated RBCs # 0.35 Platelet Estimate Adequate Polychromasia Slight Hypochromasia 1+ Basophilic Stippling Slight Macrocytosis Slight Morphology Comment ABG pH ABG pCO2 ABG pO2 ABG HCO3 ABG Total CO2 ABG O2 Saturation ABG Base Excess FiO2 Sodium Potassium Chloride Carbon Dioxide Anion Gap BUN Creatinine GFR Calculation BUN/Creatinine Ratio Glucose POC Glucose 198 H Calculated Osmolality Calcium Magnesium Ammonia Hepatitis A IgM Ab Negative Hep Bs Antigen Negative Hep B Core IgM Ab Negative Hepatitis C Antibody Negative Blood Type Antibody Screen Crossmatch 04/19/17 04/19/17 04/19/17 07:45 08:39 12:04 WBC RBC Hgb Hct MCV MCH MCHC RDW Plt Count MPV Neut % (Auto) Lymph % (Auto) [place] % (Auto) Eos % (Auto) Baso % (Auto) Neut # (Auto) Lymph # (Auto) Addison # (Auto) Eos # (Auto) Baso # (Auto) Total Counted Immature Gran % Nucleated RBC % Immature Gran # Segmented Neutrophils Band Neutrophils Lymphocytes Monocytes Nucleated RBCs Nucleated RBCs # Platelet Estimate Polychromasia Hypochromasia Basophilic Stippling Macrocytosis Morphology Comment ABG pH 7.370 ABG pCO2 66.1 H ABG pO2 56.2 L ABG HCO3 37.4 H ABG Total CO2 39.4 H ABG O2 Saturation 86.7 L ABG Base Excess 10.7 H FiO2 60.00 Sodium Potassium Chloride Carbon Dioxide Anion Gap BUN Creatinine GFR Calculation BUN/Creatinine Ratio Glucose POC Glucose 197 H Calculated Osmolality Calcium Magnesium Ammonia Hepatitis A IgM Ab Hep Bs Antigen Hep B Core IgM Ab Hepatitis C Antibody Blood Type AB POSITIVE Antibody Screen Negative Crossmatch See Detail 04/19/17 04/19/17 16:52 18:04 WBC RBC Hgb Hct MCV MCH MCHC RDW Plt Count MPV Neut % (Auto) Lymph % (Auto) [place] % (Auto) Eos % (Auto) Baso % (Auto) Neut # (Auto) Lymph # (Auto) Addison # (Auto) Eos # (Auto) Baso # (Auto) Total Counted Immature Gran % Nucleated RBC % Immature Gran # Segmented Neutrophils Band Neutrophils Lymphocytes Monocytes Nucleated RBCs Nucleated RBCs # Platelet Estimate Polychromasia Hypochromasia Basophilic Stippling Macrocytosis Morphology Comment ABG pH ABG pCO2 ABG pO2 ABG HCO3 ABG Total CO2 ABG O2 Saturation ABG Base Excess FiO2 Sodium Potassium Chloride Carbon Dioxide Anion Gap BUN Creatinine GFR Calculation BUN/Creatinine Ratio Glucose POC Glucose 155 H Calculated Osmolality Calcium Magnesium Ammonia 24 Hepatitis A IgM Ab Hep Bs Antigen Hep B Core IgM Ab Hepatitis C Antibody Blood Type Antibody Screen Crossmatch
[2017-04-19] MEDS: ACETAMINOPHEN 325 MG TABLET PO SCH ×2 (08:31→21:32)
[2017-04-19] MEDS: LANSOPRAZOLE ODT 30 MG TABLET PER TUBE SCH (08:32)
[2017-04-19] MEDS: AMIODARONE 200 MG TABLET PO SCH ×2 (08:32→21:31)
[2017-04-19] MEDS: CITRIC ACID/SODIUM CITRATE 30 ML UDCUP PO SCH ×3 (08:32→21:33)
[2017-04-19] MEDS: ASPIRIN EC 81 MG TABLET PO SCH (08:32)
--- NOTE | 2017-04-19 13:13 | Nephrology Progress Note ---
Nephrology - PN: Subj Interval history: The patient situation is about the same. She remains ventilated on pressor medications. Urine output is about the same creatinine is noted to be 3.5. BUN is above 100. Discuss with family about renal placement therapy. They are considering a trial. Exam (PN)-Nephrology - Vital Signs Vital signs: Period Temp Pulse Resp BP Sys/Alas Pulse Ox Last 24 Hr 97 F-98.4 F 91-133 16-37 67-146/36-95 90-100 - General Appearance General appearance: intubated EENT: ATNC Respiratory: course breath sounds Cardiology: regular rate, regular rhythm Gastrointestinal: normoactive bowel sounds, no tenderness - Lab 04/19/17 03:55 04/19/17 03:55 Most recent lab results ABG pH 7.370 (7.35-7.45) 04/19/17 07:45 ABG pCO2 66.1 MM HG (35-48) H 04/19/17 07:45 ABG pO2 56.2 MM HG (80-95) L 04/19/17 07:45 ABG HCO3 37.4 MMOL/L (20-26) H 04/19/17 07:45 ABG O2 Saturation 86.7 % (95-100) L 04/19/17 07:45 Calcium 7.7 MG/DL (8.5-10.1) L 04/19/17 03:55 Phosphorus 4.0 MG/DL (2.5-4.9) 04/18/17 05:16 Magnesium 4.1 MG/DL (1.8-2.4) H 04/19/17 03:55 Assessment and Plan (1) CAD (coronary artery disease) Status: Chronic Current Visit: No Qualifiers: Coronary Disease-Associated Artery/Lesion type: bypass graft [place] vs. transplanted heart: [place] heart Associated angina: with unspecified angina Qualified Code(s): I25.709 - Atherosclerosis of coronary artery bypass graft(s) , unspecified, with unspecified angina pectoris (2) Hx of CABG Status: Chronic Current Visit: Yes (3) Hypertension Status: Resolved Current Visit: Yes Qualifiers: Hypertension type: essential hypertension Qualified Code(s): I10 - Essential (primary) hypertension (4) Hypotension Status: Acute Current Visit: Yes Qualifiers: Hypotension type: unspecified hypotension type Qualified Code(s): I95.9 - Hypotension, unspecified (5) Acute renal failure Status: Acute Assessment and plan: Acute renal failure due to ATN. No sign of recovery at this time. Family considering renal replacement therapy. Will get a hepatitis panel. Non oliguric. Current Visit: Yes Qualifiers: Acute renal failure type: with acute renal cortical necrosis Qualified Code (s): N17.1 - Acute kidney failure with acute cortical necrosis
[2017-04-19 14:29] LABS: Hepatitis A Ab IgM Quant 0.07 Index; Hepatitis A Ab IgM Result Negative (Negative); Hepatitis B Core IgM Quant 0.17 Index; Hepatitis B Core IgM Result Negative (Negative); Hepatitis B Surface Ag Quant 0.17 Index; Hepatitis B Surface Ag Result Negative (Negative); Hepatitis C Virus Ab Result Negative (Negative)
--- NOTE | 2017-04-19 16:13 | Neurology Consult Note ---
History of Present Illness History of present illness: Ms. Meza is a 82 year old right-handed white lady with history of CAD is now s/p her second cardiac cath with stent placement. She underwent a stent placement on vent. Over the past several days, the patient's urine output has continued to decline. The serum creatinine has trended up to 3.4. The patient is now ventilated and has required pressor medications from time to time. Patient has not been waking up. She is also having rhythmic jaw movement constantly for last [address] of the head on 04 16 revealed no acute abnormalities. White blood cells count has been steadily going up and presently at 25,000. Her cultures are positive for Cathy and bronchial washings, Klebsiella in urine. Home Medications Medication Instructions Recorded Confirmed Type Acetaminophen Tab [Tylenol Tab] 500 mg PO Q6HR PRN 09/05/15 04/05/17 History Aspirin EC Tab 81 mg PO DAILY 09/05/15 04/05/17 History Famotidine 20 mg PO BID 09/05/15 04/05/17 History Gabapentin 400 mg PO TID 09/05/15 04/05/17 History Lisinopril 10 mg PO DAILY 09/05/15 04/05/17 History Metoprolol Tartrate Tab [Lopressor 25 mg PO BID 09/05/15 04/05/17 History Tab] Multivit-Min/Iron/Folic/Lutein 1 each PO DAILY 09/05/15 04/05/17 History [Centrum Silver Women Tablet] Nitrofurantoin Macrocrystals 50 mg PO DAILY 09/05/15 04/05/17 History [Macrodantin] Nitroglycerin Sl Tab [Nitrostat] 0.4 mg SL Q5M PRN 09/05/15 04/05/17 History Oxycodone HCl/Acetaminophen 1 each PO Q6H PRN 09/05/15 04/05/17 History [Oxycodon-Acetaminophen 7.5-325] Prasugrel [Effient] 10 mg PO DAILY 09/05/15 04/05/17 History Pravastatin [Pravachol] 40 mg PO BEDTIME 09/05/15 04/05/17 History Sertraline [Zoloft] 50 mg PO DAILY 09/05/15 04/05/17 History amLODIPine [Norvasc] 10 mg PO DAILY 09/05/15 04/05/17 History buPROPion [Wellbutrin] 100 mg PO DAILY 09/05/15 04/05/17 History Ranolazine [Ranexa] 500 mg PO BID #60 tablet 09/09/15 04/05/17 Rx Isosorbide Mononitrate [Isosorbide 60 mg PO DAILY 04/05/17 04/05/17 History Mononitrate ER] Meloxicam [Meloxicam] 15 mg PO DAILY 04/05/17 04/05/17 History Allergies Allergy/AdvReac Type Severity Reaction Status Date / Time Penicillins Allergy RASH Verified 09/05/15 01:51 codeine AdvReac Nausea Verified 09/05/15 01:51 meperidine [From Demerol] AdvReac Nausea Verified 09/05/15 01:51 ROS unobtainable: due to endotracheal tube, due to mental status Medical,Surgical,& Family Hx - Medical History Cardio: History of: CAD, Hypertension, [place] (three [place]), Cardiovascular Problems Psychological: History of: Anxiety Disorders, Depression Neurology: No history of: Cerebrovascular Accident HEENT: History of: Ear Problem (hearing aides), Eye Problem (glasses) Endocrine: History of: Dyslipidemia Genitourinary: History of: Recurring Urinary Tract Infections Gastrointestinal: History of: GERD Musculoskeletal: History of: Musculoskeletal Problems (arthritis) Hematology: History of: Clotting Problems (DVT WHILE ) - Surgical History Cardiac Surgeries: Sugical HX of: Cardiac Catheterization (7 stents), Cardiac Surgery (Triple bypass) Thoracic Surgeries: Patient denies;: Organ Transplant Abdominal Surgeries: Surgical HX of: Cholecystectomy - Family History Family History: Reports;: Family Heart Disease - Social History Smoking Status: Never smoker Frequency of Alcohol Use: None Type of Drug Use: None Exam - Constitutional Vitals: Period Temp Pulse Resp BP Sys/Alas Pulse Ox Last 24 Hr 97 F-98.5 F 91-133 16-37 67-146/36-95 90-100 Exam: GENERAL: Patient is in no acute distress. NECK: Neck is supple. There is no JVD. No carotid bruits present. No thyroid masses. CVS: First and second heart sounds are normal. There is no S3 present. Regular rate and rhythm. RESPIRATORY: Lungs are clear to auscultation without any rales or rhonchi. ABDOMEN: Soft and non-tender. Bowel sounds are present. There is no hepatosplenomegaly. EXT: There is no palpable edema. Peripheral pulses are present. Skin: No rashes Central Nervous system: General: Unresponsive on vent Speech: None Comprehension: None Facial expressions: Normal Cranial Nerves: Pupils are very small nonreactive. Doll's head eye movements are negative. No facial asymmetry is seen. Motor: Bulk and Tone is normal. Strength cannot be assessed Sensory: Cannot be assessed Reflexes: 1+ and symmetrical Cerebellar function: Cannot be assessed Toes: Equivocal Gait: Cannot be assessed Results - Labs CBC & BMP: 04/19/17 03:55 04/19/17 03:55 Assessment and Plan (1) Unresponsiveness Status: Acute Assessment and plan: Differential diagnoses included stroke, seizure, metabolic/infectious encephalopathy. Plan: CT of the head without contrast EEG in the morning. Depacon 1 g followed by 500 mg IV every 8 We may have to do a spinal tap if dialysis does not improve mental status. Prognosis is guarded. Current Visit: Yes
--- NOTE | 2017-04-19 16:52 | CT Report ---
Referring physician: Tc Ricci MD Exam: CT brain without contrast Date: April 19, 2017 Comparison: CT brain without contrast April 16, 2017 Reason: Change at the level of consciousness The patient is an inpatient who was admitted on April 07, 2017. Technique: Axial images of the head were obtained without the use of contrast. Total DLP was 1012.1 mGy*cm. Findings: There is mild generalized cerebral and cerebellar atrophy/volume loss and probable chronic microvascular ischemic change. No hydrocephalus or midline shift is present. There is no evidence of recent intracranial hemorrhage, abnormal mass effect or an acute infarction. No acute osseous process is seen. The visualized paranasal sinuses are clear. However, there is prominent fluid within the mastoid air cells bilaterally and at least mild fluid within the middle ear cavities bilaterally. 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 Impression: 1. No acute intracranial process is identified. 2. Chronic intracranial findings, similar to before. 3. There is prominent fluid within the mastoid air cells bilaterally as well as at least mild fluid within the middle ear cavities bilaterally. 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 The CT exam was performed using one or more of the following dose reduction techniques: Automated exposure control and adjustment of the mA and/or kV according to patient size. PROCEDURE INTERPRETED AT [facility] DEPARTMENT OF RADIOLOGY Final Report Signed by: Dr. Malena Nevarez
[2017-04-19] MEDS ORDERED: VALPROIC ACID INJ 1,000 MG in SODIUM CHLORIDE 0.9% 100 ML IV ONE (17:00)
[2017-04-19] MEDS: LEVOFLOXACIN INJ 250 MG in PREMIX 1 EACH IV SCH (18:10)
[2017-04-19] MEDS: PROPOFOL 1,000 MG/100 ML BOTTLE IV SCH (18:14)
[2017-04-19] MEDS: GABAPENTIN 100 MG CAPSULE PO SCH (21:32)
[2017-04-19] MEDS: PRAVASTATIN 40 MG TABLET PO SCH (21:32)
[2017-04-19] MEDS: MINERAL OIL/PETROLATUM OPH OINT 3.5 GM TUBE BOTH EYES SCH (21:32)
[2017-04-20] MEDS: INSULIN REGULAR 100 UNIT/ML SUBCUT SCH ×4 (00:20→17:57)
[2017-04-20] MEDS: VALPROIC ACID INJ 500 MG in SODIUM CHLORIDE 0.9% 100 ML IV SCH ×3 (02:33→17:56)
[2017-04-20] MEDS: LEVALBUTEROL 0.63 MG/3 ML NEB RESP TX SCH ×6 (03:01→23:59)
[2017-04-20 03:12] LABS: Allen Test Positive; Pt O2 Delivery Device Ventilator
[2017-04-20 03:15] LABS: ABG Base Excess 11.5 MMOL/L (-2.5-2.5); ABG HCO3 35.2 MMOL/L (20-26); ABG Oxygen Saturation 94.8 % (95-100); ABG PCO2 67.9 MM HG (35-48); ABG PH 7.368 (7.35-7.45); ABG PO2 74.2 MM HG (80-95); ABG TCO2 36.3 MMOL/L (23-27)
[2017-04-20 05:13] LABS: Basophils # 0.1 10*3/uL (0.0-0.2); Basophils % 0.2 % (0.0-0.8); Hematocrit 26.3 VOL% (35.7-47.0); Hemoglobin 8.4 GM/DL (12.0-16.0); Immature Granulocytes % 9.6 %; Immature Granulocytes Absolute 2.68 #; Lymphocytes # 0.9 10*3/uL (1.4-4.0); Lymphocytes % 3.3 % (21.3-54.2); Mean Corpuscular HGB Conc 31.9 GM/DL (32-36); Mean Corpuscular Hemoglobin 32 PG (27-34); Mean Corpuscular Volume 98.5 FL (87-102); Mean Platelet Volume 10.7 FL (9.6-12.0); Monocytes # 1.8 10*3/uL (0.11-0.8); Monocytes % 6.6 % (1.7-12.7); NRBC # 1.24 10*3/uL; Neutrophils # 22.5 10*3/uL (1.4-7.4); Neutrophils % 80.3 % (38.7-73.9); Platelet Count 242 T/CUMM (130-400); Red Blood Count 2.67 MC/CUMM (3.8-5.5); Red Cell Distribution Width 16.8 % (9.3-17.3)
[2017-04-20 05:50] LABS: Band Neutrophils 2 % (0-10); Lymphocytes 4 % (20-55); Metamyelocytes 2 %; Myelocytes 2 %; Nucleated Red Blood Cells 1 (0-5); Segmented Neutrophils 84 % (50-85); Total Cells Counted 100
[2017-04-20 05:51] LABS: Platelet Estimate Normal
[2017-04-20 05:57] LABS: Calcium 7.6 MG/DL (8.5-10.1); Magnesium 4.1 MG/DL (1.8-2.4); Osmolality,Calculated 362.9 MOS/KG (273-304); Potassium 5.6 MMOL/L (3.5-5.1)
--- NOTE | 2017-04-20 06:59 | Pulmonology Progress Note ---
Pulmonary - PN: Subj Interval history: This 82-year-old white female had congestive heart failure and respiratory failure. She had a coronary stent placed. She has a decreased level of consciousness. Creatinine has risen to 2.4. Family has now made her DO NOT RESUSCITATE. However we are continuing to try to wean her from the ventilator. She is on 80% oxygen and has an oxygen saturation of 93%. We will try to reduce back to a level where we can start CPAP. 04/14/2017 patient has gotten worse overnight. Oxygen saturations dropped. She is now on 100% with 12 of PEEP and has a PO2 of 65. Chest x-ray looks wetter. We have been trying to hydrate her to save kidney function. However I do think she is a bit on the wet side. We will try 1 dose of Lasix. Also getting up occasional thick material from her endotracheal tube. Concerned that she may have some plugs although I do not see any atelectasis on the x-ray. Will bronchoscope her this morning. Discussed with patient's daughter. Prognosis is poor. I do note that the family has made her DO NOT RESUSCITATE. We will continue full support however. this 82-year-old lady has congestive heart failure with valvular heart disease and diastolic dysfunction. Also has apparent pneumonia. She is on Zosyn and Levaquin. Chest x-ray shows diffuse infiltrates. Her PO2 is 110 on 100% oxygen this morning. Will reduce to 80%. Still requiring fairly high PEEP. She does apparently have ARDS in addition to the above. When her sedation is held she will open her eyes and follow. 04/18/2017 patient's PO2 is now 180 on 100% oxygen. Reducing to 70%. Still has a high PCO2. Has ARDS and some difficulty ventilating her. Her mental status is worse. The daughter relates that she did follow a little bit over the weekend. She has not been on any sedation for 24 hours and she is totally unresponsive. Will ask neurology to see her. Chest x-ray still shows diffuse interstitial infiltrates. 04/19/2017 PO2 is 87 on 70% oxygen with 12 of PEEP. Will reduce ventilator settings a little. PCO2 remains elevated. Patient closed her eyes on command. Could not get her to do anything else including squeeze fingers or nods to questions. 04/20/2017 PO2 is 76 on 80% oxygen. Unable to reduce ventilator any further. Patient does move about a little when sedation is held. Chest x-ray still shows diffuse pulmonary edema. Exam (Progress Note) - Constitutional Vitals: Period Temp Pulse Resp BP Sys/Alas Pulse Ox Last 24 Hr 97 F-99.4 F 96-135 20-43 72-146/28-95 87-99 Exam: Patient not responding, except she would close her eyes tightly on command. She is off propofol. Systolic blood pressure in the upper 90s. Pulse of about 110. pupils react to light. Orotracheal tube in place. Neck is supple no bruits. Chest reveals a few scattered rhonchi. Equal breath sounds. Heart is regular without murmurs. Abdomen soft no masses. Extremities no clubbing cyanosis. Trace of edema. Little change from yesterday. Results - Labs CBC & BMP: 04/20/17 05:04 04/20/17 05:04 Lab Results: I have reviewed the past 24 hour labs - Diagnostic Findings Procedure: Chest x-ray: image reviewed by me (Diffuse interstitial edema. ET tube good position.) Assessment and Plan (1) Acute respiratory failure Status: Acute Assessment and plan: This may all be due to congestive heart failure. However with high requirement for PEEP there may be an element of ARDS. Will adjust PEEP and FiO2. Hopefully with diuresis we can get her down to where she can start weaning trials. This will likely take a few days. This was discussed with the patient' s daughter at the bedside. 04/13/2017 chest x-ray is improved following diuresis. Still fairly wide A-a O2 difference suggesting an element of ARDS. 04/14/2017 PO2 has dropped. Now on 100% with 12 of PEEP. 04/15/17 PO2 110 on 100% oxygen with 12 of PEEP. Will reduce to 80%. Try to get FiO2 down to 60% and then reduce PEEP. 04/18/2017 still has elevated PCO2 despite mechanical ventilation. Renal insufficiency makes it difficult to try to treat that with Diamox. Still requiring high FiO2 and PEEP. 04/19/2017 ARDS. Requiring high FiO2 and PEEP. Requiring high minute ventilation. Prognosis guarded 04/20/2017 still requiring high FiO2 and PEEP. Current Visit: Yes (2) Urinary tract infection Status: Acute Assessment and plan: Klebsiella UTI covered with Levaquin. 04/13/2017 UTI should be well covered. Current Visit: Yes (3) Aortic stenosis Status: Chronic Assessment and plan: Noted at catheterization please see those reports. 04/13/2017 has valvular as well as coronary disease. 04/14/2017 multiple reason for congestive heart failure. 04/15/17 again has aortic stenosis as a major cause for her congestive heart failure. Not able to tolerate surgical consideration at this time. 04/18/2017 congestive heart failure due to aortic stenosis is part of the problem. 04/19/17 congestive heart failure due to aortic stenosis. This is in addition to her ARDS 04/20/2017 congestive heart failure in addition to ARDS. Current Visit: Yes Qualifiers: Cardiac valve disease etiology: nonrheumatic Qualified Code(s): I35.0 - Nonrheumatic aortic (valve) stenosis (4) Heart failure, diastolic, acute Status: Acute Assessment and plan: Needs further diuresis. Renal function appears stable. 04/13/2017 trying to diurese depending on renal function. 04/15/17 x-ray still looks a little bit wet. Difficult to tell with superimposed pneumonia and ARDS. 04/18/2017 x-ray still looks wet. Primarily due to ARDS at this point I would think 04/19/17 cardiology following. 04/20/2017 continue to be followed by cardiology. Current Visit: Yes (5) Mitral regurgitation Status: Chronic Assessment and plan: Also part of her called for congestive heart failure. This was felt to be ischemic in etiology. Current Visit: Yes Qualifiers: Cardiac valve disease etiology: nonrheumatic Qualified Code(s): I34.0 - Nonrheumatic mitral (valve) insufficiency
--- NOTE | 2017-04-20 07:17 | Operative Note ---
Date of procedure: 04/20/17 Pre-op diagnosis: Acute renal failure Post-op diagnosis: same Procedure: Left internal jugular vein dialysis catheter placement under ultrasound guidance Findings and technique: After informed consent was obtained from the daughter and we discussed the procedure and risks in detail the patient's right neck and chest was prepped and draped in usual sterile fashion. Full barrier precautions were used. Sterile ultrasound probe was placed over the right neck where an internal jugular vein was identified and accessed with a single stick. Guidewire could not be advanced past the level of the clavicular head. I abandon this site and then prepped and draped the left neck and after local anesthesia was infiltrated the internal jugular vein was accessed with a single stick and a guidewire was advanced without resistance. A stab incision was made at the guidewire entry site and a dilator passed over the guidewire without resistance. The catheter was introduced over the guidewire without resistance and the guidewire removed. The catheters were easily accessed and aspirated and flushed. Chest x-ray was pending. She appeared to tolerate the procedure well and had no apparent complications. Anesthesia: local Surgeon / Physician: Jesus Ellison III. Estimated blood loss: minimal Specimens: none sent Condition: stable Disposition: no change Results - Labs CBC & BMP: 04/20/17 05:04 04/20/17 05:04 Discharge Plan - Discharge Data Disposition: Admitted As Inpatient - Discharge Medications No Action Acetaminophen Tab [Tylenol Tab] 500 mg PO Q6HR PRN PRN Reason: Pain Nitroglycerin Sl Tab [Nitrostat] 0.4 mg SL Q5M PRN PRN Reason: Chest Pain Metoprolol Tartrate Tab [Lopressor Tab] 25 mg PO BID Sertraline [Zoloft] 50 mg PO DAILY Pravastatin [Pravachol] 40 mg PO BEDTIME buPROPion [Wellbutrin] 100 mg PO DAILY Prasugrel [Effient] 10 mg PO DAILY amLODIPine [Norvasc] 10 mg PO DAILY Aspirin EC Tab 81 mg PO DAILY Oxycodone HCl/Acetaminophen [Oxycodon-Acetaminophen 7.5-325] 1 each PO Q6H PRN PRN Reason: Pain Nitrofurantoin Macrocrystals [Macrodantin] 50 mg PO DAILY Multivit-Min/Iron/Folic/Lutein [Centrum Silver Women Tablet] 1 each PO DAILY Lisinopril 10 mg PO DAILY Famotidine 20 mg PO BID Gabapentin 400 mg PO TID Ranolazine [Ranexa] 500 mg PO BID #60 tablet Meloxicam [Meloxicam] 15 mg PO DAILY Isosorbide Mononitrate [Isosorbide Mononitrate ER] 60 mg PO DAILY - Follow Up or Referral - Forms/Instructions
--- NOTE | 2017-04-20 07:25 | XRay Report ---
XR chest 1V portable Indication: Temporary dialysis catheter placement, left neck Comparison: Chest x-ray dated April 20, 2017 Technique: Single frontal view of the chest. Findings: Interval placement of left-sided central venous catheter tip which projects over the expected location of brachiocephalic confluence. Left-sided PICC line and endotracheal tube stable in positioning. Continued mild cardiomegaly status post sternotomy. Mildly progressed diffuse bilateral pulmonary consolidation suspicious for worsened pulmonary edema or pneumonia. Visualized osseous and surrounding soft tissue structures appear grossly unchanged. IMPRESSION: As above. PROCEDURE INTERPRETED AT [facility] DEPARTMENT OF RADIOLOGY Final Report Signed by: Dr Brent Romo
--- NOTE | 2017-04-20 07:26 | XRay Report ---
Referring Physician: Francisco Javier Pastrana MD Exam: XR chest 1V portable Date: April 20, 2017 at 3:08 AM Reason: Ventilator Comparison: Chest one view portable April 19, 2017 Findings: An endotracheal tube, feeding tube and left-sided PICC are again in place. There is borderline cardiomegaly and sternotomy change. Diffuse hazy opacities are present within both lungs. This could represent pulmonary edema and/or pneumonia. No pneumothorax is identified. The osseous structures appear stable. Impression: There has been no significant change. PROCEDURE INTERPRETED AT [facility] DEPARTMENT OF RADIOLOGY Final Report Signed by: Dr. Malena Nevarez
[2017-04-20] MEDS: MEROPENEM 500 MG in SODIUM CHLORIDE 0.9% 100 ML IV SCH ×2 (09:02→21:33)
[2017-04-20] MEDS: ASPIRIN EC 81 MG TABLET PO SCH (09:02)
[2017-04-20] MEDS: CITRIC ACID/SODIUM CITRATE 30 ML UDCUP PO SCH ×3 (09:02→21:36)
[2017-04-20] MEDS: AMIODARONE 200 MG TABLET PO SCH ×2 (09:03→21:34)
[2017-04-20] MEDS: LANSOPRAZOLE ODT 30 MG TABLET PER TUBE SCH (09:04)
[2017-04-20] MEDS: ACETAMINOPHEN 325 MG TABLET PO SCH ×2 (09:04→22:01)
[2017-04-20] MEDS: PHENYLEPHRINE INJ 160 MG in SODIUM CHLORIDE 0.9% 234 ML IV SCH (10:00)
--- NOTE | 2017-04-20 14:30 | Cardiology Progress Note ---
<HiMandy E - Last Filed: 04/20/17 14:23> Assessment and Plan - Time spent with patient Time spent with patient: Greater than 30 minutes (1) Hx of CABG Status: Chronic Assessment and plan: SEE PLAN OF CARE LISTED BELOW Current Visit: Yes (2) Hypertension Status: Resolved Assessment and plan: SEE PLAN OF CARE LISTED BELOW Current Visit: Yes Qualifiers: Hypertension type: essential hypertension Qualified Code(s): I10 - Essential (primary) hypertension (3) Aortic stenosis Status: Chronic Assessment and plan: SEE PLAN OF CARE LISTED BELOW Current Visit: Yes Qualifiers: Cardiac valve disease etiology: nonrheumatic Qualified Code(s): I35.0 - Nonrheumatic aortic (valve) stenosis (4) Right carotid bruit Status: Chronic Assessment and plan: SEE PLAN OF CARE LISTED BELOW Current Visit: Yes (5) Chest pain Status: Acute Assessment and plan: SEE PLAN OF CARE LISTED BELOW Current Visit: No (6) CAD (coronary artery disease) Status: Chronic Assessment and plan: SEE PLAN OF CARE LISTED BELOW Current Visit: No Qualifiers: Coronary Disease-Associated Artery/Lesion type: bypass graft [place] vs. transplanted heart: [place] heart Associated angina: with unspecified angina Qualified Code(s): I25.709 - Atherosclerosis of coronary artery bypass graft(s) , unspecified, with unspecified angina pectoris (7) Depressive disorder Status: Chronic Assessment and plan: SEE PLAN OF CARE LISTED BELOW Current Visit: No (8) Dyslipidemia (high LDL; low HDL) Status: Chronic Assessment and plan: SEE PLAN OF CARE LISTED BELOW Current Visit: No (9) Coronary artery disease Status: Chronic Assessment and plan: SEE PLAN OF CARE LISTED BELOW Current Visit: Yes Qualifiers: Coronary Disease-Associated Artery/Lesion type: [place] artery (10) Urinary tract infection Status: Acute Assessment and plan: SEE PLAN OF CARE LISTED BELOW Current Visit: Yes (11) Anemia Status: Acute Assessment and plan: SEE PLAN OF CARE LISTED BELOW Current Visit: Yes (12) Hyperlipidemia Status: Chronic Assessment and plan: SEE PLAN OF CARE LISTED BELOW Current Visit: Yes (13) Pneumonia Status: Acute Assessment and plan: SEE PLAN OF CARE LISTED BELOW Current Visit: Yes Qualifiers: Laterality: left Lung location: lower lobe of lung (14) Mitral regurgitation Status: Chronic Assessment and plan: SEE PLAN OF CARE LISTED BELOW Current Visit: Yes Qualifiers: Cardiac valve disease etiology: nonrheumatic Qualified Code(s): I34.0 - Nonrheumatic mitral (valve) insufficiency (15) Acute renal failure Status: Acute Assessment and plan: SEE PLAN OF CARE LISTED BELOW Current Visit: Yes Qualifiers: Acute renal failure type: with acute renal cortical necrosis Qualified Code (s): N17.1 - Acute kidney failure with acute cortical necrosis (16) Atrial fibrillation Status: Acute Assessment and plan: SEE PLAN OF CARE LISTED BELOW Current Visit: Yes (17) Altered mental status Status: Acute Assessment and plan: SEE PLAN OF CARE LISTED BELOW Current Visit: Yes Cardiology - PN: Subj Interval history: [employer]: DR. CARRION SUMMARY: Ms. Meza, 82WF, has a history of known coronary artery disease ( status post CABG 2003 with abrupt closure within days of having her bypass grafting requiring emergent stenting at [facility]), hypertension, dyslipidemia, sedentary lifestyle, CVA. According to Dr. Carrion's last note in clinic in February 2017, he reviewed her heart catheterization films noted a failed attempt to wire ostium of the RCA with in-stent restenosis noted. He remarks she has had failed grafts, failed stents multiple times. He recommended medical management at this point. Echocardiogram February 22, 2017 reveals the following: EF 50%, grade 2 diastolic dysfunction, moderate with mild to moderate AI, PAP 35 mmHg + RAP. Patient was treated with antianginal agents including increasing Ranexa to maximum dose. Chest pain continued. She underwent cardiac catheterization April 06, 2017 with severe 2 vessel disease noted. (See cardiac catheterization report). Because the CAD is not amenable to percutaneous intervention, Dr. Reyes was consulted for possible redo bypass surgery, AVR. However, patient continued to deteriorate and she was not felt to be a candidate for bypass/AVR. April 11, 2017 Dr. Carrion performed POBA of the ostium of the RCA, successful PCI with JENNY of the ostial left circumflex. She tolerated the cardiac catheterization well. She required mechanical ventilation for hypoxia and respiratory distress. She has been treated for possible underlying infectious process, UTI, congestive heart failure. At one point, she was using continues IV Lasix and this is being transitioned to IV pushes. APRIL 18, 2017: Over the weekend, patient began to experience atrial fibrillation with rapid ventricular response. She was started on IV amiodarone for better rate control. She is requiring phenylephrine for hypotension. Neurologically, she has also continued to decline. CT of head revealed no evidence of bleeding and it is suspected that she has global hypoperfusion from her hypotension and high dose pressors affecting her neurological status. She is now DNR. Creatinine continues to worsen, now 3.4. She is hyperkalemic with a potassium of 5.7 today. Anemia persists but appears to be relatively stable with no overt bleeding. Greater than 30 minutes was spent today discussing patient's poor prognosis with daughter. Patient did respond to aggressive nipple stimulation but no other response. Will further discuss with Dr. Skaggs and await his recommendations. APRIL 19, 2017: Overnight, patient has become significantly anemic. I will hold her Eliquis and Plavix today knowing the risks of holding both. Slowly transfusing 2 units of packed red blood cells today. Hyperkalemia has resolved with addition of Kayexalate yesterday and holding of exogenous potassium replacement. Propofol has been held for 48 hours and there is little response noted. White blood cell count has increased to 23.9. Unfortunately, no real improvement in creatinine. She is entering multi organ failure. She is "DNR." Dr. Pastrana made adjustments and ventilator regimen this morning. At this point , ABGs seem to have worsened a bit with these adjustments. Poor prognosis reinforced with daughter today. Will further discuss with Dr. Skaggs and await additional recommendations. APRIL 20, 2017: Patient has undergone CT of head which revealed no acute changes. She will most likely undergo dialysis soon. Dr. Ellison placed left internal jugular vein dialysis catheter this morning. No significant improvement in her mentation is noted. She is hyperkalemic today. If she is undergoing dialysis today we will not treat with Kayexalate. Continue to follow her labs daily. Hemoglobin 8.4, hematocrit 26.3. Again, continue to follow these labs. We are continuing to hold Plavix and Eliquis. This will be day 2 without her Plavix. Will further discuss with Dr. Skaggs and await additional recommendations. ASSESSMENT/PLAN: 1. CAD S/P CABG - Severe three-vessel coronary artery disease (see above recent revascularization). Plavix 75 mg daily, aspirin 81 mg daily continues. 2. HYPOTENSION - Continuing with vasopressors as needed. History of underlying hypertension. 4. DYSLIPIDEMIA - LDL 125. Continue lipid lowering agent. 5. AORTIC STENOSIS, MODERATE - Continue current plan of care per recent echo February 2017 6. BRUIT, CAROTID RIGHT - Carotid ultrasound reveals no significant stenosis. 7. ATRIAL FIBRILLATION - Rate controlled on Amiodarone 400 mg twice daily. Unfortunately, we will have to hold Eliquis at this time due to her anemia. 8. UTI - continue current plan of care, continuing Levaquin, Macrobid, Meropenem. 9. CARDIAC MURMUR - murmur. Recent echo reveals moderate , mild to moderate AI. 10. ACUTE RENAL FAILURE, STAGE IV - Avoiding nephrotoxic agents. Most likely related to hypoperfusion and pressors. 11. ACUTE ON CHRONIC CHF - Secondary to diastolic dysfunCtion, NYHA Class IV. Continue current plan of care. 12. DNR - Continue current plan of care. 13. ANEMIA -continuing to hold Eliquis and Plavix. This is day 2 without Plavix. She required 2 units of packed red blood cells yesterday and labs improved overnight. Continue monitoring. 14. HYPERKALEMIA - see above. Continue to monitor this daily. Exam (Progress Note) - Constitutional Vitals: Period Temp Pulse Resp BP Sys/Alas Pulse Ox Last 24 Hr 97.3 F-99.4 F 100-135 14-45 72-134/28-88 87-99 Exam: Exam: General: [Intubated. Appears ill. Pale.] HEENT: [Pupils nonreactive to light. Atraumatic. Mucous membranes moist. No jaundice noted. Conjunctiva moist and clear, sclerae anicteric] Neck: No obvious JVD/HJR, no thyromegaly or lymphadenopathy noted. Right carotid bruit noted. No tracheal deviation noted Cardiac: [Irregularly irregular rhythm, controlled rate. [III/ systolic ejection murmur heard best at second intercostal space to the right. Lungs: [Rhonchi noted throughout. Symmetrical chest wall movements. Abdomen: Soft, bowel sounds normoactive. [place] catheter intact draining clear yellow urine. Frequent diarrheal stools noted. Musculoskeletal: No fluid collection. Decreased range of motion is noted. Extremities: No clubbing, cyanosis noted. [1+ bilateral lower extremity edema. Upper extremity pulses 2+. Lower extremity pulses 2+. Capillary refill less than 3 seconds. Skin: No unusual lesions or rashes. No skin breakdown appreciated. Neuro: Not responding to verbal stimulation. Occasionally responding to aggressive tactile stimulation. Result/EKG - Labs CBC & BMP: 04/20/17 05:04 04/20/17 05:04 Lab Results: I have reviewed the past 24 hour labs Labs: Laboratory Results - last 24 hr 04/19/17 04/19/17 04/19/17 03:55 08:39 16:52 WBC RBC Hgb Hct MCV MCH MCHC RDW Plt Count MPV Neut % (Auto) Lymph % (Auto) Wilkes % (Auto) Eos % (Auto) Baso % (Auto) Neut # (Auto) Lymph # (Auto) Wilkes # (Auto) Eos # (Auto) Baso # (Auto) Total Counted Immature Gran % Nucleated RBC % Immature Gran # Segmented Neutrophils Band Neutrophils Lymphocytes Monocytes Metamyelocytes Myelocytes Nucleated RBCs Nucleated RBCs # Platelet Estimate ABG pH ABG pCO2 ABG pO2 ABG HCO3 ABG Total CO2 ABG O2 Saturation ABG Base Excess FiO2 Sodium Potassium Chloride Carbon Dioxide Anion Gap BUN Creatinine GFR Calculation BUN/Creatinine Ratio Glucose POC Glucose Calculated Osmolality Calcium Magnesium Ammonia 24 Hepatitis A IgM Ab Negative Hep Bs Antigen Negative Hep B Core IgM Ab Negative Hepatitis C Antibody Negative Crossmatch See Detail 04/19/17 04/19/17 04/20/17 18:04 23:24 03:00 WBC RBC Hgb Hct MCV MCH MCHC RDW Plt Count MPV Neut % (Auto) Lymph % (Auto) [place] % (Auto) Eos % (Auto) Baso % (Auto) Neut # (Auto) Lymph # (Auto) [place] # (Auto) Eos # (Auto) Baso # (Auto) Total Counted Immature Gran % Nucleated RBC % Immature Gran # Segmented Neutrophils Band Neutrophils Lymphocytes Monocytes Metamyelocytes Myelocytes Nucleated RBCs Nucleated RBCs # Platelet Estimate ABG pH 7.368 ABG pCO2 67.9 H ABG pO2 74.2 L ABG HCO3 35.2 H ABG Total CO2 36.3 H ABG O2 Saturation 94.8 L ABG Base Excess 11.5 H FiO2 80.00 Sodium Potassium Chloride Carbon Dioxide Anion Gap BUN Creatinine GFR Calculation BUN/Creatinine Ratio Glucose POC Glucose 155 H 161 H Calculated Osmolality Calcium Magnesium Ammonia Hepatitis A IgM Ab Hep Bs Antigen Hep B Core IgM Ab Hepatitis C Antibody Crossmatch 04/20/17 04/20/17 04/20/17 05:04 05:04 05:26 WBC 28.0 H RBC 2.67 L D Hgb 8.4 L D Hct 26.3 L MCV 98.5 MCH 32 MCHC 31.9 L RDW 16.8 Plt Count 242 MPV 10.7 Neut % (Auto) 80.3 H Lymph % (Auto) 3.3 L Wilkes % (Auto) 6.6 Eos % (Auto) 0.0 Baso % (Auto) 0.2 Neut # (Auto) 22.5 H Lymph # (Auto) 0.9 L Wilkes # (Auto) 1.8 H Eos # (Auto) 0.0 Baso # (Auto) 0.1 Total Counted 100 Immature Gran % 9.6 Nucleated RBC % 4.4 Immature Gran # 2.68 Segmented Neutrophils 84 Band Neutrophils 2 Lymphocytes 4 L Monocytes 6 Metamyelocytes 2 Myelocytes 2 Nucleated RBCs 1 Nucleated RBCs # 1.24 Platelet Estimate Normal ABG pH ABG pCO2 ABG pO2 ABG HCO3 ABG Total CO2 ABG O2 Saturation ABG Base Excess FiO2 Sodium 151 H Potassium 5.6 H Chloride 106 Carbon Dioxide 38 H Anion Gap 12.6 BUN 182 H Creatinine 3.00 H GFR Calculation 16 BUN/Creatinine Ratio 60.00 H Glucose 144 H POC Glucose 138 H Calculated Osmolality 362.9 H Calcium 7.6 L Magnesium 4.1 H Ammonia Hepatitis A IgM Ab Hep Bs Antigen Hep B Core IgM Ab Hepatitis C Antibody Crossmatch 04/20/17 11:11 WBC RBC Hgb Hct MCV MCH MCHC RDW Plt Count MPV Neut % (Auto) Lymph % (Auto) [place] % (Auto) Eos % (Auto) Baso % (Auto) Neut # (Auto) Lymph # (Auto) [place]kes # (Auto) Eos # (Auto) Baso # (Auto) Total Counted Immature Gran % Nucleated RBC % Immature Gran # Segmented Neutrophils Band Neutrophils Lymphocytes Monocytes Metamyelocytes Myelocytes Nucleated RBCs Nucleated RBCs # Platelet Estimate ABG pH ABG pCO2 ABG pO2 ABG HCO3 ABG Total CO2 ABG O2 Saturation ABG Base Excess FiO2 Sodium Potassium Chloride Carbon Dioxide Anion Gap BUN Creatinine GFR Calculation BUN/Creatinine Ratio Glucose POC Glucose 147 H Calculated Osmolality Calcium Magnesium Ammonia Hepatitis A IgM Ab Hep Bs Antigen Hep B Core IgM Ab Hepatitis C Antibody Crossmatch - Diagnostic Findings Procedure: Chest x-ray: report reviewed by me - EKG EKG results: interpreted by me EKG shows: sinus rhythm Quality Measures - VTE Contraindication to Pharmacological VTE Prophylaxis: High Risk of Bleeding <Alejandro Skaggs - Last Filed: 04/20/17 22:10> Assessment and Plan (1) Stented coronary artery Status: Acute Current Visit: Yes (2) DOV (acute kidney injury) Problem details: No acute indication for renal replacement therapy. Appears premorbid. Status: Acute Current Visit: Yes (3) Altered mental status Status: Acute Current Visit: Yes (4) Anemia Status: Acute Current Visit: Yes (5) Atrial fibrillation Status: Acute Current Visit: Yes (6) Hypotension Status: Acute Current Visit: Yes Qualifiers: Hypotension type: unspecified hypotension type Qualified Code(s): I95.9 - Hypotension, unspecified (7) Unresponsiveness Status: Acute Current Visit: Yes (8) Coronary artery disease Status: Chronic Current Visit: Yes Qualifiers: Coronary Disease-Associated Artery/Lesion type: [place] artery (9) Hx of CABG Status: Chronic Current Visit: Yes (10) Mitral regurgitation Status: Chronic Current Visit: Yes Qualifiers: Cardiac valve disease etiology: nonrheumatic Qualified Code(s): I34.0 - Nonrheumatic mitral (valve) insufficiency Exam (Progress Note) - Constitutional Vitals: Period Temp Pulse Resp BP Sys/Alas Pulse Ox Last 24 Hr 98.9 F-99.2 F 105-135 14-45 72-137/28-94 88-99 Result/EKG - Labs CBC & BMP: 04/20/17 05:04 04/20/17 05:04 Labs: Laboratory Results - last 24 hr 04/19/17 04/20/17 04/20/17 23:24 03:00 05:04 WBC 28.0 H RBC 2.67 L D Hgb 8.4 L D Hct 26.3 L MCV 98.5 MCH 32 MCHC 31.9 L RDW 16.8 Plt Count 242 MPV 10.7 Neut % (Auto) 80.3 H Lymph % (Auto) 3.3 L Wilkes % (Auto) 6.6 Eos % (Auto) 0.0 Baso % (Auto) 0.2 Neut # (Auto) 22.5 H Lymph # (Auto) 0.9 L Wilkes # (Auto) 1.8 H Eos # (Auto) 0.0 Baso # (Auto) 0.1 Total Counted 100 Immature Gran % 9.6 Nucleated RBC % 4.4 Immature Gran # 2.68 Segmented Neutrophils 84 Band Neutrophils 2 Lymphocytes 4 L Monocytes 6 Metamyelocytes 2 Myelocytes 2 Nucleated RBCs 1 Nucleated RBCs # 1.24 Platelet Estimate Normal ABG pH 7.368 ABG pCO2 67.9 H ABG pO2 74.2 L ABG HCO3 35.2 H ABG Total CO2 36.3 H ABG O2 Saturation 94.8 L ABG Base Excess 11.5 H FiO2 80.00 Sodium Potassium Chloride Carbon Dioxide Anion Gap BUN Creatinine GFR Calculation BUN/Creatinine Ratio Glucose POC Glucose 161 H Calculated Osmolality Calcium Magnesium 04/20/17 04/20/17 04/20/17 05:04 05:26 11:11 WBC RBC Hgb Hct MCV MCH MCHC RDW Plt Count MPV Neut % (Auto) Lymph % (Auto) [place]kes % (Auto) Eos % (Auto) Baso % (Auto) Neut # (Auto) Lymph # (Auto) [place] # (Auto) Eos # (Auto) Baso # (Auto) Total Counted Immature Gran % Nucleated RBC % Immature Gran # Segmented Neutrophils Band Neutrophils Lymphocytes Monocytes Metamyelocytes Myelocytes Nucleated RBCs Nucleated RBCs # Platelet Estimate ABG pH ABG pCO2 ABG pO2 ABG HCO3 ABG Total CO2 ABG O2 Saturation ABG Base Excess FiO2 Sodium 151 H Potassium 5.6 H Chloride 106 Carbon Dioxide 38 H Anion Gap 12.6 BUN 182 H Creatinine 3.00 H GFR Calculation 16 BUN/Creatinine Ratio 60.00 H Glucose 144 H POC Glucose 138 H 147 H Calculated Osmolality 362.9 H Calcium 7.6 L Magnesium 4.1 H 04/20/17 17:47 WBC RBC Hgb Hct MCV MCH MCHC RDW Plt Count MPV Neut % (Auto) Lymph % (Auto) Wilkes % (Auto) Eos % (Auto) Baso % (Auto) Neut # (Auto) Lymph # (Auto) [place] # (Auto) Eos # (Auto) Baso # (Auto) Total Counted Immature Gran % Nucleated RBC % Immature Gran # Segmented Neutrophils Band Neutrophils Lymphocytes Monocytes Metamyelocytes Myelocytes Nucleated RBCs Nucleated RBCs # Platelet Estimate ABG pH ABG pCO2 ABG pO2 ABG HCO3 ABG Total CO2 ABG O2 Saturation ABG Base Excess FiO2 Sodium Potassium Chloride Carbon Dioxide Anion Gap BUN Creatinine GFR Calculation BUN/Creatinine Ratio Glucose POC Glucose 164 H Calculated Osmolality Calcium Magnesium
[2017-04-20] MEDS ORDERED: HEPARIN 10,000 UNIT/10 ML VIAL IV PRN (15:24)
--- NOTE | 2017-04-20 15:31 | Dialysis Note ---
Dialysis Note - Dialysis Note Patient seen on dialysis. Blood pressure noted 116/70. Difficult to ultrafiltrate at this time. Dialyzing for 2 hours today.
[2017-04-20] MEDS ORDERED: ALBUMIN 25% 25 GM in PREMIX 1 EACH IV ONE ×2 (15:33→16:00)
--- NOTE | 2017-04-20 17:52 | Neurology Progress Note ---
Neurology - PN : Subjective Interval history: Ms. Meza seems to be doing a little better. Continues jaw movement had stopped completely since we started Depakote. EEG revealed generalized slowing but no seizure activity. 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 Exam (Progress Note) - Constitutional Vitals: Period Temp Pulse Resp BP Sys/Alas Pulse Ox Last 24 Hr 98.9 F-99.4 F 102-135 14-45 72-134/28-88 87-99 Exam: GENERAL: Patient is in no acute distress. NECK: Neck is supple. There is no JVD. No carotid bruits present. No thyroid masses. CVS: First and second heart sounds are normal. There is no S3 present. Regular rate and rhythm. RESPIRATORY: Lungs are clear to auscultation without any rales or rhonchi. ABDOMEN: Soft and non-tender. Bowel sounds are present. There is no hepatosplenomegaly. EXT: There is no palpable edema. Peripheral pulses are present. Skin: No rashes Central Nervous system: General: Unresponsive on vent Speech: None Comprehension: None Facial expressions: Normal Cranial Nerves: Pupils are very small nonreactive. Doll's head eye movements are negative. No facial asymmetry is seen. Motor: Bulk and Tone is normal. Strength cannot be assessed Sensory: Cannot be assessed Reflexes: 1+ and symmetrical Cerebellar function: Cannot be assessed Toes: Equivocal Gait: Cannot be assessed Results - Labs CBC & BMP: 04/20/17 05:04 04/20/17 05:04 Assessment and Plan (1) Unresponsiveness Status: Acute Assessment and plan: Differential diagnoses included stroke, seizure, metabolic/infectious encephalopathy. Continue Depakote at the same dose We will give a little more time. Continue dialysis and see how it affects. Prognosis is guarded Current Visit: Yes Quality Measures - VTE Contraindication to Pharmacological VTE Prophylaxis: High Risk of Bleeding
[2017-04-20] MEDS: LEVOFLOXACIN INJ 250 MG in PREMIX 1 EACH IV SCH (17:57)
[2017-04-20] MEDS: PROPOFOL 1,000 MG/100 ML BOTTLE IV SCH (19:35)
[2017-04-20] MEDS: PRAVASTATIN 40 MG TABLET PO SCH (21:34)
[2017-04-20] MEDS: GABAPENTIN 100 MG CAPSULE PO SCH (21:37)
[2017-04-20] MEDS: MINERAL OIL/PETROLATUM OPH OINT 3.5 GM TUBE BOTH EYES SCH (22:01)
[2017-04-21] MEDS: INSULIN REGULAR 100 UNIT/ML SUBCUT SCH ×4 (00:36→18:08)
[2017-04-21] MEDS: VALPROIC ACID INJ 500 MG in SODIUM CHLORIDE 0.9% 100 ML IV SCH ×3 (00:37→18:06)
[2017-04-21] MEDS: PHENYLEPHRINE INJ 160 MG in SODIUM CHLORIDE 0.9% 234 ML IV SCH ×3 (01:50→22:52)
[2017-04-21 03:46] LABS: Allen Test Positive; Pt O2 Delivery Device Ventilator
[2017-04-21 03:52] LABS: ABG Base Excess 7.6 MMOL/L (-2.5-2.5); ABG HCO3 31.4 MMOL/L (20-26); ABG PH 7.306 (7.35-7.45); ABG TCO2 33.8 MMOL/L (23-27)
[2017-04-21 04:03] LABS: ABG PCO2 71.3 MM HG (35-48)
[2017-04-21] MEDS: LEVALBUTEROL 0.63 MG/3 ML NEB RESP TX SCH ×6 (04:04→23:36)
[2017-04-21 04:53] LABS: Basophils % 0.2 % (0.0-0.8); Eosinophils % 0.1 % (0.00-10.9); Hematocrit 23.3 VOL% (35.7-47.0); Hemoglobin 7.1 GM/DL (12.0-16.0); Immature Granulocytes % 10.1 %; Immature Granulocytes Absolute 2.66 #; Lymphocytes # 1.4 10*3/uL (1.4-4.0); Lymphocytes % 5.4 % (21.3-54.2); Mean Corpuscular HGB Conc 30.5 GM/DL (32-36); Mean Corpuscular Hemoglobin 32 PG (27-34); Mean Corpuscular Volume 104.5 FL (87-102); Mean Platelet Volume 10.9 FL (9.6-12.0); Monocytes # 1.4 10*3/uL (0.11-0.8); Monocytes % 5.3 % (1.7-12.7); NRBC # 1.44 10*3/uL; Neutrophils # 20.9 10*3/uL (1.4-7.4); Neutrophils % 78.9 % (38.7-73.9); Platelet Count 213 T/CUMM (130-400); Red Blood Count 2.23 MC/CUMM (3.8-5.5); Red Cell Distribution Width 15.9 % (9.3-17.3); White Blood Count 26.5 T/CUMM (4-12)
[2017-04-21 05:16] LABS: Band Neutrophils 1 % (0-10); Lymphocytes 6 % (20-55); Metamyelocytes 2 %; Myelocytes 1 %; Nucleated Red Blood Cells 6 (0-5); Segmented Neutrophils 89 % (50-85); Total Cells Counted 100
[2017-04-21 05:18] LABS: Basophilic Stippling Few; Platelet Estimate Normal
[2017-04-21 05:19] LABS: Calcium 7.9 MG/DL (8.5-10.1); Hypochromasia 1+; Magnesium 3.3 MG/DL (1.8-2.4); Osmolality,Calculated 341.3 MOS/KG (273-304); Potassium 5.6 MMOL/L (3.5-5.1)
--- NOTE | 2017-04-21 05:43 | Electroencephalogram ---
DATE OF STUDY: HISTORY: An 82-year-old patient with a history of change in mental status. INTRODUCTION: A digital EEG was performed using the standard 10/20 system of electrode placement wit h one channel of EKG monitoring. Photic stimulation is performed. DESCRIPTION OF RECORD: The background is somewhat disorganized, consists of 2 to 4 hertz moderate am plitude bilaterally symmetrical rhythm. Photic stimulation elicits a driving response at slower flas h frequencies. Hyperventilation was not performed. There are no focal, sharp-wave, spike, or wave a ctivity seen. Heart rate 102 beats per minute. IMPRESSION: ABNORMAL EEG DUE TO GENERALIZED SLOWING. CLINICAL CORRELATION: This record is supportive of moderate to severe encephalopathy, which could be secondary to postictal state, posthypoxic state, metabolic disorder, diffuse THREAD SINGER insult, or increase d intracranial pressure. No epileptiform/seizure activity seen. Clinical correlation is suggested.
--- NOTE | 2017-04-21 06:53 | Pulmonology Progress Note ---
Pulmonary - PN: Subj Interval history: This 82-year-old white female had congestive heart failure and respiratory failure. She had a coronary stent placed. She has a decreased level of consciousness. Creatinine has risen to 2.4. Family has now made her DO NOT RESUSCITATE. However we are continuing to try to wean her from the ventilator. She is on 80% oxygen and has an oxygen saturation of 93%. We will try to reduce back to a level where we can start CPAP. 04/14/2017 patient has gotten worse overnight. Oxygen saturations dropped. She is now on 100% with 12 of PEEP and has a PO2 of 65. Chest x-ray looks wetter. We have been trying to hydrate her to save kidney function. However I do think she is a bit on the wet side. We will try 1 dose of Lasix. Also getting up occasional thick material from her endotracheal tube. Concerned that she may have some plugs although I do not see any atelectasis on the x-ray. Will bronchoscope her this morning. Discussed with patient's daughter. Prognosis is poor. I do note that the family has made her DO NOT RESUSCITATE. We will continue full support however. this 82-year-old lady has congestive heart failure with valvular heart disease and diastolic dysfunction. Also has apparent pneumonia. She is on Zosyn and Levaquin. Chest x-ray shows diffuse infiltrates. Her PO2 is 110 on 100% oxygen this morning. Will reduce to 80%. Still requiring fairly high PEEP. She does apparently have ARDS in addition to the above. When her sedation is held she will open her eyes and follow. 04/18/2017 patient's PO2 is now 180 on 100% oxygen. Reducing to 70%. Still has a high PCO2. Has ARDS and some difficulty ventilating her. Her mental status is worse. The daughter relates that she did follow a little bit over the weekend. She has not been on any sedation for 24 hours and she is totally unresponsive. Will ask neurology to see her. Chest x-ray still shows diffuse interstitial infiltrates. 04/19/2017 PO2 is 87 on 70% oxygen with 12 of PEEP. Will reduce ventilator settings a little. PCO2 remains elevated. Patient closed her eyes on command. Could not get her to do anything else including squeeze fingers or nods to questions. 04/20/2017 PO2 is 76 on 80% oxygen. Unable to reduce ventilator any further. Patient does move about a little when sedation is held. Chest x-ray still shows diffuse pulmonary edema. 04/21/2017 PO2 is 96. Will reduce FiO2 to 70%. Go back to assist control. Minute ventilation is not adequate with PCO2 of 70. However increasing further will likely increase risk of barotrauma. Patient is starting dialysis. Had first round yesterday. Hopefully we can help with her interstitial edema with that. I think much of what we see on her chest x-ray is ARDS. Exam (Progress Note) - Constitutional Vitals: Period Temp Pulse Resp BP Sys/Alas Pulse Ox Last 24 Hr 98.5 F-100.2 F 100-135 14-45 83-139/28-94 89-99 Exam: Patient not responding. She is off propofol. Systolic blood pressure in the upper 90s. Pulse of about 110. pupils react to light. Orotracheal tube in place. Neck is supple no bruits. Chest reveals a few scattered rhonchi. Equal breath sounds. Heart is regular without murmurs. Abdomen soft no masses. Extremities no clubbing cyanosis. Trace of edema. Results - Labs CBC & BMP: 04/21/17 04:15 04/21/17 04:15 Lab Results: I have reviewed the past 24 hour labs - Diagnostic Findings Procedure: Chest x-ray: image reviewed by me (Interstitial edema bilaterally. Little change from before. ET tube good position.) Assessment and Plan (1) Acute respiratory failure Status: Acute Assessment and plan: This may all be due to congestive heart failure. However with high requirement for PEEP there may be an element of ARDS. Will adjust PEEP and FiO2. Hopefully with diuresis we can get her down to where she can start weaning trials. This will likely take a few days. This was discussed with the patient' s daughter at the bedside. 04/13/2017 chest x-ray is improved following diuresis. Still fairly wide A-a O2 difference suggesting an element of ARDS. 04/14/2017 PO2 has dropped. Now on 100% with 12 of PEEP. 04/15/17 PO2 110 on 100% oxygen with 12 of PEEP. Will reduce to 80%. Try to get FiO2 down to 60% and then reduce PEEP. 04/18/2017 still has elevated PCO2 despite mechanical ventilation. Renal insufficiency makes it difficult to try to treat that with Diamox. Still requiring high FiO2 and PEEP. 04/19/2017 ARDS. Requiring high FiO2 and PEEP. Requiring high minute ventilation. Prognosis guarded 04/20/2017 still requiring high FiO2 and PEEP. 04/21/2017 PO2 is 96 on 80% with 12 of PEEP. Will reduce to 70%. PCO2 still elevated at 70 despite IMV of 20. Will change to assist control. Not ready for any weaning trials yet. Current Visit: Yes (2) Urinary tract infection Status: Acute Assessment and plan: Klebsiella UTI covered with Levaquin. 04/13/2017 UTI should be well covered. Current Visit: Yes (3) Aortic stenosis Status: Chronic Assessment and plan: Noted at catheterization please see those reports. 04/13/2017 has valvular as well as coronary disease. 04/14/2017 multiple reason for congestive heart failure. 04/15/17 again has aortic stenosis as a major cause for her congestive heart failure. Not able to tolerate surgical consideration at this time. 04/18/2017 congestive heart failure due to aortic stenosis is part of the problem. 04/19/17 congestive heart failure due to aortic stenosis. This is in addition to her ARDS 04/20/2017 congestive heart failure in addition to ARDS. 04/21/2017 congestive heart failure due to aortic stenosis, mitral regurgitation, and she has superimposed ARDS. Current Visit: Yes Qualifiers: Cardiac valve disease etiology: nonrheumatic Qualified Code(s): I35.0 - Nonrheumatic aortic (valve) stenosis (4) Heart failure, diastolic, acute Status: Acute Assessment and plan: Needs further diuresis. Renal function appears stable. 04/13/2017 trying to diurese depending on renal function. 04/15/17 x-ray still looks a little bit wet. Difficult to tell with superimposed pneumonia and ARDS. 04/18/2017 x-ray still looks wet. Primarily due to ARDS at this point I would think 04/19/17 cardiology following. 04/20/2017 continue to be followed by cardiology. 04/21/2017 not a surgical candidate due to multisystem disease, has aortic and mitral valve disease. Also diastolic heart failure. Current Visit: Yes (5) Mitral regurgitation Status: Chronic Assessment and plan: Also part of her called for congestive heart failure. This was felt to be ischemic in etiology. Current Visit: Yes Qualifiers: Cardiac valve disease etiology: nonrheumatic Qualified Code(s): I34.0 - Nonrheumatic mitral (valve) insufficiency
[2017-04-21] MEDS ORDERED: ALBUMIN 25% 25 GM in PREMIX 1 EACH IV ONE (08:08)
--- NOTE | 2017-04-21 08:17 | XRay Report ---
Exam: XR chest 1V portable Indication: Intubated Comparison study: 04/20/17 radiograph Findings: Endotracheal tube and esophagogastric tube are in similar positions. Again esophagogastric travels below the [id number]. Left-sided PICC line and left-sided temporary dialysis catheter in similar positions. There is no pneumothorax. Cardiac silhouette and mediastinal structures appear similar to prior. Diffuse interstitial and airspace opacities noted throughout both lungs are essentially unchanged from prior. Median sternotomy wiring is noted. Osseous structures appear stable. Impression: Stable position of support tubes and lines. No pneumothorax. No other significant change. PROCEDURE INTERPRETED AT [facility] DEPARTMENT OF RADIOLOGY Final Report Signed by: Rakan Tomlin
--- NOTE | 2017-04-21 09:21 | Neurology Progress Note ---
Neurology - PN : Subjective Interval history: Patient is a still unresponsive and on vent. She is getting dialyzed. WBC counts are going up. She is already on multiple antibiotics. I believe we need to go ahead and do a spinal tap now. Exam (Progress Note) - Constitutional Vitals: Period Temp Pulse Resp BP Sys/Alas Pulse Ox Last 24 Hr 98.5 F-100.2 F 100-128 20-34 83-139/28-94 89-99 Exam: GENERAL: Patient is in no acute distress. NECK: Neck is supple. There is no JVD. No carotid bruits present. No thyroid masses. CVS: First and second heart sounds are normal. There is no S3 present. Regular rate and rhythm. RESPIRATORY: Lungs are clear to auscultation without any rales or rhonchi. ABDOMEN: Soft and non-tender. Bowel sounds are present. There is no hepatosplenomegaly. EXT: There is no palpable edema. Peripheral pulses are present. Skin: No rashes Central Nervous system: General: Unresponsive on vent Speech: None Comprehension: None Facial expressions: Normal Cranial Nerves: Pupils are very small nonreactive. Doll's head eye movements are negative. No facial asymmetry is seen. Motor: Bulk and Tone is normal. Strength cannot be assessed Sensory: Cannot be assessed Reflexes: 1+ and symmetrical Cerebellar function: Cannot be assessed Toes: Equivocal Gait: Cannot be assessed Results - Labs CBC & BMP: 04/21/17 04:15 04/21/17 04:15 Assessment and Plan (1) Unresponsiveness Status: Acute Assessment and plan: Differential diagnoses included stroke, seizure, metabolic/infectious encephalopathy. Continue Depakote at the same dose Spinal tap under fluoroscopy Current Visit: Yes Quality Measures - VTE Contraindication to Pharmacological VTE Prophylaxis: High Risk of Bleeding
[2017-04-21] MEDS: ASPIRIN EC 81 MG TABLET PO SCH (09:46)
[2017-04-21] MEDS: ACETAMINOPHEN 325 MG TABLET PO SCH ×2 (09:47→22:02)
[2017-04-21] MEDS: AMIODARONE 200 MG TABLET PO SCH ×2 (09:47→22:03)
[2017-04-21] MEDS: LANSOPRAZOLE ODT 30 MG TABLET PER TUBE SCH (09:47)
[2017-04-21] MEDS: CITRIC ACID/SODIUM CITRATE 30 ML UDCUP PO SCH ×3 (09:48→22:04)
--- NOTE | 2017-04-21 09:57 | Cardiology Progress Note ---
Assessment and Plan (1) Hx of CABG Status: Chronic Assessment and plan: SEE PLAN OF CARE LISTED BELOW Current Visit: Yes (2) Hypertension Status: Resolved Assessment and plan: SEE PLAN OF CARE LISTED BELOW Current Visit: Yes Qualifiers: Hypertension type: essential hypertension Qualified Code(s): I10 - Essential (primary) hypertension (3) Aortic stenosis Status: Chronic Assessment and plan: SEE PLAN OF CARE LISTED BELOW Current Visit: Yes Qualifiers: Cardiac valve disease etiology: nonrheumatic Qualified Code(s): I35.0 - Nonrheumatic aortic (valve) stenosis (4) Right carotid bruit Status: Chronic Assessment and plan: SEE PLAN OF CARE LISTED BELOW Current Visit: Yes (5) Chest pain Status: Acute Assessment and plan: SEE PLAN OF CARE LISTED BELOW Current Visit: No (6) CAD (coronary artery disease) Status: Chronic Assessment and plan: SEE PLAN OF CARE LISTED BELOW Current Visit: No Qualifiers: Coronary Disease-Associated Artery/Lesion type: bypass graft [place] vs. transplanted heart: [place] heart Associated angina: with unspecified angina Qualified Code(s): I25.709 - Atherosclerosis of coronary artery bypass graft(s) , unspecified, with unspecified angina pectoris (7) Depressive disorder Status: Chronic Assessment and plan: SEE PLAN OF CARE LISTED BELOW Current Visit: No (8) Dyslipidemia (high LDL; low HDL) Status: Chronic Assessment and plan: SEE PLAN OF CARE LISTED BELOW Current Visit: No (9) Coronary artery disease Status: Chronic Assessment and plan: SEE PLAN OF CARE LISTED BELOW Current Visit: Yes Qualifiers: Coronary Disease-Associated Artery/Lesion type: [place] artery (10) Urinary tract infection Status: Acute Assessment and plan: SEE PLAN OF CARE LISTED BELOW Current Visit: Yes (11) Anemia Status: Acute Assessment and plan: SEE PLAN OF CARE LISTED BELOW Current Visit: Yes (12) Hyperlipidemia Status: Chronic Assessment and plan: SEE PLAN OF CARE LISTED BELOW Current Visit: Yes (13) Pneumonia Status: Acute Assessment and plan: SEE PLAN OF CARE LISTED BELOW Current Visit: Yes Qualifiers: Laterality: left Lung location: lower lobe of lung (14) Mitral regurgitation Status: Chronic Assessment and plan: SEE PLAN OF CARE LISTED BELOW Current Visit: Yes Qualifiers: Cardiac valve disease etiology: nonrheumatic Qualified Code(s): I34.0 - Nonrheumatic mitral (valve) insufficiency (15) Acute renal failure Status: Acute Assessment and plan: SEE PLAN OF CARE LISTED BELOW Current Visit: Yes Qualifiers: Acute renal failure type: with acute renal cortical necrosis Qualified Code (s): N17.1 - Acute kidney failure with acute cortical necrosis (16) Atrial fibrillation Status: Acute Assessment and plan: SEE PLAN OF CARE LISTED BELOW Current Visit: Yes (17) Altered mental status Status: Acute Assessment and plan: SEE PLAN OF CARE LISTED BELOW Current Visit: Yes Cardiology - PN: Subj Interval history: [employer]: DR. CARRION SUMMARY: Ms. Meza, 82WF, has a history of known coronary artery disease ( status post CABG 2003 with abrupt closure within days of having her bypass grafting requiring emergent stenting at [facility]), hypertension, dyslipidemia, sedentary lifestyle, CVA. According to Dr. Carrion's last note in clinic in February 2017, he reviewed her heart catheterization films noted a failed attempt to wire ostium of the RCA with in-stent restenosis noted. He remarks she has had failed grafts, failed stents multiple times. He recommended medical management at this point. Echocardiogram February 22, 2017 reveals the following: EF 50%, grade 2 diastolic dysfunction, moderate with mild to moderate AI, PAP 35 mmHg + RAP. Patient was treated with antianginal agents including increasing Ranexa to maximum dose. Chest pain continued. She underwent cardiac catheterization April 06, 2017 with severe 2 vessel disease noted. (See cardiac catheterization report). Because the CAD is not amenable to percutaneous intervention, Dr. Reyes was consulted for possible redo bypass surgery, AVR. However, patient continued to deteriorate and she was not felt to be a candidate for bypass/AVR. April 11, 2017 Dr. Carrion performed POBA of the ostium of the RCA, successful PCI with JENNY of the ostial left circumflex. She tolerated the cardiac catheterization well. She required mechanical ventilation for hypoxia and respiratory distress. She has been treated for possible underlying infectious process, UTI, congestive heart failure. At one point, she was using continues IV Lasix and this is being transitioned to IV pushes. APRIL 18, 2017: Over the weekend, patient began to experience atrial fibrillation with rapid ventricular response. She was started on IV amiodarone for better rate control. She is requiring phenylephrine for hypotension. Neurologically, she has also continued to decline. CT of head revealed no evidence of bleeding and it is suspected that she has global hypoperfusion from her hypotension and high dose pressors affecting her neurological status. She is now DNR. Creatinine continues to worsen, now 3.4. She is hyperkalemic with a potassium of 5.7 today. Anemia persists but appears to be relatively stable with no overt bleeding. Greater than 30 minutes was spent today discussing patient's poor prognosis with daughter. Patient did respond to aggressive nipple stimulation but no other response. Will further discuss with Dr. Skaggs and await his recommendations. APRIL 19, 2017: Overnight, patient has become significantly anemic. I will hold her Eliquis and Plavix today knowing the risks of holding both. Slowly transfusing 2 units of packed red blood cells today. Hyperkalemia has resolved with addition of Kayexalate yesterday and holding of exogenous potassium replacement. Propofol has been held for 48 hours and there is little response noted. White blood cell count has increased to 23.9. Unfortunately, no real improvement in creatinine. She is entering multi organ failure. She is "DNR." Dr. Pastrana made adjustments and ventilator regimen this morning. At this point , ABGs seem to have worsened a bit with these adjustments. Poor prognosis reinforced with daughter today. Will further discuss with Dr. Skaggs and await additional recommendations. APRIL 20, 2017: Patient has undergone CT of head which revealed no acute changes. She will most likely undergo dialysis soon. Dr. Ellison placed left internal jugular vein dialysis catheter this morning. No significant improvement in her mentation is noted. She is hyperkalemic today. If she is undergoing dialysis today we will not treat with Kayexalate. Continue to follow her labs daily. Hemoglobin 8.4, hematocrit 26.3. Again, continue to follow these labs. We are continuing to hold Plavix and Eliquis. This will be day 2 without her Plavix. Will further discuss with Dr. Skaggs and await additional recommendations. APRIL 21, 2017: Patient underwent dialysis yesterday, 2 hours. She tolerated this well. She is currently undergoing dialysis and is scheduled to undergo 3 hours this morning. She remains significantly anemic again this morning. She is currently being transfused with dialysis. I will discuss with and await additional recommendations. May need a GI evaluation versus continued monitoring. Poor prognosis is noted. She remains lethargic and not following commands. This is day 3 without her Plavix. Unfortunately, we cannot introduce while she if she is actively losing blood. ASSESSMENT/PLAN: 1. CAD S/P CABG - Severe three-vessel coronary artery disease (see above recent revascularization). Plavix on hold. She is on 81 mg aspirin daily 2. HYPOTENSION - Continuing with vasopressors as needed. History of underlying hypertension. 3. HYPERKALEMIA - see above. Continue to monitor this daily. 4. DYSLIPIDEMIA - LDL 125. Continue lipid lowering agent. 5. AORTIC STENOSIS, MODERATE - Continue current plan of care per recent echo February 2017 6. BRUIT, CAROTID RIGHT - Carotid ultrasound reveals no significant stenosis. 7. ATRIAL FIBRILLATION - Rate controlled on Amiodarone 400 mg twice daily. Unfortunately, we will have to hold Eliquis at this time due to her anemia. 8. UTI - continue current plan of care, continuing Levaquin, Macrobid, Meropenem. 9. CARDIAC MURMUR - murmur. Recent echo reveals moderate , mild to moderate AI. 10. ACUTE RENAL FAILURE, STAGE IV - Avoiding nephrotoxic agents. Most likely related to hypoperfusion and pressors. 11. ACUTE ON CHRONIC CHF - Secondary to diastolic dysfunction, NYHA Class IV. Continue current plan of care. 12. DNR - Continue current plan of care. 13. ANEMIA - continuing to hold Eliquis and Plavix. This is day 3 without Plavix. She is being transfused with HD this morning. May need GI consult. Exam (Progress Note) - Constitutional Vitals: Period Temp Pulse Resp BP Sys/Alas Pulse Ox Last 24 Hr 98.5 F-100.2 F 100-128 20-34 83-139/28-94 89-99 Exam: Exam: General: [Intubated. Appears ill. Pale.] HEENT: [Pupils nonreactive to light. Atraumatic. Mucous membranes moist. No jaundice noted. Conjunctiva moist and clear, sclerae anicteric] Neck: No obvious JVD/HJR, no thyromegaly or lymphadenopathy noted. Right carotid bruit noted. No tracheal deviation noted Cardiac: [Irregularly irregular rhythm, controlled rate. [III/ systolic ejection murmur heard best at second intercostal space to the right. Lungs: [Rhonchi noted throughout. Symmetrical chest wall movements. Abdomen: Soft, bowel sounds normoactive. [place] catheter intact draining clear yellow urine. Frequent diarrheal stools noted. Musculoskeletal: No fluid collection. Decreased range of motion is noted. Extremities: No clubbing, cyanosis noted. [1+ bilateral lower extremity edema. Upper extremity pulses 2+. Lower extremity pulses 2+. Capillary refill less than 3 seconds. Skin: No unusual lesions or rashes. No skin breakdown appreciated. Neuro: Not responding to verbal stimulation. Occasionally responding to aggressive tactile stimulation. Result/EKG - Labs CBC & BMP: 04/21/17 04:15 04/21/17 04:15 Labs: Laboratory Results - last 24 hr 04/20/17 04/20/17 04/20/17 11:11 17:47 23:45 WBC RBC Hgb Hct MCV MCH MCHC RDW Plt Count MPV Neut % (Auto) Lymph % (Auto) Morrison % (Auto) Eos % (Auto) Baso % (Auto) Neut # (Auto) Lymph # (Auto) Morrison # (Auto) Eos # (Auto) Baso # (Auto) Total Counted Immature Gran % Nucleated RBC % Immature Gran # Segmented Neutrophils Band Neutrophils Lymphocytes Monocytes Metamyelocytes Myelocytes Nucleated RBCs Nucleated RBCs # Platelet Estimate Hypochromasia Basophilic Stippling ABG pH ABG pCO2 ABG pO2 ABG HCO3 ABG Total CO2 ABG O2 Saturation ABG Base Excess FiO2 Sodium Potassium Chloride Carbon Dioxide Anion Gap BUN Creatinine GFR Calculation BUN/Creatinine Ratio Glucose POC Glucose 147 H 164 H 174 H Calculated Osmolality Calcium Magnesium Blood Type Antibody Screen Crossmatch Blood Bank Comment 04/21/17 04/21/17 04/21/17 03:35 04:15 04:15 WBC 26.5 H RBC 2.23 L Hgb 7.1 L Hct 23.3 L MCV 104.5 H MCH 32 MCHC 30.5 L RDW 15.9 Plt Count 213 MPV 10.9 Neut % (Auto) 78.9 H Lymph % (Auto) 5.4 L Morrison % (Auto) 5.3 Eos % (Auto) 0.1 Baso % (Auto) 0.2 Neut # (Auto) 20.9 H Lymph # (Auto) 1.4 Morrison # (Auto) 1.4 H Eos # (Auto) 0.0 Baso # (Auto) 0.0 Total Counted 100 Immature Gran % 10.1 Nucleated RBC % 5.4 Immature Gran # 2.66 Segmented Neutrophils 89 H Band Neutrophils 1 Lymphocytes 6 L Monocytes 1 L Metamyelocytes 2 Myelocytes 1 Nucleated RBCs 6 H Nucleated RBCs # 1.44 Platelet Estimate Normal Hypochromasia 1+ Basophilic Stippling Few ABG pH 7.306 L ABG pCO2 71.3 H* ABG pO2 96.0 H ABG HCO3 31.4 H ABG Total CO2 33.8 H ABG O2 Saturation 97.0 ABG Base Excess 7.6 H FiO2 80.00 Sodium 148 H Potassium 5.6 H Chloride 104 Carbon Dioxide 36 H Anion Gap 13.6 BUN 140 H D Creatinine 2.40 H GFR Calculation 20 BUN/Creatinine Ratio 58.00 H Glucose 135 H POC Glucose Calculated Osmolality 341.3 H Calcium 7.9 L Magnesium 3.3 H Blood Type Antibody Screen Crossmatch Blood Bank Comment 04/21/17 08:08 WBC RBC Hgb Hct MCV MCH MCHC RDW Plt Count MPV Neut % (Auto) Lymph % (Auto) Morrison % (Auto) Eos % (Auto) Baso % (Auto) Neut # (Auto) Lymph # (Auto) Morrison # (Auto) Eos # (Auto) Baso # (Auto) Total Counted Immature Gran % Nucleated RBC % Immature Gran # Segmented Neutrophils Band Neutrophils Lymphocytes Monocytes Metamyelocytes Myelocytes Nucleated RBCs Nucleated RBCs # Platelet Estimate Hypochromasia Basophilic Stippling ABG pH ABG pCO2 ABG pO2 ABG HCO3 ABG Total CO2 ABG O2 Saturation ABG Base Excess FiO2 Sodium Potassium Chloride Carbon Dioxide Anion Gap BUN Creatinine GFR Calculation BUN/Creatinine Ratio Glucose POC Glucose Calculated Osmolality Calcium Magnesium Blood Type Cancelled Antibody Screen Cancelled Crossmatch See Detail Blood Bank Comment Cancelled Quality Measures - VTE Contraindication to Pharmacological VTE Prophylaxis: High Risk of Bleeding
[2017-04-21] MEDS ORDERED: HEPARIN 10,000 UNIT/10 ML VIAL IV ONE (10:00)
[2017-04-21] MEDS: MEROPENEM 500 MG in SODIUM CHLORIDE 0.9% 100 ML IV SCH ×2 (11:02→22:04)
[2017-04-21] MEDS: PROPOFOL 1,000 MG/100 ML BOTTLE IV SCH (17:15)
[2017-04-21] MEDS: LEVOFLOXACIN INJ 250 MG in PREMIX 1 EACH IV SCH (18:07)
--- NOTE | 2017-04-21 19:38 | Nephrology Progress Note ---
Nephrology - PN: Subj Interval history: Patient tolerated dialysis today received 3 units packed red blood cells. Pressor medications have been weaned down. Family members at the bedside. Plan for hemodialysis on tomorrow. Exam (PN)-Nephrology - Vital Signs Vital signs: Period Temp Pulse Resp BP Sys/Alas Pulse Ox Last 24 Hr 97.8 F-100.5 F 89-128 13-258 83-161/41-102 84-99 - General Appearance General appearance: intubated EENT: ATNC Neck: supple Respiratory: clear Cardiology: regular rate, regular rhythm Gastrointestinal: normoactive bowel sounds - Lab 04/21/17 04:15 04/21/17 04:15 Most recent lab results ABG pH 7.306 (7.35-7.45) L 04/21/17 03:35 ABG pCO2 71.3 MM HG (35-48) H* 04/21/17 03:35 ABG pO2 96.0 MM HG (80-95) H 04/21/17 03:35 ABG HCO3 31.4 MMOL/L (20-26) H 04/21/17 03:35 ABG O2 Saturation 97.0 % (95-100) 04/21/17 03:35 Calcium 7.9 MG/DL (8.5-10.1) L 04/21/17 04:15 Phosphorus 4.0 MG/DL (2.5-4.9) 04/18/17 05:16 Magnesium 3.3 MG/DL (1.8-2.4) H 04/21/17 04:15 Assessment and Plan (1) CAD (coronary artery disease) Status: Chronic Current Visit: No Qualifiers: Coronary Disease-Associated Artery/Lesion type: bypass graft [place] vs. transplanted heart: [place] Associated angina: with unspecified angina Qualified Code(s): I25.709 - Atherosclerosis of coronary artery bypass graft(s) , unspecified, with unspecified angina pectoris (2) Hx of CABG Status: Chronic Current Visit: Yes (3) Hypertension Status: Resolved Current Visit: Yes Qualifiers: Hypertension type: essential hypertension Qualified Code(s): I10 - Essential (primary) hypertension (4) Hypotension Status: Acute Current Visit: Yes Qualifiers: Hypotension type: unspecified hypotension type Qualified Code(s): I95.9 - Hypotension, unspecified (5) Acute renal failure Status: Acute Assessment and plan: Acute renal failure due to ATN. Tolerating hemodialysis. Plan for hemodialysis in a.m. Non oliguric. Current Visit: Yes Qualifiers: Acute renal failure type: with acute renal cortical necrosis Qualified Code (s): N17.1 - Acute kidney failure with acute cortical necrosis
[2017-04-21] MEDS ORDERED: MORPHINE 2 MG/1 ML SYRINGE IV PRN (22:00)
[2017-04-21] MEDS: TICAGRELOR 90 MG TABLET PO SCH (22:03)
[2017-04-21] MEDS: PRAVASTATIN 40 MG TABLET PO SCH (22:03)
[2017-04-21] MEDS: GABAPENTIN 100 MG CAPSULE PO SCH (22:04)
[2017-04-21] MEDS: MINERAL OIL/PETROLATUM OPH OINT 3.5 GM TUBE BOTH EYES SCH (22:05)
[2017-04-21] MEDS: ONDANSETRON 4 MG/2 ML VIAL IV PRN (22:28)
[2017-04-22] MEDS: INSULIN REGULAR 100 UNIT/ML SUBCUT SCH ×4 (00:16→18:05)
[2017-04-22] MEDS: VALPROIC ACID INJ 500 MG in SODIUM CHLORIDE 0.9% 100 ML IV SCH ×3 (01:45→18:00)
[2017-04-22] MEDS: LEVALBUTEROL 0.63 MG/3 ML NEB RESP TX SCH ×6 (03:43→23:10)
[2017-04-22 03:46] LABS: ABG Base Excess 4.7 MMOL/L (-2.5-2.5); ABG HCO3 28.7 MMOL/L (20-26); ABG PCO2 61.4 MM HG (35-48); ABG TCO2 29.4 MMOL/L (23-27); Allen Test Positive; Pt O2 Delivery Device Ventilator
[2017-04-22 05:14] LABS: Basophils % 0.1 % (0.0-0.8); Hematocrit 32.9 VOL% (35.7-47.0); Immature Granulocytes % 7.3 %; Lymphocytes # 0.7 10*3/uL (1.4-4.0); Lymphocytes % 2.4 % (21.3-54.2); Mean Corpuscular HGB Conc 31.3 GM/DL (32-36); Mean Corpuscular Hemoglobin 32 PG (27-34); Mean Corpuscular Volume 102.5 FL (87-102); Mean Platelet Volume 11.1 FL (9.6-12.0); Monocytes # 1.2 10*3/uL (0.11-0.8); Monocytes % 4.3 % (1.7-12.7); NRBC # 1.67 10*3/uL; Neutrophils # 23.5 10*3/uL (1.4-7.4); Neutrophils % 85.9 % (38.7-73.9); Red Cell Distribution Width 15.2 % (9.3-17.3); White Blood Count 27.4 T/CUMM (4-12)
[2017-04-22 05:25] LABS: INR 1.3; Partial Thromboplastin Time 34.7 SECS (0-40)
[2017-04-22 05:31] LABS: Hemoglobin 10.3 GM/DL (12.0-16.0); Platelet Count 168 T/CUMM (130-400); Red Blood Count 3.21 MC/CUMM (3.8-5.5)
[2017-04-22 05:51] LABS: Band Neutrophils 1 % (0-10); Lymphocytes 3 % (20-55); Nucleated Red Blood Cells 8 (0-5); Segmented Neutrophils 91 % (50-85); Total Cells Counted 100
[2017-04-22 05:52] LABS: Hypochromasia 1+; Macrocytosis Slight; Platelet Estimate Normal; Polychromasia Slight
[2017-04-22 05:55] LABS: Osmolality,Calculated 333.3 MOS/KG (273-304)
--- NOTE | 2017-04-22 06:56 | Pulmonology Progress Note ---
Pulmonary - PN: Subj Interval history: This 82-year-old white female had congestive heart failure and respiratory failure. She had a coronary stent placed. She has a decreased level of consciousness. Creatinine has risen to 2.4. Family has now made her DO NOT RESUSCITATE. However we are continuing to try to wean her from the ventilator. She is on 80% oxygen and has an oxygen saturation of 93%. We will try to reduce back to a level where we can start CPAP. 04/14/2017 patient has gotten worse overnight. Oxygen saturations dropped. She is now on 100% with 12 of PEEP and has a PO2 of 65. Chest x-ray looks wetter. We have been trying to hydrate her to save kidney function. However I do think she is a bit on the wet side. We will try 1 dose of Lasix. Also getting up occasional thick material from her endotracheal tube. Concerned that she may have some plugs although I do not see any atelectasis on the x-ray. Will bronchoscope her this morning. Discussed with patient's daughter. Prognosis is poor. I do note that the family has made her DO NOT RESUSCITATE. We will continue full support however. this 82-year-old lady has congestive heart failure with valvular heart disease and diastolic dysfunction. Also has apparent pneumonia. She is on Zosyn and Levaquin. Chest x-ray shows diffuse infiltrates. Her PO2 is 110 on 100% oxygen this morning. Will reduce to 80%. Still requiring fairly high PEEP. She does apparently have ARDS in addition to the above. When her sedation is held she will open her eyes and follow. 04/18/2017 patient's PO2 is now 180 on 100% oxygen. Reducing to 70%. Still has a high PCO2. Has ARDS and some difficulty ventilating her. Her mental status is worse. The daughter relates that she did follow a little bit over the weekend. She has not been on any sedation for 24 hours and she is totally unresponsive. Will ask neurology to see her. Chest x-ray still shows diffuse interstitial infiltrates. 04/19/2017 PO2 is 87 on 70% oxygen with 12 of PEEP. Will reduce ventilator settings a little. PCO2 remains elevated. Patient closed her eyes on command. Could not get her to do anything else including squeeze fingers or nods to questions. 04/20/2017 PO2 is 76 on 80% oxygen. Unable to reduce ventilator any further. Patient does move about a little when sedation is held. Chest x-ray still shows diffuse pulmonary edema. 04/21/2017 PO2 is 96. Will reduce FiO2 to 70%. Go back to assist control. Minute ventilation is not adequate with PCO2 of 70. However increasing further will likely increase risk of barotrauma. Patient is starting dialysis. Had first round yesterday. Hopefully we can help with her interstitial edema with that. I think much of what we see on her chest x-ray is ARDS. 04/22/2017 patient had oxygen turned back up to 100% during the night. PO2 is over 100 now. Will try to reduce back to 80% and increase her PEEP to 14. She has ARDS. Acute kidney injury being treated with dialysis. Hopefully we can offload some fluid that way. He has congestive heart failure and valvular heart disease. Exam (Progress Note) - Constitutional Vitals: Period Temp Pulse Resp BP Sys/Alas Pulse Ox Last 24 Hr 97.8 F-100.5 F 89-128 13-258 84-161/42-102 84-99 Exam: Patient not responding, currently sedated. Systolic blood pressure in the upper 90s. Pulse of about 110. pupils react to light. Orotracheal tube in place. Neck is supple no bruits. Chest reveals a few scattered rhonchi. Equal breath sounds. Heart is regular without murmurs. Abdomen soft no masses. Extremities no clubbing cyanosis. Trace of edema. Results - Labs CBC & BMP: 04/22/17 03:41 04/22/17 03:40 Lab Results: I have reviewed the past 24 hour labs - Diagnostic Findings Procedure: Chest x-ray: image reviewed by me (Diffuse bilateral infiltrates worse on the left than right. Consistent with ARDS.) Assessment and Plan (1) Acute respiratory failure Status: Acute Assessment and plan: This may all be due to congestive heart failure. However with high requirement for PEEP there may be an element of ARDS. Will adjust PEEP and FiO2. Hopefully with diuresis we can get her down to where she can start weaning trials. This will likely take a few days. This was discussed with the patient' s daughter at the bedside. 04/13/2017 chest x-ray is improved following diuresis. Still fairly wide A-a O2 difference suggesting an element of ARDS. 04/14/2017 PO2 has dropped. Now on 100% with 12 of PEEP. 04/15/17 PO2 110 on 100% oxygen with 12 of PEEP. Will reduce to 80%. Try to get FiO2 down to 60% and then reduce PEEP. 04/18/2017 still has elevated PCO2 despite mechanical ventilation. Renal insufficiency makes it difficult to try to treat that with Diamox. Still requiring high FiO2 and PEEP. 04/19/2017 ARDS. Requiring high FiO2 and PEEP. Requiring high minute ventilation. Prognosis guarded 04/20/2017 still requiring high FiO2 and PEEP. 04/21/2017 PO2 is 96 on 80% with 12 of PEEP. Will reduce to 70%. PCO2 still elevated at 70 despite IMV of 20. Will change to assist control. Not ready for any weaning trials yet. 04/22/2017 trying to reduce FiO2. Will increase PEEP to 14. Would like to get FiO2 down to 60% if we can. Current Visit: Yes (2) Urinary tract infection Status: Acute Assessment and plan: Klebsiella UTI covered with Levaquin. 04/13/2017 UTI should be well covered. Current Visit: Yes (3) Aortic stenosis Status: Chronic Assessment and plan: Noted at catheterization please see those reports. 04/13/2017 has valvular as well as coronary disease. 04/14/2017 multiple reason for congestive heart failure. 04/15/17 again has aortic stenosis as a major cause for her congestive heart failure. Not able to tolerate surgical consideration at this time. 04/18/2017 congestive heart failure due to aortic stenosis is part of the problem. 04/19/17 congestive heart failure due to aortic stenosis. This is in addition to her ARDS 04/20/2017 congestive heart failure in addition to ARDS. 04/21/2017 congestive heart failure due to aortic stenosis, mitral regurgitation, and she has superimposed ARDS. 04/22/2017 could not tolerate surgery at the present time. Current Visit: Yes Qualifiers: Cardiac valve disease etiology: nonrheumatic Qualified Code(s): I35.0 - Nonrheumatic aortic (valve) stenosis (4) Heart failure, diastolic, acute Status: Acute Assessment and plan: Needs further diuresis. Renal function appears stable. 04/13/2017 trying to diurese depending on renal function. 04/15/17 x-ray still looks a little bit wet. Difficult to tell with superimposed pneumonia and ARDS. 04/18/2017 x-ray still looks wet. Primarily due to ARDS at this point I would think 04/19/17 cardiology following. 04/20/2017 continue to be followed by cardiology. 04/21/2017 not a surgical candidate due to multisystem disease, has aortic and mitral valve disease. Also diastolic heart failure. 04/22/2017 trying to offload her with renal replacement therapy Current Visit: Yes (5) Mitral regurgitation Status: Chronic Assessment and plan: Also part of her called for congestive heart failure. This was felt to be ischemic in etiology. Current Visit: Yes Qualifiers: Cardiac valve disease etiology: nonrheumatic Qualified Code(s): I34.0 - Nonrheumatic mitral (valve) insufficiency
[2017-04-22 07:17] LABS: ABG Base Excess 5.8 MMOL/L (-2.5-2.5); ABG HCO3 29.5 MMOL/L (20-26); ABG Oxygen Saturation 90.6 % (95-100); ABG PCO2 63.4 MM HG (35-48); ABG PH 7.331 (7.35-7.45); ABG PO2 61.4 MM HG (80-95); ABG TCO2 30.7 MMOL/L (23-27); Allen Test Positive; Pt O2 Delivery Device Ventilator
--- NOTE | 2017-04-22 07:48 | XRay Report ---
XR chest 1V portable Indication: Ventilator management Comparison: Chest x-ray dated April 21, 2017 Technique: Single frontal view of the chest. Findings: Endotracheal tube stable in positioning. Continued mild cardiomegaly status post sternotomy. Left-sided PICC line appears grossly unchanged. Left-sided central venous catheter appears grossly unchanged. Mildly progressed diffuse bilateral pulmonary consolidation. Visualized osseous and surrounding soft tissue structures appear grossly unchanged. IMPRESSION: Mildly progressed diffuse bilateral pulmonary consolidation. PROCEDURE INTERPRETED AT [facility] DEPARTMENT OF RADIOLOGY Final Report Signed by: Dr Brent Romo
[2017-04-22] MEDS: fentaNYL INJ 1,250 MCG in SODIUM CHLORIDE 0.9% 225 ML IV SCH ×2 (08:05→23:30)
[2017-04-22] MEDS: ASPIRIN EC 81 MG TABLET PO SCH (09:22)
[2017-04-22] MEDS: LANSOPRAZOLE ODT 30 MG TABLET PER TUBE SCH (09:23)
[2017-04-22] MEDS: AMIODARONE 200 MG TABLET PO SCH ×2 (09:23→20:24)
[2017-04-22] MEDS: ACETAMINOPHEN 325 MG TABLET PO SCH ×2 (09:23→23:10)
[2017-04-22] MEDS: MEROPENEM 500 MG in SODIUM CHLORIDE 0.9% 100 ML IV SCH ×2 (09:30→20:22)
[2017-04-22] MEDS: TICAGRELOR 90 MG TABLET PO SCH ×3 (09:41→20:23)
[2017-04-22] MEDS: CITRIC ACID/SODIUM CITRATE 30 ML UDCUP PO SCH ×3 (09:49→20:23)
[2017-04-22] MEDS: PHENYLEPHRINE INJ 160 MG in SODIUM CHLORIDE 0.9% 234 ML IV SCH (10:02)
--- NOTE | 2017-04-22 10:03 | Cardiology Progress Note ---
Assessment and Plan - Time spent with patient Time spent with patient: Greater than 30 minutes (1) Hx of CABG Status: Chronic Assessment and plan: SEE PLAN OF CARE LISTED BELOW Current Visit: Yes (2) Hypertension Status: Resolved Assessment and plan: SEE PLAN OF CARE LISTED BELOW Current Visit: Yes Qualifiers: Hypertension type: essential hypertension Qualified Code(s): I10 - Essential (primary) hypertension (3) Aortic stenosis Status: Chronic Assessment and plan: SEE PLAN OF CARE LISTED BELOW Current Visit: Yes Qualifiers: Cardiac valve disease etiology: nonrheumatic Qualified Code(s): I35.0 - Nonrheumatic aortic (valve) stenosis (4) Right carotid bruit Status: Chronic Assessment and plan: SEE PLAN OF CARE LISTED BELOW Current Visit: Yes (5) Chest pain Status: Acute Assessment and plan: SEE PLAN OF CARE LISTED BELOW Current Visit: No (6) CAD (coronary artery disease) Status: Chronic Assessment and plan: SEE PLAN OF CARE LISTED BELOW Current Visit: No Qualifiers: Coronary Disease-Associated Artery/Lesion type: bypass graft [place] vs. transplanted heart: [place] heart Associated angina: with unspecified angina Qualified Code(s): I25.709 - Atherosclerosis of coronary artery bypass graft(s) , unspecified, with unspecified angina pectoris (7) Depressive disorder Status: Chronic Assessment and plan: SEE PLAN OF CARE LISTED BELOW Current Visit: No (8) Dyslipidemia (high LDL; low HDL) Status: Chronic Assessment and plan: SEE PLAN OF CARE LISTED BELOW Current Visit: No (9) Coronary artery disease Status: Chronic Assessment and plan: SEE PLAN OF CARE LISTED BELOW Current Visit: Yes Qualifiers: Coronary Disease-Associated Artery/Lesion type: [place] artery (10) Urinary tract infection Status: Acute Assessment and plan: SEE PLAN OF CARE LISTED BELOW Current Visit: Yes (11) Anemia Status: Acute Assessment and plan: SEE PLAN OF CARE LISTED BELOW Current Visit: Yes (12) Hyperlipidemia Status: Chronic Assessment and plan: SEE PLAN OF CARE LISTED BELOW Current Visit: Yes (13) Pneumonia Status: Acute Assessment and plan: SEE PLAN OF CARE LISTED BELOW Current Visit: Yes Qualifiers: Laterality: left Lung location: lower lobe of lung (14) Mitral regurgitation Status: Chronic Assessment and plan: SEE PLAN OF CARE LISTED BELOW Current Visit: Yes Qualifiers: Cardiac valve disease etiology: nonrheumatic Qualified Code(s): I34.0 - Nonrheumatic mitral (valve) insufficiency (15) Acute renal failure Status: Acute Assessment and plan: SEE PLAN OF CARE LISTED BELOW Current Visit: Yes Qualifiers: Acute renal failure type: with acute renal cortical necrosis Qualified Code (s): N17.1 - Acute kidney failure with acute cortical necrosis (16) Atrial fibrillation Status: Acute Assessment and plan: SEE PLAN OF CARE LISTED BELOW Current Visit: Yes (17) Altered mental status Status: Acute Assessment and plan: SEE PLAN OF CARE LISTED BELOW Current Visit: Yes (18) ARDS (adult respiratory distress syndrome) Status: Acute Assessment and plan: SEE PLAN OF CARE LISTED BELOW Current Visit: Yes Cardiology - PN: Subj Interval history: STREET [employer] INSPECTOR: DR. CARRION SUMMARY: Ms. Meza, 82WF, has a history of known coronary artery disease ( status post CABG 2003 with abrupt closure within days of having her bypass grafting requiring emergent stenting at [facility]), hypertension, dyslipidemia, sedentary lifestyle, CVA. According to Dr. Carrion's last note in clinic in February 2017, he reviewed her heart catheterization films noted a failed attempt to wire ostium of the RCA with in-stent restenosis noted. He remarks she has had failed grafts, failed stents multiple times. He recommended medical management at this point. Echocardiogram February 22, 2017 reveals the following: EF 50%, grade 2 diastolic dysfunction, moderate with mild to moderate AI, PAP 35 mmHg + RAP. Patient was treated with antianginal agents including increasing Ranexa to maximum dose. Chest pain continued. She underwent cardiac catheterization April 06, 2017 with severe 2 vessel disease noted. (See cardiac catheterization report). Because the CAD is not amenable to percutaneous intervention, Dr. Reyes was consulted for possible redo bypass surgery, AVR. However, patient continued to deteriorate and she was not felt to be a candidate for bypass/AVR. April 11, 2017 Dr. Carrion performed POBA of the ostium of the RCA, successful PCI with JENNY of the ostial left circumflex. She tolerated the cardiac catheterization well. She required mechanical ventilation for hypoxia and respiratory distress. She has been treated for possible underlying infectious process, UTI, congestive heart failure. At one point, she was using continues IV Lasix and this is being transitioned to IV pushes. APRIL 18, 2017: Over the weekend, patient began to experience atrial fibrillation with rapid ventricular response. She was started on IV amiodarone for better rate control. She is requiring phenylephrine for hypotension. Neurologically, she has also continued to decline. CT of head revealed no evidence of bleeding and it is suspected that she has global hypoperfusion from her hypotension and high dose pressors affecting her neurological status. She is now DNR. Creatinine continues to worsen, now 3.4. She is hyperkalemic with a potassium of 5.7 today. Anemia persists but appears to be relatively stable with no overt bleeding. Greater than 30 minutes was spent today discussing patient's poor prognosis with daughter. Patient did respond to aggressive nipple stimulation but no other response. Will further discuss with Dr. Skaggs and await his recommendations. APRIL 19, 2017: Overnight, patient has become significantly anemic. I will hold her Eliquis and Plavix today knowing the risks of holding both. Slowly transfusing 2 units of packed red blood cells today. Hyperkalemia has resolved with addition of Kayexalate yesterday and holding of exogenous potassium replacement. Propofol has been held for 48 hours and there is little response noted. White blood cell count has increased to 23.9. Unfortunately, no real improvement in creatinine. She is entering multi organ failure. She is "DNR." Dr. Pastrana made adjustments and ventilator regimen this morning. At this point , ABGs seem to have worsened a bit with these adjustments. Poor prognosis reinforced with daughter today. Will further discuss with Dr. Skaggs and await additional recommendations. APRIL 20, 2017: Patient has undergone CT of head which revealed no acute changes. She will most likely undergo dialysis soon. Dr. Ellison placed left internal jugular vein dialysis catheter this morning. No significant improvement in her mentation is noted. She is hyperkalemic today. If she is undergoing dialysis today we will not treat with Kayexalate. Continue to follow her labs daily. Hemoglobin 8.4, hematocrit 26.3. Again, continue to follow these labs. We are continuing to hold Plavix and Eliquis. This will be day 2 without her Plavix. Will further discuss with Dr. Skaggs and await additional recommendations. APRIL 21, 2017: Patient underwent dialysis yesterday, 2 hours. She tolerated this well. She is currently undergoing dialysis and is scheduled to undergo 3 hours this morning. She remains significantly anemic again this morning. She is currently being transfused with dialysis. I will discuss with and await additional recommendations. May need a GI evaluation versus continued monitoring. Poor prognosis is noted. She remains lethargic and not following commands. This is day 3 without her Plavix. Unfortunately, we cannot introduce while she if she is actively losing blood. APRIL 22, 2017: Patient underwent hemodialysis for 3 hours yesterday and tolerated this well. She is making a little more urine overnight. Creatinine has improved to 1.9. Hyperkalemia has resolved. Dr. Skaggs started Brilinta last evening as she has a JENNY to the ostial circumflex, POBA of the ostium of the RCA performed April 11, 2017. Plavix and Eliquis were held several days due to her anemia requiring transfusion. Brilinta was started last evening. We are watching her hemoglobin and hematocrit closely. Check stools today for blood. Will discuss with Dr. Skaggs possible GI consultation. Neurologically, there is no improvement. Pulmonology is following as she has ARDS. Continues to require phenylephrine for blood pressure support. Patient is critically ill. DNR. ASSESSMENT/PLAN: 1. CAD S/P CABG - Severe three-vessel coronary artery disease (see above recent revascularization). Brilinta started last evening. 2. HYPOTENSION - Continuing with vasopressor as needed. History of underlying hypertension. 3. HYPERKALEMIA - resolved post HD. Continue to monitor this daily. 4. DYSLIPIDEMIA - LDL 125. Continue lipid lowering agent. 5. AORTIC STENOSIS, MODERATE - Continue current plan of care per recent echo February 2017 6. BRUIT, CAROTID RIGHT - Carotid ultrasound reveals no significant stenosis. 7. ATRIAL FIBRILLATION - Rate controlled on Amiodarone 400 mg twice daily. Unfortunately, we will have to hold Eliquis at this time due to her anemia. 8. UTI - continue current plan of care, continuing Levaquin, Macrobid, Meropenem. 9. CARDIAC MURMUR - murmur. Recent echo reveals moderate , mild to moderate AI. 10. ACUTE RENAL FAILURE, STAGE IV - Avoiding nephrotoxic agents. Most likely related to hypoperfusion and pressors. 11. ACUTE ON CHRONIC CHF - Secondary to diastolic dysfunction, NYHA Class IV. Continue current plan of care. 12. DNR - Continue current plan of care. 13. ANEMIA - Brilinta started last evening. Checking stool for OB this morning. May need GI consult. Will discuss with Dr. Skaggs. 14. ARDS - no improvement. Appreciate Pulmonary's assistance. Exam (Progress Note) - Constitutional Vitals: Period Temp Pulse Resp BP Sys/Alas Pulse Ox Last 24 Hr 97.8 F-100.5 F 89-120 13-258 88-161/42-102 84-99 Exam: Exam: General: [Intubated. Appears ill. Pale.] HEENT: [Pupils nonreactive to light. Atraumatic. Mucous membranes moist. No jaundice noted. Conjunctiva moist and clear, sclerae anicteric] Neck: No obvious JVD/HJR, no thyromegaly or lymphadenopathy noted. Right carotid bruit noted. No tracheal deviation noted Cardiac: [Irregularly irregular rhythm, controlled rate. [III/ systolic ejection murmur heard best at second intercostal space to the right. Lungs: [Rhonchi noted throughout. Symmetrical chest wall movements. Abdomen: Soft, bowel sounds normoactive. [place] catheter intact draining clear yellow urine. Frequent diarrheal stools noted. Musculoskeletal: No fluid collection. Decreased range of motion is noted. Extremities: No clubbing, cyanosis noted. [1+ bilateral lower extremity edema. Upper extremity pulses 2+. Lower extremity pulses 2+. Capillary refill less than 3 seconds. Skin: No unusual lesions or rashes. No skin breakdown appreciated. Neuro: Not responding to verbal stimulation. Occasionally responding to aggressive tactile stimulation. Result/EKG - Labs CBC & BMP: 04/22/17 03:41 04/22/17 03:40 Lab Results: I have reviewed the past 24 hour labs Labs: Laboratory Results - last 24 hr 04/21/17 04/21/17 04/21/17 11:14 17:33 23:20 WBC RBC Hgb Hct MCV MCH MCHC RDW Plt Count MPV Neut % (Auto) Lymph % (Auto) Hendricks % (Auto) Eos % (Auto) Baso % (Auto) Neut # (Auto) Lymph # (Auto) Hendricks # (Auto) Eos # (Auto) Baso # (Auto) Total Counted Immature Gran % Nucleated RBC % Immature Gran # Segmented Neutrophils Band Neutrophils Lymphocytes Monocytes Nucleated RBCs Nucleated RBCs # Platelet Estimate Polychromasia Hypochromasia Macrocytosis INR PT Patient/Control Mix Circ Anticoag PTT ABG pH ABG pCO2 ABG pO2 ABG HCO3 ABG Total CO2 ABG O2 Saturation ABG Base Excess FiO2 Sodium Potassium Chloride Carbon Dioxide Anion Gap BUN Creatinine GFR Calculation BUN/Creatinine Ratio Glucose POC Glucose 140 H 152 H 155 H Calculated Osmolality Calcium Magnesium 04/22/17 04/22/17 04/22/17 03:25 03:40 03:40 WBC RBC Hgb Hct MCV MCH MCHC RDW Plt Count MPV Neut % (Auto) Lymph % (Auto) Hendricks % (Auto) Eos % (Auto) Baso % (Auto) Neut # (Auto) Lymph # (Auto) Hendricks # (Auto) Eos # (Auto) Baso # (Auto) Total Counted Immature Gran % Nucleated RBC % Immature Gran # Segmented Neutrophils Band Neutrophils Lymphocytes Monocytes Nucleated RBCs Nucleated RBCs # Platelet Estimate Polychromasia Hypochromasia Macrocytosis INR 1.3 PT Patient/Control Mix 14.0 Circ Anticoag PTT 34.7 ABG pH 7.330 L ABG pCO2 61.4 H ABG pO2 108.0 H ABG HCO3 28.7 H ABG Total CO2 29.4 H ABG O2 Saturation 98.0 ABG Base Excess 4.7 H FiO2 100.00 Sodium 148 H Potassium 5.0 Chloride 107 Carbon Dioxide 32 Anion Gap 14.0 BUN 119 H D Creatinine 1.90 H GFR Calculation 27 BUN/Creatinine Ratio 62.00 H Glucose 129 H POC Glucose Calculated Osmolality 333.3 H Calcium 8.0 L Magnesium 3.0 H 04/22/17 04/22/17 04/22/17 03:41 06:01 07:17 WBC 27.4 H RBC 3.21 L D Hgb 10.3 L D Hct 32.9 L MCV 102.5 H MCH 32 MCHC 31.3 L RDW 15.2 Plt Count 168 D MPV 11.1 Neut % (Auto) 85.9 H Lymph % (Auto) 2.4 L Hendricks % (Auto) 4.3 Eos % (Auto) 0.0 Baso % (Auto) 0.1 Neut # (Auto) 23.5 H Lymph # (Auto) 0.7 L Hendricks # (Auto) 1.2 H Eos # (Auto) 0.0 Baso # (Auto) 0.0 Total Counted 100 Immature Gran % 7.3 Nucleated RBC % 6.1 Immature Gran # 2.00 Segmented Neutrophils 91 H Band Neutrophils 1 Lymphocytes 3 L Monocytes 5 Nucleated RBCs 8 H Nucleated RBCs # 1.67 Platelet Estimate Normal Polychromasia Slight Hypochromasia 1+ Macrocytosis Slight INR PT Patient/Control Mix Circ Anticoag PTT ABG pH 7.331 L ABG pCO2 63.4 H ABG pO2 61.4 L ABG HCO3 29.5 H ABG Total CO2 30.7 H ABG O2 Saturation 90.6 L ABG Base Excess 5.8 H FiO2 80.00 Sodium Potassium Chloride Carbon Dioxide Anion Gap BUN Creatinine GFR Calculation BUN/Creatinine Ratio Glucose POC Glucose 130 H Calculated Osmolality Calcium Magnesium - Diagnostic Findings Procedure: Chest x-ray: report reviewed by me - EKG EKG results: interpreted by me EKG shows: tachycardia Quality Measures - VTE Contraindication to Pharmacological VTE Prophylaxis: High Risk of Bleeding
--- NOTE | 2017-04-22 11:35 | Neurology Progress Note ---
Neurology - PN : Subjective Interval history: Pt continue to remain same. Getting dialyzed third time today. No change in mental status so far. WBC counts are going up steadily. Exam (Progress Note) - Constitutional Vitals: Period Temp Pulse Resp BP Sys/Alas Pulse Ox Last 24 Hr 97.8 F-100.5 F 89-122 20-258 88-155/42-102 89-99 Exam: GENERAL: Patient is in no acute distress. NECK: Neck is supple. There is no JVD. No carotid bruits present. No thyroid masses. CVS: First and second heart sounds are normal. There is no S3 present. Regular rate and rhythm. RESPIRATORY: Lungs are clear to auscultation without any rales or rhonchi. ABDOMEN: Soft and non-tender. Bowel sounds are present. There is no hepatosplenomegaly. EXT: There is no palpable edema. Peripheral pulses are present. Skin: No rashes Central Nervous system: General: Unresponsive on vent Speech: None Comprehension: None Facial expressions: Normal Cranial Nerves: Pupils are very small nonreactive. Doll's head eye movements are negative. No facial asymmetry is seen. Motor: Bulk and Tone is normal. Strength cannot be assessed Sensory: Cannot be assessed Reflexes: 1+ and symmetrical Cerebellar function: Cannot be assessed Toes: Equivocal Gait: Cannot be assessed Results - Labs CBC & BMP: 04/22/17 03:41 04/22/17 03:40 Assessment and Plan (1) Unresponsiveness Status: Acute Assessment and plan: Differential diagnoses included stroke, seizure, metabolic/infectious encephalopathy. Continue Depakote at the same dose Will order Spinal tap under fluoroscopy to be done today or tomorrow. Current Visit: Yes Quality Measures - VTE Contraindication to Pharmacological VTE Prophylaxis: High Risk of Bleeding
--- NOTE | 2017-04-22 13:06 | Nephrology Progress Note ---
Nephrology - PN: Subj Interval history: The patient's condition is about the same. Has had good urine output 75 cc an hour. Serum creatinine is 1.9. Plan for hemodialysis today as her third dialysis session. She still requires pressor medications. Exam (PN)-Nephrology - Vital Signs Vital signs: Period Temp Pulse Resp BP Sys/Alas Pulse Ox Last 24 Hr 97.8 F-99.1 F 91-122 20-258 88-155/42-96 89-99 - General Appearance General appearance: intubated EENT: ATNC Neck: supple Respiratory: clear Cardiology: regular rate, regular rhythm Gastrointestinal: normoactive bowel sounds, no tenderness, no guarding Integumentary: no rash - Lab 04/22/17 03:41 04/22/17 03:40 Most recent lab results ABG pH 7.331 (7.35-7.45) L 04/22/17 07:17 ABG pCO2 63.4 MM HG (35-48) H 04/22/17 07:17 ABG pO2 61.4 MM HG (80-95) L 04/22/17 07:17 ABG HCO3 29.5 MMOL/L (20-26) H 04/22/17 07:17 ABG O2 Saturation 90.6 % (95-100) L 04/22/17 07:17 Calcium 8.0 MG/DL (8.5-10.1) L 04/22/17 03:40 Phosphorus 4.0 MG/DL (2.5-4.9) 04/18/17 05:16 Magnesium 3.0 MG/DL (1.8-2.4) H 04/22/17 03:40 Assessment and Plan (1) CAD (coronary artery disease) Status: Chronic Current Visit: No Qualifiers: Coronary Disease-Associated Artery/Lesion type: bypass graft [place] vs. transplanted heart: [place] heart Associated angina: with unspecified angina Qualified Code(s): I25.709 - Atherosclerosis of coronary artery bypass graft(s) , unspecified, with unspecified angina pectoris (2) Hx of CABG Status: Chronic Current Visit: Yes (3) Hypertension Status: Resolved Current Visit: Yes Qualifiers: Hypertension type: essential hypertension Qualified Code(s): I10 - Essential (primary) hypertension (4) Hypotension Status: Acute Assessment and plan: on presso Current Visit: Yes Qualifiers: Hypotension type: unspecified hypotension type Qualified Code(s): I95.9 - Hypotension, unspecified (5) Acute renal failure Status: Acute Assessment and plan: Acute renal failure due to ATN. Tolerating hemodialysis. Plan for hemodialysis today. BUN remains above 100. Serum creatinine is now 1.9. Non oliguric. Current Visit: Yes Qualifiers: Acute renal failure type: with acute renal cortical necrosis Qualified Code (s): N17.1 - Acute kidney failure with acute cortical necrosis
--- NOTE | 2017-04-22 13:23 | Dialysis Note ---
Dialysis Note - Dialysis Note Patient seen on dialysis tolerating the procedure. Blood pressure is 106/50.
[2017-04-22] MEDS: DESITIN 4OZ/NYSTATIN 15 GRAM MIXTURE PASTE TOP SCH ×2 (15:11→20:39)
[2017-04-22] MEDS: LEVOFLOXACIN INJ 250 MG in PREMIX 1 EACH IV SCH (17:05)
[2017-04-22] MEDS: PRAVASTATIN 40 MG TABLET PO SCH (20:35)
[2017-04-22] MEDS: MINERAL OIL/PETROLATUM OPH OINT 3.5 GM TUBE BOTH EYES SCH (20:35)
[2017-04-22] MEDS: GABAPENTIN 100 MG CAPSULE PO SCH (20:35)
--- NOTE | 2017-04-22 21:01 | Event Note ---
Received call from nurse regarding Mrs. Meza at the request of the family to discuss further care for Ms. Meza. The family voice that it appeared to Ms. Meza was not getting better from the therapy that was done. They wanted to discuss further comfort care for Ms. Meza. They expressed that Ms. Meza would not want prolonged ventilation if there were signs that she was not getting better. Gait family for the opportunity for her to ask any other questions they had none and were confirmed with other family members regarding comfort measures.
--- NOTE | 2017-04-22 21:03 | Event Note ---
The family members have decided on comfort measures for Ms. Meza. They have stated that Ms. Tsering Meza would not want prolonged care if there were no signs of improvement. According to patient's wish they are now ready to proceed with comfort measures.. Moreover family members would like to start withdrawing support.
[2017-04-23] MEDS: VALPROIC ACID INJ 500 MG in SODIUM CHLORIDE 0.9% 100 ML IV SCH (00:09)
[2017-04-23] MEDS: INSULIN REGULAR 100 UNIT/ML SUBCUT SCH ×2 (00:09→05:44)
[2017-04-23] MEDS: PHENYLEPHRINE INJ 160 MG in SODIUM CHLORIDE 0.9% 234 ML IV SCH (01:31)
[2017-04-23] MEDS: LEVALBUTEROL 0.63 MG/3 ML NEB RESP TX SCH ×2 (02:05→07:13)
--- NOTE | 2017-04-23 06:31 | Pulmonology Progress Note ---
Pulmonary - PN: Subj Interval history: This 82-year-old white female had congestive heart failure and respiratory failure. She had a coronary stent placed. She has a decreased level of consciousness. Creatinine has risen to 2.4. Family has now made her DO NOT RESUSCITATE. However we are continuing to try to wean her from the ventilator. She is on 80% oxygen and has an oxygen saturation of 93%. We will try to reduce back to a level where we can start CPAP. 04/14/2017 patient has gotten worse overnight. Oxygen saturations dropped. She is now on 100% with 12 of PEEP and has a PO2 of 65. Chest x-ray looks wetter. We have been trying to hydrate her to save kidney function. However I do think she is a bit on the wet side. We will try 1 dose of Lasix. Also getting up occasional thick material from her endotracheal tube. Concerned that she may have some plugs although I do not see any atelectasis on the x-ray. Will bronchoscope her this morning. Discussed with patient's daughter. Prognosis is poor. I do note that the family has made her DO NOT RESUSCITATE. We will continue full support however. this 82-year-old lady has congestive heart failure with valvular heart disease and diastolic dysfunction. Also has apparent pneumonia. She is on Zosyn and Levaquin. Chest x-ray shows diffuse infiltrates. Her PO2 is 110 on 100% oxygen this morning. Will reduce to 80%. Still requiring fairly high PEEP. She does apparently have ARDS in addition to the above. When her sedation is held she will open her eyes and follow. 04/18/2017 patient's PO2 is now 180 on 100% oxygen. Reducing to 70%. Still has a high PCO2. Has ARDS and some difficulty ventilating her. Her mental status is worse. The daughter relates that she did follow a little bit over the weekend. She has not been on any sedation for 24 hours and she is totally unresponsive. Will ask neurology to see her. Chest x-ray still shows diffuse interstitial infiltrates. 04/19/2017 PO2 is 87 on 70% oxygen with 12 of PEEP. Will reduce ventilator settings a little. PCO2 remains elevated. Patient closed her eyes on command. Could not get her to do anything else including squeeze fingers or nods to questions. 04/20/2017 PO2 is 76 on 80% oxygen. Unable to reduce ventilator any further. Patient does move about a little when sedation is held. Chest x-ray still shows diffuse pulmonary edema. 04/21/2017 PO2 is 96. Will reduce FiO2 to 70%. Go back to assist control. Minute ventilation is not adequate with PCO2 of 70. However increasing further will likely increase risk of barotrauma. Patient is starting dialysis. Had first round yesterday. Hopefully we can help with her interstitial edema with that. I think much of what we see on her chest x-ray is ARDS. 04/22/2017 patient had oxygen turned back up to 100% during the night. PO2 is over 100 now. Will try to reduce back to 80% and increase her PEEP to 14. She has ARDS. Acute kidney injury being treated with dialysis. Hopefully we can offload some fluid that way. He has congestive heart failure and valvular heart disease. 04/23/2017 patient not making any progress and unresponsive off sedation. Family has decided to go to comfort measures. Her prognosis is very poor. Agree with those plans. Family is together today and then we will plan withdrawal from the ventilator after that. Exam (Progress Note) - Constitutional Vitals: Period Temp Pulse Resp BP Sys/Alas Pulse Ox Last 24 Hr 98.0 F-109 F 88-122 17-26 74-136/38-87 88-98 Exam: Patient not responding, currently not sedated. Systolic blood pressure in the 110s. Pulse of about 110. pupils react to light. Orotracheal tube in place. Neck is supple no bruits. Chest reveals a few scattered rhonchi. Equal breath sounds. Heart is regular without murmurs. Abdomen soft no masses. Extremities no clubbing cyanosis. Trace of edema. Results - Labs CBC & BMP: 04/22/17 03:41 04/22/17 03:40 Lab Results: I have reviewed the past 24 hour labs Assessment and Plan (1) Acute respiratory failure Status: Acute Assessment and plan: This may all be due to congestive heart failure. However with high requirement for PEEP there may be an element of ARDS. Will adjust PEEP and FiO2. Hopefully with diuresis we can get her down to where she can start weaning trials. This will likely take a few days. This was discussed with the patient' s daughter at the bedside. 04/13/2017 chest x-ray is improved following diuresis. Still fairly wide A-a O2 difference suggesting an element of ARDS. 04/14/2017 PO2 has dropped. Now on 100% with 12 of PEEP. 04/15/17 PO2 110 on 100% oxygen with 12 of PEEP. Will reduce to 80%. Try to get FiO2 down to 60% and then reduce PEEP. 04/18/2017 still has elevated PCO2 despite mechanical ventilation. Renal insufficiency makes it difficult to try to treat that with Diamox. Still requiring high FiO2 and PEEP. 04/19/2017 ARDS. Requiring high FiO2 and PEEP. Requiring high minute ventilation. Prognosis guarded 04/20/2017 still requiring high FiO2 and PEEP. 04/21/2017 PO2 is 96 on 80% with 12 of PEEP. Will reduce to 70%. PCO2 still elevated at 70 despite IMV of 20. Will change to assist control. Not ready for any weaning trials yet. 04/22/2017 trying to reduce FiO2. Will increase PEEP to 14. Would like to get FiO2 down to 60% if we can. 04/23/2017 patient not making progress on weaning. Family has decided to withdraw support and I agree with their plans. Prognosis is grave. Current Visit: Yes (2) Urinary tract infection Status: Acute Assessment and plan: Klebsiella UTI covered with Levaquin. 04/13/2017 UTI should be well covered. Current Visit: Yes (3) Aortic stenosis Status: Chronic Assessment and plan: Noted at catheterization please see those reports. 04/13/2017 has valvular as well as coronary disease. 04/14/2017 multiple reason for congestive heart failure. 04/15/17 again has aortic stenosis as a major cause for her congestive heart failure. Not able to tolerate surgical consideration at this time. 04/18/2017 congestive heart failure due to aortic stenosis is part of the problem. 04/19/17 congestive heart failure due to aortic stenosis. This is in addition to her ARDS 04/20/2017 congestive heart failure in addition to ARDS. 04/21/2017 congestive heart failure due to aortic stenosis, mitral regurgitation, and she has superimposed ARDS. 04/22/2017 could not tolerate surgery at the present time. 04/23/2017 primary cause of her congestive heart failure. Unable to get patient tuned up for surgery. Current Visit: Yes Qualifiers: Cardiac valve disease etiology: nonrheumatic Qualified Code(s): I35.0 - Nonrheumatic aortic (valve) stenosis (4) Heart failure, diastolic, acute Status: Acute Assessment and plan: Needs further diuresis. Renal function appears stable. 04/13/2017 trying to diurese depending on renal function. 04/15/17 x-ray still looks a little bit wet. Difficult to tell with superimposed pneumonia and ARDS. 04/18/2017 x-ray still looks wet. Primarily due to ARDS at this point I would think 04/19/17 cardiology following. 04/20/2017 continue to be followed by cardiology. 04/21/2017 not a surgical candidate due to multisystem disease, has aortic and mitral valve disease. Also diastolic heart failure. 04/22/2017 trying to offload her with renal replacement therapy 04/23/2017 lungs remain wet despite all we're doing. Current Visit: Yes (5) Mitral regurgitation Status: Chronic Assessment and plan: Also part of her called for congestive heart failure. This was felt to be ischemic in etiology. Current Visit: Yes Qualifiers: Cardiac valve disease etiology: nonrheumatic Qualified Code(s): I34.0 - Nonrheumatic mitral (valve) insufficiency
--- NOTE | 2017-04-23 08:35 | Cardiology Progress Note ---
Assessment and Plan - Time spent with patient Time spent with patient: Greater than 30 minutes (1) Hx of CABG Status: Chronic Assessment and plan: SEE PLAN OF CARE LISTED BELOW Current Visit: Yes (2) Hypertension Status: Resolved Assessment and plan: SEE PLAN OF CARE LISTED BELOW Current Visit: Yes Qualifiers: Hypertension type: essential hypertension Qualified Code(s): I10 - Essential (primary) hypertension (3) Aortic stenosis Status: Chronic Assessment and plan: SEE PLAN OF CARE LISTED BELOW Current Visit: Yes Qualifiers: Cardiac valve disease etiology: nonrheumatic Qualified Code(s): I35.0 - Nonrheumatic aortic (valve) stenosis (4) Right carotid bruit Status: Chronic Assessment and plan: SEE PLAN OF CARE LISTED BELOW Current Visit: Yes (5) Chest pain Status: Acute Assessment and plan: SEE PLAN OF CARE LISTED BELOW Current Visit: No (6) CAD (coronary artery disease) Status: Chronic Assessment and plan: SEE PLAN OF CARE LISTED BELOW Current Visit: No Qualifiers: Coronary Disease-Associated Artery/Lesion type: bypass graft [place] vs. transplanted heart: [place] heart Associated angina: with unspecified angina Qualified Code(s): I25.709 - Atherosclerosis of coronary artery bypass graft(s) , unspecified, with unspecified angina pectoris (7) Depressive disorder Status: Chronic Assessment and plan: SEE PLAN OF CARE LISTED BELOW Current Visit: No (8) Dyslipidemia (high LDL; low HDL) Status: Chronic Assessment and plan: SEE PLAN OF CARE LISTED BELOW Current Visit: No (9) Coronary artery disease Status: Chronic Assessment and plan: SEE PLAN OF CARE LISTED BELOW Current Visit: Yes Qualifiers: Coronary Disease-Associated Artery/Lesion type: [place] artery (10) Urinary tract infection Status: Acute Assessment and plan: SEE PLAN OF CARE LISTED BELOW Current Visit: Yes (11) Anemia Status: Acute Assessment and plan: SEE PLAN OF CARE LISTED BELOW Current Visit: Yes (12) Hyperlipidemia Status: Chronic Assessment and plan: SEE PLAN OF CARE LISTED BELOW Current Visit: Yes (13) Pneumonia Status: Acute Assessment and plan: SEE PLAN OF CARE LISTED BELOW Current Visit: Yes Qualifiers: Laterality: left Lung location: lower lobe of lung (14) Mitral regurgitation Status: Chronic Assessment and plan: SEE PLAN OF CARE LISTED BELOW Current Visit: Yes Qualifiers: Cardiac valve disease etiology: nonrheumatic Qualified Code(s): I34.0 - Nonrheumatic mitral (valve) insufficiency (15) Acute renal failure Status: Acute Assessment and plan: SEE PLAN OF CARE LISTED BELOW Current Visit: Yes Qualifiers: Acute renal failure type: with acute renal cortical necrosis Qualified Code (s): N17.1 - Acute kidney failure with acute cortical necrosis (16) Atrial fibrillation Status: Acute Assessment and plan: SEE PLAN OF CARE LISTED BELOW Current Visit: Yes (17) Altered mental status Status: Acute Assessment and plan: SEE PLAN OF CARE LISTED BELOW Current Visit: Yes (18) ARDS (adult respiratory distress syndrome) Status: Acute Assessment and plan: SEE PLAN OF CARE LISTED BELOW Current Visit: Yes Cardiology - PN: Subj Interval history: TRIMMER LOADER: DR. CARRION SUMMARY: Ms. Meza, 82WF, has a history of known coronary artery disease ( status post CABG 2003 with abrupt closure within days of having her bypass grafting requiring emergent stenting at [facility]), hypertension, dyslipidemia, sedentary lifestyle, CVA. According to Dr. Carrion's last note in clinic in February 2017, he reviewed her heart catheterization films noted a failed attempt to wire ostium of the RCA with in-stent restenosis noted. He remarks she has had failed grafts, failed stents multiple times. He recommended medical management at this point. Echocardiogram February 22, 2017 reveals the following: EF 50%, grade 2 diastolic dysfunction, moderate with mild to moderate AI, PAP 35 mmHg + RAP. Patient was treated with antianginal agents including increasing Ranexa to maximum dose. Chest pain continued. She underwent cardiac catheterization April 06, 2017 with severe 2 vessel disease noted. (See cardiac catheterization report). Because the CAD is not amenable to percutaneous intervention, Dr. Reyes was consulted for possible redo bypass surgery, AVR. However, patient continued to deteriorate and she was not felt to be a candidate for bypass/AVR. April 11, 2017 Dr. Carrion performed POBA of the ostium of the RCA, successful PCI with JENNY of the ostial left circumflex. She tolerated the cardiac catheterization well. She required mechanical ventilation for hypoxia and respiratory distress. She has been treated for possible underlying infectious process, UTI, congestive heart failure. At one point, she was using continues IV Lasix and this is being transitioned to IV pushes. APRIL 18, 2017: Over the weekend, patient began to experience atrial fibrillation with rapid ventricular response. She was started on IV amiodarone for better rate control. She is requiring phenylephrine for hypotension. Neurologically, she has also continued to decline. CT of head revealed no evidence of bleeding and it is suspected that she has global hypoperfusion from her hypotension and high dose pressors affecting her neurological status. She is now DNR. Creatinine continues to worsen, now 3.4. She is hyperkalemic with a potassium of 5.7 today. Anemia persists but appears to be relatively stable with no overt bleeding. Greater than 30 minutes was spent today discussing patient's poor prognosis with daughter. Patient did respond to aggressive nipple stimulation but no other response. Will further discuss with Dr. Skaggs and await his recommendations. APRIL 19, 2017: Overnight, patient has become significantly anemic. I will hold her Eliquis and Plavix today knowing the risks of holding both. Slowly transfusing 2 units of packed red blood cells today. Hyperkalemia has resolved with addition of Kayexalate yesterday and holding of exogenous potassium replacement. Propofol has been held for 48 hours and there is little response noted. White blood cell count has increased to 23.9. Unfortunately, no real improvement in creatinine. She is entering multi organ failure. She is "DNR." Dr. Pastrana made adjustments and ventilator regimen this morning. At this point , ABGs seem to have worsened a bit with these adjustments. Poor prognosis reinforced with daughter today. Will further discuss with Dr. Skaggs and await additional recommendations. APRIL 20, 2017: Patient has undergone CT of head which revealed no acute changes. She will most likely undergo dialysis soon. Dr. Ellison placed left internal jugular vein dialysis catheter this morning. No significant improvement in her mentation is noted. She is hyperkalemic today. If she is undergoing dialysis today we will not treat with Kayexalate. Continue to follow her labs daily. Hemoglobin 8.4, hematocrit 26.3. Again, continue to follow these labs. We are continuing to hold Plavix and Eliquis. This will be day 2 without her Plavix. Will further discuss with Dr. Skaggs and await additional recommendations. APRIL 21, 2017: Patient underwent dialysis yesterday, 2 hours. She tolerated this well. She is currently undergoing dialysis and is scheduled to undergo 3 hours this morning. She remains significantly anemic again this morning. She is currently being transfused with dialysis. I will discuss with and await additional recommendations. May need a GI evaluation versus continued monitoring. Poor prognosis is noted. She remains lethargic and not following commands. This is day 3 without her Plavix. Unfortunately, we cannot introduce while she if she is actively losing blood. APRIL 22, 2017: Patient underwent hemodialysis for 3 hours yesterday and tolerated this well. She is making a little more urine overnight. Creatinine has improved to 1.9. Hyperkalemia has resolved. Dr. Skaggs started Brilinta last evening as she has a JENNY to the ostial circumflex, POBA of the ostium of the RCA performed April 11, 2017. Plavix and Eliquis were held several days due to her anemia requiring transfusion. Brilinta was started last evening. We are watching her hemoglobin and hematocrit closely. Check stools today for blood. Will discuss with Dr. Skaggs possible GI consultation. Neurologically, there is no improvement. Pulmonology is following as she has ARDS. Continues to require phenylephrine for blood pressure support. Patient is critically ill. DNR. APRIL 23, 2017: This morning, there is no improvement. Patient remains critically ill. Neurologically, she is not improving. Daughter is present as well as one son. They are considering discontinuing life support today. She is on phenylephrine at this time. I will further discuss with Dr. Skaggs and await additional recommendations. ASSESSMENT/PLAN: 1. CAD S/P CABG - Severe three-vessel coronary artery disease (see above recent revascularization). Brilinta started last evening. 2. HYPOTENSION - Continuing with vasopressor as needed. History of underlying hypertension. 3. HYPERKALEMIA - resolved post HD. Continue to monitor this daily. 4. DYSLIPIDEMIA - LDL 125. Continue lipid lowering agent. 5. AORTIC STENOSIS, MODERATE - Continue current plan of care per recent echo February 2017 6. BRUIT, CAROTID RIGHT - Carotid ultrasound reveals no significant stenosis. 7. ATRIAL FIBRILLATION - Rate controlled on Amiodarone 400 mg twice daily. Unfortunately, we will have to hold Eliquis at this time due to her anemia. 8. UTI - continue current plan of care, continuing Levaquin, Macrobid, Meropenem. 9. CARDIAC MURMUR - murmur. Recent echo reveals moderate , mild to moderate AI. 10. ACUTE RENAL FAILURE, STAGE IV - Avoiding nephrotoxic agents. Most likely related to hypoperfusion and pressors. 11. ACUTE ON CHRONIC CHF - Secondary to diastolic dysfunction, NYHA Class IV. Continue current plan of care. 12. DNR - Continue current plan of care. 13. ANEMIA - Brilinta recently restarted 14. ARDS - no improvement. Appreciate Pulmonary's assistance. Exam (Progress Note) - Constitutional Vitals: Period Temp Pulse Resp BP Sys/Alas Pulse Ox Last 24 Hr 98.0 F-109 F 88-122 17-22 74-129/38-81 88-98 Exam: Exam: General: [Intubated. Appears ill. Pale.] HEENT: [Pupils nonreactive to light. Atraumatic. Mucous membranes moist. No jaundice noted. Conjunctiva moist and clear, sclerae anicteric] Neck: No obvious JVD/HJR, no thyromegaly or lymphadenopathy noted. Right carotid bruit noted. No tracheal deviation noted Cardiac: [Irregularly irregular rhythm, controlled rate. [III/ systolic ejection murmur heard best at second intercostal space to the right. Lungs: [Rhonchi noted throughout. Symmetrical chest wall movements. Abdomen: Soft, bowel sounds normoactive. [place] catheter intact draining clear yellow urine. Frequent diarrheal stools noted. Musculoskeletal: No fluid collection. Decreased range of motion is noted. Extremities: No clubbing, cyanosis noted. [1+ bilateral lower extremity edema. Upper extremity pulses 2+. Lower extremity pulses 2+. Capillary refill less than 3 seconds. Skin: No unusual lesions or rashes. No skin breakdown appreciated. Neuro: Not responding to verbal stimulation. Occasionally responding to aggressive tactile stimulation. Result/EKG - Labs CBC & BMP: 04/22/17 03:41 04/22/17 03:40 Lab Results: I have reviewed the past 24 hour labs Labs: Laboratory Results - last 24 hr 04/21/17 04/22/17 04/22/17 08:08 11:34 18:04 POC Glucose 145 H 145 H Blood Type Cancelled Antibody Screen Cancelled Crossmatch See Detail Blood Bank Comment Cancelled - Diagnostic Findings Procedure: Chest x-ray: report reviewed by me - EKG EKG results: interpreted by me EKG shows: tachycardia Quality Measures - VTE Contraindication to Pharmacological VTE Prophylaxis: High Risk of Bleeding
--- NOTE | 2017-04-23 08:39 | Cardiothoracic Progress Note ---
Cardiothoracic Subjective Interval history: Decision has been made to withdraw active support and to provide comfort measures only. I think this is very reasonable and I have discussed it with family members are present this morning. Exam (Progress Note) - Constitutional Vitals: Period Temp Pulse Resp BP Sys/Alas Pulse Ox Last 24 Hr 98.0 F-109 F 88-122 17-22 74-129/38-81 88-98 Result/EKG - Labs CBC & BMP: 04/22/17 03:41 04/22/17 03:40 Labs: Laboratory Results - last 24 hr 04/21/17 04/22/17 04/22/17 08:08 11:34 18:04 POC Glucose 145 H 145 H Blood Type Cancelled Antibody Screen Cancelled Crossmatch See Detail Blood Bank Comment Cancelled Quality Measures - VTE Contraindication to Pharmacological VTE Prophylaxis: High Risk of Bleeding
[2017-04-23] MEDS ORDERED: LORazepam 2 MG/1 ML VIAL ONE (09:28)
[2017-04-23] MEDS: MORPHINE 2 MG/1 ML SYRINGE IV PRN ×2 (09:35→09:50)
[2017-04-23 10:11] VITALS: BP 89/43
[2017-04-23] MEDS ORDERED: LORazepam 2 MG/1 ML VIAL IV PRN (11:17)
--- NOTE | 2017-04-23 14:26 | Discharge Summary ---
Hospital Course - Hospital Course Hospital Course: The patient was admitted or ischemic symptoms. Cath revealed significant disease--CAD and presumed ischemic MR. He is attempted to intervene. Is a high risk intervention. She been turned down for surgery. Postoperatively she had some mental dysfunction. He continued. She had renal dysfunction. She ultimately required dialysis. She developed ARDS. yesterday the family had noted that the patient would not want prolonged artificial support. Thus, they felt we should withdraw. It was thought about overnight, and they continue to agree if this would be her thoughts. With multiorgan failure, Dr. Pastrana felt her chance of meaningful survival, particular with a neurological status not improving, was extremely low. He did not disagree with their decision or thoughts. Support was withdrawn and she promptly . condolences were given the family. Body was released to home. - Time spent with patient Time with patient DS: Greater than 30 minutes Diagnosis - Discharge Diagnosis (1) Stented coronary artery Status: Acute (2) DOV (acute kidney injury) Status: Acute (3) Altered mental status Status: Acute (4) Anemia Status: Acute (5) Atrial fibrillation Status: Acute (6) Hypotension Status: Acute (7) Unresponsiveness Status: Acute (8) Coronary artery disease Status: Chronic (9) Hx of CABG Status: Chronic (10) Mitral regurgitation Status: Chronic Discharge Plan - Discharge Data Disposition: Condition at Discharge: Discharge Diet: other Activity: other Hygiene: other Weight Bearing at Discharge: other Driving: other - Discharge Medications No Action Acetaminophen Tab [Tylenol Tab] 500 mg PO Q6HR PRN PRN Reason: Pain Nitroglycerin Sl Tab [Nitrostat] 0.4 mg SL Q5M PRN PRN Reason: Chest Pain Metoprolol Tartrate Tab [Lopressor Tab] 25 mg PO BID Sertraline [Zoloft] 50 mg PO DAILY Pravastatin [Pravachol] 40 mg PO BEDTIME buPROPion [Wellbutrin] 100 mg PO DAILY Prasugrel [Effient] 10 mg PO DAILY amLODIPine [Norvasc] 10 mg PO DAILY Aspirin EC Tab 81 mg PO DAILY Oxycodone HCl/Acetaminophen [Oxycodon-Acetaminophen 7.5-325] 1 each PO Q6H PRN PRN Reason: Pain Nitrofurantoin Macrocrystals [Macrodantin] 50 mg PO DAILY Multivit-Min/Iron/Folic/Lutein [Centrum Silver Women Tablet] 1 each PO DAILY Lisinopril 10 mg PO DAILY Famotidine 20 mg PO BID Gabapentin 400 mg PO TID Ranolazine [Ranexa] 500 mg PO BID #60 tablet Meloxicam [Meloxicam] 15 mg PO DAILY Isosorbide Mononitrate [Isosorbide Mononitrate ER] 60 mg PO DAILY - Follow Up or Referral - Forms/Instructions Exam - Constitutional Vitals: Period Temp Pulse Resp BP Sys/Alas Pulse Ox Last 24 Hr 98.2 F-99.1 F 88-109 20-32 74-129/38-81 88-97 Exam: HEENT: Pupils equal, reactive to light and accommodation Neck: NoJVD or bruit Lungs clear to auscultation Heart: Regular rhythm rate with normal S1 and S2. Apical S4, 2/6 systolic ejection murmur along the left lower sternal border and At the apex Abdomen: No hepatosplenomegaly Spine/extremities: No clubbing, cyanosis, or edema Neuro: Nonfocal Psych: No depression or anxiety Discharge Results Procedures and tests throughout hospitalization: Pending Orders 04/22/17 14:00 Urine Culture Routine Labs on day of discharge: Labs from last 24 hours 04/22/17 04/21/17 18:04 08:08 POC Glucose 145 H Blood Type Cancelled Antibody Screen Cancelled Crossmatch See Detail Blood Bank Comment Cancelled DS: Provider Date of admission: 04/07/17 12:38 Primary care physician: . 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 Conner Date Notified: 04/11/17 Time Notified: 15:45 04/11/17 17:14 Consult to Cardiac Rehabilitation [CONS] Routine Reason for Cardiac Rehabilitation: Risk Factor Modification 04/12/17 12:41 Consult to Dietitian [CONS] Routine Reason for Dietitian: TF-Initiate/Manage 04/13/17 08:20 Consult to Physician [CONS] Routine Comment: acute renal failure - hypotension and contrast Consulting Provider: Teddy Benson Jr. Consulting Provider Notified: Yes Consult to Specialist Group: Nephrology Person Notified: RY Date Notified: 04/13/17 Time Notified: 09:00 04/18/17 07:43 Consult to Physician [CONS] Routine Comment: Consulting Provider: Samir Tovar Consulting Provider Notified: Yes Consult to Specialist Group: Neurology When should Consulting Provider be notified: Now Person Notified: Dr. Downing Date Notified: 04/18/17 Time Notified: 16:01 Consult Notification Comment: will see patient in am SPOKE WITH GRIFFIN 04/19/17 @ 8:30 04/19/17 16:16 Consult to Physician [CONS] Routine Comment: temporary dialysis catheter Consulting Provider: Jesus Ellison III. Consult to Specialist Group: Surgery When should Consulting Provider be notified: Now Person Notified: Dr Scot GREENE Date Notified: 04/19/17 Time Notified: 16:18 Consult Notification Comment: notified of consult, need for HD cath OK by Dr Benson to wait till in AM for placement Discharging clinician: Alejandro Skaggs MD
== END 2017-04-23 09:52 | disposition expired | DRG 246 ==
LOC: EDUNIT# → EDBD → N.ED 04:51 → N.EDINP 04:51 → N.TELES 09:45 → N.ICU 04-07 21:02
PROVIDERS: ADMIT Internal Medicine Clinical Cardiac Electrophysiology; ATTEND Internal Medicine Clinical Cardiac Electrophysiology
PROC: CLCCHCL (ICD-10-PCS; 2017-04-06 16:45)